=== PATIENT | female | born 1975 | race Caucasian/White ===

== ENCOUNTER 2017-07-18 17:28 | Inpatient (IN) ==
[2017-07-18] MEDS ORDERED: Levofloxacin 750 MG/150 ML 750 MG/150 ML BAG IVPB ONE (19:46)
[2017-07-18] MEDS ORDERED: 0.9 % Sodium Chloride 1,000 ML IVC ONE (19:52)
[2017-07-18] MEDS ORDERED: Ipratropium/Albuterol Neb 3 ML IH ONE (20:11)
[2017-07-18] MEDS ORDERED: methylPREDNISolone 125 MG/2 ML VIAL IVP ONE (20:11)
[2017-07-18 20:13] LABS: Basophils % 0.3 %; Eosinophils % 0.5 %; Hematocrit 37.8 % (35.3-44.9); Hemoglobin 11.9 g/dL (11.5-15.4); Immature Granulocytes % 0.3 % (0-4); Lymphocytes # 1.2 K/mcL (0.6-4.6); Lymphocytes % 15.8 %; Mean Corpuscular HGB Conc 31.5 g/dL (31.6-35.5); Mean Corpuscular Volume 92.2 fL (83.0-100.0); Mean Platelet Volume 12.2 fL (9.4-12.4); Monocytes # 0.5 K/mcL (0.0-1.3); Monocytes % 6.3 %; Neutrophils # 5.9 K/mcL (1.6-8.9); Platelet Count 155 K/mcL (140-400); Red Cell Distribution Width 14.5 % (11.5-14.5); Segmented Neutrophils % 76.8 %
[2017-07-18 20:17] LABS: Prothrombin Time 11.1 Seconds (9.4-12.1)
[2017-07-18 20:25] LABS: BUN/Creatinine Ratio 14 (6-26); Blood Urea Nitrogen 13 mg/dL (7-20); Calcium 8.1 mg/dL (8.6-10.8); Carbon Dioxide 25 mEq/L (19-29); Chloride 107 mEq/L (98-109); Glucose 80 mg/dL (70-99); Osmolality,Calculated 293 (280-300); Potassium 3.7 mEq/L (3.5-4.5); Sodium 142 mEq/L (136-145); eGFR For African Americans > 60 (> 60); eGFR For Non-African Americans > 60 (> 60)
[2017-07-18 20:26] LABS: Albumin 2.6 g/dL (3.5-5.0); Albumin/Globulin Ratio 0.7 (1.1-2.2); Bilirubin,Direct 0.3 mg/dL (0.0-0.5); Bilirubin,Indirect 0.5 mg/dL (0.0-1.2); Bilirubin,Total 0.8 mg/dL (0.2-1.2); Globulin 3.5 g/dL (2.4-3.5); Total Protein 6.1 g/dL (6.0-8.3)
[2017-07-18 20:33] LABS: Platelet Estimate Normal (Normal)
[2017-07-18] MEDS ORDERED: *HR* FentaNYL (PF) 100 MCG/2 ML VIAL IVP ONE (20:36)
[2017-07-18] MEDS ORDERED: *HR* FentaNYL (PF) 100 MCG/2 ML VIAL ONE (20:38)
[2017-07-18] MEDS ORDERED: Ondansetron 4 MG/2 ML VIAL IVP ONE (20:41)
--- NOTE | 2017-07-18 20:59 | Emergency Department Note ---
Disposition Clinical Impression: COPD exacerbation Pneumonia Qualifiers: Pneumonia type: due to unspecified organism Laterality: right Lung location: middle lobe of lung Qualified Code(s): J18.1 - Lobar pneumonia, unspecified organism Disposition: Admitted As Inpatient Condition: Good Referrals: Naresh Skinner MD [Primary Care Provider] - Forms: ED Satisfaction Letter Time of Disposition: 21:02 SOB HPI - General Chief Complaint: ED Shortness of Breath/Dyspnea Stated Complaint: PNEUMONIA Time Seen by Provider: 07/18/17 19:45 Source: patient Limitations: no limitations Nursing Notes Reviewed: Yes Vital Signs Reviewed: Yes - History of Present Illness 42 year old female wiht HX of lupus and fibromylagia states that she usually gets pnuemonia once a year. She states that she has COPD as well secondary to her lupus. PAtient states that for the past month she has had productive cough with fevers of tmax 102F at home in addition to chest pain and shortness of breath. she has seeked therapy from her PCP and tried to self treat at home with OTC mediations. She states that inthe past 24-48 hours she has developed vomitting when she coughs and feels increasingly more weak. She states that typically when this happens she gets admission for pneumonia. - Related Data Home Medications Medication Instructions Recorded Confirmed ALPRAZolam [Xanax 1 MG Tablet] 1 mg PO TID 07/10/16 09/25/16 Albuterol Sulfate [Proair Hfa] 2 puff IH Q4H PRN 07/10/16 09/25/16 Aspirin Enteric Coated [Aspirin EC] 81 mg PO DAILY 07/10/16 09/25/16 Budesonide/Formoterol 160/4.5 2 puff IH BIDR 07/10/16 09/25/16 [Symbicort 160/4.5] Carvedilol [Coreg] 25 mg PO BID 07/10/16 09/25/16 Fluticasone Propionate Nasal 50 mcg NS DAILY 07/10/16 09/25/16 [Flonase] Furosemide [Lasix] 40 mg PO BID 07/10/16 09/25/16 Montelukast [Singulair] 10 mg PO DAILY 07/10/16 09/25/16 Nitroglycerin [Nitrostat] 0.4 mg SL AD PRN 07/10/16 09/25/16 Omeprazole [PriLOSEC] 20 mg PO BIDAC 07/10/16 09/25/16 Oxycodone HCl/Acetaminophen 1 each PO TID 07/10/16 09/25/16 [Percocet 7.5-325 mg Tablet] Potassium Chloride [K-Tab ER] 20 meq PO DAILY 07/10/16 09/25/16 Ranitidine HCl [Zantac] 300 mg PO DAILY 07/10/16 09/25/16 Amlodipine Besylate 10 mg PO DAILY 09/19/16 09/25/16 Metoclopramide HCl 5 mg PO DAILY 09/19/16 09/25/16 Ondansetron [Zofran] 8 mg PO BID PRN 09/19/16 09/25/16 Previous Rx's Medication Instructions Recorded Levothyroxine [Synthroid] 112 mcg PO 0630 #10 tablet 07/13/16 Amoxicillin/Clavulanate [Augmentin] 875 mg PO BIDWM #20 tablet MDD 09/22/16 [id number], 09-22-16. GuaiFENesin ER [Mucinex] 600 mg PO BID PRN #20 tbbp.12hr 09/22/16 Oxygen 2 l IN CONT #1 each 09/22/16 hydroCHLOROthiazide 25 mg PO DAILY #30 tablet 09/27/16 [Hydrochlorothiazide] predniSONE [PredniSONE] 10 mg PO TAPER #30 tablet MDD 09/27/16 Started 09-22-16. Ondansetron [Zofran ODT] 8 mg SL Q4HR PRN #12 tab.rapdis 11/29/16 Ondansetron [Zofran ODT] 8 mg SL Q4HR PRN #6 tab.rapdis 04/10/17 Sulfamethoxazole/Trimeth DS 1 each PO DAILY #7 tablet 04/10/17 [Bactrim DS] Promethazine [Phenergan] 12.5 mg PO Q8HR PRN #10 tablet 05/16/17 Nitrofurantoin Monohyd/M-Cryst 100 mg PO BID 7 Days 05/27/17 [Macrobid 100 mg Capsule] Promethazine [Phenergan] 12.5 mg PO Q8HR #10 tablet 05/27/17 Allergies Allergy/AdvReac Type Severity Reaction Status Date / Time ketorolac [From Toradol] AdvReac Abdominal Verified 05/27/17 18:11 Pain NSAIDS (Non-Steroidal AdvReac Abdominal Verified 05/27/17 18:11 Anti-Inflamma Pain tramadol AdvReac Abdominal Verified 05/27/17 18:11 Pain pyridium AdvReac Abdominal Uncoded 04/10/17 17:12 Pain Constitutional: Reports: fever, chills, weakness. Denies: weight change Eyes: Denies: eye pain, eye discharge, vision change ENT ED: Denies: ear pain, throat pain, dental pain, hearing loss, epistaxis, congestion, dysphagia Cardiovascular: Reports: chest pain, palpitations, dyspnea on exertion. Denies : edema, syncope Respiratory: Reports: cough, dyspnea, wheezes. Denies: hemoptysis, stridor Gastrointestinal: Reports: nausea, vomiting. Denies: abdominal pain, diarrhea, constipation, hematemesis, melena, hematochezia Genitourinary: Denies: dysuria, frequency, hematuria, discharge Musculoskeletal: Denies: back pain, neck pain, arthralgia, myalgia Integumentary: Denies: rash, abrasion, lesions Neurological: Denies: headache, weakness, numbness, paresthesias, confusion, abnormal gait, vertigo Psychiatric: Denies: anxiety, depression, suicidal thoughts, homicidal thoughts , auditory hallucinations, visual hallucinations Endocrine: Denies: fatigue Hematological/Lymphatic: Denies: easy bleeding, easy bruising Allergic/Immunologic: Denies: facial swelling, urticaria Past Medical History - Past Medical History Medical history: Reports: asthma, COPD, DVT, fibromyalgia, GERD, GI bleed, hypertension, kidney stones, myocardial infarction, RA, thyroid disease, other Surgical history: Reports: cholecystectomy, hysterectomy Psychiatric history: Reports: anxiety 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 ACCOUNT INTERVIEWER history: Reports: no NEW ACCOUNT INTERVIEWER history - Social History Smoking Status: Never smoker Smokeless Tobacco Status: No Alcohol use: Reports: none Drug use: Reports: none Physical Exam - General Limitations: no limitations General appearance: alert - Head Head exam: atraumatic, normocephalic, normal inspection - Eye Eye exam: Present: normal appearance, PERRL, EOMI - Expanded Eye Exam Pupils: Left: reactive - ENT ENT exam: normal exam, normal oropharynx, mucous membranes moist - Expanded ENT Exam External ear exam: Present: normal external inspection Mouth exam: Present: normal external inspection Teeth exam: Present: normal inspection Throat exam: Present: normal inspection - Neck Neck exam: Present: normal inspection, full ROM, trachea midline - Chest Chest inspection: Present: normal inspection, symmetric chest wall rise - Respiratory Respiratory exam: Present: normal lung sounds bilaterally - Cardiovascular Cardiovascular exam: Present: regular rate, normal rhythm, normal heart sounds - Abdominal Exam Abdominal exam: Present: soft, Non-Tender. Absent: tenderness, distention, guarding, rebound, rigidity - Extremities Exam Extremities exam: Present: normal inspection, full ROM. Absent: tenderness, pedal edema - Expanded Upper Extremity Exam Shoulder exam: Present: normal inspection, full ROM Arm exam: Present: normal inspection, full ROM Elbow exam: Present: normal inspection, full ROM Forearm/Wrist exam: Present: normal inspection, full ROM Hand exam: Present: normal inspection, full ROM Vascular exam: Normal: capillary refill, radial pulse - Expanded Lower Extremity Exam Hip/Pelvis exam: Present: normal inspection, full ROM Upper leg exam: Present: normal inspection, full ROM Knee exam: Present: normal inspection, full ROM Lower leg exam: Present: normal inspection, full ROM Ankle exam: Present: normal inspection, full ROM Foot/toe exam: Present: normal inspection, full ROM Neurovascular/Tendon exam: Absent: motor deficit, sensory deficit, tendon deficit - Back Exam Back exam: Present: normal inspection, full ROM. Absent: tenderness - Neurological Exam Neurological exam: Present: alert, oriented X3 - Expanded Neurological Exam Patient oriented to: Present: person, place, time Coma Scale Eye Opening: Spontaneous Coma Scale Motor Response: Obeys Commands Coma Scale Verbal Response: Oriented Coma Scale Total: 15 - Psychiatric Psychiatric exam: Present: normal affect, normal mood - Skin Skin exam: Present: warm, dry, intact, normal color Course Course Narrative: we will do a focused sepsis workup. CXR shows pnuemonia, we will start levaquin for therapy. - Consultations Consultation #1: discussed case with Dr Madhu Hamilton and he accepts patient to his service. Reuben is agreeable to plan. Time: 21:02 Vital Signs Temperature 98.1 F 07/18/17 17:36 Pulse Rate 88 07/18/17 17:36 Respiratory Rate 18 07/18/17 17:36 Blood Pressure 138/93 07/18/17 17:36 O2 Sat by Pulse Oximetry 94 07/18/17 17:36 Temperature 98.1 F 07/18/17 17:36 Pulse Rate 89 07/18/17 20:33 Respiratory Rate 20 07/18/17 20:33 Blood Pressure 132/88 07/18/17 20:33 O2 Sat by Pulse Oximetry 98 07/18/17 20:33 Oxygen Delivery Oxygen Delivery Room Air Shortness of Breath/Dyspnea - Lab Data Result diagrams: 07/18/17 20:04 07/18/17 20:04 Lab Results 07/18/17 07/18/17 07/18/17 Range/Units 20:04 20:04 20:04 WBC 7.7 (4.3-11.1) K/mcL RBC 4.10 (3.82-4.97) M/mcL Hgb 11.9 (11.5-15.4) g/dL Hct 37.8 (35.3-44.9) % MCV 92.2 (83.0-100.0) fL MCH 29.0 (28.0-33.3) pg MCHC 31.5 L (31.6-35.5) g/dL RDW 14.5 (11.5-14.5) % Plt Count 155 (140-400) K/mcL MPV 12.2 (9.4-12.4) fL Immature Gran % 0.3 (0-4) % Seg Neutrophils % 76.8 % Lymphocytes % 15.8 % Monocytes % 6.3 % Eosinophils % 0.5 % Basophils % 0.3 % Neutrophils # 5.9 (1.6-8.9) K/mcL Lymphocytes # 1.2 (0.6-4.6) K/mcL Monocytes # 0.5 (0.0-1.3) K/mcL Eosinophils # 0.0 (0.0-0.6) K/mcL Basophils # 0.0 (0.0-0.2) K/mcL Platelet Estimate Normal (Normal) PT (9.4-12.1) Seconds INR APTT (26.0-36.0) Seconds Sodium 142 (136-145) mEq/L Potassium 3.7 (3.5-4.5) mEq/L Chloride 107 (98-109) mEq/L Carbon Dioxide 25 (19-29) mEq/L BUN 13 (7-20) mg/dL Creatinine 0.92 (0.57-1.11) mg/dL Est GFR ( Amer) > 60 (> 60) Est GFR (Non-Af Amer) > 60 (> 60) BUN/Creatinine Ratio 14 (6-26) Glucose 80 (70-99) mg/dL Calculated Osmolality 293 (280-300) Lactic Acid (0.5-2.2) mmol/L Calcium 8.1 L (8.6-10.8) mg/dL Total Bilirubin (0.2-1.2) mg/dL Direct Bilirubin (0.0-0.5) mg/dL Indirect Bilirubin (0.0-1.2) mg/dL AST (5-34) Units/L ALT (0-55) Units/L Alkaline Phosphatase (38-126) Units/L Troponin I (0-0.03) ng/mL B-Natriuretic Peptide 75 (0-100) pg/mL Serum Total Protein (6.0-8.3) g/dL Albumin (3.5-5.0) g/dL Globulin (2.4-3.5) g/dL Albumin/Globulin Ratio (1.1-2.2) Lipase (8-78) Units/L 07/18/17 07/18/17 07/18/17 Range/Units 20:04 20:04 20:04 WBC (4.3-11.1) K/mcL RBC (3.82-4.97) M/mcL Hgb (11.5-15.4) g/dL Hct (35.3-44.9) % MCV (83.0-100.0) fL MCH (28.0-33.3) pg MCHC (31.6-35.5) g/dL RDW (11.5-14.5) % Plt Count (140-400) K/mcL MPV (9.4-12.4) fL Immature Gran % (0-4) % Seg Neutrophils % % Lymphocytes % % Monocytes % % Eosinophils % % Basophils % % Neutrophils # (1.6-8.9) K/mcL Lymphocytes # (0.6-4.6) K/mcL Monocytes # (0.0-1.3) K/mcL Eosinophils # (0.0-0.6) K/mcL Basophils # (0.0-0.2) K/mcL Platelet Estimate (Normal) PT 11.1 (9.4-12.1) Seconds INR 1.0 APTT 44.0 H (26.0-36.0) Seconds Sodium (136-145) mEq/L Potassium (3.5-4.5) mEq/L Chloride (98-109) mEq/L Carbon Dioxide (19-29) mEq/L BUN (7-20) mg/dL Creatinine (0.57-1.11) mg/dL Est GFR ( Amer) (> 60) Est GFR (Non-Af Amer) (> 60) BUN/Creatinine Ratio (6-26) Glucose (70-99) mg/dL Calculated Osmolality (280-300) Lactic Acid 0.6 (0.5-2.2) mmol/L Calcium (8.6-10.8) mg/dL Total Bilirubin 0.8 (0.2-1.2) mg/dL Direct Bilirubin 0.3 (0.0-0.5) mg/dL Indirect Bilirubin 0.5 (0.0-1.2) mg/dL AST 17 (5-34) Units/L ALT 8 (0-55) Units/L Alkaline Phosphatase 64 (38-126) Units/L Troponin I (0-0.03) ng/mL B-Natriuretic Peptide (0-100) pg/mL Serum Total Protein 6.1 (6.0-8.3) g/dL Albumin 2.6 L (3.5-5.0) g/dL Globulin 3.5 (2.4-3.5) g/dL Albumin/Globulin Ratio 0.7 L (1.1-2.2) Lipase (8-78) Units/L 07/18/17 07/18/17 Range/Units 20:04 20:04 WBC (4.3-11.1) K/mcL RBC (3.82-4.97) M/mcL Hgb (11.5-15.4) g/dL Hct (35.3-44.9) % MCV (83.0-100.0) fL MCH (28.0-33.3) pg MCHC (31.6-35.5) g/dL RDW (11.5-14.5) % Plt Count (140-400) K/mcL MPV (9.4-12.4) fL Immature Gran % (0-4) % Seg Neutrophils % % Lymphocytes % % Monocytes % % Eosinophils % % Basophils % % Neutrophils # (1.6-8.9) K/mcL Lymphocytes # (0.6-4.6) K/mcL Monocytes # (0.0-1.3) K/mcL Eosinophils # (0.0-0.6) K/mcL Basophils # (0.0-0.2) K/mcL Platelet Estimate (Normal) PT (9.4-12.1) Seconds INR APTT (26.0-36.0) Seconds Sodium (136-145) mEq/L Potassium (3.5-4.5) mEq/L Chloride (98-109) mEq/L Carbon Dioxide (19-29) mEq/L BUN (7-20) mg/dL Creatinine (0.57-1.11) mg/dL Est GFR ( Amer) (> 60) Est GFR (Non-Af Amer) (> 60) BUN/Creatinine Ratio (6-26) Glucose (70-99) mg/dL Calculated Osmolality (280-300) Lactic Acid (0.5-2.2) mmol/L Calcium (8.6-10.8) mg/dL Total Bilirubin (0.2-1.2) mg/dL Direct Bilirubin (0.0-0.5) mg/dL Indirect Bilirubin (0.0-1.2) mg/dL AST (5-34) Units/L ALT (0-55) Units/L Alkaline Phosphatase (38-126) Units/L Troponin I 0.01 (0-0.03) ng/mL B-Natriuretic Peptide (0-100) pg/mL Serum Total Protein (6.0-8.3) g/dL Albumin (3.5-5.0) g/dL Globulin (2.4-3.5) g/dL Albumin/Globulin Ratio (1.1-2.2) Lipase 12 (8-78) Units/L
[2017-07-18] MEDS ORDERED: Ondansetron 4 MG/2 ML VIAL IVP PRN (23:08)
[2017-07-18] MEDS ORDERED: Acetaminophen 325 MG TABLET PO PRN (23:08)
[2017-07-18] MEDS ORDERED: Naloxone 0.4 MG/ML INJ IVP PRN (23:08)
[2017-07-18] MEDS ORDERED: Nitroglycerin 0.4 MG TAB.SUBL SL PRN (23:12)
[2017-07-18] MEDS ORDERED: NON-FORMULARY MEDICATION 1 EACH EACH (Oxygen [Oxygen] 2 L) NS SCH (23:15)
--- NOTE | 2017-07-18 23:16 | Internal Med History&Physical ---
Date of Encounter: 07/19/17 Time of Encounter: 23:00 Assessment and Plan (1) Pneumonia Current visit: Yes Status: Acute Right middle lobe pneumonia - present on admission Continue IV Levaquin, DuoNeb breathing treatment Cultures - pending Chest x-ray - hazy opacities in the right middle lobe and lingula Troponin - negative BN peptide - 75 Cardiac telemetry, continue to monitor closely, repeat labs in a.m. Qualifiers: Pneumonia type: due to unspecified organism Laterality: right Lung location: middle lobe of lung Qualified Code(s): J18.1 - Lobar pneumonia, unspecified organism (2) COPD (chronic obstructive pulmonary disease) Current visit: No Status: Acute Acute exacerbation of chronic COPD Continue IV antibiotics, DuoNeb breathing treatment, O2 via nasal cannula, IV soy Medrol Cultures - pending Cardiac telemetry, pulse ox, continue to monitor closely Qualifiers: COPD type: chronic bronchitis Chronic bronchitis type: simple Qualified Code(s): J41.0 - Simple chronic bronchitis (3) Lupus Current visit: No Status: Chronic Systemic lupus erythematosus with lupus nephritis - no flareup at this time Patient follows up with rheumatology and PCP She will need to establish care with nephrology Qualifiers: Systemic lupus erythematosus type: unspecified Systemic lupus erythematosus organ involvement: unspecified Qualified Code(s): M32.9 - Systemic lupus erythematosus, unspecified (4) DVT prophylaxis Current visit: Yes Status: Acute Continue heparin subcutaneous Internal Medicine - H&P: HPI Chief complaint: Shortness of breath Admitted From: Emergency Dept Plans for Post Hospital Care: Home History of present illness: Ms. Chowdary is a 42 year old female with past medical history of lupus, rheumatoid arthritis, fibromyalgia, lupus nephritis, COPD, DVT, history of GI bleed, thyroid disease and history of anxiety. Patient presents to ED with complaint of shortness of breath. Examined in the room. Patient is awake and alert. Not in any distress. Able to provide all history. No family members at bedside. Patient states she developed shortness of breath and mild chest pain about one month ago. Symptoms gradually worsened over the past week. Patient states today it was worse, and she has productive cough. She also complains of subjective fevers. Patient thinks she may have pneumonia. Initial workup in the ED reveals right middle lobe opacities, likely pneumonia. No other significant findings. Patient is being admitted for pneumonia and COPD. She will need IV antibiotics and breathing treatment. CODE STATUS full code. Past Med Surg Social Fam HX - Past Medical History Medical history: asthma, COPD, DVT, fibromyalgia, GERD, GI bleed, hypertension, kidney stones, myocardial infarction, RA, thyroid disease, other Psychiatric history: anxiety - Past Surgical History Surgical History: cholecystectomy, hysterectomy - Social History Smoking Status: Never smoker Smokeless Tobacco Status: No Alcohol use: none Drug use: none - Family History Mother Living Status: Hx Family Cardiac Disorders: Yes (mi) Father Living Status: Hx Family Cardiac Disorders: Yes Hx Family Endocrine Disorder: Yes Internal Medicine - H&P: Meds Albuterol Sulfate [Proair Hfa] 2 puff IH Q4H PRN 07/10/16 [History] Aspirin Enteric Coated [Aspirin EC] 81 mg PO DAILY 07/10/16 [History] Carvedilol [Coreg] 25 mg PO BID 07/10/16 [History] Fluticasone Propionate Nasal [Flonase] 50 mcg NS DAILY 07/10/16 [History] Furosemide [Lasix] 40 mg PO BID 07/10/16 [History] Montelukast [Singulair] 10 mg PO DAILY 07/10/16 [History] Nitroglycerin [Nitrostat] 0.4 mg SL Q5M PRN 07/10/16 [History] Omeprazole [PriLOSEC] 20 mg PO BIDAC 07/10/16 [History] Oxycodone HCl/Acetaminophen [Percocet 7.5-325 mg Tablet] 1 each PO TID PRN 07/10 [History] Potassium Chloride [K-Tab ER] 20 meq PO DAILY 07/10/16 [History] Ranitidine HCl [Zantac] 300 mg PO HS 07/10/16 [History] Levothyroxine [Synthroid] 112 mcg PO 0630 #10 tablet 07/13/16 [Rx] Amlodipine Besylate 10 mg PO DAILY 09/19/16 [History] Metoclopramide HCl 5 mg PO DAILY 09/19/16 [History] Ondansetron [Zofran] 8 mg PO BID PRN 09/19/16 [History] Alprazolam [Xanax] 2 mg PO BID 07/18/17 [History] Citalopram Hydrobromide [Celexa] 40 mg PO DAILY 07/18/17 [History] Cyanocobalamin (Vitamin B-12) [Vitamin B12] 2,000 mcg PO DAILY 07/18/17 [History ] Ipratropium/Albuterol Neb [Duoneb] 3 ml IH Q6H PRN 07/18/17 [History] Lisinopril/Hydrochlorothiazide [Zestoretic 20-25 mg Tablet] 1 each PO BID [History] Mometasone/Formoterol [Dulera 200 Mcg/5 Mcg Inhaler] 1 puff IH BID 07/18/17 [ History] Oxygen 2 l NS AD 07/18/17 [History] 3 Allergy/AdvReac Type Severity Reaction Status Date / Time ketorolac [From Toradol] AdvReac Abdominal Verified 05/27/17 18:11 Pain NSAIDS (Non-Steroidal AdvReac Abdominal Verified 05/27/17 18:11 Anti-Inflamma Pain tramadol AdvReac Abdominal Verified 05/27/17 18:11 Pain pyridium AdvReac Abdominal Uncoded 04/10/17 17:12 Pain All Systems PM: A 10-system review of systems was performed and is negative for pertinent findings except as documented above in the HPI. - Constitutional Constitutional: fatigue, fever(s), weakness - EENT Eyes: no blurry vision - Cardiovascular Cardiovascular ROS IM: chest pain, dyspnea, dyspnea on exertion, no diaphoresis , no edema, no lightheadedness, no orthopnea, no syncope - Respiratory Respiratory: cough, dyspnea, dyspnea on exertion, wheezing, chest congestion - Gastrointestinal Gastrointestinal: no abdominal pain, no belching, no diarrhea, no hematemesis, no hematochezia, no nausea, no vomiting - Genitourinary Genitourinary: no dysuria - Musculoskeletal Musculoskeletal ROS IM: no back pain - Neurological Neurological ROS: no abnormal gait, no confusion, no dizziness, no loss of vision, no numbness, no tingling - Constitutional Vitals: Temp Pulse Resp BP Pulse Ox 97.6 F 87 16 160/81 99 07/18/17 21:51 07/18/17 21:51 07/18/17 21:51 07/18/17 21:51 07/18/17 21:51 General appearance: Present: A&O X 3, pleasant, no acute distress, answers questions appropriately - Head Head exam: Present: atraumatic - Eye Eye exam: Present: EOMI - ENT ENT exam: Present: mucous membranes moist - Respiratory Respiratory exam: Present: rhonchi (I will bilateral), wheezes (Mild bilateral) . Absent: accessory muscle use, chest wall tenderness, rales, tachypnea - Cardiovascular Cardiovascular exam: Present: RRR, +S1, +S2 - GI/Abdominal GI/Abdominal exam: Present: soft. Absent: distended, firm, guarding, tenderness - Extremities Exam Extremities exam: Present: radial pulses palpable and symmetrical. Absent: calf tenderness, cyanotic, pedal edema - Neurological Exam Neurological exam: Present: alert, oriented X3, no focal deficits. Absent: facial droop, speech deficit Internal Med - H&P Results - Labs CBC & Chem 7: 07/18/17 20:04 07/18/17 20:04
[2017-07-18] MEDS: *HR* Heparin 5,000 UNIT/ML VIAL SQ SCH (23:26)
[2017-07-18] MEDS: *HR* Morphine 2 MG/ML SYRINGE IVP PRN (23:26)
[2017-07-18] MEDS: Furosemide 40 MG TABLET PO SCH (23:27)
[2017-07-18] MEDS: Ipratropium/Albuterol Neb 3 ML IH SCH (23:53)
[2017-07-19] MEDS: ALPRAZolam 1 MG TABLET PO PRN ×2 (00:23→11:23)
[2017-07-19] MEDS: methylPREDNISolone 125 MG/2 ML VIAL IVP SCH ×3 (00:23→20:53)
[2017-07-19] MEDS: *HR* Morphine 2 MG/ML SYRINGE IVP PRN ×5 (03:45→20:54)
[2017-07-19] MEDS ORDERED: Ipratropium/Albuterol Neb 3 ML IH SCH (04:00)
[2017-07-19 04:13] LABS: Hemoglobin 11.3 g/dL (11.5-15.4); Mean Corpuscular HGB Conc 32.3 g/dL (31.6-35.5); Mean Corpuscular Volume 92.8 fL (83.0-100.0); Platelet Count 130 K/mcL (140-400); Red Blood Count 3.77 M/mcL (3.82-4.97); Red Cell Distribution Width 14.4 % (11.5-14.5)
[2017-07-19 04:26] LABS: Bilirubin,Urine Negative (Negative); Blood,Urine Moderate (Negative); Clarity,Urine Clear (Clear); Color,Urine Yellow (Yellow); Glucose,Urine (UA) Normal (Normal); Ketones,Urine Negative (Negative); Leukocyte Esterase,Urine Negative (Negative); Nitrite,Urine Negative (Negative); PH,Urine 5.5 pH Units (5.0-8.0); Protein,Urine >=300 mg/dL (Neg-Trace); Specific Gravity,Urine 1.018 (1.010-1.025); Urobilinogen,Urine Normal (Normal)
[2017-07-19 04:27] LABS: Squamous Epithelial Cell,Urine Many per lpf (None-Few); WBC,Urine 15-30 per hpf (0-3)
[2017-07-19 04:31] LABS: BUN/Creatinine Ratio 17 (6-26); Blood Urea Nitrogen 14 mg/dL (7-20); Calcium 7.8 mg/dL (8.6-10.8); Carbon Dioxide 25 mEq/L (19-29); Chloride 110 mEq/L (98-109); Glucose 201 mg/dL (70-99); Magnesium 1.7 mg/dL (1.6-2.6); Osmolality,Calculated 302 (280-300); Potassium 3.8 mEq/L (3.5-4.5); Sodium 143 mEq/L (136-145); eGFR For African Americans > 60 (> 60); eGFR For Non-African Americans > 60 (> 60)
[2017-07-19 04:34] LABS: Hyaline Casts,Urine Many per lpf (None-Few)
[2017-07-19 04:39] LABS: Granular Casts,Urine Few per lpf (None Seen)
[2017-07-19 04:43] LABS: Bacteria,Urine Few per hpf (None-Few); Fatty Casts,Urine Few per lpf (None Seen)
[2017-07-19] MEDS ORDERED: *HR* Dextrose 50 % in Water (Syg) 50 ML SYRINGE IVP PRN (05:21)
[2017-07-19] MEDS ORDERED: Dextrose Gel 15 GM PO PRN ×2 (05:21)
[2017-07-19] MEDS ORDERED: D5% in Water 1,000 ML IVC PRN (05:21)
[2017-07-19 05:32] LABS: Large Platelets Present (Not Present); Lymphocytes # 0.4 K/mcL (0.6-4.6); Monocytes # 0.1 K/mcL (0.0-1.3); Neutrophils # 4.2 K/mcL (1.6-8.9); Platelet Estimate Normal (Normal)
[2017-07-19] MEDS: Famotidine 20 MG/2 ML VIAL IVP SCH ×2 (05:40→16:41)
[2017-07-19] MEDS: Ipratropium/Albuterol Neb 3 ML IH SCH ×6 (05:46→23:30)
[2017-07-19] MEDS: *HR* Heparin 5,000 UNIT/ML VIAL SQ SCH ×3 (07:58→23:59)
[2017-07-19] MEDS: Levofloxacin 750 MG/150 ML 750 MG/150 ML BAG IVPB SCH (07:58)
[2017-07-19] MEDS: Furosemide 40 MG TABLET PO SCH (08:00)
[2017-07-19] MEDS: Cyanocobalamin (B-12) 1,000 MCG TABLET PO SCH (08:01)
[2017-07-19] MEDS: Aspirin Enteric Coated 81 MG Tablet PO SCH (08:01)
[2017-07-19] MEDS: amLODIPine 5 MG TABLET PO SCH (08:01)
[2017-07-19] MEDS: Insulin LISPRO 300 UNITS/3 ML VIAL SQ SCH ×4 (08:20→21:30)
--- NOTE | 2017-07-19 10:53 | Internal Med Progress Note ---
Date of Encounter: 07/19/17 Time of Encounter: 10:51 - Assessment and plan (1) Acute exacerbation of chronic obstructive airways disease Current Visit: No Status: Acute Assessment and plan: Likely secondary to underlying PNA will continue systemic steroids, IV abx, bronchodilator support O2 supplementation monitor O2 sat, goal O2 sat: 89-92% Mucinex prn will closely monitor respiratory status (2) Pneumonia Current Visit: Yes Status: Acute Assessment and plan: will continue IV abx f/U blood cultures Qualifiers: Pneumonia type: due to unspecified organism Laterality: right Lung location: middle lobe of lung Qualified Code(s): J18.1 - Lobar pneumonia, unspecified organism (3) Abdominal pain Current Visit: Yes Status: Acute Assessment and plan: will obtain CT abd/pelvis supportive care Zofran prn n/v Qualifiers: Abdominal location: right lower quadrant Qualified Code(s): R10.31 - Right lower quadrant pain (4) Lupus Current Visit: No Status: Chronic Qualifiers: Systemic lupus erythematosus type: unspecified Systemic lupus erythematosus organ involvement: unspecified Qualified Code(s): M32.9 - Systemic lupus erythematosus, unspecified (5) Chronic pain Current Visit: No Status: Chronic Assessment and plan: continue home medications Qualifiers: Chronic pain type: chronic pain syndrome Qualified Code(s): G89.4 - Chronic pain syndrome (6) DVT prophylaxis Current Visit: Yes Status: Acute Assessment and plan: Heparin SQ - Subjective Interval history: Patient seen and examined at bedside. Resting in bed and currently saturating well on nasal cannula. Reports of feeling the same as yesterday. States she has worsening right lower quadrant abd pain. Complains of productive cough and nausea. - Constitutional Vitals: Temp Pulse Resp BP Pulse Ox 97.6 F 67 18 131/80 95 07/19/17 06:42 07/19/17 06:42 07/19/17 08:36 07/19/17 06:42 07/19/17 08:36 General appearance: Present: A&O X 3, pleasant, no acute distress, answers questions appropriately - Head Head exam: Present: atraumatic, normocephalic - Eye Eye exam: Present: conjuntiva pink, sclera anicteric - Respiratory Respiratory exam: Absent: respiratory distress, wheezes (decreased breath sounds ) - Cardiovascular Cardiovascular exam: Present: RRR, +S1, +S2. Absent: diastolic murmur, gallop, rubs, systolic murmur - GI/Abdominal GI/Abdominal exam: Present: normal bowel sounds, soft, tenderness (RLQ tenderness to palpation), no peritoneal signs. Absent: distended, rebound - Extremities Exam Extremities exam: Present: warm, radial pulses palpable and symmetrical. Absent : calf tenderness, cyanotic, pedal edema - Neurological Exam Neurological exam: Present: alert, oriented X3 - Psychiatric Psychiatric exam: Present: normal affect, normal mood Internal Medicine: Result - Labs CBC & Chem 7: 07/19/17 03:30 07/19/17 03:30 Labs: Short CBC 07/19/17 Range/Units 03:30 WBC 4.7 (4.3-11.1) K/mcL Hgb 11.3 L (11.5-15.4) g/dL Hct 35.0 L (35.3-44.9) % Plt Count 130 L (140-400) K/mcL Neutrophils # 4.2 (1.6-8.9) K/mcL BMP 07/19/17 03:30 Sodium 143 Potassium 3.8 Chloride 110 H Carbon Dioxide 25 BUN 14 Creatinine 0.82 Glucose 201 H Calcium 7.8 L Cardiac Enzymes 07/18/17 07/19/17 Range/Units 23:15 03:50 Troponin I 0.00 0.00 (0-0.03) ng/mL Urine 07/19/17 Range/Units 04:00 Urine Color Yellow (Yellow) Urine Clarity Clear (Clear) Urine pH 5.5 (5.0-8.0) pH Units Ur Specific [place] 1.018 (1.010-1.025) Urine Protein >=300 H (Neg-Trace) mg/dL Urine Glucose (UA) Normal (Normal) mg/dL - ABG Interpretation ABG results: PT/INR, D-dimer PT 11.1 Seconds (9.4-12.1) 07/18/17 20:04 Consult Discharge Plan - Plan Referrals: Naresh Skinner MD [Primary Care Provider] -
[2017-07-19] MEDS: *HR* OxyCODONE/APAP 7.5/325 TABLET PO PRN ×3 (11:23→23:59)
[2017-07-19] MEDS: Ondansetron 4 MG/2 ML VIAL IVP PRN ×2 (16:41→23:59)
[2017-07-19] MEDS ORDERED: Furosemide 40 MG TABLET PO SCH (17:00)
[2017-07-20] MEDS: *HR* Morphine 2 MG/ML SYRINGE IVP PRN ×4 (03:12→23:37)
[2017-07-20] MEDS: ALPRAZolam 1 MG TABLET PO PRN ×2 (03:12→21:28)
[2017-07-20] MEDS: Ipratropium/Albuterol Neb 3 ML IH SCH ×5 (03:55→20:17)
[2017-07-20 04:29] LABS: Basophils % 0.1 %; Hematocrit 34.4 % (35.3-44.9); Hemoglobin 10.9 g/dL (11.5-15.4); Immature Granulocytes % 0.5 % (0-4); Lymphocytes # 0.6 K/mcL (0.6-4.6); Lymphocytes % 7.3 %; Mean Corpuscular HGB Conc 31.7 g/dL (31.6-35.5); Mean Corpuscular Hemoglobin 29.9 pg (28.0-33.3); Mean Corpuscular Volume 94.2 fL (83.0-100.0); Mean Platelet Volume 12.2 fL (9.4-12.4); Monocytes # 0.3 K/mcL (0.0-1.3); Monocytes % 3.2 %; Platelet Count 172 K/mcL (140-400); Red Blood Count 3.65 M/mcL (3.82-4.97); Red Cell Distribution Width 14.3 % (11.5-14.5); Segmented Neutrophils % 88.9 %
[2017-07-20 04:31] LABS: Neutrophils # 7.4 K/mcL (1.6-8.9)
[2017-07-20 04:46] LABS: Calcium 8.4 mg/dL (8.6-10.8); Magnesium 1.7 mg/dL (1.6-2.6); Phosphorous 3.1 mg/dL (2.3-4.7); Potassium 4.7 mEq/L (3.5-4.5)
[2017-07-20] MEDS: Famotidine 20 MG/2 ML VIAL IVP SCH (06:08)
[2017-07-20] MEDS: *HR* OxyCODONE/APAP 7.5/325 TABLET PO PRN (06:14)
[2017-07-20] MEDS: methylPREDNISolone 125 MG/2 ML VIAL IVP SCH ×2 (08:11→21:28)
[2017-07-20] MEDS: *HR* Heparin 5,000 UNIT/ML VIAL SQ SCH ×3 (08:12→23:37)
[2017-07-20] MEDS: Insulin LISPRO 300 UNITS/3 ML VIAL SQ SCH ×4 (08:12→21:26)
[2017-07-20] MEDS: Aspirin Enteric Coated 81 MG Tablet PO SCH (08:13)
[2017-07-20] MEDS: Cyanocobalamin (B-12) 1,000 MCG TABLET PO SCH (08:13)
[2017-07-20] MEDS: amLODIPine 5 MG TABLET PO SCH (08:13)
[2017-07-20] MEDS: Levofloxacin 750 MG/150 ML 750 MG/150 ML BAG IVPB SCH (08:15)
--- NOTE | 2017-07-20 09:41 | Internal Med Progress Note ---
Date of Encounter: 07/20/17 Time of Encounter: 09:32 - Assessment and plan (1) Acute exacerbation of chronic obstructive airways disease Current Visit: No Status: Acute Assessment and plan: Likely secondary to underlying PNA will continue systemic steroids, IV abx, bronchodilator support O2 supplementation monitor O2 sat, goal O2 sat: 89-92% Guaifenesin prn cough will closely monitor respiratory status (2) Pneumonia Current Visit: Yes Status: Acute Assessment and plan: will continue IV abx f/U blood cultures Qualifiers: Pneumonia type: due to unspecified organism Laterality: right Lung location: middle lobe of lung Qualified Code(s): J18.1 - Lobar pneumonia, unspecified organism (3) Abdominal pain Current Visit: Yes Status: Resolved Assessment and plan: CT abd/pelvis noted resolution of abd pain at this time Qualifiers: Abdominal location: right lower quadrant Qualified Code(s): R10.31 - Right lower quadrant pain (4) Lupus Current Visit: No Status: Chronic Qualifiers: Systemic lupus erythematosus type: unspecified Systemic lupus erythematosus organ involvement: unspecified Qualified Code(s): M32.9 - Systemic lupus erythematosus, unspecified (5) Chronic pain Current Visit: No Status: Chronic Assessment and plan: continue home medications Qualifiers: Chronic pain type: chronic pain syndrome Qualified Code(s): G89.4 - Chronic pain syndrome (6) DVT prophylaxis Current Visit: Yes Status: Acute Assessment and plan: Heparin SQ (7) MARTI (acute kidney injury) Current Visit: Yes Status: Acute Assessment and plan: Will hold Lasix at this time avoid nephrotoxic agents closely monitor renal function (8) Proteinuria Current Visit: Yes Status: Acute Assessment and plan: Nephrology consultation requested Qualifiers: Proteinuria type: unspecified Qualified Code(s): R80.9 - Proteinuria, unspecified - Subjective Interval history: Patient seen and examined at bedside. Sitting in chair and reports of feeling better compared to the previous day. Reports of improvement in her cough from previous day. Noted to have proteinuria with mild MARTI. Pt states her PCP has told her that she needs to see a wave soldering machine operator but she has yet to see one. Patient does not know why she is on Lasix, no history of CHF. - Constitutional Vitals: Temp Pulse Resp BP Pulse Ox 97.5 F L 55 18 115/68 96 07/20/17 06:26 07/20/17 06:26 07/20/17 06:26 07/20/17 06:26 07/20/17 06:26 General appearance: Present: A&O X 3, pleasant, no acute distress, answers questions appropriately - Head Head exam: Present: atraumatic, normocephalic - Eye Eye exam: Present: conjuntiva pink, sclera anicteric - Respiratory Respiratory exam: Present: decreased breath sounds. Absent: respiratory distress, wheezes - Cardiovascular Cardiovascular exam: Present: bradycardia, +S1, +S2. Absent: diastolic murmur, gallop, rubs, systolic murmur - GI/Abdominal GI/Abdominal exam: Present: normal bowel sounds, soft, no peritoneal signs. Absent: distended, tenderness - Extremities Exam Extremities exam: Present: warm, radial pulses palpable and symmetrical. Absent : calf tenderness - Neurological Exam Neurological exam: Present: alert, oriented X3 - Psychiatric Psychiatric exam: Present: normal affect, normal mood Internal Medicine: Result - Labs CBC & Chem 7: 07/20/17 04:05 07/20/17 04:05 Labs: Short CBC 07/20/17 Range/Units 04:05 WBC 8.3 D (4.3-11.1) K/mcL Hgb 10.9 L (11.5-15.4) g/dL Hct 34.4 L (35.3-44.9) % Plt Count 172 (140-400) K/mcL Neutrophils # 7.4 (1.6-8.9) K/mcL BMP 07/20/17 04:05 Sodium 139 Potassium 4.7 H Chloride 106 Carbon Dioxide 26 BUN 33 H D Creatinine 1.32 H D Glucose 171 H Calcium 8.4 L Cardiac Enzymes 07/19/17 Range/Units 11:50 Troponin I 0.00 (0-0.03) ng/mL - ABG Interpretation ABG results: PT/INR, D-dimer PT 11.1 Seconds (9.4-12.1) 07/18/17 20:04 - Impressions Impressions Abdomen/Pelvis CT 07/19/17 10:35 IMPRESSION: 1. No acute abdominopelvic process demonstrated 2. New airspace disease in the right middle lobe has the appearance of pneumonia D/ / Mian Huff MD / Mian Huff MD Interpreting Provider: Mian Huff MD Consult Discharge Plan - Plan Referrals: Naresh Skinner MD [Primary Care Provider] -
[2017-07-20 10:08] LABS: Hemoglobin A1C 5.4 %
[2017-07-20 15:25] LABS: Protein/Creatinine Ratio,Urine 0.47 mg/mg (0-0.20)
--- NOTE | 2017-07-20 15:31 | Nephrology Consult Note ---
Date of Encounter: 07/20/17 Time of Encounter: 15:16 Assessment and Plan (1) MARTI (acute kidney injury) Current Visit: Yes Status: Acute The patient has acute kidney injury of unclear etiology. She denies nausea vomiting or diarrhea. With this recent rise in urinary protein excretion and ongoing hematuria along with her rash I am concerned about lupus involvement in the kidney. I will initiate fluid and order a workup to evaluate for a lupus flare. Since she reports that she has not been biopsied I will order a renal biopsy as well. With long-standing hematuria patient appears to have stage II chronic kidney disease. Her renal ultrasound from last year was unremarkable. I do not see a need to repeat one at this time. (2) COPD exacerbation Current Visit: Yes Status: Acute Management per primary team. Patient is on steroids. (3) Pneumonia Current Visit: Yes Status: Acute Patient is on Levaquin. Management per primary team. With the lack of a leukocytosis or fever we will need to consider the possibility of lupus involvement in the lung. Monitor for improvement. Qualifiers: Pneumonia type: due to unspecified organism Laterality: right Lung location: middle lobe of lung Qualified Code(s): J18.1 - Lobar pneumonia, unspecified organism (4) Proteinuria Current Visit: Yes Status: Acute Check a urinary protein to creatinine ratio. Patient would benefit from a renal biopsy. Qualifiers: Proteinuria type: unspecified Qualified Code(s): R80.9 - Proteinuria, unspecified (5) Abdominal pain Current Visit: Yes Status: Resolved Unclear etiology. CT of the abdomen without contrast was unremarkable. Qualifiers: Abdominal location: right lower quadrant Qualified Code(s): R10.31 - Right lower quadrant pain (6) Anxiety disorder Current Visit: No Status: Chronic Defer to primary team. Qualifiers: Anxiety disorder type: generalized anxiety disorder Qualified Code(s): F41.1 - Generalized anxiety disorder (7) SLE (systemic lupus erythematosus) Current Visit: No Status: Chronic This was diagnosed in 2004 per the patient. We will check to see if lupus is active. Qualifiers: Systemic lupus erythematosus type: unspecified Systemic lupus erythematosus organ involvement: unspecified Qualified Code(s): M32.9 - Systemic lupus erythematosus, unspecified (8) Hypertension Current Visit: No Status: Chronic This was diagnosed in 2004 per the patient. Continue home medication and titrate as needed. Qualifiers: Hypertension type: essential hypertension Qualified Code(s): I10 - Essential (primary) hypertension History of Present Illness - Reason for Consult Consult date: 07/20/17 Acute Kidney Injury - Chief Complaint MARTI - History of Present Illness is a 42 yo woman with a history of hypertension and lupus who presents for the evaluation of dyspnea. She reports that her primary care is provided by a physician at [facility] in [place]. The patient presents because she was short of breath upon admission she was diagnosed with pneumonia and admitted to the hospitalist services. She was found to have an elevated urinary protein excretion and a consult was placed for nephrology. The patient reports that she previously followed with a car scrubber at [place], but has not seen anyone in over 4 years and the car scrubber that she followed moved away. She reports a history of protein in her urine, but denies having a renal biopsy. She reports she has had blood in the urine for years and it is occasionally visible. She also reports having foamy urine for years. She denies NSAID use. She denies a family history of kidney disease. At the time of my evaluation she reports feeling slightly better, but does complain of fatigue and states her rash which is a sign of a lupus flare has returned. Past Med Surg Social Fam HX - Past Medical History Medical history: asthma, COPD, DVT, fibromyalgia, GERD, GI bleed, hypertension, kidney stones, myocardial infarction, RA, thyroid disease, other Psychiatric history: anxiety - Past Surgical History Surgical History: cholecystectomy, hysterectomy - Social History Smoking Status: Never smoker Smokeless Tobacco Status: No Alcohol use: none Drug use: none - Family History Mother Living Status: Hx Family Cardiac Disorders: Yes (mi) Father Living Status: Hx Family Cardiac Disorders: Yes Hx Family Endocrine Disorder: Yes Medications and Allergies Albuterol Sulfate [Proair Hfa] 2 puff IH Q4H PRN 07/10/16 [History] Aspirin Enteric Coated [Aspirin EC] 81 mg PO DAILY 07/10/16 [History] Carvedilol [Coreg] 25 mg PO BID 07/10/16 [History] Fluticasone Propionate Nasal [Flonase] 50 mcg NS DAILY 07/10/16 [History] Furosemide [Lasix] 40 mg PO BID 07/10/16 [History] Montelukast [Singulair] 10 mg PO DAILY 07/10/16 [History] Nitroglycerin [Nitrostat] 0.4 mg SL Q5M PRN 07/10/16 [History] Omeprazole [PriLOSEC] 20 mg PO BIDAC 07/10/16 [History] Oxycodone HCl/Acetaminophen [Percocet 7.5-325 mg Tablet] 1 each PO TID PRN 07/10 [History] Potassium Chloride [K-Tab ER] 20 meq PO DAILY 07/10/16 [History] Ranitidine HCl [Zantac] 300 mg PO HS 07/10/16 [History] Levothyroxine [Synthroid] 112 mcg PO 0630 #10 tablet 07/13/16 [Rx] Amlodipine Besylate 10 mg PO DAILY 09/19/16 [History] Metoclopramide HCl 5 mg PO DAILY 09/19/16 [History] Ondansetron [Zofran] 8 mg PO BID PRN 09/19/16 [History] Alprazolam [Xanax] 2 mg PO BID 07/18/17 [History] Citalopram Hydrobromide [Celexa] 40 mg PO DAILY 07/18/17 [History] Cyanocobalamin (Vitamin B-12) [Vitamin B12] 2,000 mcg PO DAILY 07/18/17 [History ] Ipratropium/Albuterol Neb [Duoneb] 3 ml IH Q6H PRN 07/18/17 [History] Lisinopril/Hydrochlorothiazide [Zestoretic 20-25 mg Tablet] 1 each PO BID [History] Mometasone/Formoterol [Dulera 200 Mcg/5 Mcg Inhaler] 1 puff IH BID 07/18/17 [ History] Oxygen 2 l NS AD 07/18/17 [History] 3 Allergy/AdvReac Type Severity Reaction Status Date / Time ketorolac [From Toradol] AdvReac Abdominal Verified 05/27/17 18:11 Pain NSAIDS (Non-Steroidal AdvReac Abdominal Verified 05/27/17 18:11 Anti-Inflamma Pain tramadol AdvReac Abdominal Verified 05/27/17 18:11 Pain pyridium AdvReac Abdominal Uncoded 04/10/17 17:12 Pain Review of Systems All Systems: reviewed and no additional remarkable complaints except as stated ( As documented in the history of present illness.) Exam - Vital Signs Vital signs: Initial Vital Signs Temp Pulse Resp BP Pulse Ox 98.1 F 88 18 138/93 94 07/18/17 17:36 07/18/17 17:36 07/18/17 17:36 07/18/17 17:36 07/18/17 17:36 Vital Signs - Last 8 Hours Temp Pulse Resp BP Pulse Ox 07/20/17 15:00 97.7 F 53 18 98/59 93 07/20/17 11:55 97.8 F 48 18 112/74 100 07/20/17 11:44 16 91 Intake and Output 07/19/17 07/20/17 07/20/17 23:59 07:59 15:59 Intake Total 480 / 480 480 / 480 120 / 120 Output Total 400 / 400 400 / 400 200 / 200 Balance 80 / 80 80 / 80 -80 / -80 Intake: Oral 480 / 480 480 / 480 120 / 120 Output: Urine 400 / 400 400 / 400 200 / 200 Other: Meal Lunch Percent of Meal Consumed 5% # Bowel Movements 0 Weight 69.9 kg Blood Glucose* 198 144 149 Patient Weight 07/20/17 23:59 Weight 69.9 kg - General Appearance General appearance: well-developed, well-nourished EENT: ATNC Neck: supple Respiratory: wheezing, course breath sounds, rhonchi Cardiology: no edema, regular rate, regular rhythm Gastrointestinal: no tenderness Integumentary: warm and dry Neurologic: alert and oriented x3 Musculoskeletal: no cyanosis Psychiatric: mood/affect appropriate Results - Lab Results 07/20/17 04:05 07/20/17 04:05 Most recent lab results Calcium 8.4 mg/dL (8.6-10.8) L 07/20/17 04:05 Phosphorus 3.1 mg/dL (2.3-4.7) 07/20/17 04:05 Magnesium 1.7 mg/dL (1.6-2.6) 07/20/17 04:05 Consult Discharge Plan - Plan Referrals: Naresh Skinner MD [Primary Care Provider] -
[2017-07-20] MEDS ORDERED: 0.9 % Sodium Chloride 1,000 ML IVC SCH (15:45)
[2017-07-20] MEDS: Ondansetron 4 MG/2 ML VIAL IVP PRN (17:03)
[2017-07-20 20:24] LABS: Bilirubin,Urine Negative (Negative); Blood,Urine Small (Negative); Clarity,Urine Cloudy (Clear); Color,Urine Yellow (Yellow); Glucose,Urine (UA) Normal (Normal); Ketones,Urine Negative (Negative); Leukocyte Esterase,Urine Moderate (Negative); Nitrite,Urine Negative (Negative); PH,Urine 5.5 pH Units (5.0-8.0); Protein,Urine 30 mg/dL (Neg-Trace); Specific Gravity,Urine 1.019 (1.010-1.025); Urobilinogen,Urine Normal (Normal)
[2017-07-20 20:26] LABS: Bacteria,Urine None Seen per hpf (None-Few); Hyaline Casts,Urine None Seen per lpf (None-Few); Squamous Epithelial Cell,Urine Many per lpf (None-Few); WBC,Urine 50-100 per hpf (0-3)
[2017-07-21] MEDS: Ipratropium/Albuterol Neb 3 ML IH SCH ×7 (00:22→23:51)
[2017-07-21] MEDS: *HR* OxyCODONE/APAP 7.5/325 TABLET PO PRN (04:31)
[2017-07-21 05:12] LABS: Basophils % 0.1 %; Hematocrit 33.4 % (35.3-44.9); Hemoglobin 10.2 g/dL (11.5-15.4); Immature Granulocytes % 1.6 % (0-4); Lymphocytes # 0.6 K/mcL (0.6-4.6); Mean Corpuscular HGB Conc 30.5 g/dL (31.6-35.5); Mean Corpuscular Hemoglobin 29.1 pg (28.0-33.3); Mean Corpuscular Volume 95.2 fL (83.0-100.0); Monocytes # 0.2 K/mcL (0.0-1.3); Monocytes % 2.4 %; Neutrophils # 6.5 K/mcL (1.6-8.9); Platelet Count 180 K/mcL (140-400); Red Blood Count 3.51 M/mcL (3.82-4.97); Red Cell Distribution Width 14.3 % (11.5-14.5); Segmented Neutrophils % 87.9 %
[2017-07-21] MEDS: Famotidine 20 MG/2 ML VIAL IVP SCH (05:26)
[2017-07-21] MEDS: ALPRAZolam 1 MG TABLET PO PRN (05:27)
[2017-07-21 05:29] LABS: Calcium 8.3 mg/dL (8.6-10.8); Magnesium 1.9 mg/dL (1.6-2.6); Phosphorous 3.3 mg/dL (2.3-4.7); Potassium 4.4 mEq/L (3.5-4.5)
[2017-07-21] MEDS: methylPREDNISolone 125 MG/2 ML VIAL IVP SCH ×2 (08:00→20:47)
[2017-07-21] MEDS: Cyanocobalamin (B-12) 1,000 MCG TABLET PO SCH (08:01)
[2017-07-21] MEDS: amLODIPine 5 MG TABLET PO SCH (08:03)
[2017-07-21] MEDS: Aspirin Enteric Coated 81 MG Tablet PO SCH (08:03)
[2017-07-21] MEDS: *HR* Heparin 5,000 UNIT/ML VIAL SQ SCH ×2 (08:03→17:09)
[2017-07-21] MEDS: Levofloxacin 750 MG/150 ML 750 MG/150 ML BAG IVPB SCH (08:04)
[2017-07-21] MEDS: Insulin LISPRO 300 UNITS/3 ML VIAL SQ SCH ×3 (08:05→17:09)
--- NOTE | 2017-07-21 10:26 | Internal Med Progress Note ---
Date of Encounter: 07/21/17 Time of Encounter: 10:24 - Assessment and plan (1) Acute exacerbation of chronic obstructive airways disease Current Visit: No Status: Acute Assessment and plan: Likely secondary to underlying PNA will continue systemic steroids, IV abx, bronchodilator support O2 supplementation monitor O2 sat, goal O2 sat: 89-92% Guaifenesin prn cough will closely monitor respiratory status (2) Pneumonia Current Visit: Yes Status: Acute Assessment and plan: will continue IV abx f/U blood cultures Qualifiers: Pneumonia type: due to unspecified organism Laterality: right Lung location: middle lobe of lung Qualified Code(s): J18.1 - Lobar pneumonia, unspecified organism (3) Abdominal pain Current Visit: Yes Status: Resolved Qualifiers: Abdominal location: right lower quadrant Qualified Code(s): R10.31 - Right lower quadrant pain (4) Lupus Current Visit: No Status: Chronic Qualifiers: Systemic lupus erythematosus type: unspecified Systemic lupus erythematosus organ involvement: unspecified Qualified Code(s): M32.9 - Systemic lupus erythematosus, unspecified (5) Chronic pain Current Visit: No Status: Chronic Assessment and plan: continue home medications d/c morphine Qualifiers: Chronic pain type: chronic pain syndrome Qualified Code(s): G89.4 - Chronic pain syndrome (6) DVT prophylaxis Current Visit: Yes Status: Acute Assessment and plan: Heparin SQ (7) MARTI (acute kidney injury) Current Visit: Yes Status: Acute Assessment and plan: Will hold Lasix and Lisinopril-HCTZ at this time avoid nephrotoxic agents closely monitor renal function Nephrology on board and consultation appreciated (8) Proteinuria Current Visit: Yes Status: Acute Assessment and plan: Nephrology consultation appreciated IR consulted for renal biopsy NPO after midnight for possible biopsy in am Qualifiers: Proteinuria type: unspecified Qualified Code(s): R80.9 - Proteinuria, unspecified - Subjective Interval history: Patient seen and examined at bedside. Pt resting in bed and as per nursing reports has been demonstrating drug seeking behavior. She was noted to be hypotensive and bradycardic throughout the night yet kept demanding morphine and got hostile towards the nursing staff when the morphine was not given her vitals. Extension narcotic overuse counseling is provided to the patient. She is willing to comply at this time. Reports of improvement in her respiratory status but noted to have b/l expiratory wheezing. - Constitutional Vitals: Temp Pulse Resp BP Pulse Ox 97.6 F 58 14 126/75 99 07/21/17 07:35 07/21/17 07:35 07/21/17 07:35 07/21/17 07:35 07/21/17 07:35 General appearance: Present: A&O X 3, pleasant, no acute distress, answers questions appropriately - Head Head exam: Present: atraumatic, normocephalic - Eye Eye exam: Present: conjuntiva pink, sclera anicteric - Respiratory Respiratory exam: Present: wheezes (b/l expiratory wheezing). Absent: respiratory distress - Cardiovascular Cardiovascular exam: Present: bradycardia, +S1, +S2. Absent: diastolic murmur, gallop, rubs, systolic murmur - GI/Abdominal GI/Abdominal exam: Present: normal bowel sounds, soft, no peritoneal signs. Absent: distended, tenderness - Extremities Exam Extremities exam: Present: warm, radial pulses palpable and symmetrical. Absent : calf tenderness - Neurological Exam Neurological exam: Present: alert, oriented X3 - Psychiatric Psychiatric exam: Present: normal affect, normal mood Internal Medicine: Result - Labs CBC & Chem 7: 07/21/17 04:25 07/21/17 04:25 Labs: Short CBC 07/21/17 Range/Units 04:25 WBC 7.4 (4.3-11.1) K/mcL Hgb 10.2 L (11.5-15.4) g/dL Hct 33.4 L (35.3-44.9) % Plt Count 180 (140-400) K/mcL Neutrophils # 6.5 (1.6-8.9) K/mcL BMP 07/21/17 04:25 Sodium 141 Potassium 4.4 Chloride 107 Carbon Dioxide 28 BUN 49 H D Creatinine 1.34 H Glucose 180 H Calcium 8.3 L Urine 07/20/17 Range/Units 20:13 Urine Color Yellow (Yellow) Urine Clarity Cloudy A (Clear) Urine pH 5.5 (5.0-8.0) pH Units Ur Specific [place] 1.019 (1.010-1.025) Urine Protein 30 H (Neg-Trace) mg/dL Urine Glucose (UA) Normal (Normal) mg/dL - ABG Interpretation ABG results: PT/INR, D-dimer PT 11.1 Seconds (9.4-12.1) 07/18/17 20:04 Consult Discharge Plan - Plan Referrals: Naresh Skinner MD [Primary Care Provider] -
[2017-07-21] MEDS: 0.9 % Sodium Chloride 1,000 ML IVC SCH ×2 (12:52→20:47)
[2017-07-22] MEDS: *HR* Heparin 5,000 UNIT/ML VIAL SQ SCH ×2 (02:40→08:42)
[2017-07-22] MEDS: Insulin LISPRO 300 UNITS/3 ML VIAL SQ SCH ×3 (02:44→12:31)
[2017-07-22] MEDS: Ipratropium/Albuterol Neb 3 ML IH SCH ×3 (04:34→11:42)
[2017-07-22 05:38] VITALS: BP 143/77
[2017-07-22] MEDS: Famotidine 20 MG/2 ML VIAL IVP SCH (06:30)
[2017-07-22 07:24] LABS: BUN/Creatinine Ratio 51 (6-26); Blood Urea Nitrogen 40 mg/dL (7-20); Calcium 8.2 mg/dL (8.6-10.8); Carbon Dioxide 27 mEq/L (19-29); Chloride 112 mEq/L (98-109); Glucose 167 mg/dL (70-99); Osmolality,Calculated 306 (280-300); Phosphorous 2.4 mg/dL (2.3-4.7); Potassium 4.3 mEq/L (3.5-4.5); Sodium 141 mEq/L (136-145); eGFR For African Americans > 60 (> 60); eGFR For Non-African Americans > 60 (> 60)
[2017-07-22] MEDS: amLODIPine 5 MG TABLET PO SCH (08:00)
[2017-07-22 08:06] LABS: Basophils % 0.5 %; Hematocrit 33.5 % (35.3-44.9); Hemoglobin 10.1 g/dL (11.5-15.4); Immature Granulocytes % 3.3 % (0-4); Lymphocytes # 0.6 K/mcL (0.6-4.6); Lymphocytes % 10.6 %; Mean Corpuscular HGB Conc 30.1 g/dL (31.6-35.5); Mean Corpuscular Hemoglobin 28.5 pg (28.0-33.3); Mean Corpuscular Volume 94.6 fL (83.0-100.0); Mean Platelet Volume 11.5 fL (9.4-12.4); Monocytes # 0.2 K/mcL (0.0-1.3); Monocytes % 3.8 %; Neutrophils # 4.7 K/mcL (1.6-8.9); Platelet Count 181 K/mcL (140-400); Red Blood Count 3.54 M/mcL (3.82-4.97); Red Cell Distribution Width 13.9 % (11.5-14.5); Segmented Neutrophils % 81.8 %
[2017-07-22] MEDS: methylPREDNISolone 125 MG/2 ML VIAL IVP SCH (08:42)
[2017-07-22] MEDS: Aspirin Enteric Coated 81 MG Tablet PO SCH (08:43)
[2017-07-22] MEDS: Cyanocobalamin (B-12) 1,000 MCG TABLET PO SCH (08:45)
[2017-07-22] MEDS ORDERED: levoFLOXacin 750 MG TABLET PO SCH (09:00)
[2017-07-22] MEDS: *HR* OxyCODONE/APAP 7.5/325 TABLET PO PRN ×2 (09:29→13:52)
[2017-07-22] MEDS: ALPRAZolam 1 MG TABLET PO PRN (09:29)
[2017-07-22] MEDS ORDERED: Ipratropium/Albuterol Neb 3 ML IH PRN (12:18)
--- NOTE | 2017-07-22 13:07 | Discharge Summary ---
Date of Encounter: 07/22/17 Time of Encounter: 13:04 - Discharge Diagnosis (1) Acute exacerbation of chronic obstructive airways disease Priority: Primary Status: Acute (2) Pneumonia Priority: Primary Status: Acute Qualifiers: Pneumonia type: due to unspecified organism Laterality: right Lung location: middle lobe of lung Qualified Code(s): J18.1 - Lobar pneumonia, unspecified organism (3) Abdominal pain Priority: Secondary Status: Resolved Qualifiers: Abdominal location: right lower quadrant Qualified Code(s): R10.31 - Right lower quadrant pain (4) Lupus Priority: Secondary Status: Chronic Qualifiers: Systemic lupus erythematosus type: unspecified Systemic lupus erythematosus organ involvement: unspecified Qualified Code(s): M32.9 - Systemic lupus erythematosus, unspecified (5) Chronic pain Priority: Secondary Status: Chronic Qualifiers: Chronic pain type: chronic pain syndrome Qualified Code(s): G89.4 - Chronic pain syndrome (6) DVT prophylaxis Priority: Secondary Status: Acute (7) MARTI (acute kidney injury) Priority: Secondary Status: Resolved (8) Proteinuria Priority: Secondary Status: Chronic Qualifiers: Proteinuria type: unspecified Qualified Code(s): R80.9 - Proteinuria, unspecified - Discharge Medications Prescriptions: RX: GuaiFENesin/Dextromethorphan [Robitussin/Dm] 10 ml PO Q6HR PRN #15 PRN Reason: Cough RX: Amoxicillin/Clavulanate [Augmentin] 875 mg PO BIDWM #4 tab RX: predniSONE [PredniSONE] 40 mg PO DAILY #5 tablet Home Medications: RX: Albuterol Sulfate [Proair Hfa] 2 puff IH Q4H PRN 07/10/16 [History] RX: Aspirin Enteric Coated [Aspirin EC] 81 mg PO DAILY 07/10/16 [History] RX: Carvedilol [Coreg] 25 mg PO BID 07/10/16 [History] RX: Fluticasone Propionate Nasal [Flonase] 50 mcg NS DAILY 07/10/16 [History] RX: Montelukast [Singulair] 10 mg PO DAILY 07/10/16 [History] RX: Nitroglycerin [Nitrostat] 0.4 mg SL Q5M PRN 07/10/16 [History] RX: Omeprazole [PriLOSEC] 20 mg PO BIDAC 07/10/16 [History] RX: Oxycodone HCl/Acetaminophen [Percocet 7.5-325 mg Tablet] 1 each PO TID PRN 07/10/16 [History] RX: Ranitidine HCl [Zantac] 300 mg PO HS 07/10/16 [History] RX: Levothyroxine [Synthroid] 112 mcg PO 0630 #10 tablet 07/13/16 [Rx] RX: Amlodipine Besylate 10 mg PO DAILY 09/19/16 [History] RX: Metoclopramide HCl 5 mg PO DAILY 09/19/16 [History] RX: Ondansetron [Zofran] 8 mg PO BID PRN 09/19/16 [History] RX: Alprazolam [Xanax] 2 mg PO BID 07/18/17 [History] RX: Citalopram Hydrobromide [Celexa] 40 mg PO DAILY 07/18/17 [History] RX: Cyanocobalamin (Vitamin B-12) [Vitamin B12] 2,000 mcg PO DAILY 07/18/17 [ History] RX: Ipratropium/Albuterol Neb [Duoneb] 3 ml IH Q6H PRN 07/18/17 [History] RX: Lisinopril/Hydrochlorothiazide [Zestoretic 20-25 mg Tablet] 1 each PO BID [History] RX: Mometasone/Formoterol [Dulera 200 Mcg/5 Mcg Inhaler] 1 puff IH BID 07/18/17 [History] RX: Oxygen 2 l NS AD 07/18/17 [History] RX: Amoxicillin/Clavulanate [Augmentin] 875 mg PO BIDWM #4 tab 07/22/17 [Rx] RX: GuaiFENesin/Dextromethorphan [Robitussin/Dm] 10 ml PO Q6HR PRN #15 [Rx] RX: predniSONE [PredniSONE] 40 mg PO DAILY #5 tablet 07/22/17 [Rx] Allergies/Adverse Reactions: 3 Allergy/AdvReac Type Severity Reaction Status Date / Time ketorolac [From Toradol] AdvReac Abdominal Verified 05/27/17 18:11 Pain NSAIDS (Non-Steroidal AdvReac Abdominal Verified 05/27/17 18:11 Anti-Inflamma Pain tramadol AdvReac Abdominal Verified 05/27/17 18:11 Pain pyridium AdvReac Abdominal Uncoded 04/10/17 17:12 Pain Date of admission: 07/18/17 23:08 Primary care physician: Naresh Skinner MD Consults: 07/20/17 09:39 Consult to Nephrology [CONS] Routine Consulting Provider: Kidney Mita/NORA/NESTOR/NIA Reason for Consult: proteinura Call Completed: Yes 07/20/17 15:41 Consult to Interventional Radiology [CONS] Routine Consulting Provider: Radiology Interventional Cols Reason for Consult: Patient needs a renal biopsy. [facility] Call Completed: No Discharging clinician: Shannan Brunson Anticipated date of discharge: 07/22/17 - Patient Status Disposition: Home, Self-Care Condition: Good Functional capacity at discharge: independent ambulation Overall status at discharge: patient is back to baseline - Ambulatory Orders Ambulatory Orders: Basic Metabolic Panel [CHEM] Time Frame: 3 Weeks, Facility: [facility], Location: Lab - Discharge Instructions Follow Up With: Naresh Skinner MD [Primary Care Provider] - Additional Instructions: Please follow up with your primary care physician within five days after your discharge from the hospital. Please follow up with molder punch within 3 weeks after your discharge from the hospital. Please obtain the prescribed lab work prior to your appointment with your molder punch. your home dose of lasix and potassium has been discontinued until your follow up with your molder punch. Please continue to take oral steroids and antibiotics as prescribed. Resume all your other home medications as prescribed by your primary care physician. - Diet and Activity Activity: increase activity as tolerated Diet: low salt diet Hospital course: Ms. Chowdary is a 42 year old female with PMH of lupus, RA, COPD on LTOT who was admitted for COPD exacerbation secondary to PNA. She was started on systemic steroids and iv abx. She responded appropriately to therapy. Her hospital course was complicated by MARTI with proteinuria for which nephrology was consulted. Her home dose of Lasix, Lisinopril/HCTZ was placed on hold and a renal biopsy was ordered. Her renal function returned to baseline and IR was unable to do renal biopsy because of patient's cough as she has to lay on her abd without coughing. Given normalization of her renal function, outpatient follow up with nephrology was recommended by nephro. Pt's respiratory status is back to baseline. She is hemodynamically stable and will be discharged to home with follow up with PCP and molder punch. Pt demonstrates understanding of her diagnosis and agrees with the discharge care and plan. - Time Spent with Patient Total time spent providing and/or coordinating discharge services: Greater than 30 minutes - Constitutional Vitals: Temp Pulse Resp BP Pulse Ox 98.1 F 62 14 143/77 91 07/22/17 05:36 07/22/17 05:36 07/22/17 05:36 07/22/17 05:36 07/22/17 05:36 General appearance: Present: A&O X 3, pleasant, no acute distress, answers questions appropriately - Head Head exam: Present: atraumatic, normocephalic - Eye Eye exam: Present: conjuntiva pink, sclera anicteric - Respiratory Respiratory exam: Present: CTAB. Absent: respiratory distress, wheezes - Cardiovascular Cardiovascular exam: Present: RRR, +S1, +S2. Absent: diastolic murmur, gallop, rubs, systolic murmur - GI/Abdominal GI/Abdominal exam: Present: normal bowel sounds, soft, no peritoneal signs. Absent: distended, tenderness - Extremities Exam Extremities exam: Present: warm, radial pulses palpable and symmetrical. Absent : calf tenderness - Neurological Exam Neurological exam: Present: alert, oriented X3 - Psychiatric Psychiatric exam: Present: normal affect, normal mood
--- NOTE | 2017-07-23 18:13 | Electrocardiograph Report ---
[address] [address] Test Date: 2017-07-21 Pat Name: Luba Chowdary Department: 115 Room: 3A14 Gender: F Support Engineer: VALERIE : 1975 Requested By: Shannan Brunson Order Number: [id number] Reading MD: Irina Doan Measurements Intervals [place] Rate: 56 P: 50 MS: 145 QRS: -6 QRSD: 86 T: 25 QT: 426 QTc: 417 Interpretive Statements SINUS BRADYCARDIA LOW QRS VOLTAGE IN PRECORDIAL LEADS Electronically Signed On 07-23-2017 18:12:30 EDT by Irina Doan
[2017-07-24 08:12] LABS: Complement Component 3 97 mg/dL (88-201); Complement Component 4 7 mg/dL (10-40)
[2017-07-24 08:17] LABS: Myeloperoxidase Ab 13 AU/mL (0-19); Serine Protease-3 Antibody 0 AU/mL (0-19)
[2017-07-24 15:12] LABS: ANA IgG by ELISA DETECTED (None Detected)
== END 2017-07-22 14:15 | disposition home or self-care (01) | DRG 140 ==
LOC: EMEROO 17:28 → 3ANU 17:28
PROVIDERS: ADMIT Family Medicine; ATTEND Internal Medicine

== ENCOUNTER 2017-07-30 00:41 | Inpatient (IN) ==
[2017-07-30] MEDS ORDERED: Ipratropium/Albuterol Neb 3 ML IH ONE (02:18)
[2017-07-30] MEDS ORDERED: methylPREDNISolone 125 MG/2 ML VIAL IVP ONE (02:18)
[2017-07-30] MEDS ORDERED: Ondansetron 4 MG/2 ML VIAL IVP ONE ×2 (03:16→04:25)
--- NOTE | 2017-07-30 03:16 | Emergency Department Note ---
Disposition Clinical Impression: Healthcare-associated pneumonia Sepsis Qualifiers: Sepsis type: sepsis due to unspecified organism Qualified Code(s): A41.9 - Sepsis, unspecified organism Disposition: Admitted As Inpatient Condition: Fair Referrals: Naresh Skinner MD [Primary Care Provider] - Forms: ED Satisfaction Letter SOB HPI - General Chief Complaint: ED Shortness of Breath/Dyspnea Stated Complaint: copd,headache,vomiting,facial swelling,sob Time Seen by Provider: 07/30/17 01:01 Source: patient Mode of arrival: private vehicle Limitations: no limitations Nursing Notes Reviewed: Yes Vital Signs Reviewed: Yes - History of Present Illness 42-year-old female history of lupus, COPD, CAD with stent who presents to the ER due to shortness of breath. Patient was found to be hypoxic at 85% on room air here. She reports she wears 3 L continuous at home. Patient states that she was recently admitted and treated for pneumonia for 4 days. States she went home on Levaquin. Reports that she continue to have shortness of breath. She saw her primary care provider told her if she had better come to the ER. He reports that she feels generally unwell with headaches shortness of breath cough nausea and vomiting. Denies a prior history of smoking. She has had blood clots in the past however she is not on anticoagulation. She states that if she has to be admitted she was to be sent to [facility] with a figure out what is wrong with her. No other complaints. Pt Subjective Complaint: shortness of breath, cough Onset (ago): day(s) Context: recent illness Severity: moderate Consistency/Duration: constant Improves with: nothing Worsens with: nothing Known history of: COPD Associated symptoms: Reports: cough, wheezing, sputum production, nausea/ vomiting. Denies: chest pain, fever Treatment prior to arrival: oxygen Cough present: Yes Cough Description: Involuntary Cough Frequency: Intermittent Sputum production: No Sputum Amount: None - Related Data Home oxygen amount: 3 liters Home Medications Medication Instructions Recorded Confirmed Albuterol Sulfate [Proair Hfa] 2 puff IH Q4H PRN 07/10/16 07/18/17 Aspirin Enteric Coated [Aspirin EC] 81 mg PO DAILY 07/10/16 07/18/17 Carvedilol [Coreg] 25 mg PO BID 07/10/16 07/18/17 Fluticasone Propionate Nasal 50 mcg NS DAILY 07/10/16 07/18/17 [Flonase] Montelukast [Singulair] 10 mg PO DAILY 07/10/16 07/18/17 Nitroglycerin [Nitrostat] 0.4 mg SL Q5M PRN 07/10/16 07/18/17 Omeprazole [PriLOSEC] 20 mg PO BIDAC 07/10/16 07/18/17 Oxycodone HCl/Acetaminophen 1 each PO TID PRN 07/10/16 07/18/17 [Percocet 7.5-325 mg Tablet] Ranitidine HCl [Zantac] 300 mg PO HS 07/10/16 07/18/17 Amlodipine Besylate 10 mg PO DAILY 09/19/16 07/18/17 Metoclopramide HCl 5 mg PO DAILY 09/19/16 07/18/17 Ondansetron [Zofran] 8 mg PO BID PRN 09/19/16 07/18/17 Alprazolam [Xanax] 2 mg PO BID 07/18/17 07/18/17 Citalopram Hydrobromide [Celexa] 40 mg PO DAILY 07/18/17 07/18/17 Cyanocobalamin (Vitamin B-12) 2,000 mcg PO DAILY 07/18/17 07/18/17 [Vitamin B12] Ipratropium/Albuterol Neb [Duoneb] 3 ml IH Q6H PRN 07/18/17 07/18/17 Lisinopril/Hydrochlorothiazide 1 each PO BID 07/18/17 07/18/17 [Zestoretic 20-25 mg Tablet] Mometasone/Formoterol [Dulera 200 1 puff IH BID 07/18/17 07/18/17 Mcg/5 Mcg Inhaler] Oxygen 2 l NS AD 07/18/17 07/18/17 Previous Rx's Medication Instructions Recorded Levothyroxine [Synthroid] 112 mcg PO 0630 #10 tablet 07/13/16 Amoxicillin/Clavulanate [Augmentin] 875 mg PO BIDWM #4 tab 07/22/17 GuaiFENesin/Dextromethorphan 10 ml PO Q6HR PRN #15 07/22/17 [Robitussin/Dm] predniSONE [PredniSONE] 40 mg PO DAILY #5 tablet 07/22/17 Nitrofurantoin (BID) [Macrobid] 100 mg PO BID #10 capsule 07/27/17 Promethazine [Phenergan] 25 mg PO Q8HR PRN #15 tablet 07/27/17 Allergies Allergy/AdvReac Type Severity Reaction Status Date / Time ketorolac [From Toradol] AdvReac Abdominal Verified 07/30/17 00:44 Pain NSAIDS (Non-Steroidal AdvReac Abdominal Verified 07/30/17 00:44 Anti-Inflamma Pain tramadol AdvReac Abdominal Verified 07/30/17 00:44 Pain pyridium AdvReac Abdominal Uncoded 07/30/17 00:44 Pain All systems ED: reviewed and negative except as stated. Constitutional: Denies: fever Cardiovascular: Reports: chest pain Respiratory: Reports: cough, dyspnea, wheezes, sputum production Gastrointestinal: Reports: nausea, vomiting. Denies: abdominal pain Past Medical History - Past Medical History Attestation: Yes The following information was validated with the patient. Source: patient Medical history: Reports: asthma, COPD, DVT, fibromyalgia, GERD, GI bleed, hypertension, kidney stones, myocardial infarction, RA, thyroid disease, other Surgical history: Reports: cholecystectomy, hysterectomy Psychiatric history: Reports: anxiety [employer] history: Reports: no [employer] history - Social History Smoking Status: Never smoker Smokeless Tobacco Status: No Alcohol use: Reports: none Drug use: Reports: none Physical Exam - General Limitations: no limitations General appearance: alert, in no apparent distress - Head Head exam: atraumatic, normocephalic, normal inspection - Eye Eye exam: Present: normal appearance, EOMI - ENT ENT exam: normal exam - Neck Neck exam: Present: normal inspection, full ROM - Chest Chest inspection: Present: normal inspection, symmetric chest wall rise - Respiratory Respiratory exam: Present: wheezes (Bilateral mild end expiratory wheezing.), prolonged expiratory phase. Absent: respiratory distress, stridor - Cardiovascular Cardiovascular exam: Present: normal rhythm, tachycardia, normal heart sounds - Abdominal Exam Abdominal exam: Present: soft, Non-Tender. Absent: tenderness - Extremities Exam Extremities exam: Present: normal inspection, full ROM - Expanded Upper Extremity Exam Shoulder exam: Present: normal inspection, full ROM Arm exam: Present: normal inspection, full ROM Elbow exam: Present: normal inspection, full ROM Forearm/Wrist exam: Present: normal inspection, full ROM Hand exam: Present: normal inspection, full ROM Vascular exam: Normal: radial pulse - Expanded Lower Extremity Exam Hip/Pelvis exam: Present: normal inspection, full ROM Upper leg exam: Present: normal inspection, full ROM Knee exam: Present: normal inspection, full ROM Lower leg exam: Present: normal inspection, full ROM Ankle exam: Present: normal inspection, full ROM Foot/toe exam: Present: normal inspection, full ROM Neurovascular/Tendon exam: Absent: motor deficit, sensory deficit - Neurological Exam Neurological exam: Present: alert, other (GCS 15. Nonfocal neurologic exam. Moves all extremities equally.) - Psychiatric Psychiatric exam: Present: normal affect, normal mood - Skin Skin exam: Present: warm, dry, intact, normal color Course Course Narrative: Patient seen and examined. She has numerous complaints here. We will obtain an EKG, chest x-ray as well as labs including troponin. Patient requests admission to [facility] if she has to be admitted. She is currently satting well on 3- 4 L nasal cannula which is her baseline. - Reevaluation(s) Reevaluation #1: Discussed results of imaging and labs the patient. I again offered to have her admitted here. She reports that she did go to [facility] because no one was or what was going on here. Reevaluation #2: I reported that I spoke to the transfer center and at [facility] currently does not have any beds and they would either wait and assign her a bed once they had one or she could be transported to their ER. She elects to stay here for now. Reevaluation #3: I discussed with the patient about possibly requiring pain for transfer to [facility]. She is agreeable with staying here. We pursued a CTA of her chest which shows multifocal ground glass opacities. Pneumonitis versus atypical pneumonia. She was recently admitted for placement for healthcare associated pneumonia antibiotics. Vital Signs Temperature 99.4 F 07/30/17 00:44 Pulse Rate 111 07/30/17 00:44 Respiratory Rate 18 07/30/17 00:44 Blood Pressure 145/83 07/30/17 00:44 O2 Sat by Pulse Oximetry 85 07/30/17 00:44 Temperature 99.4 F 07/30/17 00:44 Pulse Rate 90 07/30/17 04:38 Respiratory Rate 16 07/30/17 04:38 Blood Pressure 122/71 07/30/17 04:38 O2 Sat by Pulse Oximetry 92 07/30/17 04:38 Oxygen Delivery Oxygen Delivery Nasal Cannula Shortness of Breath/Dyspnea - [facility] Narrative Medical decision making narrative: 42-year-old female presents to the ER due to shortness of breath, cough or sputum production, headache, nausea and vomiting. She reports recent admission for shortness of breath and treated for pneumonia. Reports continued symptoms. She is afebrile here. She was originally 85% on room air. She is currently satting well on her usual O2 requirement. Her EKG. Procedure CT of the chest per history of present. No PE however she has normal white count is slightly elevated at over 13. Lactate is normal. Patient receiving vancomycin, Zosyn and Levaquin for healthcare associated pneumonia. Admitted to the hospitalist service. - Lab Data Lab results reviewed: Yes I reviewed the patient's lab results. Result diagrams: 07/30/17 03:20 07/30/17 03:20 Lab Results 07/30/17 07/30/17 07/30/17 Range/Units 03:20 03:20 03:20 WBC 13.8 H (4.3-11.1) K/mcL RBC 2.91 L (3.82-4.97) M/mcL Hgb 8.6 L (11.5-15.4) g/dL Hct 27.3 L (35.3-44.9) % MCV 93.8 (83.0-100.0) fL MCH 29.6 (28.0-33.3) pg MCHC 31.5 L (31.6-35.5) g/dL RDW 14.8 H (11.5-14.5) % Plt Count 152 (140-400) K/mcL MPV 10.6 (9.4-12.4) fL Immature Gran % 0.7 (0-4) % Seg Neutrophils % 78.7 % Lymphocytes % 11.2 % Monocytes % 8.3 % Eosinophils % 1.0 % Basophils % 0.1 % Neutrophils # 10.9 H (1.6-8.9) K/mcL Lymphocytes # 1.5 (0.6-4.6) K/mcL Monocytes # 1.1 (0.0-1.3) K/mcL Eosinophils # 0.1 (0.0-0.6) K/mcL Basophils # 0.0 (0.0-0.2) K/mcL Sodium 141 (136-145) mEq/L Potassium 4.0 (3.5-4.5) mEq/L Chloride 104 (98-109) mEq/L Carbon Dioxide 32 H (19-29) mEq/L BUN 13 (7-20) mg/dL Creatinine 0.62 (0.57-1.11) mg/dL Est GFR ( Amer) > 60 (> 60) Est GFR (Non-Af Amer) > 60 (> 60) BUN/Creatinine Ratio 21 (6-26) Glucose 89 (70-99) mg/dL Calculated Osmolality 292 (280-300) Lactic Acid 0.5 (0.5-2.2) mmol/L Calcium 7.8 L (8.6-10.8) mg/dL Troponin I (0-0.03) ng/mL B-Natriuretic Peptide (0-100) pg/mL 07/30/17 07/30/17 Range/Units 03:20 03:20 WBC (4.3-11.1) K/mcL RBC (3.82-4.97) M/mcL Hgb (11.5-15.4) g/dL Hct (35.3-44.9) % MCV (83.0-100.0) fL MCH (28.0-33.3) pg MCHC (31.6-35.5) g/dL RDW (11.5-14.5) % Plt Count (140-400) K/mcL MPV (9.4-12.4) fL Immature Gran % (0-4) % Seg Neutrophils % % Lymphocytes % % Monocytes % % Eosinophils % % Basophils % % Neutrophils # (1.6-8.9) K/mcL Lymphocytes # (0.6-4.6) K/mcL Monocytes # (0.0-1.3) K/mcL Eosinophils # (0.0-0.6) K/mcL Basophils # (0.0-0.2) K/mcL Sodium (136-145) mEq/L Potassium (3.5-4.5) mEq/L Chloride (98-109) mEq/L Carbon Dioxide (19-29) mEq/L BUN (7-20) mg/dL Creatinine (0.57-1.11) mg/dL Est GFR ( Amer) (> 60) Est GFR (Non-Af Amer) (> 60) BUN/Creatinine Ratio (6-26) Glucose (70-99) mg/dL Calculated Osmolality (280-300) Lactic Acid (0.5-2.2) mmol/L Calcium (8.6-10.8) mg/dL Troponin I 0.02 (0-0.03) ng/mL B-Natriuretic Peptide 156 H (0-100) pg/mL - Radiology Data Radiology results reviewed: Yes I reviewed the patient's radiology results. Chest X-Ray 07/30/17 02:18 IMPRESSION: Findings suggestive of cardiomegaly and borderline pulmonary interstitial edema. Blunting of the costophrenic angles suggest trace bilateral pleural effusion. D/ / Marcello Joshua MD / Marcello Joshua MD Interpreting Provider: Marcello Joshua MD - EKG Data EKG attestation: Yes I reviewed and interpreted this EKG. EKG results narrative: EKG demonstrates sinus tachycardia with rate of 101. Left axis deviation. Normal intervals. Poor R-wave progression. No gross ST elevations or depressions. No acute ischemic findings. No significant changes from previous EKG dated 07/27/17. S.Cira. - S.Ave.AKayleen Situation: Demographics, MOA Background: Presenting Complaint, Relevant PMH, Meds, & Allergies Assessment: Vital Signs, Course and respsone to treatment, Exam Concerns, Patient/Family Expectation, Pertinant Lab Results, Outstanding Labs Recommendation: Barrier(s) to disposition, Recommendation based on pending studies, treatments, or consults S.B.AMadhuRMadhu Report Given to: Admitter Mateusz Repor Time: 06:10
[2017-07-30 03:29] LABS: Basophils % 0.1 %; Eosinophils # 0.1 K/mcL (0.0-0.6); Hematocrit 27.3 % (35.3-44.9); Hemoglobin 8.6 g/dL (11.5-15.4); Immature Granulocytes % 0.7 % (0-4); Lymphocytes # 1.5 K/mcL (0.6-4.6); Lymphocytes % 11.2 %; Mean Corpuscular HGB Conc 31.5 g/dL (31.6-35.5); Mean Corpuscular Hemoglobin 29.6 pg (28.0-33.3); Mean Corpuscular Volume 93.8 fL (83.0-100.0); Mean Platelet Volume 10.6 fL (9.4-12.4); Monocytes # 1.1 K/mcL (0.0-1.3); Monocytes % 8.3 %; Neutrophils # 10.9 K/mcL (1.6-8.9); Platelet Count 152 K/mcL (140-400); Red Blood Count 2.91 M/mcL (3.82-4.97); Red Cell Distribution Width 14.8 % (11.5-14.5); Segmented Neutrophils % 78.7 %
[2017-07-30] MEDS ORDERED: *HR* Morphine 2 MG/ML SYRINGE IVP ONE ×2 (03:45→04:25)
[2017-07-30 03:46] LABS: BUN/Creatinine Ratio 21 (6-26); Blood Urea Nitrogen 13 mg/dL (7-20); Calcium 7.8 mg/dL (8.6-10.8); Carbon Dioxide 32 mEq/L (19-29); Chloride 104 mEq/L (98-109); Glucose 89 mg/dL (70-99); Osmolality,Calculated 292 (280-300); Sodium 141 mEq/L (136-145); eGFR For African Americans > 60 (> 60); eGFR For Non-African Americans > 60 (> 60)
[2017-07-30] MEDS ORDERED: Piperacillin/Tazobactam 3.375 GM in D5% in Water (Mini-Bag+) 100 ML IVPB ONE (05:41)
[2017-07-30] MEDS ORDERED: Vancomycin 1,000 MG in D5% in Water 250 ML IVPB ONE (05:41)
[2017-07-30] MEDS ORDERED: Levofloxacin 750 MG/150 ML 750 MG/150 ML BAG IVPB ONE (05:41)
[2017-07-30] MEDS ORDERED: *HR* Promethazine 25 MG/ML VIAL IVP ONE ×2 (06:26→13:45)
[2017-07-30] MEDS ORDERED: Naloxone 0.4 MG/ML INJ IVP PRN (07:36)
[2017-07-30] MEDS ORDERED: Acetaminophen 325 MG TABLET PO PRN (07:36)
[2017-07-30] MEDS ORDERED: Nitroglycerin 0.4 MG TAB.SUBL SL PRN (07:38)
[2017-07-30] MEDS ORDERED: NON-FORMULARY MEDICATION 1 EACH EACH (Oxygen [Oxygen] 2 L) NS SCH (07:45)
[2017-07-30] MEDS ORDERED: Ondansetron 4 MG/2 ML VIAL ONE (08:18)
[2017-07-30] MEDS ORDERED: *HR* Morphine 2 MG/ML SYRINGE ONE (08:18)
[2017-07-30] MEDS: *HR* Morphine 2 MG/ML SYRINGE IVP PRN ×2 (08:22→13:32)
[2017-07-30] MEDS: Ondansetron 4 MG/2 ML VIAL IVP PRN ×2 (08:22→20:45)
[2017-07-30] MEDS: Ipratropium/Albuterol Neb 3 ML IH SCH ×4 (09:12→20:08)
[2017-07-30 09:58] LABS: Chol/HDL Ratio 3.8 (0-4.9); Magnesium 1.7 mg/dL (1.6-2.6)
[2017-07-30] MEDS: 0.9 % Sodium Chloride 1,000 ML IVC SCH (10:00)
[2017-07-30] MEDS: Cyanocobalamin (B-12) 1,000 MCG TABLET PO SCH (10:31)
[2017-07-30] MEDS: Budesonide/Formoterol 160/4.5 MDI IH SCH ×2 (10:32→20:08)
[2017-07-30] MEDS: Aspirin Enteric Coated 81 MG Tablet PO SCH (10:32)
--- NOTE | 2017-07-30 10:51 | Internal Med History&Physical ---
Date of Encounter: 07/30/17 Time of Encounter: 10:40 Assessment and Plan (1) Acute respiratory failure with hypoxia Current visit: No Status: Acute Acute on chronic hypoxic respiratory failure - secondary to acute COPD exacerbation and healthcare associated pneumonia Continue DuoNeb breathing treatment, Symbicort, empiric IV antibiotics BNP - 156 CTA chest - negative for PE, multifocal patchy groundglass opacification seen throughout most of the right lung field, likely pneumonia Troponin - 0.01 Lactic acid - 0.5 Chest x-ray - cardiomegaly, mild edema, trace bilateral pleural effusion Cultures - pending Cardiac telemetry, pulse ox, repeat labs in a.m., monitor closely (2) Healthcare-associated pneumonia Current visit: Yes Status: Acute Healthcare associated pneumonia, present on admission Continue empiric IV Zosyn, IV vancomycin, IV Levaquin Cultures - pending (3) COPD (chronic obstructive pulmonary disease) Current visit: No Status: Acute Acute exacerbation of COPD Continue DuoNeb breathing treatment, Symbicort Qualifiers: COPD type: chronic bronchitis Chronic bronchitis type: simple Qualified Code(s): J41.0 - Simple chronic bronchitis (4) Anxiety disorder Current visit: No Status: Chronic Generalized anxiety disorder, continue Xanax Qualifiers: Anxiety disorder type: generalized anxiety disorder Qualified Code(s): F41.1 - Generalized anxiety disorder (5) Hypertension Current visit: No Status: Chronic Essential hypertension, controlled, monitor Continue lisinopril/HCTZ and Coreg Qualifiers: Hypertension type: essential hypertension Qualified Code(s): I10 - Essential (primary) hypertension (6) Hypothyroidism Current visit: No Status: Chronic Continue levothyroxin Qualifiers: Hypothyroidism type: unspecified Qualified Code(s): E03.9 - Hypothyroidism , unspecified (7) SLE (systemic lupus erythematosus) Current visit: No Status: Chronic Systemic lupus erythematosus with lupus nephritis - out of this time Will need follow-up with rheumatology and nephrology Continue prednisone Qualifiers: Systemic lupus erythematosus type: unspecified Systemic lupus erythematosus organ involvement: unspecified Qualified Code(s): M32.9 - Systemic lupus erythematosus, unspecified (8) DVT prophylaxis Current visit: Yes Status: Acute Continue heparin subcutaneous Internal Medicine - H&P: HPI Chief complaint: Shortness of breath Admitted From: Emergency Dept Plans for Post Hospital Care: Home History of present illness: Ms. 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 Patient presents to the ED with complaints of shortness of breath. Examined in the ED. Patient is awake and alert. Not in any distress. Able to provide all history. is at bedside. Patient states she developed shortness of breath about one month ago. Symptoms have gradually worsened over the past one week to 10 days. Patient states today it was worse last night and she decided to come to the ER. Aggravated with exertion. No alleviating factors. Patient uses 3 L oxygen at home. She states she used her breathing treatment at home, but it did not help with the shortness of breath. Patient also complains of productive cough with dark brown sputum and subjective fevers. She states she has had a few episodes of vomiting and diarrhea as well. Complains of fatigue. Patient wants to know if her appendix is inflamed. No other acute complaints. No other associated symptoms. Initial workup in the ED reveals multifocal patchy groundglass opacities throughout the right lung field, likely pneumonia. Patient also has slightly elevated white count. No other significant findings. Patient is being admitted for pneumonia and COPD. IV antibiotics and breathing treatment will be continued. CODE STATUS full code. Past Med Surg Social Fam HX - Past Medical History Medical history: asthma, COPD, DVT, fibromyalgia, GERD, GI bleed, hypertension, kidney stones, myocardial infarction, RA, thyroid disease, other Psychiatric history: anxiety - Past Surgical History Surgical History: cholecystectomy, hysterectomy - Social History Smoking Status: Never smoker Smokeless Tobacco Status: No Alcohol use: none Drug use: none - Family History Mother Living Status: Hx Family Cardiac Disorders: Yes (mi) Father Living Status: Hx Family Cardiac Disorders: Yes Hx Family Endocrine Disorder: Yes Internal Medicine - H&P: Meds Albuterol Sulfate [Proair Hfa] 2 puff IH Q4H PRN 07/10/16 [History] Aspirin Enteric Coated [Aspirin EC] 81 mg PO DAILY 07/10/16 [History] Carvedilol [Coreg] 25 mg PO BID 07/10/16 [History] Fluticasone Propionate Nasal [Flonase] 50 mcg NS DAILY 07/10/16 [History] Nitroglycerin [Nitrostat] 0.4 mg SL Q5M PRN 07/10/16 [History] Omeprazole [PriLOSEC] 20 mg PO BIDAC 07/10/16 [History] Ranitidine HCl [Zantac] 300 mg PO HS 07/10/16 [History] Levothyroxine [Synthroid] 112 mcg PO 0630 #10 tablet 07/13/16 [Rx] Amlodipine Besylate 10 mg PO DAILY 09/19/16 [History] Citalopram Hydrobromide [Celexa] 40 mg PO DAILY 07/18/17 [History] Cyanocobalamin (Vitamin B-12) [Vitamin B12] 2,000 mcg PO DAILY 07/18/17 [History ] Ipratropium/Albuterol Neb [Duoneb] 3 ml IH Q6H PRN 07/18/17 [History] Lisinopril/Hydrochlorothiazide [Zestoretic 20-25 mg Tablet] 1 each PO BID [History] Mometasone/Formoterol [Dulera 200 Mcg/5 Mcg Inhaler] 1 puff IH BID 07/18/17 [ History] Oxygen 2 l NS AD 07/18/17 [History] Promethazine [Phenergan] 25 mg PO Q8HR PRN #15 tablet 07/27/17 [Rx] ALPRAZolam [Xanax 1 MG Tablet] 1 mg PO BID 07/30/17 [History] Furosemide [Lasix] 80 mg PO DAILY 07/30/17 [History] Oxycodone HCl 10 mg PO Q4H PRN 07/30/17 [History] 3 Allergy/AdvReac Type Severity Reaction Status Date / Time ketorolac [From Toradol] AdvReac Abdominal Verified 07/30/17 00:44 Pain NSAIDS (Non-Steroidal AdvReac Abdominal Verified 07/30/17 00:44 Anti-Inflamma Pain tramadol AdvReac Abdominal Verified 07/30/17 00:44 Pain pyridium AdvReac Abdominal Uncoded 07/30/17 00:44 Pain All Systems PM: A 10-system review of systems was performed and is negative for pertinent findings except as documented above in the HPI. - Constitutional Constitutional: fatigue, fever(s), weakness - EENT Eyes: no blurry vision - Cardiovascular Cardiovascular ROS IM: dyspnea, dyspnea on exertion, no chest pain, no claudication, no edema, no lightheadedness, no orthopnea, no palpitations, no syncope - Respiratory Respiratory: cough, dyspnea, dyspnea on exertion, wheezing, chest congestion, excessive phlegm production, no hemoptysis - Gastrointestinal Gastrointestinal: diarrhea, nausea, vomiting, no abdominal pain, no bloating, no cramping, no hematemesis, no hematochezia - Genitourinary Genitourinary: no dysuria - Musculoskeletal Musculoskeletal ROS IM: no back pain - Neurological Neurological ROS: no abnormal gait, no confusion, no convulsions, no dizziness, no focal weakness, no memory loss, no numbness, no tingling - Constitutional Vitals: Temp Pulse Resp BP Pulse Ox 98.3 F 77 16 124/66 94 07/30/17 08:56 07/30/17 08:56 07/30/17 08:56 07/30/17 08:56 07/30/17 09:50 General appearance: Present: cooperative, mild distress, A&O X 3, pleasant, answers questions appropriately - Head Head exam: Present: atraumatic - Eye Eye exam: Present: EOMI - ENT ENT exam: Present: mucous membranes moist - Respiratory Respiratory exam: Present: decreased breath sounds (Slightly decreased in both bases), wheezes (Mild bilateral). Absent: accessory muscle use, chest wall tenderness, rales, rhonchi, tachypnea - Cardiovascular Cardiovascular exam: Present: RRR, +S1, +S2 - GI/Abdominal GI/Abdominal exam: Present: soft. Absent: distended, firm, guarding, tenderness - Extremities Exam Extremities exam: Present: radial pulses palpable and symmetrical. Absent: calf tenderness, cyanotic, pedal edema - Neurological Exam Neurological exam: Present: alert, oriented X3, no focal deficits. Absent: facial droop, speech deficit Internal Med - H&P Results - Labs CBC & Chem 7: 07/30/17 03:20 07/30/17 03:20 Labs: Cardiac Enzymes 07/30/17 Range/Units 09:10 Troponin I 0.01 (0-0.03) ng/mL
[2017-07-30] MEDS ORDERED: Furosemide 40 MG TABLET PO SCH (11:00)
[2017-07-30] MEDS: Furosemide 40 MG TABLET PO SCH (11:40)
[2017-07-30 11:59] LABS: Bilirubin,Urine Negative (Negative); Blood,Urine Moderate (Negative); Clarity,Urine Clear (Clear); Color,Urine Yellow (Yellow); Glucose,Urine (UA) 100 mg/dL (Normal); Ketones,Urine Negative (Negative); Leukocyte Esterase,Urine Negative (Negative); Nitrite,Urine Negative (Negative); Protein,Urine >=300 mg/dL (Neg-Trace); Specific Gravity,Urine > 1.030 (1.010-1.025); Urobilinogen,Urine Normal (Normal)
[2017-07-30 12:03] LABS: Bacteria,Urine None Seen per hpf (None-Few); Hyaline Casts,Urine None Seen per lpf (None-Few); RBC,Urine 15-30 per hpf (0-3); Squamous Epithelial Cell,Urine Moderate per lpf (None-Few); WBC,Urine 30-50 per hpf (0-3)
[2017-07-30] MEDS: Piperacillin/Tazobactam 3.375 GM in D5% in Water (Mini-Bag+) 100 ML IVPB SCH (15:25)
[2017-07-30] MEDS: Famotidine 20 MG/2 ML VIAL IVP SCH (17:16)
[2017-07-30] MEDS: *HR* Heparin 5,000 UNIT/ML VIAL SQ SCH (17:16)
--- NOTE | 2017-07-30 19:27 | Electrocardiograph Report ---
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
[2017-07-30] MEDS: Vancomycin 1,000 MG in D5% in Water 250 ML IVPB SCH (20:37)
[2017-07-31] MEDS: Ipratropium/Albuterol Neb 3 ML IH SCH ×6 (00:26→19:57)
[2017-07-31] MEDS: Piperacillin/Tazobactam 3.375 GM in D5% in Water (Mini-Bag+) 100 ML IVPB SCH ×2 (00:28→13:33)
[2017-07-31] MEDS: 0.9 % Sodium Chloride 1,000 ML IVC SCH ×2 (00:29→17:00)
[2017-07-31 03:54] LABS: Hematocrit 25.8 % (35.3-44.9); Immature Granulocytes % 0.9 % (0-4); Lymphocytes # 0.5 K/mcL (0.6-4.6); Lymphocytes % 4.4 %; Mean Corpuscular Hemoglobin 29.9 pg (28.0-33.3); Mean Corpuscular Volume 96.3 fL (83.0-100.0); Mean Platelet Volume 11.2 fL (9.4-12.4); Monocytes # 0.6 K/mcL (0.0-1.3); Monocytes % 4.9 %; Neutrophils # 10.1 K/mcL (1.6-8.9); Platelet Count 157 K/mcL (140-400); Red Blood Count 2.68 M/mcL (3.82-4.97); Red Cell Distribution Width 14.8 % (11.5-14.5); Segmented Neutrophils % 89.8 %
[2017-07-31 04:02] LABS: Prothrombin Time 10.7 Seconds (9.4-12.1)
[2017-07-31 04:04] LABS: BUN/Creatinine Ratio 25 (6-26); Calcium 8.1 mg/dL (8.6-10.8); Carbon Dioxide 31 mEq/L (19-29); Chloride 104 mEq/L (98-109); Glucose 169 mg/dL (70-99); Osmolality,Calculated 302 (280-300); Potassium 4.6 mEq/L (3.5-4.5); Sodium 142 mEq/L (136-145); eGFR For African Americans > 60 (> 60); eGFR For Non-African Americans 59 (> 60)
[2017-07-31 04:05] LABS: Blood Urea Nitrogen 25 mg/dL (7-20)
[2017-07-31] MEDS: ALPRAZolam 1 MG TABLET PO SCH ×3 (04:47→22:48)
[2017-07-31] MEDS: Famotidine 20 MG/2 ML VIAL IVP SCH ×2 (07:01→17:01)
[2017-07-31] MEDS: *HR* Heparin 5,000 UNIT/ML VIAL SQ SCH ×2 (07:01→17:01)
[2017-07-31] MEDS: Levofloxacin 750 MG/150 ML 750 MG/150 ML BAG IVPB SCH (07:02)
[2017-07-31] MEDS: Budesonide/Formoterol 160/4.5 MDI IH SCH ×2 (07:53→19:57)
[2017-07-31] MEDS: Furosemide 40 MG TABLET PO SCH (08:37)
[2017-07-31] MEDS: Aspirin Enteric Coated 81 MG Tablet PO SCH (08:38)
[2017-07-31] MEDS: Cyanocobalamin (B-12) 1,000 MCG TABLET PO SCH (08:38)
[2017-07-31] MEDS: amLODIPine 5 MG TABLET PO SCH (08:38)
[2017-07-31] MEDS: *HR* Morphine 2 MG/ML SYRINGE IVP PRN ×3 (08:39→18:55)
[2017-07-31] MEDS: Vancomycin 1,000 MG in D5% in Water 250 ML IVPB SCH ×2 (08:47→22:37)
--- NOTE | 2017-07-31 10:32 | Internal Med Progress Note ---
<Raj Martinez - Last Filed: 07/31/17 10:57> Date of Encounter: 07/31/17 Time of Encounter: 10:30 - Assessment and plan (1) Acute respiratory failure with hypoxia Current Visit: No Status: Acute Assessment and plan: chest CTA negative for PE. significant for multi focal patchy ground glass opacification sseen throughout most of the right lung field, subtle areas of ground glass attenuation seen in left upper lobe, small bilateral pleural effusions. Etiology likely secondary to pneumonia. of note, patient was recently in hospital and discharged on 07/22/17. was treated for COPD exacerbation secondary to pneumonia, was treated with antibiotics and sent home on augmentin and prednisone. patient currently requiring 5L on oxymask. patient does have history of COPD and wears 3L oxygen at home. Plan: wean off oxygen as tolerated. blood cultures pending. continue vanc, zosyn, levaquin and de escalated based on blood cultures. sputum culture pending. prednisone daily symbicort scheduled [facility] (2) COPD exacerbation Current Visit: No Status: Acute Assessment and plan: likely secondary to pneumonia. plan as above. (3) Healthcare-associated pneumonia Current Visit: Yes Status: Acute Assessment and plan: plan as above. (4) Anxiety disorder Current Visit: No Status: Chronic Assessment and plan: patient does have history of anxiety. continue home medication xanax. Qualifiers: Anxiety disorder type: generalized anxiety disorder Qualified Code(s): F41.1 - Generalized anxiety disorder (5) Hypertension Current Visit: No Status: Chronic Assessment and plan: continue home blood pressure medications. Qualifiers: Hypertension type: essential hypertension Qualified Code(s): I10 - Essential (primary) hypertension (6) Hypothyroidism Current Visit: No Status: Chronic Assessment and plan: continue home levothyroxine. Qualifiers: Hypothyroidism type: unspecified Qualified Code(s): E03.9 - Hypothyroidism , unspecified (7) Lupus nephritis Current Visit: No Status: Chronic Assessment and plan: history of lupus nephritis. During last hospitalization, patient had significant proteinuria with MARTI. Nephrology was consulted at that time and was scheduled to get a renal biopsy by IR. However, this could not be done because patient had significant cough and was unable to lay on her abdomen without coughing. plan was to follow up outpatient with nephrology. Patient is requesting to have her biospy done while she is inpatient. we will wait for her respiratory status to improve before considering this. (8) SLE (systemic lupus erythematosus) Current Visit: No Status: Chronic Assessment and plan: SLE with lupus nephritis. Patient sees Dr. Carr for nephrology and states she has been referred to a new piece presser at [facility] will consider nephrology consult later if warranted. Plan: continue to monitor kidney function closely. Qualifiers: Systemic lupus erythematosus type: unspecified Systemic lupus erythematosus organ involvement: unspecified Qualified Code(s): M32.9 - Systemic lupus erythematosus, unspecified (9) DVT prophylaxis Current Visit: Yes Status: Acute Assessment and plan: heparin SQ - Subjective Interval history: 42F evaluated at bedside. patient admits to nausea without vomiting. she denies diarrhea, fever, chills. she does admit to shortness of breath. patient was upset about an episode last night that happened with her nurse, and stated he was accused of taking more pain medication than she is prescribed to take. patient is also concerned about her various medical problems as well. - Constitutional Vitals: Temp Pulse Resp BP Pulse Ox 97.8 F 58 12 128/80 92 07/31/17 06:45 07/31/17 06:45 07/31/17 07:54 07/31/17 06:45 07/31/17 07:54 General appearance: Present: cooperative, A&O X 3, pleasant, no acute distress, answers questions appropriately - Head Head exam: Present: atraumatic, normocephalic - Neck Neck exam general surgery: Present: supple, trachea midline - Respiratory Respiratory exam: Present: rales, rhonchi - Cardiovascular Cardiovascular exam: Present: RRR, +S1, +S2 - GI/Abdominal GI/Abdominal exam: Present: normal bowel sounds, soft. Absent: distended, tenderness - Extremities Exam Extremities exam: Absent: cyanotic, pedal edema - Neurological Exam Neurological exam: Present: alert, oriented X3, no focal deficits - Psychiatric Psychiatric exam: Present: anxious - Skin Skin exam: Present: intact Internal Medicine: Result - Labs CBC & Chem 7: 07/31/17 03:35 07/31/17 03:35 Labs: Short CBC 07/31/17 Range/Units 03:35 WBC 11.3 H (4.3-11.1) K/mcL Hgb 8.0 L (11.5-15.4) g/dL Hct 25.8 L (35.3-44.9) % Plt Count 157 (140-400) K/mcL Neutrophils # 10.1 H (1.6-8.9) K/mcL BMP 07/31/17 03:35 Sodium 142 Potassium 4.6 H Chloride 104 Carbon Dioxide 31 H BUN 25 H D Creatinine 1.02 D Glucose 169 H Calcium 8.1 L Cardiac Enzymes 07/30/17 07/31/17 Range/Units 21:00 03:35 Troponin I 0.00 0.01 (0-0.03) ng/mL Urine 07/30/17 Range/Units 11:30 Urine Color Yellow (Yellow) Urine Clarity Clear (Clear) Urine pH 6.0 (5.0-8.0) pH Units Ur Specific [place] > 1.030 H (1.010-1.025) Urine Protein >=300 H (Neg-Trace) mg/dL Urine Glucose (UA) 100 H (Normal) mg/dL - ABG Interpretation ABG results: PT/INR, D-dimer PT 10.7 Seconds (9.4-12.1) 07/31/17 03:35 Consult Discharge Plan - Plan Referrals: Naresh Skinner MD [Primary Care Provider] - <Gaston Chacon - Last Filed: 07/31/17 17:57> Date of Encounter: 07/31/17 - Constitutional Vitals: Temp Pulse Resp BP Pulse Ox 98.4 F 57 16 141/75 95 07/31/17 16:38 07/31/17 16:38 07/31/17 16:38 07/31/17 16:38 07/31/17 16:38 Internal Medicine: Result - Labs CBC & Chem 7: 07/31/17 03:35 07/31/17 03:35 Labs: Short CBC 07/31/17 Range/Units 03:35 WBC 11.3 H (4.3-11.1) K/mcL Hgb 8.0 L (11.5-15.4) g/dL Hct 25.8 L (35.3-44.9) % Plt Count 157 (140-400) K/mcL Neutrophils # 10.1 H (1.6-8.9) K/mcL BMP 07/31/17 03:35 Sodium 142 Potassium 4.6 H Chloride 104 Carbon Dioxide 31 H BUN 25 H D Creatinine 1.02 D Glucose 169 H Calcium 8.1 L Cardiac Enzymes 07/30/17 07/31/17 Range/Units 21:00 03:35 Troponin I 0.00 0.01 (0-0.03) ng/mL - ABG Interpretation ABG results: PT/INR, D-dimer PT 10.7 Seconds (9.4-12.1) 07/31/17 03:35 - Attending Attestation I examined this patient and my medical decision-making was reviewed with the Resident Physician, Dr. Martinez. I agree with the documented findings, disposition and treatment plan as described except to the extent set forth below. I have independently obtained history and examined the patient and my findings are summarized below: She is in no acute distress. Heart exam reveals regular S1-S2, no murmurs. Lungs exam reveals bilateral fine rhonchi. Assessment and plan: She is hypoxic, had been admitted with a working diagnosis of healthcare associated pneumonia. We will treat her with broad-spectrum IV antibiotics. I will obtain echocardiogram to rule out CHF as a potential player.
[2017-07-31] MEDS: predniSONE 20 MG TABLET PO SCH (13:32)
[2017-07-31] MEDS: *HR* OxyCODONE Immed Rel 5 MG TABLET PO PRN (17:01)
--- NOTE | 2017-07-31 19:05 | Electrocardiograph Report ---
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
[2017-07-31] MEDS ORDERED: Piperacillin/Tazobactam 3.375 GM in D5% in Water (Mini-Bag+) 100 ML IVPB SCH (21:00)
[2017-08-01] MEDS: Ipratropium/Albuterol Neb 3 ML IH SCH ×7 (00:11→22:16)
[2017-08-01] MEDS: *HR* Morphine 2 MG/ML SYRINGE IVP PRN (03:36)
[2017-08-01 04:03] LABS: Basophils % 0.1 %; Hematocrit 26.2 % (35.3-44.9); Hemoglobin 8.1 g/dL (11.5-15.4); Immature Granulocytes % 0.9 % (0-4); Lymphocytes # 0.5 K/mcL (0.6-4.6); Lymphocytes % 3.1 %; Mean Corpuscular HGB Conc 30.9 g/dL (31.6-35.5); Mean Corpuscular Hemoglobin 29.8 pg (28.0-33.3); Mean Corpuscular Volume 96.3 fL (83.0-100.0); Mean Platelet Volume 11.3 fL (9.4-12.4); Monocytes # 0.4 K/mcL (0.0-1.3); Monocytes % 2.7 %; Neutrophils # 13.9 K/mcL (1.6-8.9); Platelet Count 201 K/mcL (140-400); Red Blood Count 2.72 M/mcL (3.82-4.97); Red Cell Distribution Width 14.7 % (11.5-14.5); Segmented Neutrophils % 93.2 %
[2017-08-01 04:11] LABS: BUN/Creatinine Ratio 30 (6-26); Blood Urea Nitrogen 33 mg/dL (7-20); Calcium 8.4 mg/dL (8.6-10.8); Carbon Dioxide 34 mEq/L (19-29); Chloride 102 mEq/L (98-109); Glucose 149 mg/dL (70-99); Osmolality,Calculated 302 (280-300); Potassium 4.6 mEq/L (3.5-4.5); Sodium 141 mEq/L (136-145); eGFR For African Americans > 60 (> 60); eGFR For Non-African Americans 55 (> 60)
[2017-08-01] MEDS: Levofloxacin 750 MG/150 ML 750 MG/150 ML BAG IVPB SCH (06:26)
[2017-08-01] MEDS: *HR* Heparin 5,000 UNIT/ML VIAL SQ SCH ×2 (06:27→17:29)
[2017-08-01] MEDS: *HR* OxyCODONE Immed Rel 5 MG TABLET PO PRN ×5 (06:45→21:25)
[2017-08-01] MEDS: Ondansetron 4 MG/2 ML VIAL IVP PRN ×2 (06:45→17:29)
[2017-08-01] MEDS: Famotidine 20 MG/2 ML VIAL IVP SCH ×2 (06:46→17:29)
[2017-08-01] MEDS: Budesonide/Formoterol 160/4.5 MDI IH SCH ×2 (07:38→20:06)
--- NOTE | 2017-08-01 09:11 | Internal Med Progress Note ---
<Mari Caballero - Last Filed: 08/01/17 10:45> Date of Encounter: 08/01/17 Time of Encounter: 09:10 - Assessment and plan (1) Acute respiratory failure with hypoxia Current Visit: No Status: Acute Assessment and plan: Etiology likely secondary to pneumonia -patient currently requiring 3L on oxygen mask. She took the mask off while talking to me and started to de-sat from high 90s to low 80s. She was told to put mask back on and O2 went back to 96%. chest CTA negative for PE. significant for multi focal patchy ground glass opacification sseen throughout most of the right lung field, subtle areas of ground glass attenuation seen in left upper lobe, small bilateral pleural effusions. of note, patient was recently in hospital and discharged on 07/22/17. was treated for COPD exacerbation secondary to pneumonia, was treated with antibiotics and sent home on augmentin and prednisone. patient does have history of COPD and wears 3L oxygen at home. -Echocardiogram shows LVEF 65% , normal diastolic function. Mild-moderate pulmonary hypertension, RVSP=47mmHg -Most likely the pulmonary hypertension is due to SLE Plan: wean off oxygen as tolerated: decreased 6L to now 3L O2 blood cultures pending: prelim no growth continue vanc, zosyn, levaquin and de escalated based on blood cultures. sputum culture pending prednisone daily symbicort [facility] (2) COPD exacerbation Current Visit: No Status: Acute Assessment and plan: likely secondary to pneumonia -plan as above (3) Healthcare-associated pneumonia Current Visit: Yes Status: Acute Assessment and plan: plan as above (4) Anxiety disorder Current Visit: No Status: Chronic Assessment and plan: patient does have history of anxiety, stable continue home medication xanax Qualifiers: Anxiety disorder type: generalized anxiety disorder Qualified Code(s): F41.1 - Generalized anxiety disorder (5) Hypertension Current Visit: No Status: Chronic Assessment and plan: within normal limits continue home blood pressure medications Qualifiers: Hypertension type: essential hypertension Qualified Code(s): I10 - Essential (primary) hypertension (6) Hypothyroidism Current Visit: No Status: Chronic Assessment and plan: history of hypothyroidism continue home levothyroxine Qualifiers: Hypothyroidism type: unspecified Qualified Code(s): E03.9 - Hypothyroidism , unspecified (7) Lupus nephritis Current Visit: No Status: Chronic Assessment and plan: history of lupus nephritis -Patient reported that she has a [employer] in [place] that manages her SLE. -patient currently has proteinuria without MARTI During last hospitalization, patient had significant proteinuria with MARTI. Nephrology was consulted at that time and was scheduled to get a renal biopsy by IR. However, this could not be done because patient had significant cough and was unable to lay on her abdomen without coughing. plan was to follow up outpatient with nephrology. Patient is requesting to have her biospy done while she is inpatient. we will wait for her respiratory status to improve before considering this. (8) SLE (systemic lupus erythematosus) Current Visit: No Status: Chronic Assessment and plan: History of SLE with lupus nephritis. Patient sees Dr. Carr for nephrology and states she has been referred to a new director mobile at [facility] will consider nephrology consult later if warranted. Plan: continue to monitor kidney function closely Qualifiers: Systemic lupus erythematosus type: unspecified Systemic lupus erythematosus organ involvement: unspecified Qualified Code(s): M32.9 - Systemic lupus erythematosus, unspecified (9) DVT prophylaxis Current Visit: Yes Status: Acute Assessment and plan: heparin SQ - Subjective Interval history: Patient is seen beside the bed talking with her and boyfriend. She said that she feels her breathing has been improving as compared to admission and doesn't feel that she needs her supplemental oxygen. She stated that she just returned from getting her echocardiogram done and she is concerned about the results of it. She took her oxygen mask off while I was talking with her and then started to de -sat from high 90s to 80% oxygen, and then I told her to put her oxygen mask back on and her saturation back up to the high 90s. - Constitutional Vitals: Temp Pulse Resp BP Pulse Ox 97.6 F 57 15 126/66 98 08/01/17 04:00 08/01/17 04:00 08/01/17 04:00 08/01/17 04:00 08/01/17 04:00 General appearance: Present: cooperative, A&O X 3, pleasant, no acute distress, answers questions appropriately Exam: Gen.: Vitals noted. No acute distress. AAOx3 HEENT: oropharynx clear, Normocephalic, atraumatic Neck: Supple. No adenopathy. Cardiac: RRR, no murmur, +S1/S2 Pulmonary: + rales B/L in base of lungs, + rhonci and upper lungs bilaterally , equal chest expansion Abdomen: soft, nontender to deep auscultation with my stethoscope but tenderness to my hands, Bowel sounds noted, no guardingout. MSK: no joint swelling noted Extremities: minimal BLE edema, nontender calf, no cyanosis or clubbing Neuro: A&Ox3, moves all extremities Psych: Appropriate mood and behavior Internal Medicine: Result - Labs CBC & Chem 7: 08/01/17 03:30 08/01/17 03:30 Labs: Short CBC 08/01/17 Range/Units 03:30 WBC 14.9 H (4.3-11.1) K/mcL Hgb 8.1 L (11.5-15.4) g/dL Hct 26.2 L (35.3-44.9) % Plt Count 201 (140-400) K/mcL Neutrophils # 13.9 H (1.6-8.9) K/mcL BMP 08/01/17 03:30 Sodium 141 Potassium 4.6 H Chloride 102 Carbon Dioxide 34 H BUN 33 H Creatinine 1.09 Glucose 149 H Calcium 8.4 L - ABG Interpretation ABG results: PT/INR, D-dimer PT 10.7 Seconds (9.4-12.1) 07/31/17 03:35 - Impressions Impressions Echocardiogram 08/01/17 16:38 Impressions: Normal LV systolic function, LVEF 65%. Normal left ventricular diastolic function. Normal right ventricular size and function. Mild aortic regurgitation. Mild tricuspid regurgitation. Mild-moderate pulmonary hypertension. Estimated RVSP = 47 mmHg. No evidence of intracardiac shunting with agitated saline contrast. Left Ventricular Wall Motion: Rest Echo Findings All wall segments showed normal motion. Findings: Study Quality * Technically adequate exam. ECG Findings * Sinus bradycardia. Left Ventricle * Normal LV systolic function, LVEF 65%. * Normal LV chamber size and wall thickness. * Normal left ventricular diastolic function. Right Ventricle * Normal right ventricular size and function. Left Atrium * Normal left atrial size. Right Atrium * Normal right atrial size. Interatrial Septum * No evidence of intracardiac shunting with agitated saline contrast. Aorta * Normally sized aortic root. Pericardium * There is no pericardial effusion present. IVC * The IVC is mildly dilated. Aortic Valve * Aortic valve not well visualized. Appears trileaflet with mild sclerosis. * No aortic stenosis. * Mild aortic regurgitation. Mitral Valve * Mildly thickened mitral valve leaflets. * No mitral stenosis. * Trace mitral regurgitation. Tricuspid Valve * Normal tricuspid valve structure. * No tricuspid stenosis. * Mild tricuspid regurgitation. * Mild-moderate pulmonary hypertension. Estimated RVSP = 47 mmHg. Pulmonic Valve * Pulmonic valve not well visualized. * No pulmonic stenosis. * Trace pulmonic regurgitation. Consult Discharge Plan - Plan Referrals: Naresh Skinner MD [Primary Care Provider] - 08/05/17 3:30 pm <Gaston Chacon - Last Filed: 08/01/17 14:48> Date of Encounter: 08/01/17 - Constitutional Vitals: Temp Pulse Resp BP Pulse Ox 97.7 F 60 15 148/72 96 08/01/17 11:37 08/01/17 11:37 08/01/17 11:37 08/01/17 11:37 08/01/17 11:37 Internal Medicine: Result - Labs CBC & Chem 7: 08/01/17 03:30 08/01/17 03:30 Labs: Short CBC 08/01/17 Range/Units 03:30 WBC 14.9 H (4.3-11.1) K/mcL Hgb 8.1 L (11.5-15.4) g/dL Hct 26.2 L (35.3-44.9) % Plt Count 201 (140-400) K/mcL Neutrophils # 13.9 H (1.6-8.9) K/mcL BMP 08/01/17 03:30 Sodium 141 Potassium 4.6 H Chloride 102 Carbon Dioxide 34 H BUN 33 H Creatinine 1.09 Glucose 149 H Calcium 8.4 L - ABG Interpretation ABG results: PT/INR, D-dimer PT 10.7 Seconds (9.4-12.1) 07/31/17 03:35 - Impressions Impressions Echocardiogram 08/01/17 16:38 Impressions: Normal LV systolic function, LVEF 65%. Normal left ventricular diastolic function. Normal right ventricular size and function. Mild aortic regurgitation. Mild tricuspid regurgitation. Mild-moderate pulmonary hypertension. Estimated RVSP = 47 mmHg. No evidence of intracardiac shunting with agitated saline contrast. Left Ventricular Wall Motion: Rest Echo Findings All wall segments showed normal motion. Findings: Study Quality * Technically adequate exam. ECG Findings * Sinus bradycardia. Left Ventricle * Normal LV systolic function, LVEF 65%. * Normal LV chamber size and wall thickness. * Normal left ventricular diastolic function. Right Ventricle * Normal right ventricular size and function. Left Atrium * Normal left atrial size. Right Atrium * Normal right atrial size. Interatrial Septum * No evidence of intracardiac shunting with agitated saline contrast. Aorta * Normally sized aortic root. Pericardium * There is no pericardial effusion present. IVC * The IVC is mildly dilated. Aortic Valve * Aortic valve not well visualized. Appears trileaflet with mild sclerosis. * No aortic stenosis. * Mild aortic regurgitation. Mitral Valve * Mildly thickened mitral valve leaflets. * No mitral stenosis. * Trace mitral regurgitation. Tricuspid Valve * Normal tricuspid valve structure. * No tricuspid stenosis. * Mild tricuspid regurgitation. * Mild-moderate pulmonary hypertension. Estimated RVSP = 47 mmHg. Pulmonic Valve * Pulmonic valve not well visualized. * No pulmonic stenosis. * Trace pulmonic regurgitation. - Attending Attestation I examined this patient and my medical decision-making was reviewed with the Resident Physician, Dr. Caballero. I agree with the documented findings, disposition and treatment plan as described except to the extent set forth below. I have independently obtained history and examined the patient and my findings are summarized below: On exam she is in no acute distress. Heart is regular. Lung auscultation reveals bilateral rhonchi. Extremity exam shows 1+ lower extremity pitting edema. Plan: Continue with broad-spectrum IV antibiotic. Oxygen supplementation. New Problem for today is pulmonary hypertension of unclear etiology. We will consult pulmonology to help evaluate this patient for hypoxemia, bilateral infiltrates and pulmonary hypertension. We will also consult cardiology due to possible need for right heart catheterization as part of her workup.
[2017-08-01] MEDS: predniSONE 20 MG TABLET PO SCH (09:13)
[2017-08-01] MEDS: ALPRAZolam 1 MG TABLET PO SCH ×2 (09:13→21:26)
[2017-08-01] MEDS: amLODIPine 5 MG TABLET PO SCH (09:14)
[2017-08-01] MEDS: Cyanocobalamin (B-12) 1,000 MCG TABLET PO SCH (09:14)
[2017-08-01] MEDS: Aspirin Enteric Coated 81 MG Tablet PO SCH (09:15)
[2017-08-01] MEDS: Piperacillin/Tazobactam 3.375 GM in D5% in Water (Mini-Bag+) 100 ML IVPB SCH ×3 (09:16→23:43)
[2017-08-01] MEDS: Vancomycin 1,000 MG in D5% in Water 250 ML IVPB SCH (09:20)
[2017-08-01] MEDS ORDERED: Dextrose Gel 15 GM PO PRN ×2 (11:19)
[2017-08-01] MEDS ORDERED: D5% in Water 1,000 ML IVC PRN (11:19)
[2017-08-01] MEDS ORDERED: *HR* Dextrose 50 % in Water (Syg) 50 ML SYRINGE IVP PRN (11:19)
[2017-08-01] MEDS: Insulin LISPRO 300 UNITS/3 ML VIAL SQ SCH ×3 (12:15→21:31)
[2017-08-01] MEDS: 0.9 % Sodium Chloride 1,000 ML IVC SCH ×2 (12:37→12:45)
[2017-08-01 14:54] LABS: Alanine Aminotransferase 10 Units/L (0-55); Albumin 2.3 g/dL (3.5-5.0); Albumin/Globulin Ratio 0.8 (1.1-2.2); Alkaline Phosphatase 41 Units/L (38-126); Aspartate Amino Transferase 10 Units/L (5-34); Bilirubin,Direct 0.3 mg/dL (0.0-0.5); Bilirubin,Indirect 0.6 mg/dL (0.0-1.2); Bilirubin,Total 0.9 mg/dL (0.2-1.2); Globulin 2.9 g/dL (2.4-3.5); Total Protein 5.2 g/dL (6.0-8.3)
--- NOTE | 2017-08-01 16:26 | Pulmonology Consult Note ---
Date of Encounter: 08/01/17 Time of Encounter: 03:30 Assessment and Plan (1) Pulmonary hypertension Current Visit: Yes Status: Acute Looking down the ECHOS for past 2 years there was no pulmonary HTN . Now she has moderate pulmonary HTN most likey due to chronic Lung disease Asthma and COPD Vs Interstitial lung disease secondary to Lupus will get some transbronchial biopsy . Will get outpatient PFT'S . (2) Acute respiratory failure with hypoxia Current Visit: Yes Status: Acute Patient has long history of asthma seen in pulmonary clinic she also has emphysematous changes in the CT no PFT'S file she was told she has COPD to continue the current regimen of bronchodilators . Patient with long standing Lupus with connective tissues disease with recurrent pneumonias . 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 Interstitial Lung disease can happen secondary to Lupus .Patient is agreeing for Bronchoscopy. (3) Pneumonia Current Visit: Yes Status: Acute Patient has asymmetric distribution of ground glass opacities can happen with bacterial both atypical and typical organisms as she is on and off prednisone therapy she is at risk for viral and fungal pneumonia Vs Inflammatory pneumonitis although CT picture is not a classical finding for any Interstitial pneumonias in the background of Lupus it is reasonable to rule out. Qualifiers: Pneumonia type: due to unspecified organism Laterality: right Qualified Code(s): J18.9 - Pneumonia, unspecified organism (4) Asthma Current Visit: No Status: Chronic Asthma with probable COPD component continue steroids and current regimen of bronchodilators. Will check alpha 1 antitrypsin deficiency . Qualifiers: Qualified Code(s): J45.30 - Mild persistent asthma, uncomplicated History of Present Illness Consult date: 08/01/17 Requesting physician: Gaston Chacon Reason for consult: pulmonary hypertension Chief complaint: Progressive Shortness of Breadth History of present illness: 42 year old female with past medical history significant for Chronic Asthma / COPD in a non -smoker not tested alpha1 antitrypsin deficiency ,also has patient has long standing chronic lupus diagnosed in 2004 takes alternate month prednisone , patient is not followed by [facility] in a given year she gets recurrent pneumonia almost 6 times a year , the last episode she said was going past month with worsening shortness of breadth , cough with sputum production which is was yellowish brown in color , denies any fever or chills , but she is worsening shortness of breadth . Patient was admitted for atypical pneumonia. Patient was started on broad spectrum antibiotics , patient had ECHO showed Moderate Pulmonary HTN , Pulmonary was consulted for evaluation of pulmonary hypertension. Patient denies any joint symptoms , no active lesions , she says her exercise tolerance is worsening . Past Med Surg Social Fam HX - Past Medical History Medical history: asthma, COPD, DVT, fibromyalgia, GERD, GI bleed, hypertension, kidney stones, myocardial infarction, RA, thyroid disease, other Psychiatric history: anxiety - Past Surgical History Surgical History: cholecystectomy, hysterectomy - Social History Smoking Status: Never smoker Smokeless Tobacco Status: No Alcohol use: none Drug use: none - Family History Mother Living Status: Hx Family Cardiac Disorders: Yes (mi) Father Living Status: Hx Family Cardiac Disorders: Yes Hx Family Endocrine Disorder: Yes Medications and Allergies Albuterol Sulfate [Proair Hfa] 2 puff IH Q4H PRN 07/10/16 [History] Aspirin Enteric Coated [Aspirin EC] 81 mg PO DAILY 07/10/16 [History] Carvedilol [Coreg] 25 mg PO BID 07/10/16 [History] Fluticasone Propionate Nasal [Flonase] 50 mcg NS DAILY 07/10/16 [History] Nitroglycerin [Nitrostat] 0.4 mg SL Q5M PRN 07/10/16 [History] Omeprazole [PriLOSEC] 20 mg PO BIDAC 07/10/16 [History] Ranitidine HCl [Zantac] 300 mg PO HS 07/10/16 [History] Levothyroxine [Synthroid] 112 mcg PO 0630 #10 tablet 07/13/16 [Rx] Amlodipine Besylate 10 mg PO DAILY 09/19/16 [History] Citalopram Hydrobromide [Celexa] 40 mg PO DAILY 07/18/17 [History] Cyanocobalamin (Vitamin B-12) [Vitamin B12] 2,000 mcg PO DAILY 07/18/17 [History ] Ipratropium/Albuterol Neb [Duoneb] 3 ml IH Q6H PRN 07/18/17 [History] Lisinopril/Hydrochlorothiazide [Zestoretic 20-25 mg Tablet] 1 each PO BID [History] Mometasone/Formoterol [Dulera 200 Mcg/5 Mcg Inhaler] 1 puff IH BID 07/18/17 [ History] Oxygen 2 l NS AD 07/18/17 [History] Promethazine [Phenergan] 25 mg PO Q8HR PRN #15 tablet 07/27/17 [Rx] ALPRAZolam [Xanax 1 MG Tablet] 1 mg PO BID 07/30/17 [History] Furosemide [Lasix] 80 mg PO DAILY 07/30/17 [History] Oxycodone HCl 10 mg PO Q4H PRN 07/30/17 [History] 3 Allergy/AdvReac Type Severity Reaction Status Date / Time ketorolac [From Toradol] AdvReac Abdominal Verified 07/30/17 00:44 Pain NSAIDS (Non-Steroidal AdvReac Abdominal Verified 07/30/17 00:44 Anti-Inflamma Pain tramadol AdvReac Abdominal Verified 07/30/17 00:44 Pain pyridium AdvReac Abdominal Uncoded 07/30/17 00:44 Pain All Systems: A 10-system review of systems was performed and is negative for pertinent findings except as documented above in the HPI. Physical Examination Vital Signs: Vital Signs, Last 4 Hours Temp Pulse Resp BP Pulse Ox 08/01/17 16:03 98.1 F 61 16 124/72 91 08/01/17 15:13 16 93 Auscultation: bilateral: wheezes Results - Laboratory Findings CBC and BMP: 08/01/17 03:30 08/01/17 03:30 PT/INR, D-dimer PT 10.7 Seconds (9.4-12.1) 07/31/17 03:35 Abnormal lab findings: Abnormal lab results WBC 14.9 K/mcL (4.3-11.1) H 08/01/17 03:30 RBC 2.72 M/mcL (3.82-4.97) L 08/01/17 03:30 Hgb 8.1 g/dL (11.5-15.4) L 08/01/17 03:30 Hct 26.2 % (35.3-44.9) L 08/01/17 03:30 MCHC 30.9 g/dL (31.6-35.5) L 08/01/17 03:30 RDW 14.7 % (11.5-14.5) H 08/01/17 03:30 Neutrophils # 13.9 K/mcL (1.6-8.9) H 08/01/17 03:30 Lymphocytes # 0.5 K/mcL (0.6-4.6) L 08/01/17 03:30 Potassium 4.6 mEq/L (3.5-4.5) H 08/01/17 03:30 Carbon Dioxide 34 mEq/L (19-29) H 08/01/17 03:30 BUN 33 mg/dL (7-20) H 08/01/17 03:30 Est GFR (Non-Af Amer) 55 (> 60) L 08/01/17 03:30 BUN/Creatinine Ratio 30 (6-26) H 08/01/17 03:30 Glucose 149 mg/dL (70-99) H 08/01/17 03:30 POC Glucose 201 (58-89) H 07/31/17 20:24 Calculated Osmolality 302 (280-300) H 08/01/17 03:30 Calcium 8.4 mg/dL (8.6-10.8) L 08/01/17 03:30 B-Natriuretic Peptide 156 pg/mL (0-100) H 07/30/17 03:20 Serum Total Protein 5.2 g/dL (6.0-8.3) L 08/01/17 03:30 Albumin 2.3 g/dL (3.5-5.0) L 08/01/17 03:30 Albumin/Globulin Ratio 0.8 (1.1-2.2) L 08/01/17 03:30 LDL Cholesterol, Calc 107 mg/dL (0-99) H 07/30/17 09:10 Ur Specific [place] > 1.030 (1.010-1.025) H 07/30/17 11:30 Urine Protein >=300 mg/dL (Neg-Trace) H 07/30/17 11:30 Urine Glucose (UA) 100 mg/dL (Normal) H 07/30/17 11:30 Urine Blood Moderate (Negative) H 07/30/17 11:30 Urine Microscopic RBC 15-30 per hpf (0-3) H 07/30/17 11:30 Urine Microscopic WBC 30-50 per hpf (0-3) H 07/30/17 11:30 Ur Squamous Epith Cells Moderate per lpf (None-Few) H 07/30/17 11:30 - Clinical Findings Intake & Output: Intake & Output 08/01/17 08/01/17 08/01/17 07:59 15:59 23:59 Intake Total 1190 / 1190 1190 / 1190 Output Total 600 / 600 600 / 600 Balance 590 / 590 1190 / 1190 -600 / -600 Weight 79.4 kg Consult Discharge Plan - Plan Referrals: Naresh Skinner MD [Primary Care Provider] - 08/05/17 3:30 pm
[2017-08-01 19:08] LABS: ABG Base Excess 8.9 mEq/L (-2.0 to 3.0); ABG HCO3 36 mEq/L (21-27); ABG Oxygen Saturation 88 % (95-98); ABG PCO2 65 mmHg (35-45); ABG PH 7.35 pH Units (7.32-7.45); ABG PO2 58 mmHg (85-104); ABG TCO2 38 mEq/L (20-26); Blood Gas Modality NC
[2017-08-01] MEDS: Vancomycin 750 MG in D5% in Water 250 ML IVPB SCH (21:26)
[2017-08-01] MEDS ORDERED: *HR* Morphine 2 MG/ML SYRINGE IVP ONE (22:58)
[2017-08-02] MEDS: Ipratropium/Albuterol Neb 3 ML IH SCH ×6 (03:36→23:14)
[2017-08-02] MEDS: *HR* OxyCODONE Immed Rel 5 MG TABLET PO PRN ×4 (04:19→21:07)
[2017-08-02] MEDS: 0.9 % Sodium Chloride 1,000 ML IVC SCH ×2 (04:20→21:50)
[2017-08-02] MEDS: Levofloxacin 750 MG/150 ML 750 MG/150 ML BAG IVPB SCH (05:59)
[2017-08-02] MEDS: *HR* Heparin 5,000 UNIT/ML VIAL SQ SCH ×2 (05:59→17:02)
[2017-08-02] MEDS: Famotidine 20 MG/2 ML VIAL IVP SCH ×2 (06:00→17:02)
[2017-08-02 06:45] LABS: BUN/Creatinine Ratio 38 (6-26); Blood Urea Nitrogen 35 mg/dL (7-20); Calcium 8.2 mg/dL (8.6-10.8); Carbon Dioxide 33 mEq/L (19-29); Chloride 102 mEq/L (98-109); Glucose 118 mg/dL (70-99); Osmolality,Calculated 299 (280-300); Potassium 4.2 mEq/L (3.5-4.5); Sodium 140 mEq/L (136-145); eGFR For African Americans > 60 (> 60); eGFR For Non-African Americans > 60 (> 60)
[2017-08-02 07:09] LABS: Basophils % 0.1 %; Hematocrit 24.8 % (35.3-44.9); Hemoglobin 7.7 g/dL (11.5-15.4); Immature Granulocytes % 1.4 % (0-4); Lymphocytes # 0.6 K/mcL (0.6-4.6); Lymphocytes % 4.8 %; Mean Corpuscular Hemoglobin 30.1 pg (28.0-33.3); Mean Corpuscular Volume 96.9 fL (83.0-100.0); Mean Platelet Volume 11.1 fL (9.4-12.4); Monocytes # 0.9 K/mcL (0.0-1.3); Monocytes % 6.7 %; Platelet Count 212 K/mcL (140-400); Red Blood Count 2.56 M/mcL (3.82-4.97); Red Cell Distribution Width 14.8 % (11.5-14.5)
[2017-08-02] MEDS: Budesonide/Formoterol 160/4.5 MDI IH SCH ×2 (07:48→20:00)
[2017-08-02] MEDS: Aspirin Enteric Coated 81 MG Tablet PO SCH (08:25)
[2017-08-02] MEDS: ALPRAZolam 1 MG TABLET PO SCH ×2 (08:25→21:07)
[2017-08-02] MEDS: Cyanocobalamin (B-12) 1,000 MCG TABLET PO SCH (08:25)
[2017-08-02] MEDS: amLODIPine 5 MG TABLET PO SCH (08:25)
[2017-08-02] MEDS: predniSONE 20 MG TABLET PO SCH (08:27)
[2017-08-02] MEDS: Insulin LISPRO 300 UNITS/3 ML VIAL SQ SCH ×4 (08:29→21:06)
[2017-08-02] MEDS ORDERED: Vancomycin 750 MG VIAL IVPB ONE (08:29)
[2017-08-02] MEDS: Vancomycin 750 MG in D5% in Water 250 ML IVPB SCH (08:29)
[2017-08-02] MEDS: Piperacillin/Tazobactam 3.375 GM in D5% in Water (Mini-Bag+) 100 ML IVPB SCH ×2 (08:33→16:53)
[2017-08-02] MEDS ORDERED: hydrOXYzine pamoate 25 MG CAPSULE PO ONE (08:38)
[2017-08-02] MEDS: Insulin DETEMIR 100 UNIT/ML X5UNITS SQ SCH (08:41)
--- NOTE | 2017-08-02 08:58 | Internal Med Progress Note ---
<Mari Caballero - Last Filed: 08/02/17 15:21> Date of Encounter: 08/02/17 Time of Encounter: 08:30 - Assessment and plan (1) Acute respiratory failure with hypoxia Current Visit: No Status: Acute Assessment and plan: Etiology likely secondary to pneumonia -patient currently requiring 3L on oxygen mask. -Patient believes that her breathing is improving. She denies fever, chills, chest pain, shortness of breath. -Echocardiogram shows LVEF 65% , normal diastolic function. Mild-moderate pulmonary hypertension, RVSP=47mmHg -Most likely Class III Pulmonary Hypertension secondary to Chronic Lung disease chest CTA negative for PE. significant for multi focal patchy ground glass opacification sseen throughout most of the right lung field, subtle areas of ground glass attenuation seen in left upper lobe, small bilateral pleural effusions. of note, patient was recently in hospital and discharged on 07/22/17. was treated for COPD exacerbation secondary to pneumonia, was treated with antibiotics and sent home on augmentin and prednisone. patient does have history of COPD and wears 3L oxygen at home. Plan: -patient undergoing bronchoscopy today -pulmonology consulted for pulmonary hypertension etiology -cardiology consulted for pulmonary hypertension etiology -pulmonology recommends outpatient PFT testing along with workup for interstitial lung disease -D/C Coreg and amlodipine -start diltiazem wean off oxygen as tolerated: currently on 3L O2 blood cultures pending: prelim no growth continue vanc, zosyn, levaquin and de escalated based on blood cultures. sputum culture pending alpha-1 antitrypsin deficiency testing per pulmonology order prednisone daily symbicort scheduled DuoNebs (2) COPD exacerbation Current Visit: No Status: Acute Assessment and plan: likely secondary to pneumonia -plan as above (3) Healthcare-associated pneumonia Current Visit: Yes Status: Acute Assessment and plan: plan as above (4) Anxiety disorder Current Visit: No Status: Chronic Assessment and plan: patient does have history of anxiety, stable continue home medication xanax Patient requested something to help her sleep due to not sleeping well the night -she was given hydroxyzine Qualifiers: Anxiety disorder type: generalized anxiety disorder Qualified Code(s): F41.1 - Generalized anxiety disorder (5) Hypertension Current Visit: No Status: Chronic Assessment and plan: within normal limits continue home blood pressure medications -cardiology recommends holding Coreg Qualifiers: Hypertension type: essential hypertension Qualified Code(s): I10 - Essential (primary) hypertension (6) Hypothyroidism Current Visit: No Status: Chronic Assessment and plan: history of hypothyroidism continue home levothyroxine Qualifiers: Hypothyroidism type: unspecified Qualified Code(s): E03.9 - Hypothyroidism , unspecified (7) Lupus nephritis Current Visit: No Status: Chronic Assessment and plan: history of lupus nephritis -Patient reported that 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 -patient currently has proteinuria without MARTI -continue to monitor renal function During last hospitalization, patient had significant proteinuria with MARTI. Nephrology was consulted at that time and was scheduled to get a renal biopsy by IR. However, this could not be done because patient had significant cough and was unable to lay on her abdomen without coughing. plan was to follow up outpatient with nephrology. Patient is requesting to have her biospy done while she is inpatient. we will wait for her respiratory status to improve before considering this. (8) SLE (systemic lupus erythematosus) Current Visit: No Status: Chronic Assessment and plan: History of SLE with lupus nephritis. Patient sees Dr. Carr for nephrology and states she has been referred to a new casting and locker room servicer at [facility] will consider nephrology consult later if warranted. Plan: continue to monitor kidney function closely Qualifiers: Systemic lupus erythematosus type: unspecified Systemic lupus erythematosus organ involvement: unspecified Qualified Code(s): M32.9 - Systemic lupus erythematosus, unspecified (9) DVT prophylaxis Current Visit: Yes Status: Acute Assessment and plan: heparin SQ - Subjective Interval history: Patient is seen beside the bed talking with her boyfriend. She said that she feels her breathing has been improving as compared to admission but continues to use the oxygen at night as she does at home and intermittently during the day. She was instructed to keep the O2 on for the majority of the day. She stated that she was not able to get a good night of rest last night and requests something to help her sleep prior to her bronchoscopy today at 1pm. She is also complaining on persistent periumbilical pain with a sharp waxing and waning characteristic. Patient denied N/V, diarrhea, constipation, change in urinary frequency, and dysuria. Patient states that she is fatigued, anxious, and ready to go home and is considering "signing herself out". - Constitutional Vitals: Temp Pulse Resp BP Pulse Ox 97.5 F L 55 18 143/84 96 08/02/17 07:34 08/02/17 07:34 08/02/17 07:51 08/02/17 07:34 08/02/17 07:51 General appearance: Present: cooperative, A&O X 3, pleasant, no acute distress, answers questions appropriately - Respiratory Respiratory exam: Present: decreased breath sounds, rales - Expanded Respiratory Exam Location: decreased breath sounds: Left, Right, rales: Left, Right, Lower - Cardiovascular Cardiovascular exam: Present: RRR, +S1, +S2. Absent: clicks - GI/Abdominal GI/Abdominal exam: Present: normal bowel sounds, soft, tenderness. Absent: distended, firm, guarding - Extremities Exam Extremities exam: Present: normal inspection. Absent: calf tenderness, joint swelling, tenderness - Skin Skin exam: Present: dry, intact Internal Medicine: Result - Labs CBC & Chem 7: 08/02/17 06:14 08/02/17 06:14 Labs: Short CBC 08/02/17 Range/Units 06:14 WBC 12.6 H (4.3-11.1) K/mcL Hgb 7.7 L (11.5-15.4) g/dL Hct 24.8 L (35.3-44.9) % Plt Count 212 (140-400) K/mcL Neutrophils # 11.0 H (1.6-8.9) K/mcL BMP 08/01/17 08/02/17 03:30 06:14 Sodium 141 140 Potassium 4.6 H 4.2 Chloride 102 102 Carbon Dioxide 34 H 33 H BUN 33 H 35 H Creatinine 1.09 0.93 Glucose 149 H 118 H Calcium 8.4 L 8.2 L Liver Function 08/01/17 Range/Units 03:30 Total Bilirubin 0.9 (0.2-1.2) mg/dL Direct Bilirubin 0.3 (0.0-0.5) mg/dL AST 10 (5-34) Units/L ALT 10 (0-55) Units/L Alkaline Phosphatase 41 (38-126) Units/L Albumin 2.3 L (3.5-5.0) g/dL - ABG Interpretation ABG results: ABG ABG pH 7.35 pH Units (7.32-7.45) 08/01/17 18:53 ABG pCO2 65 mmHg (35-45) H 08/01/17 18:53 ABG pO2 58 mmHg (85-104) L 08/01/17 18:53 ABG O2 Saturation 88 % (95-98) L 08/01/17 18:53 PT/INR, D-dimer PT 10.7 Seconds (9.4-12.1) 07/31/17 03:35 - Impressions Impressions Echocardiogram 08/01/17 16:38 Impressions: Normal LV systolic function, LVEF 65%. Normal left ventricular diastolic function. Normal right ventricular size and function. Mild aortic regurgitation. Mild tricuspid regurgitation. Mild-moderate pulmonary hypertension. Estimated RVSP = 47 mmHg. No evidence of intracardiac shunting with agitated saline contrast. Left Ventricular Wall Motion: Rest Echo Findings All wall segments showed normal motion. Findings: Study Quality * Technically adequate exam. ECG Findings * Sinus bradycardia. Left Ventricle * Normal LV systolic function, LVEF 65%. * Normal LV chamber size and wall thickness. * Normal left ventricular diastolic function. Right Ventricle * Normal right ventricular size and function. Left Atrium * Normal left atrial size. Right Atrium * Normal right atrial size. Interatrial Septum * No evidence of intracardiac shunting with agitated saline contrast. Aorta * Normally sized aortic root. Pericardium * There is no pericardial effusion present. IVC * The IVC is mildly dilated. Aortic Valve * Aortic valve not well visualized. Appears trileaflet with mild sclerosis. * No aortic stenosis. * Mild aortic regurgitation. Mitral Valve * Mildly thickened mitral valve leaflets. * No mitral stenosis. * Trace mitral regurgitation. Tricuspid Valve * Normal tricuspid valve structure. * No tricuspid stenosis. * Mild tricuspid regurgitation. * Mild-moderate pulmonary hypertension. Estimated RVSP = 47 mmHg. Pulmonic Valve * Pulmonic valve not well visualized. * No pulmonic stenosis. * Trace pulmonic regurgitation. Consult Discharge Plan - Plan Referrals: Naresh Skinner MD [Primary Care Provider] - 08/05/17 3:30 pm <Arthur Kuo H - Last Filed: 08/02/17 17:08> Date of Encounter: 08/02/17 - Constitutional Vitals: Temp Pulse Resp BP Pulse Ox 97.8 F 54 18 126/79 97 08/02/17 16:20 08/02/17 16:20 08/02/17 16:20 08/02/17 16:20 08/02/17 16:20 Internal Medicine: Result - Labs CBC & Chem 7: 08/02/17 06:14 08/02/17 06:14 Labs: Short CBC 08/02/17 Range/Units 06:14 WBC 12.6 H (4.3-11.1) K/mcL Hgb 7.7 L (11.5-15.4) g/dL Hct 24.8 L (35.3-44.9) % Plt Count 212 (140-400) K/mcL Neutrophils # 11.0 H (1.6-8.9) K/mcL BMP 08/02/17 06:14 Sodium 140 Potassium 4.2 Chloride 102 Carbon Dioxide 33 H BUN 35 H Creatinine 0.93 Glucose 118 H Calcium 8.2 L - ABG Interpretation ABG results: ABG ABG pH 7.35 pH Units (7.32-7.45) 08/01/17 18:53 ABG pCO2 65 mmHg (35-45) H 08/01/17 18:53 ABG pO2 58 mmHg (85-104) L 08/01/17 18:53 ABG O2 Saturation 88 % (95-98) L 08/01/17 18:53 PT/INR, D-dimer PT 10.7 Seconds (9.4-12.1) 07/31/17 03:35 - Impressions Impressions Chest X-Ray 08/02/17 14:20 IMPRESSION: 1. Stable pulmonary vascular congestion. 2. No pneumothorax. D/ / 08/02/2017 15:13:[address] MD / [facility] Interpreting Provider: Giovanny Lane MD - Attending Attestation Acute on chronic hypoxic respiratory failure secondary to acute COPD exacerbation from healthcare associated pneumonia present upon admission Continue vancomycin, Levaquin, Zosyn day 4 Await final report of bronchoscopy, pulmonary recommendations appreciated Awaiting cultures I examined this patient and my medical decision-making was reviewed with the Resident Physician. I agree with the documented findings, disposition and treatment plan as described except to the extent set forth below.
--- NOTE | 2017-08-02 09:18 | Anesthesia Evaluation PreOp ---
Date of Encounter: 08/02/17 Time of Encounter: 13:28 - Past History Planned Operation: bronch with bx Cardiac History: HTN Pulmonary History: COPD (never smoked), Other (admitted with acute resp failure and pneumonia hx PE) VICE PRESIDENT OF PROCUREMENT History: Denies Any Significant HX Other Medical History: Renal (SLE nephritis), Thyroid (hypo), Other (SLE, RA, Anxiety) Anesthesia History: No Prior Anesthetic Complications, Past Anesthesia (JAYCEE, margarette) : No Alcohol Use: none Drug use: none Medications and Allergies Albuterol Sulfate [Proair Hfa] 2 puff IH Q4H PRN 07/10/16 [History] Aspirin Enteric Coated [Aspirin EC] 81 mg PO DAILY 07/10/16 [History] Carvedilol [Coreg] 25 mg PO BID 07/10/16 [History] Fluticasone Propionate Nasal [Flonase] 50 mcg NS DAILY 07/10/16 [History] Nitroglycerin [Nitrostat] 0.4 mg SL Q5M PRN 07/10/16 [History] Omeprazole [PriLOSEC] 20 mg PO BIDAC 07/10/16 [History] Ranitidine HCl [Zantac] 300 mg PO HS 07/10/16 [History] Levothyroxine [Synthroid] 112 mcg PO 0630 #10 tablet 07/13/16 [Rx] Amlodipine Besylate 10 mg PO DAILY 09/19/16 [History] Citalopram Hydrobromide [Celexa] 40 mg PO DAILY 07/18/17 [History] Cyanocobalamin (Vitamin B-12) [Vitamin B12] 2,000 mcg PO DAILY 07/18/17 [History ] Ipratropium/Albuterol Neb [Duoneb] 3 ml IH Q6H PRN 07/18/17 [History] Lisinopril/Hydrochlorothiazide [Zestoretic 20-25 mg Tablet] 1 each PO BID [History] Mometasone/Formoterol [Dulera 200 Mcg/5 Mcg Inhaler] 1 puff IH BID 07/18/17 [ History] Oxygen 2 l NS AD 07/18/17 [History] Promethazine [Phenergan] 25 mg PO Q8HR PRN #15 tablet 07/27/17 [Rx] ALPRAZolam [Xanax 1 MG Tablet] 1 mg PO BID 07/30/17 [History] Furosemide [Lasix] 80 mg PO DAILY 07/30/17 [History] Oxycodone HCl 10 mg PO Q4H PRN 07/30/17 [History] 3 Allergy/AdvReac Type Severity Reaction Status Date / Time ketorolac [From Toradol] AdvReac Abdominal Verified 07/30/17 00:44 Pain NSAIDS (Non-Steroidal AdvReac Abdominal Verified 07/30/17 00:44 Anti-Inflamma Pain tramadol AdvReac Abdominal Verified 07/30/17 00:44 Pain pyridium AdvReac Abdominal Uncoded 07/30/17 00:44 Pain - Meds/Allergy Pre-op Review Medications Reviewed: Yes Allergies Reviewed: Yes Beta Blockers on Current Med List: Yes If Beta Blockers taken, Date/Time (Last Dose taken): today 824 Anesthesia Results - Labs 08/02/17 06:14 08/02/17 06:14 - Imaging EKG: report reviewed (SINUS BRADYCARDIA) Additional studies: echo: Impressions: Normal LV systolic function, LVEF 65%. Normal left ventricular diastolic function. Normal right ventricular size and function. Mild aortic regurgitation. Mild tricuspid regurgitation. Mild-moderate pulmonary hypertension. Estimated RVSP = 47 mmHg. No evidence of intracardiac shunting with agitated saline contrast. Anesthesia Exam Selected Entries 08/02/17 07:34 08/02/17 07:51 Temperature 97.5 F L Pulse Rate 55 Respiratory Rate 16 Blood Pressure 143/84 O2 Sat by Pulse Oximetry 95 Oxygen Flow Rate (LPM) 4 Oxygen Delivery Method Oxymask Weight: 81kg - HEENT Pupil (Motor): EOMI Mallampati: II Teeth: Edentulous Oral Opening: Greater than 3 - VICE PRESIDENT OF PROCUREMENT LOC: Oriented VICE PRESIDENT OF PROCUREMENT Motor: Normal RUE, Normal LUE, Normal RLE, Normal LLE, Normal Face VICE PRESIDENT OF PROCUREMENT Sensory: Normal: RUE, LUE, RLE, LLE, Face - Cardiac Rhythm: Regular Murmur: None - Pulmonary Breath Sounds: bilateral Clear Respiratory Effort: Symmetrical Anesthesia Assess/Plan ASA Score: 3 Modified [place] Scale for Level of Consciousness: Cooperative, oriented, and tranquil Anesthetic Plan: General Monitoring Plan: Standard Monitors Recovery Plan: PACU (Patient expresses desire for GA instead of MAC. Agrees to proceed)
--- NOTE | 2017-08-02 11:04 | Pulmonology Progress Note ---
Date of Encounter: 08/02/17 Time of Encounter: 07:00 Assessment and Plan (1) Pulmonary hypertension Current Visit: Yes Status: Acute Patient Pulmonary Hypertension probably due to Class III Pulmonary Hypertension secondary to Chronic Lung disease will need to work up for treatable Interstitial lung disease like inflammtory pneumonias like FISHER DIP NET/NSIP .Bronchsocopy at 12: 30. (2) Acute respiratory failure with hypoxia Current Visit: Yes Status: Acute Patient has Acute hypoxic respiratory failure looking at the blood gas it looks like she has Acute on Chronic hypercapnic respiratory failure probably due to COPD/Asthma Vs ILD . (3) Pneumonia Current Visit: Yes Status: Acute Patient most likely infectious pneumonia agree with current regimen of antibiotics because of on and off Chronic Prednisone therapy need to rule out Atypical pneumonia, viral pneumonia , fungal pneumonia. Qualifiers: Pneumonia type: due to unspecified organism Laterality: right Lung location: unspecified part of lung Qualified Code(s): J18.9 - Pneumonia, unspecified organism (4) Asthma Current Visit: No Status: Chronic Looks like there should be component of COPD airtrapping seen in CT scan can due to emphysematous changes since she is a non smoker will check alpha 1 anti- trypsin or she has inhalation substance abuse Qualifiers: Qualified Code(s): J45.30 - Mild persistent asthma, uncomplicated Subjective Principal diagnosis: Acute hypoxic respiratory failure Interval history: Patient is saying she is still having some shortness of breadth cough and sputum production , she is complaining of her chronic back pain she is on chronic pain medications . Plan for Bronchoscopy today Objective PUL Vital signs: Last Vital Signs Temp 97.5 F L 08/02/17 07:34 Pulse 55 08/02/17 07:34 Resp 18 08/02/17 07:51 BP 143/84 08/02/17 07:34 Pulse Ox 96 08/02/17 08:35 General appearance: no acute distress Effort: normal Auscultation: bilateral: wheezes (mild scattered wheezes) Cardiovascular: regular rate and rhythm Gastrointestinal: normoactive bowel sounds Results - Laboratory Findings CBC and BMP: 08/02/17 06:14 08/02/17 06:14 ABG ABG pH 7.35 pH Units (7.32-7.45) 08/01/17 18:53 ABG pCO2 65 mmHg (35-45) H 08/01/17 18:53 ABG pO2 58 mmHg (85-104) L 08/01/17 18:53 ABG O2 Saturation 88 % (95-98) L 08/01/17 18:53 PT/INR, D-dimer PT 10.7 Seconds (9.4-12.1) 07/31/17 03:35 Abnormal lab findings: Abnormal lab results WBC 12.6 K/mcL (4.3-11.1) H 08/02/17 06:14 RBC 2.56 M/mcL (3.82-4.97) L 08/02/17 06:14 Hgb 7.7 g/dL (11.5-15.4) L 08/02/17 06:14 Hct 24.8 % (35.3-44.9) L 08/02/17 06:14 MCHC 31.0 g/dL (31.6-35.5) L 08/02/17 06:14 RDW 14.8 % (11.5-14.5) H 08/02/17 06:14 Neutrophils # 11.0 K/mcL (1.6-8.9) H 08/02/17 06:14 ABG pCO2 65 mmHg (35-45) H 08/01/17 18:53 ABG pO2 58 mmHg (85-104) L 08/01/17 18:53 ABG HCO3 36 mEq/L (21-27) H 08/01/17 18:53 ABG Total CO2 38 mEq/L (20-26) H 08/01/17 18:53 ABG O2 Saturation 88 % (95-98) L 08/01/17 18:53 ABG Base Excess 8.9 mEq/L (-2.0 to 3.0) H 08/01/17 18:53 Carbon Dioxide 33 mEq/L (19-29) H 08/02/17 06:14 BUN 35 mg/dL (7-20) H 08/02/17 06:14 BUN/Creatinine Ratio 38 (6-26) H 08/02/17 06:14 Glucose 118 mg/dL (70-99) H 08/02/17 06:14 POC Glucose 235 (58-89) H 08/01/17 19:06 Calcium 8.2 mg/dL (8.6-10.8) L 08/02/17 06:14 B-Natriuretic Peptide 156 pg/mL (0-100) H 07/30/17 03:20 Serum Total Protein 5.2 g/dL (6.0-8.3) L 08/01/17 03:30 Albumin 2.3 g/dL (3.5-5.0) L 08/01/17 03:30 Albumin/Globulin Ratio 0.8 (1.1-2.2) L 08/01/17 03:30 LDL Cholesterol, Calc 107 mg/dL (0-99) H 07/30/17 09:10 Ur Specific [place] > 1.030 (1.010-1.025) H 07/30/17 11:30 Urine Protein >=300 mg/dL (Neg-Trace) H 07/30/17 11:30 Urine Glucose (UA) 100 mg/dL (Normal) H 07/30/17 11:30 Urine Blood Moderate (Negative) H 07/30/17 11:30 Urine Microscopic RBC 15-30 per hpf (0-3) H 07/30/17 11:30 Urine Microscopic WBC 30-50 per hpf (0-3) H 07/30/17 11:30 Ur Squamous Epith Cells Moderate per lpf (None-Few) H 07/30/17 11:30 - Clinical Findings Intake & Output: Intake & Output 08/01/17 08/02/17 08/02/17 23:59 07:59 15:59 Intake Total 468 / 468 1100 / 1100 250 / 250 Output Total 600 / 600 400 / 400 Balance -132 / -132 700 / 700 250 / 250 Weight 81.4 kg Consult Discharge Plan - Plan Referrals: Naresh Skinner MD [Primary Care Provider] - 08/05/17 3:30 pm
[2017-08-02] MEDS ORDERED: Lidocaine Viscous Oral Soln 15 ML SOLUTION ONE (12:53)
[2017-08-02] MEDS ORDERED: Ondansetron 4 MG/2 ML VIAL ONE ×2 (12:54)
[2017-08-02] MEDS ORDERED: Lidocaine -MPF 2% 2 ML VIAL ONE ×2 (12:54)
[2017-08-02] MEDS ORDERED: Dexamethasone 4 MG/ML VIAL ONE ×2 (12:54)
[2017-08-02] MEDS ORDERED: Propofol 500 MG/50 ML INFUS..BTL ONE (12:54)
[2017-08-02] MEDS ORDERED: *HR* Propofol 200 MG/20 ML VIAL IVP ONE (12:55)
[2017-08-02] MEDS ORDERED: *HR* Succinylcholine 200 MG/10 ML VIAL IVP ONE (12:56)
[2017-08-02] MEDS ORDERED: *HR* Phenylephrine 10 MG/ML VIAL ONE (12:56)
--- NOTE | 2017-08-02 13:52 | Cardiology Consult Note ---
<Ridge Scruggs - Last Filed: 08/02/17 15:30> Date of Encounter: 08/02/17 Time of Encounter: 13:50 Assessment and Plan (1) Pulmonary hypertension Current Visit: Yes Status: Acute Patient has evidence of pulmonary HTN on Echocardiogram on 08/01/17. Echo showed Normal LV systolic function, LVEF 65%., Normal left ventricular diastolic function, Normal right ventricular size and function, Mild aortic regurgitation , Mild tricuspid regurgitation, Mild-moderate pulmonary hypertension, Estimated RVSP = 47 mmHg, No evidence of intracardiac shunting with agitated saline contrast. This is likely secondary to the patient having a history of COPD and SLE. Recommend discontinuing the patients Coreg and amlodipine at this time. We will start on diltiazem 60mg q8h. Patient is going for a bronchoscopy today for further evaluation. (2) Chest pain Current Visit: No Status: Acute Patient states that she has had intermitent chest pain for years. Last stress test was negative for ischemia or infarct. Recent echo showed Normal LV systolic function, LVEF 65%., Normal left ventricular diastolic function, Normal right ventricular size and function, Mild aortic regurgitation, Mild tricuspid regurgitation, Mild-moderate pulmonary hypertension, Estimated RVSP = 47 mmHg, No evidence of intracardiac shunting with agitated saline contrast. Troponin were negative x 3. Most recent EKG showed sinus bradycardia. Qualifiers: Chest pain type: unspecified Qualified Code(s): R07.9 - Chest pain, unspecified (3) Acute respiratory failure with hypoxia Current Visit: Yes Status: Acute This is likely secondary to the patients COPD. Last ABG had a pH of 7.35, pCO2 65 pO2 58, HCO3 36, total CO2 38, O2 Sat 88 with a base excess of 8.9. Likely hypercapnic secondary to her COPD. Pulmonology has been consulted and is following the patient. (4) Healthcare-associated pneumonia Current Visit: Yes Status: Acute Patient has pneumonia and failed out patient therapies and is currently being treated with Vancomycin, zosyn, levofloxacin and prednisone. This is being managed by the hospitalist. Pulmonology has been consulted and is following the patient. (5) COPD (chronic obstructive pulmonary disease) Current Visit: No Status: Acute Patient has a known history of COPD. Patient requires the use of oxygen at home. Likely contributory to the patients pulmonary HTN. Pulmonolgy has been consulted and is currently following this patient. Qualifiers: COPD type: chronic bronchitis Chronic bronchitis type: simple Qualified Code(s): J41.0 - Simple chronic bronchitis (6) SLE (systemic lupus erythematosus) Current Visit: No Status: Chronic Known history of SLE. Likely contributory to the patients pulmonary hypertension. Currently being managed by the hospitalist. Qualifiers: Systemic lupus erythematosus type: unspecified Systemic lupus erythematosus organ involvement: unspecified Qualified Code(s): M32.9 - Systemic lupus erythematosus, unspecified (7) Hypertension Current Visit: No Status: Chronic Patient has a history of hypertension. She is currently taking amlodipine, coreg , lisinopril/hctz. Discontinue the coreg at this time due to possible bronchospasm with B-Sabrina. We will also stop the amlodipine and start diltiazem 60mg q8h. Qualifiers: Hypertension type: essential hypertension Qualified Code(s): I10 - Essential (primary) hypertension (8) Hypothyroidism Current Visit: No Status: Chronic Patient has a history of hypothyroidism. She is currently taking levothyroxine. Currently being managed by the hospitalist. Qualifiers: Hypothyroidism type: unspecified Qualified Code(s): E03.9 - Hypothyroidism , unspecified (9) DVT prophylaxis Current Visit: Yes Status: Acute Patient is getting heparin SQ for DVT prophylaxis. This is currently being managed by the hospitalist. Discussion w patient/family: The assessment and plan as outlined above was discussed with the patient and/or family members who expressed understanding and agreement. All questions were answered. Thank you for involving us in the care of your patient. Please call with any questions. History of Present Illness Consult date: 08/01/17 Requesting physician: Mari Caballero Consult reason: Pulmonary HTN Chief complaint: Shortness of Breath History of present illness: Ms. Chowdary is a 42 year old female that presented to the hospital for pneumonia that has been ongoing for about the last month and a half. She states that she has had a cough that is non productive. Patient states that she has been getting chest pain for years. She states that she gets chest pain that is substernal and that it radiates to her back, left shoulder, neck and arm. She states that when the chest pain come on she rates it as an 8/10. These episodes usually last for approximately 3-4 minutes and is relieved with aspirin. Patient states that she was given a prescription for nitroglycerin but does not take it when she gets episodes of chest pain. She states that she developed this pain last night that felt like it usually does but she was much more short of breath. She was then given morphine which seemed to reduce the pain. Patient states that she had a catheterization in 2013 and states that she did not have to have any stents placed. She also states that she had a heart attack in 2014 but did not have to have a catheterization or stent placed at that time. Patient denies having and chest pain or palpiations at this time. Patient is currently wearing oxygen and states when she wears the oxygen she is not short of breath. Patient states that she wear 2.5-3L of oxygen at home at night and intermittently throughout the day. Past Med Surg Social Fam HX - Past Medical History Medical history: asthma, COPD, DVT, fibromyalgia, GERD, GI bleed, hypertension, kidney stones, myocardial infarction, RA, thyroid disease, other Psychiatric history: anxiety - Past Surgical History Surgical History: cholecystectomy, hysterectomy - Social History Smoking Status: Never smoker Smokeless Tobacco Status: No Alcohol use: none Drug use: none - Family History Mother Living Status: Hx Family Cardiac Disorders: Yes (mi) Father Living Status: Hx Family Cardiac Disorders: Yes Hx Family Endocrine Disorder: Yes Medications and Allergies Albuterol Sulfate [Proair Hfa] 2 puff IH Q4H PRN 07/10/16 [History] Aspirin Enteric Coated [Aspirin EC] 81 mg PO DAILY 07/10/16 [History] Carvedilol [Coreg] 25 mg PO BID 07/10/16 [History] Fluticasone Propionate Nasal [Flonase] 50 mcg NS DAILY 07/10/16 [History] Nitroglycerin [Nitrostat] 0.4 mg SL Q5M PRN 07/10/16 [History] Omeprazole [PriLOSEC] 20 mg PO BIDAC 07/10/16 [History] Ranitidine HCl [Zantac] 300 mg PO HS 07/10/16 [History] Levothyroxine [Synthroid] 112 mcg PO 0630 #10 tablet 07/13/16 [Rx] Amlodipine Besylate 10 mg PO DAILY 09/19/16 [History] Citalopram Hydrobromide [Celexa] 40 mg PO DAILY 07/18/17 [History] Cyanocobalamin (Vitamin B-12) [Vitamin B12] 2,000 mcg PO DAILY 07/18/17 [History ] Ipratropium/Albuterol Neb [Duoneb] 3 ml IH Q6H PRN 07/18/17 [History] Lisinopril/Hydrochlorothiazide [Zestoretic 20-25 mg Tablet] 1 each PO BID [History] Mometasone/Formoterol [Dulera 200 Mcg/5 Mcg Inhaler] 1 puff IH BID 07/18/17 [ History] Oxygen 2 l NS AD 07/18/17 [History] Promethazine [Phenergan] 25 mg PO Q8HR PRN #15 tablet 07/27/17 [Rx] ALPRAZolam [Xanax 1 MG Tablet] 1 mg PO BID 07/30/17 [History] Furosemide [Lasix] 80 mg PO DAILY 07/30/17 [History] Oxycodone HCl 10 mg PO Q4H PRN 07/30/17 [History] 3 Allergy/AdvReac Type Severity Reaction Status Date / Time ketorolac [From Toradol] AdvReac Abdominal Verified 07/30/17 00:44 Pain NSAIDS (Non-Steroidal AdvReac Abdominal Verified 07/30/17 00:44 Anti-Inflamma Pain tramadol AdvReac Abdominal Verified 07/30/17 00:44 Pain pyridium AdvReac Abdominal Uncoded 07/30/17 00:44 Pain All Systems Review: A 10-system review of systems was performed and is negative for pertinent findings except as documented above in the HPI. - Cardiovascular Cardiovascular: chest pain at rest, dyspnea at rest, radiating jaw, neck or arm pain, no palpitations - Respiratory Respiratory: cough, dyspnea - Gastrointestinal Gastrointestinal: abdominal pain, no hematochezia, no melena - Genitourinary Genitourinary: hematuria Physical Examination Vital Signs, Last 4 Hours Temp Pulse Resp BP Pulse Ox 08/02/17 13:45 97.8 F 60 16 141/90 95 08/02/17 11:33 97.8 F 54 16 145/111 97 08/02/17 11:21 18 94 General: Conversant, No Apparent Distress HEENT: Atraumatic, Normocephaly Neck: No JVD, Normal carotid pulses Cardiac: Reg Rate and Rhythm, Normal S1 and S2, No Murmur Lungs: Other (Rales Bilaterally) Neuro: Alert and responsive, No focal deficits noted Abdomen: Soft, Other (Diffuse abdominal tenderness) Skin: No rashes noted on visualized skin Extremities: No Clubbing, No Cyanosis, No Edema, Normal Pulses Results 08/02/17 06:14 08/02/17 06:14 Lab Results 08/01/17 08/02/17 08/02/17 03:30 06:14 06:14 WBC 12.6 H Hgb 7.7 L Hct 24.8 L Plt Count 212 Sodium 141 140 Potassium 4.6 H 4.2 Chloride 102 102 Carbon Dioxide 34 H 33 H BUN 33 H 35 H Creatinine 1.09 0.93 Glucose 149 H 118 H Calcium 8.4 L 8.2 L Total Bilirubin 0.9 AST 10 ALT 10 Alkaline Phosphatase 41 - Imaging and Cardiology Chest Xray: report reviewed Stress Test: report reviewed Echo: report reviewed - EKG Interpretation EKG results cardiology: personally reviewed, other (Most recent showed sinus bradycardia.) Consult Discharge Plan - Plan Referrals: Naresh Skinner MD [Primary Care Provider] - 08/05/17 3:30 pm <Juarez Brown - Last Filed: 08/03/17 13:39> Date of Encounter: 08/03/17 Time of Encounter: 19:00 Assessment and Plan Discussion w patient/family: The assessment and plan as outlined above was discussed with the patient and/or family members who expressed understanding and agreement. All questions were answered. Thank you for involving us in the care of your patient. Please call with any questions. History of Present Illness History of present illness: Ms. Chowdary is a 42 year old female All Systems Review: A 10-system review of systems was performed and is negative for pertinent findings except as documented above in the HPI. Physical Examination Vital Signs, Last 4 Hours Temp Pulse Resp BP Pulse Ox 08/03/17 11:22 98.0 F 62 12 116/72 99 Results 08/03/17 05:25 08/03/17 05:25 Lab Results 08/03/17 08/03/17 05:25 05:25 WBC 9.2 Hgb 7.7 L Hct 25.1 L Plt Count 229 Sodium 140 Potassium 4.2 Chloride 103 Carbon Dioxide 32 H BUN 38 H Creatinine 1.09 Glucose 185 H Calcium 8.1 L - Attending Attestation PT seen and examined, chart reviewed independently, essentially agree with documented findings, my evaluation as follows: IMP/Plan. 1. Chest pain: Atypical, has ruled out for acute myocardial necrosis by EKG and enzematic criteria, no ischemia on perfusion imaging 07/20, EF 70%, very unlikely has acute coronary syndrome, conitnue medical management. 2. Pulmonary hypertension: mild, est RVSP 47 mm hg 07/21, normal 2013, mildly elevated 2011 @ 35 - 40 mm Hg., multifactorial, unlikely cardiac etiology, small possible benefit to trial off beta blockade, amlodipine, on diltiazem for bp and heart rate control, worth a trial while under direct observation, continue to monitor. Not clearly using O2 24/7 which may also have small possible benefit. Would follow clinically, no need to repeat echo to evaluate pulmonary pressure. 3. Bradycardia, Mild, monitor off beta blockade. 4. Hospital acquired pnuemonia, appreciate pulmonary and primary team recs. 5. COPD, severe O2 dependent, appreciate pulmonary recs.
[2017-08-02] MEDS ORDERED: Ringers Solution, Lactated 1,000 ML IVC SCH (14:00)
[2017-08-02] MEDS ORDERED: *HR* EPINEPHrine 1 MG/10 ML SYRINGE INTRATRACH PRN (14:25)
--- NOTE | 2017-08-02 15:25 | Anesthesia Evaluation Post Op ---
Date of Encounter: 08/02/17 Time of Encounter: 15:24 - Vital Signs Vital Signs: Vital Signs/O2 Sat/Glucose, Most Recent Temp Pulse Resp BP Pulse Ox 98.0 F 54 14 119/70 93 08/02/17 15:14 08/02/17 15:14 08/02/17 15:14 08/02/17 15:14 08/02/17 15:14 Blood Glucose* 128 - Lungs Lungs: Clear Ascult./Percussion - Airway Airway: Non-obstructed - Cardiovascular Regular Rate - Mental Status Mental Status: Alert & Oriented, Answers Appropriately - Pain Pain Scale: 3 (generalized abdominal) Pain Scale used: Numeric (1 - 10) - Nausea Vomiting Nausea Vomiting: Not Present - Hydration Hydration: NPO - Discharge PostOp Status: Transfer Patient to floor
[2017-08-02] MEDS ORDERED: *HR* Morphine 2 MG/ML SYRINGE IVP PRN (16:20)
[2017-08-02] MEDS ORDERED: *HR* Morphine 2 MG/ML SYRINGE IVP ONE (17:43)
[2017-08-02] MEDS: dilTIAZem HCl 60 MG TABLET PO SCH (17:51)
[2017-08-02] MEDS ORDERED: Vancomycin 750 MG in D5% in Water 250 ML IVPB SCH (22:00)
[2017-08-03] MEDS: dilTIAZem HCl 60 MG TABLET PO SCH ×2 (01:46→09:23)
[2017-08-03] MEDS: Piperacillin/Tazobactam 3.375 GM in D5% in Water (Mini-Bag+) 100 ML IVPB SCH ×3 (01:51→17:04)
[2017-08-03] MEDS: Ipratropium/Albuterol Neb 3 ML IH SCH ×6 (04:30→23:36)
[2017-08-03] MEDS: *HR* OxyCODONE Immed Rel 5 MG TABLET PO PRN ×2 (04:39→19:59)
[2017-08-03] MEDS: Ondansetron 4 MG/2 ML VIAL IVP PRN (04:40)
[2017-08-03 05:40] LABS: Hematocrit 25.1 % (35.3-44.9); Hemoglobin 7.7 g/dL (11.5-15.4); Immature Granulocytes % 1.7 % (0-4); Lymphocytes # 0.3 K/mcL (0.6-4.6); Lymphocytes % 3.2 %; Mean Corpuscular HGB Conc 30.7 g/dL (31.6-35.5); Mean Corpuscular Hemoglobin 29.6 pg (28.0-33.3); Mean Corpuscular Volume 96.5 fL (83.0-100.0); Mean Platelet Volume 10.4 fL (9.4-12.4); Monocytes # 0.4 K/mcL (0.0-1.3); Monocytes % 4.4 %; Neutrophils # 8.4 K/mcL (1.6-8.9); Platelet Count 229 K/mcL (140-400); Red Cell Distribution Width 15.1 % (11.5-14.5); Segmented Neutrophils % 90.7 %
[2017-08-03] MEDS: Levofloxacin 750 MG/150 ML 750 MG/150 ML BAG IVPB SCH (05:46)
[2017-08-03 05:52] LABS: BUN/Creatinine Ratio 35 (6-26); Blood Urea Nitrogen 38 mg/dL (7-20); Calcium 8.1 mg/dL (8.6-10.8); Carbon Dioxide 32 mEq/L (19-29); Chloride 103 mEq/L (98-109); Glucose 185 mg/dL (70-99); Osmolality,Calculated 304 (280-300); Potassium 4.2 mEq/L (3.5-4.5); Sodium 140 mEq/L (136-145); eGFR For African Americans > 60 (> 60); eGFR For Non-African Americans 55 (> 60)
[2017-08-03] MEDS: Famotidine 20 MG/2 ML VIAL IVP SCH ×2 (05:53→17:04)
[2017-08-03] MEDS: *HR* Heparin 5,000 UNIT/ML VIAL SQ SCH ×2 (05:53→19:59)
[2017-08-03] MEDS: Budesonide/Formoterol 160/4.5 MDI IH SCH ×2 (07:54→19:53)
[2017-08-03] MEDS: predniSONE 20 MG TABLET PO SCH (08:22)
[2017-08-03] MEDS: Aspirin Enteric Coated 81 MG Tablet PO SCH (08:22)
[2017-08-03] MEDS: ALPRAZolam 1 MG TABLET PO SCH ×2 (08:22→22:06)
[2017-08-03] MEDS: Cyanocobalamin (B-12) 1,000 MCG TABLET PO SCH (08:22)
[2017-08-03] MEDS: Insulin DETEMIR 100 UNIT/ML X5UNITS SQ SCH (08:23)
[2017-08-03] MEDS: Insulin LISPRO 300 UNITS/3 ML VIAL SQ SCH ×4 (08:25→22:06)
[2017-08-03] MEDS ORDERED: Aminoglycoside Consult 1 EACH MC ONE (08:32)
--- NOTE | 2017-08-03 08:50 | Pulmonology Progress Note ---
Date of Encounter: 08/03/17 Time of Encounter: 08:30 Assessment and Plan (1) Pulmonary hypertension Current Visit: Yes Status: Acute Patient Pulmonary Hypertension probably due to Class III Pulmonary Hypertension secondary to Chronic Lung disease will need to work up for treatable Interstitial lung disease like inflammtory pneumonias like TUBER HELPER/NSIP .Did bronchoscopy Transbronchial biopsy was done will follow up with pathology results will see her in clinic 6-8 weeks. (2) Acute respiratory failure with hypoxia Current Visit: Yes Status: Acute Patient has Acute hypoxic respiratory failure looking at the blood gas it looks like she has Acute on Chronic hypercapnic respiratory failure probably due to COPD/Asthma Vs ILD . (3) Pneumonia Current Visit: Yes Status: Acute Patient most likely infectious pneumonia agree with current regimen of antibiotics because of on and off Chronic Prednisone therapy need to rule out Atypical pneumonia, viral pneumonia , fungal pneumonia. Reviewed the preliminary cultures of BAL no significant organisms so far . Qualifiers: Qualified Code(s): J18.9 - Pneumonia, unspecified organism (4) Asthma Current Visit: No Status: Chronic Looks like there should be component of COPD airtrapping seen in CT scan can due to emphysematous changes since she is a non smoker will check alpha 1 anti- trypsin or she has inhalation substance abuse . Will continue the current regimen of bronchodilators . Assess her exercise oxygen requirements. Qualifiers: Qualified Code(s): J45.30 - Mild persistent asthma, uncomplicated Subjective Principal diagnosis: Acute hypoxic respiratory failure Interval history: Patient is saying she is still having some shortness of breadth cough and sputum production , she is complaining of her chronic back pain she is on chronic pain medications . Plan for Bronchoscopy today Objective PUL Vital signs: Last Vital Signs Temp 98.1 F 08/03/17 06:49 Pulse 82 08/03/17 06:49 Resp 16 08/03/17 07:54 BP 112/64 08/03/17 06:49 Pulse Ox 96 08/03/17 08:39 Results - Laboratory Findings CBC and BMP: 08/03/17 05:25 08/03/17 05:25 ABG ABG pH 7.35 pH Units (7.32-7.45) 08/01/17 18:53 ABG pCO2 65 mmHg (35-45) H 08/01/17 18:53 ABG pO2 58 mmHg (85-104) L 08/01/17 18:53 ABG O2 Saturation 88 % (95-98) L 08/01/17 18:53 PT/INR, D-dimer PT 10.7 Seconds (9.4-12.1) 07/31/17 03:35 Abnormal lab findings: Abnormal lab results RBC 2.60 M/mcL (3.82-4.97) L 08/03/17 05:25 Hgb 7.7 g/dL (11.5-15.4) L 08/03/17 05:25 Hct 25.1 % (35.3-44.9) L 08/03/17 05:25 MCHC 30.7 g/dL (31.6-35.5) L 08/03/17 05:25 RDW 15.1 % (11.5-14.5) H 08/03/17 05:25 Lymphocytes # 0.3 K/mcL (0.6-4.6) L 08/03/17 05:25 ABG pCO2 65 mmHg (35-45) H 08/01/17 18:53 ABG pO2 58 mmHg (85-104) L 08/01/17 18:53 ABG HCO3 36 mEq/L (21-27) H 08/01/17 18:53 ABG Total CO2 38 mEq/L (20-26) H 08/01/17 18:53 ABG O2 Saturation 88 % (95-98) L 08/01/17 18:53 ABG Base Excess 8.9 mEq/L (-2.0 to 3.0) H 08/01/17 18:53 Carbon Dioxide 32 mEq/L (19-29) H 08/03/17 05:25 BUN 38 mg/dL (7-20) H 08/03/17 05:25 Est GFR (Non-Af Amer) 55 (> 60) L 08/03/17 05:25 BUN/Creatinine Ratio 35 (6-26) H 08/03/17 05:25 Glucose 185 mg/dL (70-99) H 08/03/17 05:25 POC Glucose 265 (58-89) H 08/02/17 20:13 Calculated Osmolality 304 (280-300) H 08/03/17 05:25 Calcium 8.1 mg/dL (8.6-10.8) L 08/03/17 05:25 B-Natriuretic Peptide 156 pg/mL (0-100) H 07/30/17 03:20 Serum Total Protein 5.2 g/dL (6.0-8.3) L 08/01/17 03:30 Albumin 2.3 g/dL (3.5-5.0) L 08/01/17 03:30 Albumin/Globulin Ratio 0.8 (1.1-2.2) L 08/01/17 03:30 LDL Cholesterol, Calc 107 mg/dL (0-99) H 07/30/17 09:10 Ur Specific [place] > 1.030 (1.010-1.025) H 07/30/17 11:30 Urine Protein >=300 mg/dL (Neg-Trace) H 07/30/17 11:30 Urine Glucose (UA) 100 mg/dL (Normal) H 07/30/17 11:30 Urine Blood Moderate (Negative) H 07/30/17 11:30 Urine Microscopic RBC 15-30 per hpf (0-3) H 07/30/17 11:30 Urine Microscopic WBC 30-50 per hpf (0-3) H 07/30/17 11:30 Ur Squamous Epith Cells Moderate per lpf (None-Few) H 07/30/17 11:30 Vancomycin Trough 23.9 mcg/mL (10-20) H* 08/03/17 05:25 - Microbiology Findings Microbiology Findings: Microbiology, Last 48 Hours 08/02/17 15:35 Gram Stain - Final Right Upper Lobe Lung 08/02/17 15:35 Gram Stain - Final Right Middle Lobe Lung - Clinical Findings Intake & Output: Intake & Output 08/02/17 08/03/17 08/03/17 23:59 07:59 15:59 Intake Total 1340 / 1340 Output Total 700 / 700 Balance 1340 / 1340 -700 / -700 - VTE Documentation of Mechanical Device: Intermittent pneumatic compression device Consult Discharge Plan - Plan Referrals: Naresh Skinner MD [Primary Care Provider] - 08/05/17 3:30 pm
[2017-08-03 09:27] LABS: Appearance of Body Fluid Cloudy (Clear); Appearance of Body Fluid Hazy (Clear); Volume of Body Fluid 10 mL; Volume of Body Fluid 20 mL
--- NOTE | 2017-08-03 11:04 | Internal Med Progress Note ---
<Raj Martinez - Last Filed: 08/03/17 11:57> Date of Encounter: 08/03/17 Time of Encounter: 11:02 - Assessment and plan (1) Acute respiratory failure with hypoxia Current Visit: No Status: Acute Assessment and plan: Etiology likely secondary to pneumonia -Patient believes that her breathing is improving. She denies fever, chills, chest pain, shortness of breath. -Echocardiogram shows LVEF 65% , normal diastolic function. Mild-moderate pulmonary hypertension, RVSP=47mmHg -Most likely Class III Pulmonary Hypertension secondary to Chronic Lung disease chest CTA negative for PE. significant for multi focal patchy ground glass opacification sseen throughout most of the right lung field, subtle areas of ground glass attenuation seen in left upper lobe, small bilateral pleural effusions. of note, patient was recently in hospital and discharged on 07/22/17. was treated for COPD exacerbation secondary to pneumonia, was treated with antibiotics and sent home on augmentin and prednisone. patient does have history of COPD and wears 3L oxygen at home. had bronch 08/02/17. Plan: pulmonology recommends outpatient PFT testing along with workup for interstitial lung disease bronch 08/02, cultures pending. blood cultures pending: prelim no growth continue vanc, zosyn, levaquin (day 5) and de escalated based on blood cultures. sputum culture pending alpha-1 antitrypsin deficiency testing per pulmonology order prednisone daily symbicort scheduled DuoNebs Per Pulmonology team, have stopped cardizem and switched back to home dose Coreg 25 BID. If issues, please discuss with pulmonology. (2) COPD exacerbation Current Visit: No Status: Acute Assessment and plan: likely secondary to pneumonia -plan as above (3) Healthcare-associated pneumonia Current Visit: Yes Status: Acute Assessment and plan: plan as above (4) Anxiety disorder Current Visit: No Status: Chronic Assessment and plan: patient does have history of anxiety, stable continue home medication xanax Patient requested something to help her sleep due to not sleeping well the night -she was given hydroxyzine Qualifiers: Anxiety disorder type: generalized anxiety disorder Qualified Code(s): F41.1 - Generalized anxiety disorder (5) Hypertension Current Visit: No Status: Chronic Assessment and plan: within normal limits continue home blood pressure medications Qualifiers: Hypertension type: essential hypertension Qualified Code(s): I10 - Essential (primary) hypertension (6) Hypothyroidism Current Visit: No Status: Chronic Assessment and plan: history of hypothyroidism continue home levothyroxine Qualifiers: Hypothyroidism type: unspecified Qualified Code(s): E03.9 - Hypothyroidism , unspecified (7) Lupus nephritis Current Visit: No Status: Chronic Assessment and plan: history of lupus nephritis -Patient reported that 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 -patient currently has proteinuria without MARTI -continue to monitor renal function During last hospitalization, patient had significant proteinuria with MARTI. Nephrology was consulted at that time and was scheduled to get a renal biopsy by IR. However, this could not be done because patient had significant cough and was unable to lay on her abdomen without coughing. plan was to follow up outpatient with nephrology. Patient is requesting to have her biospy done while she is inpatient. we will wait for her respiratory status to improve before considering this. (8) SLE (systemic lupus erythematosus) Current Visit: No Status: Chronic Assessment and plan: History of SLE with lupus nephritis. Patient sees Dr. Carr for nephrology and states she has been referred to a new director orange at [facility] will consider nephrology consult later if warranted. Plan: continue to monitor kidney function closely Qualifiers: Systemic lupus erythematosus type: unspecified Systemic lupus erythematosus organ involvement: unspecified Qualified Code(s): M32.9 - Systemic lupus erythematosus, unspecified (9) DVT prophylaxis Current Visit: Yes Status: Acute Assessment and plan: heparin SQ - Subjective Interval history: 42F evaluated at bedside. patient admits to nausea without vomiting. she denies diarrhea, fever, chills. she does admit to shortness of breath. she denies any further episodes today. - Constitutional Vitals: Temp Pulse Resp BP Pulse Ox 98.1 F 82 16 112/64 96 08/03/17 06:49 08/03/17 06:49 08/03/17 07:54 08/03/17 06:49 08/03/17 08:39 General appearance: Present: cooperative, A&O X 3, pleasant, no acute distress, answers questions appropriately - Head Head exam: Present: atraumatic, normocephalic - Neck Neck exam general surgery: Present: supple, trachea midline - Respiratory Respiratory exam: Present: decreased breath sounds, rales, rhonchi - Cardiovascular Cardiovascular exam: Present: RRR, +S1, +S2 - GI/Abdominal GI/Abdominal exam: Present: normal bowel sounds, soft. Absent: distended, tenderness - Extremities Exam Extremities exam: Absent: cyanotic, pedal edema - Neurological Exam Neurological exam: Present: alert, oriented X3, no focal deficits - Psychiatric Psychiatric exam: Present: normal affect, normal mood - Skin Skin exam: Present: intact Internal Medicine: Result - Labs CBC & Chem 7: 08/03/17 05:25 08/03/17 05:25 Labs: Short CBC 08/03/17 Range/Units 05:25 WBC 9.2 (4.3-11.1) K/mcL Hgb 7.7 L (11.5-15.4) g/dL Hct 25.1 L (35.3-44.9) % Plt Count 229 (140-400) K/mcL Neutrophils # 8.4 (1.6-8.9) K/mcL BMP 08/03/17 05:25 Sodium 140 Potassium 4.2 Chloride 103 Carbon Dioxide 32 H BUN 38 H Creatinine 1.09 Glucose 185 H Calcium 8.1 L - ABG Interpretation ABG results: ABG ABG pH 7.35 pH Units (7.32-7.45) 08/01/17 18:53 ABG pCO2 65 mmHg (35-45) H 08/01/17 18:53 ABG pO2 58 mmHg (85-104) L 08/01/17 18:53 ABG O2 Saturation 88 % (95-98) L 08/01/17 18:53 PT/INR, D-dimer PT 10.7 Seconds (9.4-12.1) 07/31/17 03:35 - Impressions Impressions Chest X-Ray 08/02/17 14:20 IMPRESSION: 1. Stable pulmonary vascular congestion. 2. No pneumothorax. D/ / 08/02/2017 15:13:[address] MD / formerly [facility] Interpreting Provider: Giovanny Lane MD - VTE Documentation of Mechanical Device: Intermittent pneumatic compression device Consult Discharge Plan - Plan Referrals: Naresh Skinner MD [Primary Care Provider] - 08/05/17 3:30 pm <Arthur Kuo H - Last Filed: 08/03/17 12:10> Date of Encounter: 08/03/17 - Constitutional Vitals: Temp Pulse Resp BP Pulse Ox 98.0 F 62 12 116/72 99 08/03/17 11:22 08/03/17 11:22 08/03/17 11:22 08/03/17 11:22 08/03/17 11:22 Internal Medicine: Result - Labs CBC & Chem 7: 08/03/17 05:25 08/03/17 05:25 Labs: Short CBC 08/03/17 Range/Units 05:25 WBC 9.2 (4.3-11.1) K/mcL Hgb 7.7 L (11.5-15.4) g/dL Hct 25.1 L (35.3-44.9) % Plt Count 229 (140-400) K/mcL Neutrophils # 8.4 (1.6-8.9) K/mcL BMP 08/03/17 05:25 Sodium 140 Potassium 4.2 Chloride 103 Carbon Dioxide 32 H BUN 38 H Creatinine 1.09 Glucose 185 H Calcium 8.1 L - ABG Interpretation ABG results: ABG ABG pH 7.35 pH Units (7.32-7.45) 08/01/17 18:53 ABG pCO2 65 mmHg (35-45) H 08/01/17 18:53 ABG pO2 58 mmHg (85-104) L 08/01/17 18:53 ABG O2 Saturation 88 % (95-98) L 08/01/17 18:53 PT/INR, D-dimer PT 10.7 Seconds (9.4-12.1) 07/31/17 03:35 - Impressions Impressions Chest X-Ray 08/02/17 14:20 IMPRESSION: 1. Stable pulmonary vascular congestion. 2. No pneumothorax. D/ / 08/02/2017 15:13:[address] MD / [email or web address] Interpreting Provider: Giovanny Lane MD - Attending Attestation Acute on chronic hypoxic respiratory failure secondary to Pulmonary HTN class III/chronic lung disease with acute COPD exacerbation from healthcare associated pneumonia present upon admission Continue vancomycin, Levaquin, Zosyn day 5 Await final report of cultures from bronchoscopy, pulmonary recommendations appreciated resume coreg and discontinue diltiazem per Pulmonary I examined this patient and my medical decision-making was reviewed with the Resident Physician. I agree with the documented findings, disposition and treatment plan as described except to the extent set forth below.
[2017-08-03] MEDS ORDERED: Vancomycin 750 MG in D5% in Water 250 ML IVPB SCH ×2 (11:30→23:00)
[2017-08-03] MEDS: *HR* Morphine 2 MG/ML SYRINGE IVP PRN ×3 (11:34→21:54)
[2017-08-03] MEDS: 0.9 % Sodium Chloride 1,000 ML IVC SCH (14:14)
[2017-08-04] MEDS: Ondansetron 4 MG/2 ML VIAL IVP PRN (00:01)
[2017-08-04] MEDS: Piperacillin/Tazobactam 3.375 GM in D5% in Water (Mini-Bag+) 100 ML IVPB SCH ×3 (00:01→17:55)
[2017-08-04] MEDS: 0.9 % Sodium Chloride 1,000 ML IVC SCH ×2 (04:04→08:16)
[2017-08-04] MEDS: Ipratropium/Albuterol Neb 3 ML IH SCH ×5 (04:16→20:43)
[2017-08-04 04:33] LABS: Basophils % 0.1 %; Hemoglobin 7.4 g/dL (11.5-15.4); Immature Granulocytes % 1.7 % (0-4); Lymphocytes # 0.5 K/mcL (0.6-4.6); Lymphocytes % 4.7 %; Mean Corpuscular HGB Conc 30.8 g/dL (31.6-35.5); Mean Corpuscular Hemoglobin 29.6 pg (28.0-33.3); Mean Platelet Volume 10.5 fL (9.4-12.4); Monocytes % 9.3 %; Platelet Count 224 K/mcL (140-400); Red Cell Distribution Width 15.1 % (11.5-14.5); Segmented Neutrophils % 84.2 %
[2017-08-04 04:44] LABS: BUN/Creatinine Ratio 36 (6-26); Blood Urea Nitrogen 36 mg/dL (7-20); Carbon Dioxide 36 mEq/L (19-29); Chloride 104 mEq/L (98-109); Glucose 124 mg/dL (70-99); Osmolality,Calculated 302 (280-300); Potassium 4.2 mEq/L (3.5-4.5); Sodium 141 mEq/L (136-145); eGFR For African Americans > 60 (> 60); eGFR For Non-African Americans > 60 (> 60)
[2017-08-04] MEDS: Famotidine 20 MG/2 ML VIAL IVP SCH ×2 (05:49→19:20)
[2017-08-04] MEDS: *HR* Heparin 5,000 UNIT/ML VIAL SQ SCH (05:49)
[2017-08-04] MEDS: Levofloxacin 750 MG/150 ML 750 MG/150 ML BAG IVPB SCH (05:49)
[2017-08-04] MEDS: *HR* Morphine 2 MG/ML SYRINGE IVP PRN ×4 (05:58→22:24)
[2017-08-04] MEDS: Insulin LISPRO 300 UNITS/3 ML VIAL SQ SCH ×4 (08:16→20:32)
[2017-08-04] MEDS: ALPRAZolam 1 MG TABLET PO SCH ×2 (09:04→20:09)
[2017-08-04] MEDS: Cyanocobalamin (B-12) 1,000 MCG TABLET PO SCH (09:04)
[2017-08-04] MEDS: *HR* OxyCODONE Immed Rel 5 MG TABLET PO PRN ×2 (09:05→20:14)
[2017-08-04] MEDS: predniSONE 20 MG TABLET PO SCH (09:06)
[2017-08-04] MEDS: Aspirin Enteric Coated 81 MG Tablet PO SCH (09:06)
[2017-08-04] MEDS: Insulin DETEMIR 100 UNIT/ML X5UNITS SQ SCH (09:07)
[2017-08-04] MEDS: Budesonide/Formoterol 160/4.5 MDI IH SCH ×2 (11:10→20:44)
--- NOTE | 2017-08-04 11:39 | Internal Med Progress Note ---
<Raj Martinez - Last Filed: 08/04/17 11:37> Date of Encounter: 08/04/17 Time of Encounter: 11:37 - Assessment and plan (1) Acute respiratory failure with hypoxia Current Visit: No Status: Acute Assessment and plan: Etiology likely secondary to pneumonia -Patient believes that her breathing is improving. She denies fever, chills, chest pain, shortness of breath. -Echocardiogram shows LVEF 65% , normal diastolic function. Mild-moderate pulmonary hypertension, RVSP=47mmHg -Most likely Class III Pulmonary Hypertension secondary to Chronic Lung disease chest CTA negative for PE. significant for multi focal patchy ground glass opacification seen throughout most of the right lung field, subtle areas of ground glass attenuation seen in left upper lobe, small bilateral pleural effusions. of note, patient was recently in hospital and discharged on 07/22/17. was treated for COPD exacerbation secondary to pneumonia, was treated with antibiotics and sent home on augmentin and prednisone. patient does have history of COPD and wears 3L oxygen at home. had bronch 08/02/17: negative for acid fast bacilli, no growth to date. Plan: pulmonology recommends outpatient PFT testing along with workup for interstitial lung disease- outpt f/u with pulm in 6-8 weeks. blood cultures pending: prelim no growth continue vanc, zosyn, levaquin (day 6) and de escalated based on blood cultures. sputum culture pending alpha-1 antitrypsin deficiency testing per pulmonology order prednisone daily symbicort scheduled DuoNebs Per Pulmonology team, have stopped cardizem and switched back to home dose Coreg 25 BID. If issues, please discuss with pulmonology. (2) COPD exacerbation Current Visit: No Status: Acute Assessment and plan: likely secondary to pneumonia -plan as above (3) Healthcare-associated pneumonia Current Visit: Yes Status: Acute Assessment and plan: plan as above (4) Anxiety disorder Current Visit: No Status: Chronic Assessment and plan: patient does have history of anxiety, stable continue home medication xanax Patient requested something to help her sleep due to not sleeping well the night -she was given hydroxyzine Qualifiers: Anxiety disorder type: generalized anxiety disorder Qualified Code(s): F41.1 - Generalized anxiety disorder (5) Hypertension Current Visit: No Status: Chronic Assessment and plan: within normal limits continue home blood pressure medications Qualifiers: Hypertension type: essential hypertension Qualified Code(s): I10 - Essential (primary) hypertension (6) Hypothyroidism Current Visit: No Status: Chronic Assessment and plan: history of hypothyroidism continue home levothyroxine Qualifiers: Hypothyroidism type: unspecified Qualified Code(s): E03.9 - Hypothyroidism , unspecified (7) Lupus nephritis Current Visit: No Status: Chronic Assessment and plan: history of lupus nephritis -Patient reported that 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 -patient currently has proteinuria without MARTI -continue to monitor renal function During last hospitalization, patient had significant proteinuria with MARTI. Nephrology was consulted at that time and was scheduled to get a renal biopsy by IR. However, this could not be done because patient had significant cough and was unable to lay on her abdomen without coughing. plan was to follow up outpatient with nephrology. Patient is requesting to have her biospy done while she is inpatient. we will wait for her respiratory status to improve before considering this. (8) SLE (systemic lupus erythematosus) Current Visit: No Status: Chronic Assessment and plan: History of SLE with lupus nephritis. Patient sees Dr. Carr for nephrology and states she has been referred to a new leather parts matcher at [facility] will consider nephrology consult later if warranted. Plan: continue to monitor kidney function closely Qualifiers: Systemic lupus erythematosus type: unspecified Systemic lupus erythematosus organ involvement: unspecified Qualified Code(s): M32.9 - Systemic lupus erythematosus, unspecified (9) DVT prophylaxis Current Visit: Yes Status: Acute Assessment and plan: epcd - Subjective Interval history: 42F evaluated at bedside. patient admits to nausea without vomiting. she denies diarrhea, fever, chills. she does admit to shortness of breath. she denies any further episodes today. - Constitutional Vitals: Temp Pulse Resp BP Pulse Ox 97.8 F 63 12 134/76 94 08/04/17 10:00 08/04/17 10:00 08/04/17 10:00 08/04/17 10:00 08/04/17 10:00 General appearance: Present: cooperative, A&O X 3, pleasant, no acute distress, answers questions appropriately Exam: appears lethargic. - Head Head exam: Present: atraumatic, normocephalic - Neck Neck exam general surgery: Present: supple, trachea midline - Respiratory Additional comments: decreased breath sounds, significant rales and rhonchi throughout. - Cardiovascular Cardiovascular exam: Present: RRR, +S1, +S2 - GI/Abdominal GI/Abdominal exam: Present: normal bowel sounds, soft. Absent: distended, tenderness - Extremities Exam Extremities exam: Absent: cyanotic, pedal edema - Neurological Exam Neurological exam: Present: alert, oriented X3, no focal deficits - Psychiatric Psychiatric exam: Present: normal affect, normal mood - Skin Skin exam: Present: intact Internal Medicine: Result - Labs CBC & Chem 7: 08/04/17 04:00 08/04/17 04:00 Labs: Short CBC 08/04/17 Range/Units 04:00 WBC 10.7 (4.3-11.1) K/mcL Hgb 7.4 L (11.5-15.4) g/dL Hct 24.0 L (35.3-44.9) % Plt Count 224 (140-400) K/mcL Neutrophils # 9.0 H (1.6-8.9) K/mcL BMP 08/04/17 04:00 Sodium 141 Potassium 4.2 Chloride 104 Carbon Dioxide 36 H BUN 36 H Creatinine 1.00 Glucose 124 H Calcium 8.0 L - ABG Interpretation ABG results: ABG ABG pH 7.35 pH Units (7.32-7.45) 08/01/17 18:53 ABG pCO2 65 mmHg (35-45) H 08/01/17 18:53 ABG pO2 58 mmHg (85-104) L 08/01/17 18:53 ABG O2 Saturation 88 % (95-98) L 08/01/17 18:53 PT/INR, D-dimer PT 10.7 Seconds (9.4-12.1) 07/31/17 03:35 - VTE Documentation of Mechanical Device: Intermittent pneumatic compression device Consult Discharge Plan - Plan Referrals: Naersh Skinner MD [Primary Care Provider] - 08/05/17 3:30 pm <Arthur Kuo H - Last Filed: 08/04/17 12:20> Date of Encounter: 08/04/17 - Constitutional Vitals: Temp Pulse Resp BP Pulse Ox 97.8 F 63 12 134/76 94 08/04/17 10:00 08/04/17 10:00 08/04/17 10:00 08/04/17 10:00 08/04/17 10:00 Internal Medicine: Result - Labs CBC & Chem 7: 08/04/17 04:00 08/04/17 04:00 Labs: Short CBC 08/04/17 Range/Units 04:00 WBC 10.7 (4.3-11.1) K/mcL Hgb 7.4 L (11.5-15.4) g/dL Hct 24.0 L (35.3-44.9) % Plt Count 224 (140-400) K/mcL Neutrophils # 9.0 H (1.6-8.9) K/mcL BMP 08/04/17 04:00 Sodium 141 Potassium 4.2 Chloride 104 Carbon Dioxide 36 H BUN 36 H Creatinine 1.00 Glucose 124 H Calcium 8.0 L - ABG Interpretation ABG results: ABG ABG pH 7.35 pH Units (7.32-7.45) 08/01/17 18:53 ABG pCO2 65 mmHg (35-45) H 08/01/17 18:53 ABG pO2 58 mmHg (85-104) L 08/01/17 18:53 ABG O2 Saturation 88 % (95-98) L 08/01/17 18:53 PT/INR, D-dimer PT 10.7 Seconds (9.4-12.1) 07/31/17 03:35 - Attending Attestation Acute on chronic anemia, unclear etiology, consider anemia of chronic disease versus possible GI losses Transfuse 1 unit of blood due to symptomatic anemia Nothing by mouth after midnight and GI consult for possible endoscopy Hold aspirin Monitor CBC Protonix IV We will have to be discharged on Augmentin for a total of 2 weeks and at least a 20 day prednisone taper when more stable. I examined this patient and my medical decision-making was reviewed with the Resident Physician. I agree with the documented findings, disposition and treatment plan as described except to the extent set forth below.
--- NOTE | 2017-08-04 11:52 | Pulmonology Progress Note ---
Date of Encounter: 08/04/17 Time of Encounter: 09:00 Assessment and Plan (1) Pulmonary hypertension Current Visit: Yes Status: Acute Patient Pulmonary Hypertension probably due to Class III Pulmonary Hypertension secondary to Chronic Lung disease will need to work up for treatable Interstitial lung disease like inflammtory pneumonias like CAREER ORIENTATION TEACHER/NSIP .Did bronchoscopy Transbronchial biopsy was done will follow up with pathology results will see her in clinic 6-8 weeks. (2) Acute respiratory failure with hypoxia Current Visit: Yes Status: Acute Patient has Acute hypoxic respiratory failure looking at the blood gas it looks like she has Acute on Chronic hypercapnic respiratory failure probably due to COPD/Asthma Vs ILD . Will assess as an outpatient whether she will benefit from BIPAP therapy after this acute illness settles down. (3) Pneumonia Current Visit: Yes Status: Acute Patient most likely infectious pneumonia agree with current regimen of antibiotics because of on and off Chronic Prednisone therapy need to rule out Atypical pneumonia, viral pneumonia , fungal pneumonia. Reviewed the preliminary cultures of BAL no significant organisms so far the sarah in BAL wont treat it,the only time we treat in the setting of disseminated candidiasis as blood cultures are negative as no resistant organisms growing will send her home on 14 days of augmentin with probiotics Qualifiers: Qualified Code(s): J18.9 - Pneumonia, unspecified organism (4) Asthma Current Visit: No Status: Chronic Looks like there should be component of COPD airtrapping seen in CT scan can due to emphysematous changes since she is a non smoker will check alpha 1 anti- trypsin or she has inhalation substance abuse . Will continue the current regimen of bronchodilators . Assess her exercise oxygen requirements. Will follow up in 6-8 weeks Qualifiers: Qualified Code(s): J45.30 - Mild persistent asthma, uncomplicated Subjective Principal diagnosis: Acute hypoxic respiratory failure Interval history: Patient is says she is feeling lot better with less shortness of breadth and sputum production she is back to her baseline she wants to go home. Objective PUL Vital signs: Last Vital Signs Temp 97.8 F 08/04/17 10:00 Pulse 63 08/04/17 10:00 Resp 12 08/04/17 10:00 BP 134/76 08/04/17 10:00 Pulse Ox 94 08/04/17 10:00 General appearance: no acute distress Auscultation: bilateral: clear (except for diminished bilateral air entry) Results - Laboratory Findings CBC and BMP: 08/04/17 04:00 08/04/17 04:00 ABG ABG pH 7.35 pH Units (7.32-7.45) 08/01/17 18:53 ABG pCO2 65 mmHg (35-45) H 08/01/17 18:53 ABG pO2 58 mmHg (85-104) L 08/01/17 18:53 ABG O2 Saturation 88 % (95-98) L 08/01/17 18:53 PT/INR, D-dimer PT 10.7 Seconds (9.4-12.1) 07/31/17 03:35 Abnormal lab findings: Abnormal lab results RBC 2.50 M/mcL (3.82-4.97) L 08/04/17 04:00 Hgb 7.4 g/dL (11.5-15.4) L 08/04/17 04:00 Hct 24.0 % (35.3-44.9) L 08/04/17 04:00 MCHC 30.8 g/dL (31.6-35.5) L 08/04/17 04:00 RDW 15.1 % (11.5-14.5) H 08/04/17 04:00 Neutrophils # 9.0 K/mcL (1.6-8.9) H 08/04/17 04:00 Lymphocytes # 0.5 K/mcL (0.6-4.6) L 08/04/17 04:00 ABG pCO2 65 mmHg (35-45) H 08/01/17 18:53 ABG pO2 58 mmHg (85-104) L 08/01/17 18:53 ABG HCO3 36 mEq/L (21-27) H 08/01/17 18:53 ABG Total CO2 38 mEq/L (20-26) H 08/01/17 18:53 ABG O2 Saturation 88 % (95-98) L 08/01/17 18:53 ABG Base Excess 8.9 mEq/L (-2.0 to 3.0) H 08/01/17 18:53 Carbon Dioxide 36 mEq/L (19-29) H 08/04/17 04:00 BUN 36 mg/dL (7-20) H 08/04/17 04:00 BUN/Creatinine Ratio 36 (6-26) H 08/04/17 04:00 Glucose 124 mg/dL (70-99) H 08/04/17 04:00 POC Glucose 105 (58-89) H 08/04/17 10:54 Calculated Osmolality 302 (280-300) H 08/04/17 04:00 Calcium 8.0 mg/dL (8.6-10.8) L 08/04/17 04:00 B-Natriuretic Peptide 156 pg/mL (0-100) H 07/30/17 03:20 Serum Total Protein 5.2 g/dL (6.0-8.3) L 08/01/17 03:30 Albumin 2.3 g/dL (3.5-5.0) L 08/01/17 03:30 Albumin/Globulin Ratio 0.8 (1.1-2.2) L 08/01/17 03:30 LDL Cholesterol, Calc 107 mg/dL (0-99) H 07/30/17 09:10 Ur Specific [place] > 1.030 (1.010-1.025) H 07/30/17 11:30 Urine Protein >=300 mg/dL (Neg-Trace) H 07/30/17 11:30 Urine Glucose (UA) 100 mg/dL (Normal) H 07/30/17 11:30 Urine Blood Moderate (Negative) H 07/30/17 11:30 Urine Microscopic RBC 15-30 per hpf (0-3) H 07/30/17 11:30 Urine Microscopic WBC 30-50 per hpf (0-3) H 07/30/17 11:30 Ur Squamous Epith Cells Moderate per lpf (None-Few) H 07/30/17 11:30 Fluid Appearance Hazy (Clear) A 08/02/17 Unknown - Microbiology Findings Microbiology Findings: Microbiology, Last 48 Hours 08/02/17 15:35 Acid Fast Stain - Final Right Upper Lobe Lung 08/02/17 15:35 Acid Fast Stain - Final Right Middle Lobe Lung 08/02/17 15:35 Gram Stain - Final Right Middle Lobe Lung Respiratory Culture - Preliminary No growth. 08/02/17 15:35 Gram Stain - Final Right Upper Lobe Lung Respiratory Culture - Preliminary Yeast Species - Clinical Findings Intake & Output: Intake & Output 08/03/17 08/04/17 08/04/17 23:59 07:59 15:59 Intake Total 220 / 220 1100 / 1100 120 / 120 Output Total 800 / 800 Balance -580 / -580 1100 / 1100 120 / 120 Weight 82.2 kg - VTE Documentation of Mechanical Device: Intermittent pneumatic compression device Consult Discharge Plan - Plan Referrals: Naresh Skinner MD [Primary Care Provider] - 08/05/17 3:30 pm
[2017-08-04] MEDS ORDERED: 0.9 % Sodium Chloride 500 ML ONE (14:07)
--- NOTE | 2017-08-04 15:09 | Cardiology Progress Note ---
Date of Encounter: 08/04/17 Time of Encounter: 14:30 Assessment and Plan (1) Pulmonary hypertension Current Visit: Yes Status: Acute Per cardiology: -Patient has evidence of pulmonary HTN on Echocardiogram on 08/01/17. - Echo showed Normal LV systolic function, LVEF 65%., Normal left ventricular diastolic function, Normal right ventricular size and function, Mild aortic regurgitation, Mild tricuspid regurgitation, Mild-moderate pulmonary hypertension, Estimated RVSP = 47 mmHg, No evidence of intracardiac shunting with agitated saline contrast. -This is likely secondary to the patient having a history of COPD and SLE. -Cardiology previously stopped beta garima and amlodipine, however was restarted per pulmonary recommendations. -Reports shortness of breath is improved today. -Cardiology will sign off and will follow in outpatient setting. Follow up set. Discussion w patient/family: The assessment and plan as outlined above was discussed with the patient and/or family members who expressed understanding and agreement. All questions were answered. Thank you for involving us in the care of your patient. Please call with any questions. Discussed and reviewed with . Subjective Principal diagnosis: Acute hypoxic respiratory failure Interval history: Patient reports shortness of breath has improved today. Patient complains of fatigue today. Objective Vital Signs, Last 4 Hours Temp Pulse Resp BP Pulse Ox 08/04/17 14:48 98.4 F 59 16 135/86 95 General: Conversant, No Apparent Distress HEENT: Atraumatic, Normocephaly, Mucus Membranes Moist Neck: No JVD, Normal carotid pulses Cardiac: Reg Rate and Rhythm, Normal S1 and S2, No Murmur Lungs: Normal Breath Sounds, No Wheeze, Rales, Rhonchi Neuro: Alert and responsive, No focal deficits noted Abdomen: Soft, Non-Tender Skin: No rashes noted on visualized skin Musculoskeletal: No Chest Wall Tenderness Extremities: No Clubbing, No Cyanosis, No Edema, Normal Pulses Results 08/04/17 04:00 08/04/17 04:00 Lab Results Active Medications Acetaminophen (Tylenol) 650 mg PO Q6HR PRN PRN Reason: Mild Pain (1-3) Stop: 01/29/18 07:37 Albuterol/Ipratropium (Duoneb) 3 ml IH [id number] LETI Stop: 01/29/18 08:01 Last Admin: 08/04/17 11:10 Dose: Not Given Alprazolam (Xanax) 1 mg PO BID LETI PRN Reason: Protocol Stop: 01/29/18 21:01 Last Admin: 08/04/17 09:04 Dose: 1 mg Aspirin (Aspirin Ec) 81 mg PO DAILY [facility] Stop: 01/29/18 09:01 Last Admin: 08/04/17 09:06 Dose: 81 mg Budesonide/Formoterol Fumarate (Symbicort) 2 puff IH BIDRESP [facility] Stop: 01/29/18 10:01 Last Admin: 08/04/17 11:10 Dose: Not Given Carvedilol (Coreg) 25 mg PO BIDWM LETI PRN Reason: Protocol Stop: 02/02/18 17:01 Last Admin: 08/04/17 09:05 Dose: 25 mg Citalopram Hydrobromide (Celexa) 40 mg PO DAILY [facility] Stop: 01/29/18 09:01 Last Admin: 08/04/17 09:04 Dose: 40 mg Cyanocobalamin (Vitamin B12) 2,000 mcg PO DAILY [facility] Stop: 01/29/18 09:01 Last Admin: 08/04/17 09:04 Dose: 2,000 mcg Dextrose/Water (Dextrose 50% (Syg)) 25 ml IVP AD PRN PRN Reason: Hypoglycemia Stop: 01/31/18 11:20 Epinephrine HCl (Epinephrine) 0.1 mg INTRATRACH Q1MIN PRN PRN Reason: Bleeding Stop: 02/01/18 14:26 Last Admin: 08/02/17 14:27 Dose: 0.1 mg Famotidine (Pepcid) 20 mg IVP Q12HR [facility] Stop: 01/29/18 18:01 Last Admin: 08/04/17 05:49 Dose: 20 mg Glucagon (Glucagen) 1 mg IM ONCE PRN PRN Reason: Hypoglycemia Stop: 01/31/18 11:20 Glucose (Gluctose) 15 gm PO ONCE PRN PRN Reason: Hypoglycemia Stop: 01/31/18 11:20 Glucose (Gluctose) 30 gm PO ONCE PRN PRN Reason: Hypoglycemia Stop: 01/31/18 11:20 Guaifenesin (Robitussin/Dm) 5 ml PO Q6HR PRN PRN Reason: Cough Stop: 02/01/18 20:33 Last Admin: 08/02/17 21:08 Dose: 5 ml Lisinopril/HCTZ (Prinzide 10-12.5) 2 each PO BID [facility] Stop: 01/29/18 09:01 Last Admin: 08/04/17 09:04 Dose: 2 each Sodium Chloride (0.9 % Sodium Chloride) 1,000 mls @ 80 mls/hr IVC .[id number] [facility] Stop: 01/29/18 07:46 Last Admin: 08/04/17 08:16 Dose: Not Given Piperacillin Sod/Tazobactam (Sod 3.375 gm/ Dextrose) 100 mls @ 25 mls/hr IVPB Q8H [facility] Stop: 01/31/18 08:01 Last Admin: 08/04/17 09:07 Dose: 25 mls/hr Dextrose (Dextrose 5%) 1,000 mls @ 100 mls/hr IVC .Q10H PRN PRN Reason: HYPOGLYCEMIA Stop: 01/31/18 11:20 Insulin Detemir (Levemir) 6 unit SQ QAM [facility] Stop: 02/01/18 09:01 Last Admin: 08/04/17 09:07 Dose: 6 unit Insulin Human Lispro (Humalog) 0 units SQ HS [facility] PRN Reason: Protocol Stop: 01/31/18 21:01 Last Admin: 08/03/17 22:06 Dose: Not Given Insulin Human Lispro (Humalog) 0 units SQ TIDAC [facility] PRN Reason: Protocol Stop: 01/31/18 11:31 Last Admin: 08/04/17 14:50 Dose: Not Given Levothyroxine Sodium (Synthroid) 112 mcg PO 0630 [facility] Stop: 01/30/18 06:31 Last Admin: 08/04/17 05:49 Dose: 112 mcg Metoclopramide HCl (Reglan) 5 mg PO DAILY [facility] Stop: 01/29/18 09:01 Last Admin: 08/04/17 09:06 Dose: 5 mg Montelukast Sodium (Singulair) 10 mg PO DAILY [facility] Stop: 01/29/18 09:01 Last Admin: 08/04/17 09:06 Dose: 10 mg Morphine Sulfate (Morphine Sulfate) 2 mg IVP Q3H PRN PRN Reason: Severe Pain Stop: 02/01/18 16:21 Last Admin: 08/04/17 14:51 Dose: 2 mg Naloxone HCl (Narcan) 0.4 mg IVP Q2MIN PRN PRN Reason: Opioid Reversal Stop: 01/29/18 07:37 Nitroglycerin (Nitroglycerin) 0.4 mg SL Q5M PRN PRN Reason: Chest Pain Stop: 01/29/18 07:39 Omeprazole (Prilosec) 20 mg PO BIDAC LETI PRN Reason: Protocol Stop: 01/29/18 16:31 Last Admin: 08/04/17 09:05 Dose: 20 mg Ondansetron HCl (Zofran) 4 mg IVP Q8HR PRN PRN Reason: Nausea And Vomiting Stop: 01/29/18 07:37 Last Admin: 08/04/17 00:01 Dose: 4 mg Oxycodone HCl (Roxicodone) 10 mg PO Q4H PRN PRN Reason: MODERATE PAIN Last Admin: 08/04/17 09:05 Dose: 10 mg Pantoprazole Sodium (Protonix) 40 mg IVP Q12HR LETI Stop: 02/03/18 11:11 Prednisone (Prednisone) 40 mg PO DAILY [facility] Stop: 01/30/18 09:01 Last Admin: 08/04/17 09:06 Dose: 40 mg Laboratory Tests 08/04/17 04:00 Hgb 7.4 L - Imaging and Cardiology Chest Xray: report reviewed Echo: report reviewed - EKG Interpretation EKG results cardiology: other (Telemetry reviewed with average HR 60, sinus rhythm. PVCs and PACs noted.) - VTE Documentation of Mechanical Device: Intermittent pneumatic compression device Consult Discharge Plan - Plan Referrals: Naresh Skinner MD [Primary Care Provider] - 08/05/17 3:30 pm
[2017-08-04 15:30] LABS: Total Volume 24 Hour,Urine 1.61 Liters (0.60-1.60)
[2017-08-04 17:01] LABS: Creatinine 24 Hour,Urine 0.64 g/day (0.71-1.65); Protein/Creatinine Ratio,Urine 1.3 mg/mg (0-0.20)
[2017-08-04] MEDS: Pantoprazole 40 MG VIAL IVP SCH ×2 (17:48→17:54)
[2017-08-04 19:04] LABS: Basophils % 0.1 %; Hematocrit 28.4 % (35.3-44.9); Hemoglobin 8.7 g/dL (11.5-15.4); Immature Granulocytes % 2.2 % (0-4); Immature Platelets 3.4 % (1.1-6.1); Lymphocytes # 0.3 K/mcL (0.6-4.6); Lymphocytes % 2.5 %; Mean Corpuscular HGB Conc 30.6 g/dL (31.6-35.5); Mean Corpuscular Hemoglobin 28.9 pg (28.0-33.3); Mean Corpuscular Volume 94.4 fL (83.0-100.0); Mean Platelet Volume 10.1 fL (9.4-12.4); Monocytes # 0.2 K/mcL (0.0-1.3); Monocytes % 1.7 %; Neutrophils # 11.8 K/mcL (1.6-8.9); Platelet Count 234 K/mcL (140-400); Red Blood Count 3.01 M/mcL (3.82-4.97); Red Cell Distribution Width 16.8 % (11.5-14.5); Segmented Neutrophils % 93.5 %
[2017-08-05] MEDS: Piperacillin/Tazobactam 3.375 GM in D5% in Water (Mini-Bag+) 100 ML IVPB SCH ×3 (00:16→17:37)
[2017-08-05] MEDS: Ipratropium/Albuterol Neb 3 ML IH SCH ×5 (00:37→16:29)
[2017-08-05] MEDS: *HR* Morphine 2 MG/ML SYRINGE IVP PRN ×2 (04:08→12:08)
[2017-08-05 04:13] LABS: Basophils % 0.1 %; Eosinophils % 0.1 %; Hematocrit 26.5 % (35.3-44.9); Hemoglobin 8.3 g/dL (11.5-15.4); Immature Granulocytes % 1.9 % (0-4); Immature Platelets 3.4 % (1.1-6.1); Lymphocytes # 0.6 K/mcL (0.6-4.6); Lymphocytes % 5.8 %; Mean Corpuscular HGB Conc 31.3 g/dL (31.6-35.5); Mean Corpuscular Hemoglobin 29.3 pg (28.0-33.3); Mean Corpuscular Volume 93.6 fL (83.0-100.0); Monocytes # 0.8 K/mcL (0.0-1.3); Monocytes % 8.1 %; Neutrophils # 8.6 K/mcL (1.6-8.9); Platelet Count 211 K/mcL (140-400); Red Blood Count 2.83 M/mcL (3.82-4.97); Red Cell Distribution Width 16.8 % (11.5-14.5)
[2017-08-05 04:26] LABS: % Iron Saturation 26 % (15-50); BUN/Creatinine Ratio 39 (6-26); Blood Urea Nitrogen 38 mg/dL (7-20); Calcium 8.2 mg/dL (8.6-10.8); Carbon Dioxide 34 mEq/L (19-29); Chloride 104 mEq/L (98-109); Glucose 122 mg/dL (70-99); Iron 72 mcg/dL (50-170); Osmolality,Calculated 304 (280-300); Potassium 4.2 mEq/L (3.5-4.5); Sodium 142 mEq/L (136-145); Transferrin 197 mg/dL (180-382); eGFR For African Americans > 60 (> 60); eGFR For Non-African Americans > 60 (> 60)
[2017-08-05 04:47] LABS: Ferritin 87 ng/ml (5-204)
[2017-08-05 05:03] LABS: Folate 3.4 ng/mL (7.0-31.4)
[2017-08-05] MEDS: Famotidine 20 MG/2 ML VIAL IVP SCH (05:23)
[2017-08-05] MEDS: Pantoprazole 40 MG VIAL IVP SCH (06:22)
[2017-08-05] MEDS: *HR* OxyCODONE Immed Rel 5 MG TABLET PO PRN ×2 (06:22→16:47)
[2017-08-05] MEDS: Budesonide/Formoterol 160/4.5 MDI IH SCH (08:04)
[2017-08-05] MEDS: Insulin DETEMIR 100 UNIT/ML X5UNITS SQ SCH (08:42)
[2017-08-05] MEDS: Insulin LISPRO 300 UNITS/3 ML VIAL SQ SCH ×3 (08:42→17:37)
[2017-08-05] MEDS: predniSONE 20 MG TABLET PO SCH (08:52)
[2017-08-05] MEDS: Cyanocobalamin (B-12) 1,000 MCG TABLET PO SCH (08:53)
[2017-08-05] MEDS: ALPRAZolam 1 MG TABLET PO SCH (08:53)
--- NOTE | 2017-08-05 10:16 | Anesthesia Evaluation PreOp ---
Date of Encounter: 08/05/17 Time of Encounter: 10:14 - Past History Planned Operation: EGD Cardiac History: Denies any Significant Hx ( asthma, COPD, DVT, fibromyalgia, GERD, GI bleed, hypertension, kidney stones, myocardial infarction, RA, thyroid disease, other Psychiatric history: anxiety - Past Surgical History Surgical History: cholecystectomy, hysterectomy), RI, HTN, Other (Hx DVT) Pulmonary History: Asthma, COPD (never smoked, on 2.5-3L O2 at home), Other ( Admitted with acute resp. failure, pneumonia) BAKER History: Other (Anxiety) Other Medical History: Renal (SLE nepritis), Thyroid (Hypothyroid), Other (SLE, RA) Anesthesia History: No Prior Anesthetic Complications, Past Anesthesia (JAYCEE, GB , Bronchoscopy) : No Test: Negative ([facility]) Alcohol Use: none Drug use: none Medications and Allergies Albuterol Sulfate [Proair Hfa] 2 puff IH Q4H PRN 07/10/16 [History] Aspirin Enteric Coated [Aspirin EC] 81 mg PO DAILY 07/10/16 [History] Carvedilol [Coreg] 25 mg PO BID 07/10/16 [History] Fluticasone Propionate Nasal [Flonase] 50 mcg NS DAILY 07/10/16 [History] Nitroglycerin [Nitrostat] 0.4 mg SL Q5M PRN 07/10/16 [History] Omeprazole [PriLOSEC] 20 mg PO BIDAC 07/10/16 [History] Ranitidine HCl [Zantac] 300 mg PO HS 07/10/16 [History] Levothyroxine [Synthroid] 112 mcg PO 0630 #10 tablet 07/13/16 [Rx] Amlodipine Besylate 10 mg PO DAILY 09/19/16 [History] Citalopram Hydrobromide [Celexa] 40 mg PO DAILY 07/18/17 [History] Cyanocobalamin (Vitamin B-12) [Vitamin B12] 2,000 mcg PO DAILY 07/18/17 [History ] Ipratropium/Albuterol Neb [Duoneb] 3 ml IH Q6H PRN 07/18/17 [History] Lisinopril/Hydrochlorothiazide [Zestoretic 20-25 mg Tablet] 1 each PO BID [History] Mometasone/Formoterol [Dulera 200 Mcg/5 Mcg Inhaler] 1 puff IH BID 07/18/17 [ History] Oxygen 2 l NS AD 07/18/17 [History] Promethazine [Phenergan] 25 mg PO Q8HR PRN #15 tablet 07/27/17 [Rx] ALPRAZolam [Xanax 1 MG Tablet] 1 mg PO BID 07/30/17 [History] Furosemide [Lasix] 80 mg PO DAILY 07/30/17 [History] Oxycodone HCl 10 mg PO Q4H PRN 07/30/17 [History] 3 Allergy/AdvReac Type Severity Reaction Status Date / Time ketorolac [From Toradol] AdvReac Abdominal Verified 07/30/17 00:44 Pain NSAIDS (Non-Steroidal AdvReac Abdominal Verified 07/30/17 00:44 Anti-Inflamma Pain tramadol AdvReac Abdominal Verified 07/30/17 00:44 Pain pyridium AdvReac Abdominal Uncoded 07/30/17 00:44 Pain - Meds/Allergy Pre-op Review Medications Reviewed: Yes Allergies Reviewed: Yes Beta Blockers on Current Med List: Yes If Beta Blockers taken, Date/Time (Last Dose taken): 08:53 Anesthesia Results - Labs 08/05/17 03:48 08/05/17 03:48 Echo with Saline Contrast Name: Luba Chowdary Date of Study: 08/01/2017 EV/EV echocardiogram Impressions: Normal LV systolic function, LVEF 65%. Normal left ventricular diastolic function. Normal right ventricular size and function. Mild aortic regurgitation. Mild tricuspid regurgitation. Mild-moderate pulmonary hypertension. Estimated RVSP = 47 mmHg. No evidence of intracardiac shunting with agitated saline contrast. - Imaging EKG: image reviewed (SB) Anesthesia Exam O2 Sat Weight 83 kg O2 Sat by Pulse Oximetry 98 O2 Sat by Pulse Oximetry 98 O2 Sat by Pulse Oximetry 92 O2 Sat by Pulse Oximetry 98 O2 Sat by Pulse Oximetry 94 O2 Sat by Pulse Oximetry 98 O2 Sat by Pulse Oximetry 34 O2 Sat by Pulse Oximetry 95 O2 Sat by Pulse Oximetry 95 Vital Signs Temp Pulse Resp BP Pulse Ox 99.4 F 111 18 145/83 85 07/30/17 00:44 07/30/17 00:44 07/30/17 00:44 07/30/17 00:44 07/30/17 00:44 Vital Signs/O2 Sat, Most Current Temp Pulse Resp BP Pulse Ox 98.4 F 56 16 128/76 98 08/05/17 07:52 08/05/17 07:52 08/05/17 08:04 08/05/17 07:52 08/05/17 09:08 Height: 5'5'' Weight: 182# NPO (# of Hours): > 8 hrs Pain Scale: 0 Pain Scale Used: Numeric (1 - 10) - HEENT Pupil (Motor): Pupils equal, EOMI Mallampati: II Teeth: Edentulous Oral Opening: Greater than 3 - BAKER LOC: Oriented BAKER Motor: Normal RUE, Normal LUE, Normal RLE, Normal LLE, Normal Face BAKER Sensory: Normal: RUE, LUE, RLE, LLE, Face - Cardiac Rhythm: Regular Murmur: None JVD: No Carotid Bruit: No - Pulmonary Breath Sounds: bilateral Clear Respiratory Effort: Symmetrical Anesthesia Assess/Plan ASA Score: 3 Modified Artemio Scale for Level of Consciousness: Cooperative, oriented, and tranquil Anesthetic Plan: MAC Autologous Blood: Yes Monitoring Plan: Standard Monitors Recovery Plan: Other
--- NOTE | 2017-08-05 10:40 | Gastroenterology Consult Note ---
<Bessie Bal - Last Filed: 08/05/17 10:27> Date of Encounter: 08/05/17 Time of Encounter: 10:27 - Assessment and plan (1) Anemia Current Visit: Yes Status: Acute Assessment and plan: Patient with acute decrease in hemoglobin, was previously 10.0 on 07/27, decreased to 8.6 on 07/30. Lowest was 7.4 requiring 1 unit PRBC with appropriate response and rise in hemoglobin to 8.7 Patient does have risk factor of chronic steroid use also has lupus neprhitis. She more recently has risk factor of use of zosyn Does have prior history of gastric ulcer in 2007 which was bleeding. Is chronically on prilosec and ranitidine. Will plan for EGD today. Qualifiers: Anemia type: unspecified type Qualified Code(s): D64.9 - Anemia, unspecified - Time Spent With Patient Total time spent is greater than 50% in coordination of care (as documented) at patient's floor/unit and/or counseling patient: GI History of Present Illness - Data of Consult Patient: new to practice Requesting Physician: Arthur Kuo - Consult Narrative Reason for consult: anemia History of present illness: Ms. Chowdary is a 42 year old female with past medical history of systemic lupus with lupus nephritis on chronic steroid (prednisone) therapy, hypothyroidism and COPD who we have been asked to see in consult for anemia. Patient is a poor historian and is able to give limited information regarding past treatments. Patient hemoglobin is 8.7 after receiving one unit of packed RBCs. Records indicate a hb of 10.0 on 07/27 and 8.0 on 07/30. Upon questioning, patient complains of right lower quadrant pain, pain starts at umbilicus and goes toward the right lower side. She states she has previous history of right upper quadrant pain but was told her gallbladder was normal, and subsequently had it removed with resolution of right upper quadrant pain. Because of the difficulty regarding previous diagnosis of her gallbladder, she is now concerned her right lower quadrant pain is her appendix. She reports previous history of heartburn and was started on prilosec and zantac with resolution of symptoms. She complains of daily nausea and was started on zofran with resolution until most recent admission to the hospital. She has had nausea and vomiting but denies hematemesis. Vomiting has currently resolved since admission, she does report coughing up blood since bronchoscopy. Reports regular stools varying in color from dark to brown to green but denies any gross melena or hematochezia. She states she has noticed no gross bleeding per rectum that she recalls but mentioned a few drops of blood in the toilet after some bowel movements. She stated she has never had hemorrhoids. Does report previous history of gastric ulcer with bleed in 2007, had hematemesis at that time. Other than the steroid use, she was previously on methotrexate but was stopped at some point due to becoming "severely ill". Patient could not specify further than that. Past Med Surg Social Fam HX - Past Medical History Medical history: asthma, COPD, DVT, fibromyalgia, GERD, GI bleed, hypertension, kidney stones, myocardial infarction, RA, thyroid disease, other Psychiatric history: anxiety - Past Surgical History Surgical History: cholecystectomy, hysterectomy - Social History Smoking Status: Never smoker Smokeless Tobacco Status: No Alcohol use: none Drug use: none - Family History Mother Living Status: Hx Family Cardiac Disorders: Yes (mi) Father Living Status: Hx Family Cardiac Disorders: Yes Hx Family Endocrine Disorder: Yes - Gastrointestinal Gastrointestinal: Present: abdominal pain (right lower quadrant ), nausea. Absent: change in bowel habits, coffee ground emesis, heartburn, hematemesis, hematochezia, melena, vomiting - Constitutional Constitutional: no fever(s) - EENT Ears: Absent: ear discharge, ear pain - Cardiovascular Cardiovascular ROS: Absent: chest pain - Respiratory Respiratory IM: Present: cough - Genitourinary Genitourinary: Absent: Urinary frequency - Neurological ROS Neurological GI: Absent: tremor(s) - Hematologic/Lymphatic Hematologic/Lymphatic pediatric: Absent: easy bleeding - Integumentary Integumentary GI: Absent: rash - Constitutional Vitals: Temp Pulse Resp BP Pulse Ox 98.4 F 56 16 128/76 98 08/05/17 07:52 08/05/17 07:52 08/05/17 08:04 08/05/17 07:52 08/05/17 09:08 General appearance: Present: cooperative, A&O X 3, no acute distress, answers questions appropriately - Head Head exam: Present: atraumatic - Eye Eye exam: Present: normal appearance, sclera anicteric - ENT ENT exam: Present: mucous membranes moist - Neck Neck exam general surgery: Present: supple - Respiratory Respiratory exam: Present: CTAB. Absent: rhonchi, stridor, wheezes - Cardiovascular Cardiovascular exam: Present: RRR, +S1, +S2 - GI/Abdominal GI/Abdominal exam: Present: soft, tenderness (tender to palpation in epigastric area, minimally tender in right lower quadrant ). Absent: distended, guarding, mass, rebound Additional comments: well healed laproscopic scars in place from previous gallbladder surgery - Expanded GI/Abdominal Exam GI/Abdominal exam expanded: Absent: ascites, Rovsing's sign, tenderness at McBurney's Point - Extremities Exam Extremities exam: Present: normal capillary refill, warm - Skin Skin exam: Present: warm Results - Labs CBC & Chem 7: 08/05/17 03:48 08/05/17 03:48 Labs: Last Result Calcium 8.2 mg/dL (8.6-10.8) L 08/05/17 03:48 Iron 72 mcg/dL (50-170) 08/05/17 03:48 % Saturation 26 % (15-50) 08/05/17 03:48 Transferrin 197 mg/dL (180-382) 08/05/17 03:48 Ferritin 87 ng/ml (5-204) 08/05/17 03:48 Troponin I 0.01 ng/mL (0-0.03) 07/31/17 03:35 Triglycerides 70 mg/dL (< 150) 07/30/17 09:10 Vitamin B12 1676 pg/mL (213-816) H 08/05/17 03:48 Folate 3.4 ng/mL (7.0-31.4) L 08/05/17 03:48 Entire Visit Hgb 8.3 g/dL (11.5-15.4) L 08/05/17 03:48 Hct 26.5 % (35.3-44.9) L 08/05/17 03:48 PT 10.7 Seconds (9.4-12.1) 07/31/17 03:35 Ferritin 87 ng/ml (5-204) 08/05/17 03:48 Total Bilirubin 0.9 mg/dL (0.2-1.2) 08/01/17 03:30 AST 10 Units/L (5-34) 08/01/17 03:30 ALT 10 Units/L (0-55) 08/01/17 03:30 Pzzzi-9-Uwwipataure 197 mg/dL (90-200) 08/01/17 03:00 Folate 3.4 ng/mL (7.0-31.4) L 08/05/17 03:48 - ABG ABG results: ABG ABG pH 7.35 pH Units (7.32-7.45) 08/01/17 18:53 ABG pCO2 65 mmHg (35-45) H 08/01/17 18:53 ABG pO2 58 mmHg (85-104) L 08/01/17 18:53 ABG O2 Saturation 88 % (95-98) L 08/01/17 18:53 PT/INR, D-dimer PT 10.7 Seconds (9.4-12.1) 07/31/17 03:35 Consult Discharge Plan - Plan Instructions: Chest Pain (DC), Acute Respiratory Distress Syndrome (DC), Sepsis (DC), Anemia (GEN), Pneumonia (DC) Additional Instructions: Take the following as prescribed: -Diflucan -omeprazole -Augmentin -prednisone Follow-up with cardiology outpatient follow-up with pulmonology outpatient follow-up with primary care physician outpatient return to hospital if you should worsen such chest pain, shortness of breath, fever, chills Referrals: Naresh Skinner MD [Primary Care Provider] - 08/05/17 3:30 pm Prescriptions: Amoxicillin/Clavulanate [Augmentin] 875 mg PO BIDWM 14 Days #28 tablet Chloraseptic [place] [Chloraseptic] 1 spray MM QID PRN #1 spray PRN Reason: Sore Throat Fluconazole [Diflucan] 100 mg PO DAILY 7 Days #7 tablet Insulin DETEMIR [Levemir] 10 unit SQ HS #15 mls Lancets/Blood Glucose Strips [Fora [id number] Strp-Lnct] 1 each MC BID # 120 combo..pkg Nebulizer/Compressor [Easy Air Compressor Nebulizer] 1 each MC PRN PRN #1 each PRN Reason: Shortness Of Breath Omeprazole [PriLOSEC] 40 mg PO BID 30 Days #60 cap predniSONE [PredniSONE] See Taper PO TAPER #50 tablet <Wilbert Altamirano - Last Filed: 08/05/17 17:43> Date of Encounter: 08/05/17 Time of Encounter: 13:30 - Time Spent With Patient Total time spent is greater than 50% in coordination of care (as documented) at patient's floor/unit and/or counseling patient: GI History of Present Illness - Data of Consult Requesting Physician: Arthur Kuo - Consult Narrative History of present illness: Ms. Chowdary is a 42 year old female - Constitutional Vitals: Temp Pulse Resp BP Pulse Ox 98.9 F 62 17 122/76 97 08/05/17 15:42 08/05/17 15:42 08/05/17 15:42 08/05/17 15:42 08/05/17 15:42 Results - Labs CBC & Chem 7: 08/05/17 03:48 08/05/17 03:48 Labs: Last Result Calcium 8.2 mg/dL (8.6-10.8) L 08/05/17 03:48 Iron 72 mcg/dL (50-170) 08/05/17 03:48 % Saturation 26 % (15-50) 08/05/17 03:48 Transferrin 197 mg/dL (180-382) 08/05/17 03:48 Ferritin 87 ng/ml (5-204) 08/05/17 03:48 Troponin I 0.01 ng/mL (0-0.03) 07/31/17 03:35 Triglycerides 70 mg/dL (< 150) 07/30/17 09:10 Vitamin B12 1676 pg/mL (213-816) H 08/05/17 03:48 Folate 3.4 ng/mL (7.0-31.4) L 08/05/17 03:48 Entire Visit Hgb 8.3 g/dL (11.5-15.4) L 08/05/17 03:48 Hct 26.5 % (35.3-44.9) L 08/05/17 03:48 PT 10.7 Seconds (9.4-12.1) 07/31/17 03:35 Ferritin 87 ng/ml (5-204) 08/05/17 03:48 Total Bilirubin 0.9 mg/dL (0.2-1.2) 08/01/17 03:30 AST 10 Units/L (5-34) 08/01/17 03:30 ALT 10 Units/L (0-55) 08/01/17 03:30 Uuaup-6-Mkwzugbmuox 197 mg/dL (90-200) 08/01/17 03:00 Folate 3.4 ng/mL (7.0-31.4) L 08/05/17 03:48 - ABG ABG results: ABG ABG pH 7.35 pH Units (7.32-7.45) 08/01/17 18:53 ABG pCO2 65 mmHg (35-45) H 08/01/17 18:53 ABG pO2 58 mmHg (85-104) L 08/01/17 18:53 ABG O2 Saturation 88 % (95-98) L 08/01/17 18:53 PT/INR, D-dimer PT 10.7 Seconds (9.4-12.1) 07/31/17 03:35 - Attending Attestation I examined this patient and my medical decision-making was reviewed with the Resident Physician. I agree with the documented findings, disposition and treatment plan as described except to the extent set forth below.
--- NOTE | 2017-08-05 11:12 | Internal Med Progress Note ---
<Mari Caballero - Last Filed: 08/05/17 13:02> Date of Encounter: 08/05/17 Time of Encounter: 10:30 - Assessment and plan (1) Acute respiratory failure with hypoxia Current Visit: No Status: Acute Assessment and plan: Etiology likely secondary to pneumonia -Patient reports that her breathing is baseline. She denies fever, chills, chest pain, shortness of breath. -Echocardiogram shows LVEF 65% , normal diastolic function. Mild-moderate pulmonary hypertension, RVSP=47mmHg -Most likely Class III Pulmonary Hypertension secondary to Chronic Lung disease chest CTA negative for PE. significant for multi focal patchy ground glass opacification seen throughout most of the right lung field, subtle areas of ground glass attenuation seen in left upper lobe, small bilateral pleural effusions. of note, patient was recently in hospital and discharged on 07/22/17. was treated for COPD exacerbation secondary to pneumonia, was treated with antibiotics and sent home on augmentin and prednisone. patient does have history of COPD and wears 3L oxygen at home. had bronch 08/02/17: negative for acid fast bacilli, no growth to date. blood cultures final: no growth Plan: pulmonology recommends outpatient PFT testing along with workup for interstitial lung disease- outpt f/u with pulm in 6-8 weeks. continue levaquin (day 7) stop vanc, zosyn alpha-1 antitrypsin deficiency testing per pulmonology order prednisone daily (will discharge on the long taper) symbicort scheduled DuoNebs Per Pulmonology team, have stopped cardizem and switched back to home dose Coreg 25 BID. If issues, please discuss with pulmonology. (2) Anemia Current Visit: Yes Status: Acute Assessment and plan: Possible G.I. bleed. History of chronic steroid therapy due to lupus nephritis Hemoglobin now 8.3. Patient reported some dizziness and few dark spots of dark stools. Patient denies hematuria, hematachezia, hematemesis. Patient had an acute decreased hemoglobin from 8.6 on admission to 7.4 requiring one unit of PRBC Patient has a history of gastric ulcer and 2008 which was bleeding -GI consulted and will perform EGD today -patients chronically on Prilosec and ranitidine Qualifiers: Anemia type: unspecified type Qualified Code(s): D64.9 - Anemia, unspecified (3) COPD exacerbation Current Visit: No Status: Acute Assessment and plan: likely secondary to pneumonia -plan as above (4) Healthcare-associated pneumonia Current Visit: Yes Status: Acute Assessment and plan: plan as above (5) Anxiety disorder Current Visit: No Status: Chronic Assessment and plan: patient does have history of anxiety, stable continue home medication xanax Qualifiers: Anxiety disorder type: generalized anxiety disorder Qualified Code(s): F41.1 - Generalized anxiety disorder (6) Hypertension Current Visit: No Status: Chronic Assessment and plan: within normal limits continue home blood pressure medications - Will follow-up with cardiology outpatient, appointment is already scheduled Qualifiers: Hypertension type: essential hypertension Qualified Code(s): I10 - Essential (primary) hypertension (7) Hypothyroidism Current Visit: No Status: Chronic Assessment and plan: history of hypothyroidism continue home levothyroxine Qualifiers: Hypothyroidism type: unspecified Qualified Code(s): E03.9 - Hypothyroidism , unspecified (8) Lupus nephritis Current Visit: No Status: Chronic Assessment and plan: history of lupus nephritis -Patient reported that she has a Neurosurgeon in [place] that manages her SLE. -patient currently has proteinuria without MARTI -continue to monitor renal function During last hospitalization, patient had significant proteinuria with MARTI. Nephrology was consulted at that time and was scheduled to get a renal biopsy by IR. However, this could not be done because patient had significant cough and was unable to lay on her abdomen without coughing. plan was to follow up outpatient with nephrology. Patient is requesting to have her biospy done while she is inpatient. we will wait for her respiratory status to improve before considering this. (9) SLE (systemic lupus erythematosus) Current Visit: No Status: Chronic Assessment and plan: History of SLE with lupus nephritis. Patient sees Dr. Carr for nephrology and states she has been referred to a new city councilman at [facility] will consider nephrology consult later if warranted. Plan: continue to monitor kidney function closely Qualifiers: Systemic lupus erythematosus type: unspecified Systemic lupus erythematosus organ involvement: unspecified Qualified Code(s): M32.9 - Systemic lupus erythematosus, unspecified (10) DVT prophylaxis Current Visit: Yes Status: Acute Assessment and plan: epcd - Subjective Interval history: Patient is seen laying in bed talking with boyfriend on the phone. She said that she feels her breathing has been improved respect baseline. She is also complaining of mild abdominal pain. Patient denied N/V, diarrhea, constipation, change in urinary frequency, and dysuria. Patient states that she is ready to be discharged/ - Constitutional Vitals: Temp Pulse Resp BP Pulse Ox 98.4 F 56 16 128/76 98 08/05/17 07:52 08/05/17 07:52 08/05/17 11:00 08/05/17 07:52 08/05/17 11:00 General appearance: Present: cooperative, A&O X 3, pleasant, no acute distress, answers questions appropriately Exam: Gen.: Vitals noted. No acute distress. AAOx3 HEENT: oropharynx clear, Normocephalic, atraumatic Cardiac: RRR, no murmur, +S1/S2 Pulmonary: CTA bilaterally, no wheezes, rales or rhonchi, equal chest expansion Abdomen: soft, diffuse minimal tender to palpation with hands but no tenderness to deep pressure auscultation, Bowel sounds noted, no guarding, nondistended MSK: ROM intact, no joint swelling noted Extremities: no BLE edema, nontender calf, no cyanosis or clubbing Neuro: A&Ox3, moves all extremities Psych: Appropriate mood and behavior Internal Medicine: Result - Labs CBC & Chem 7: 08/05/17 03:48 08/05/17 03:48 Labs: Short CBC 08/04/17 08/05/17 Range/Units 19:00 03:48 WBC 12.7 H 10.2 (4.3-11.1) K/mcL Hgb 8.7 L 8.3 L (11.5-15.4) g/dL Hct 28.4 L 26.5 L (35.3-44.9) % Plt Count 234 211 (140-400) K/mcL Neutrophils # 11.8 H 8.6 (1.6-8.9) K/mcL BMP 08/05/17 03:48 Sodium 142 Potassium 4.2 Chloride 104 Carbon Dioxide 34 H BUN 38 H Creatinine 0.97 Glucose 122 H Calcium 8.2 L - ABG Interpretation ABG results: ABG ABG pH 7.35 pH Units (7.32-7.45) 08/01/17 18:53 ABG pCO2 65 mmHg (35-45) H 08/01/17 18:53 ABG pO2 58 mmHg (85-104) L 08/01/17 18:53 ABG O2 Saturation 88 % (95-98) L 08/01/17 18:53 PT/INR, D-dimer PT 10.7 Seconds (9.4-12.1) 07/31/17 03:35 - VTE Documentation of Mechanical Device: Intermittent pneumatic compression device Consult Discharge Plan - Plan Referrals: Naresh Skinner MD [Primary Care Provider] - 08/05/17 3:30 pm <Arthur Kuo H - Last Filed: 08/05/17 13:44> Date of Encounter: 08/05/17 - Constitutional Vitals: Temp Pulse Resp BP Pulse Ox 98 F 55 16 139/86 98 08/05/17 11:51 08/05/17 11:51 08/05/17 11:51 08/05/17 11:51 08/05/17 11:51 Internal Medicine: Result - Labs CBC & Chem 7: 08/05/17 03:48 08/05/17 03:48 Labs: Short CBC 08/04/17 08/05/17 Range/Units 19:00 03:48 WBC 12.7 H 10.2 (4.3-11.1) K/mcL Hgb 8.7 L 8.3 L (11.5-15.4) g/dL Hct 28.4 L 26.5 L (35.3-44.9) % Plt Count 234 211 (140-400) K/mcL Neutrophils # 11.8 H 8.6 (1.6-8.9) K/mcL BMP 08/05/17 03:48 Sodium 142 Potassium 4.2 Chloride 104 Carbon Dioxide 34 H BUN 38 H Creatinine 0.97 Glucose 122 H Calcium 8.2 L - ABG Interpretation ABG results: ABG ABG pH 7.35 pH Units (7.32-7.45) 08/01/17 18:53 ABG pCO2 65 mmHg (35-45) H 08/01/17 18:53 ABG pO2 58 mmHg (85-104) L 08/01/17 18:53 ABG O2 Saturation 88 % (95-98) L 08/01/17 18:53 PT/INR, D-dimer PT 10.7 Seconds (9.4-12.1) 07/31/17 03:35 - Attending Attestation If no EGD is advices by GI, may discharge on Prednisone 40 mg daily for 5 days, then 30 mg daily for 5 days, 20 mg daily for 5 days, 10 mg daily for 5 days, pluse augmentin BID for 14 days per Pulm recommendations. I examined this patient and my medical decision-making was reviewed with the Resident Physician. I agree with the documented findings, disposition and treatment plan as described except to the extent set forth below.
[2017-08-05 14:17] LABS: HSV Source BAL
[2017-08-05] MEDS ORDERED: Fluconazole 200 MG/100 ML 200 MG/100 ML BAG IVPB ONE (15:45)
--- NOTE | 2017-08-05 15:46 | Discharge Summary ---
<Mari Caballero - Last Filed: 08/05/17 16:37> Date of Encounter: 08/05/17 Time of Encounter: 15:44 - Discharge Diagnosis (1) Acute respiratory failure with hypoxia Priority: Primary Status: Acute (2) Anemia Priority: Secondary Status: Acute Qualifiers: Anemia type: unspecified type Qualified Code(s): D64.9 - Anemia, unspecified (3) COPD exacerbation Priority: Secondary Status: Acute (4) Healthcare-associated pneumonia Priority: Secondary Status: Acute (5) Anxiety disorder Priority: Secondary Status: Chronic Qualifiers: Anxiety disorder type: generalized anxiety disorder Qualified Code(s): F41.1 - Generalized anxiety disorder (6) Hypertension Priority: Secondary Status: Chronic Qualifiers: Hypertension type: essential hypertension Qualified Code(s): I10 - Essential (primary) hypertension (7) Hypothyroidism Priority: Secondary Status: Chronic Qualifiers: Hypothyroidism type: unspecified Qualified Code(s): E03.9 - Hypothyroidism , unspecified (8) Lupus nephritis Priority: Secondary Status: Chronic (9) SLE (systemic lupus erythematosus) Priority: Secondary Status: Chronic Qualifiers: Systemic lupus erythematosus type: unspecified Systemic lupus erythematosus organ involvement: unspecified Qualified Code(s): M32.9 - Systemic lupus erythematosus, unspecified (10) DVT prophylaxis Priority: Secondary Status: Acute - Discharge Medications Prescriptions: Amoxicillin/Clavulanate [Augmentin] 875 mg PO BIDWM 14 Days #28 tablet Chloraseptic [place] [Chloraseptic] 1 spray MM QID PRN #1 spray PRN Reason: Sore Throat Fluconazole [Diflucan] 100 mg PO DAILY 7 Days #7 tablet Insulin DETEMIR [Levemir] 10 unit SQ HS #15 mls Lancets/Blood Glucose Strips [Fora [id number] Strp-Lnct] 1 each MC BID # 120 combo..pkg Nebulizer/Compressor [Easy Air Compressor Nebulizer] 1 each MC PRN PRN #1 each PRN Reason: Shortness Of Breath Omeprazole [PriLOSEC] 40 mg PO BID 30 Days #60 cap predniSONE [PredniSONE] See Taper PO TAPER #50 tablet Home Medications: Albuterol Sulfate [Proair Hfa] 2 puff IH Q4H PRN 07/10/16 [History] Aspirin Enteric Coated [Aspirin EC] 81 mg PO DAILY 07/10/16 [History] Carvedilol [Coreg] 25 mg PO BID 07/10/16 [History] Fluticasone Propionate Nasal [Flonase] 50 mcg NS DAILY 07/10/16 [History] Nitroglycerin [Nitrostat] 0.4 mg SL Q5M PRN 07/10/16 [History] Levothyroxine [Synthroid] 112 mcg PO 0630 #10 tablet 07/13/16 [Rx] Amlodipine Besylate 10 mg PO DAILY 09/19/16 [History] Citalopram Hydrobromide [Celexa] 40 mg PO DAILY 07/18/17 [History] Cyanocobalamin (Vitamin B-12) [Vitamin B12] 2,000 mcg PO DAILY 07/18/17 [History ] Ipratropium/Albuterol Neb [Duoneb] 3 ml IH Q6H PRN 07/18/17 [History] Lisinopril/Hydrochlorothiazide [Zestoretic 20-25 mg Tablet] 1 each PO BID [History] Mometasone/Formoterol [Dulera 200 Mcg/5 Mcg Inhaler] 1 puff IH BID 07/18/17 [ History] Oxygen 2 l NS AD 07/18/17 [History] Promethazine [Phenergan] 25 mg PO Q8HR PRN #15 tablet 07/27/17 [Rx] ALPRAZolam [Xanax 1 MG Tablet] 1 mg PO BID 07/30/17 [History] Furosemide [Lasix] 80 mg PO DAILY 07/30/17 [History] Oxycodone HCl 10 mg PO Q4H PRN 07/30/17 [History] Amoxicillin/Clavulanate [Augmentin] 875 mg PO BIDWM 14 Days #28 tablet 08/05/17 [Rx] Chloraseptic [place] [Chloraseptic] 1 spray MM QID PRN #1 spray 08/05/17 [Rx] Fluconazole [Diflucan] 100 mg PO DAILY 7 Days #7 tablet 08/05/17 [Rx] Insulin DETEMIR [Levemir] 10 unit SQ HS #15 mls 08/05/17 [Rx] Lancets/Blood Glucose Strips [Fora [id number] Strp-Lnct] 1 each MC BID # 120 combo..pkg 08/05/17 [Rx] Nebulizer/Compressor [Easy Air Compressor Nebulizer] 1 each MC PRN PRN #1 each 08/05/17 [Rx] Omeprazole [PriLOSEC] 40 mg PO BID 30 Days #60 cap 08/05/17 [Rx] predniSONE [PredniSONE] See Taper PO TAPER #50 tablet 08/05/17 [Rx] Allergies/Adverse Reactions: 3 Allergy/AdvReac Type Severity Reaction Status Date / Time ketorolac [From Toradol] AdvReac Abdominal Verified 07/30/17 00:44 Pain NSAIDS (Non-Steroidal AdvReac Abdominal Verified 07/30/17 00:44 Anti-Inflamma Pain tramadol AdvReac Abdominal Verified 07/30/17 00:44 Pain pyridium AdvReac Abdominal Uncoded 07/30/17 00:44 Pain Date of admission: 07/30/17 07:36 Primary care physician: Naresh Skinner MD Consults: 07/30/17 10:23 Consult to Nutrition [CONS] Routine Comment: Consulting Provider: NUTRITION Reason for Dietary Consult: MST Score 07/31/17 11:25 Consult to Application Integrator [CONS] Routine Reason for SW Consult: Patient requesting mental health resources. 08/01/17 15:00 Consult to Cardiology [CONS] Routine Comment: Consulting Provider: Cardiology [place] Reason for Consult: mild- moderate pulmonary hypertension Call Completed: Yes Consult to Pulmonology [CONS] Routine Consulting Provider: [facility]m [facility] [place] Reason for Consult: mild- moderate pulmonary hypertension Call Completed: Yes 08/04/17 11:11 Consult to Gastroenterology [CONS] Routine Consulting Provider: Gastroenterology [place] Reason for Consult: symptomatic anemia with significant drop in Hg Call Completed: No Discharging clinician: Arthur Kuo - Patient Status Disposition: Home, Self-Care Condition: Good Functional capacity at discharge: independent ambulation Overall status at discharge: patient is back to baseline - Ambulatory Orders Ambulatory Orders: CT chest wo con [CT] Time Frame: 8 Weeks, Facility: [facility], Location: Radiologist - Discharge Instructions Instructions: Chest Pain (DC), Acute Respiratory Distress Syndrome (DC), Sepsis (DC), Anemia (GEN), Pneumonia (DC) Follow Up With: Naresh Skinner MD [Primary Care Provider] - 08/05/17 3:30 pm Additional Instructions: Take the following as prescribed: -Diflucan -omeprazole -Augmentin -prednisone Follow-up with cardiology outpatient follow-up with pulmonology outpatient follow-up with primary care physician outpatient return to hospital if you should worsen such chest pain, shortness of breath, fever, chills - Diet and Activity Activity: resume usual activities as tolerated, wear oxygen at night Diet: advance to your usual diet Hospital course: Ms. 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 Patient presents to the ED with complaints of shortness of breath. Patient states she developed shortness of breath about one month ago. Symptoms have gradually worsened over the past one week to 10 days. Patient states today it was worse last night and she decided to come to the ER. Aggravated with exertion. No alleviating factors. Patient uses 3 L oxygen at home. She states she used her breathing treatment at home, but it did not help with the shortness of breath. Patient also complains of productive cough with dark brown sputum and subjective fevers. She states she has had a few episodes of vomiting and diarrhea as well. Complains of fatigue. Patient wants to know if her appendix is inflamed. No other acute complaints. No other associated symptoms. Initial workup in the ED reveals chest x-ray multifocal patchy groundglass opacities throughout the right lung field, likely pneumonia. Patient has slightly elevated white blood cell count Patient is being admitted for pneumonia and COPD. Upon admission chest CTA negative for PE. significant for multi focal patchy ground glass opacification sseen throughout most of the right lung field, subtle areas of ground glass attenuation seen in left upper lobe, small bilateral pleural effusions. Patient was started on vanc, zosyn, levaquin, prednisone, do a prn. Blood cultures were ordered, sputum cultures. Echocardiogram shows LVEF 65% , normal diastolic function. Mild-moderate pulmonary hypertension, RVSP=47mmHg. pulmonology and cardiology were consulted on pulmonary hypertension. Cardiology believe that this was due to COPD. Pulmonology believe that this was due to COPD versus interstitial lung disease so patient was taken for bronchoscopy. For one antitrypsin deficiency was ordered. Vancomycin and Zosyn were discontinued due to blood cultures showing no no growth. Acid fast no growth, Gram stain Patricia which pulmonology says is contamination. The patient was found to have a decreased hemoglobin and was transfused one unit of blood. Matias was consulted and took the patient for an EGD. Results showing gastritis, non-bleeding gastric ulcer with no stigmata bleeding. Mildly severe candidiasis esophagitis. Cells for cytology obtained. General question remain the patient's breathing continue to improve situation no longer needed oxygen. The patients are requesting to go home and stated that her breathing was back to baseline and that she felt she could return home safely. The patient is to follow up with cardiology outpatient. The patient is to follow up with pulmonology outpatient for PFT in working for interstitial lung disease. G.I. recommended that patients be started on oral Diflucan and omeprazole. The patient will be put on a prednisone taper, Augmentin. Prescriptions were given for certain refills the patient requested. The patient stated a clear understanding of the treatment plan and all questions were answered. The patient's daughter was alongside her and questions she had were answered. The patient was informed to return to the hospital if she should develop fever, chills, shortness of breath, chest pain, weakness, fainting, melena. - Time Spent with Patient Total time spent providing and/or coordinating discharge services: - Constitutional Vitals: Temp Pulse Resp BP Pulse Ox 98 F 55 16 139/86 98 08/05/17 11:51 08/05/17 11:51 08/05/17 11:51 08/05/17 11:51 08/05/17 11:51 General appearance: Present: cooperative, A&O X 3, pleasant, no acute distress, answers questions appropriately Exam: Gen.: Vitals noted. No acute distress. AAOx3 HEENT: oropharynx clear, Normocephalic, atraumatic Cardiac: RRR, no murmur, +S1/S2 Pulmonary: CTA bilaterally, no wheezes, rales or rhonchi, equal chest expansion Abdomen: soft, diffuse minimal tender to palpation with hands but no tenderness to deep pressure auscultation, Bowel sounds noted, no guarding, nondistended MSK: ROM intact, no joint swelling noted Extremities: no BLE edema, nontender calf, no cyanosis or clubbing Neuro: A&Ox3, moves all extremities Psych: Appropriate mood and behavior - VTE Documentation of Mechanical Device: Intermittent pneumatic compression device <Arthur Kuo Jessica - Last Filed: 08/06/17 16:19> Date of Encounter: 08/06/17 Date of admission: 07/30/17 07:36 Primary care physician: Naresh Skinner MD Consults: 07/30/17 10:23 Consult to Nutrition [CONS] Routine Comment: Consulting Provider: NUTRITION Reason for Dietary Consult: MST Score 07/31/17 11:25 Consult to Application Integrator [CONS] Routine Reason for SW Consult: Patient requesting mental health resources. 08/01/17 15:00 Consult to Cardiology [CONS] Routine Comment: Consulting Provider: Cardiology [place] Reason for Consult: mild- moderate pulmonary hypertension Call Completed: Yes Consult to Pulmonology [CONS] Routine Consulting Provider: Pulm [facility] [place] Reason for Consult: mild- moderate pulmonary hypertension Call Completed: Yes 08/04/17 11:11 Consult to Gastroenterology [CONS] Routine Consulting Provider: Gastroenterology [place] Reason for Consult: symptomatic anemia with significant drop in Hg Call Completed: No Hospital course: Ms. Chowdary is a 42 year old female - Time Spent with Patient Total time spent providing and/or coordinating discharge services: - Constitutional Vitals: Temp Pulse Resp BP Pulse Ox 98.9 F 62 17 122/76 97 08/05/17 15:42 08/05/17 15:42 08/05/17 15:42 08/05/17 15:42 08/05/17 15:42 - Attending Attestation Acute hypoxic respiratory failure possibly related to pulmonary hypertension class III Acute on chronic anemia possibly due to chronic disease I examined this patient and my medical decision-making was reviewed with the Resident Physician. I agree with the documented findings, disposition and treatment plan as described except to the extent set forth below.
[2017-08-05 16:41] VITALS: BP 122/76
--- NOTE | 2017-08-05 17:27 | Physician Discharge Referral ---
<Mari Caballero - Last Filed: 08/05/17 17:24> Home Health/Hosp Referral Info Transfer to: Home Health Provider in Charge Post Discharge: PCP - Diagnosis (1) Acute respiratory failure with hypoxia Priority: Primary Status: Acute (2) Anemia Priority: Secondary Status: Acute (3) COPD exacerbation Priority: Secondary Status: Acute (4) Healthcare-associated pneumonia Priority: Secondary Status: Acute (5) Anxiety disorder Priority: Secondary Status: Chronic (6) Hypertension Priority: Secondary Status: Chronic (7) Hypothyroidism Priority: Secondary Status: Chronic (8) Lupus nephritis Status: Chronic (9) SLE (systemic lupus erythematosus) Status: Chronic (10) DVT prophylaxis Status: Acute - Respiratory Orders Oxygen / L per min (3L) Smoking Cessation: Smoking cessation has been advised. For more information, call the [employer] Quit Line at 7-594-PYUI-NOW. - Diet/Nutrition Diet/Nutrition Orders: Regular - Activity Activity Orders: Ambulate - Services Needed Following services are medically necessary services: Home Health Aide - Transfer Medications Prescriptions: Amoxicillin/Clavulanate [Augmentin] 875 mg PO BIDWM 14 Days #28 tablet Chloraseptic [place] [Chloraseptic] 1 spray MM QID PRN #1 spray PRN Reason: Sore Throat Fluconazole [Diflucan] 100 mg PO DAILY 7 Days #7 tablet Insulin DETEMIR [Levemir] 10 unit SQ HS #15 mls Lancets/Blood Glucose Strips [Fora [id number] Strp-Lnct] 1 each MC BID # 120 combo..pkg Nebulizer/Compressor [Easy Air Compressor Nebulizer] 1 each MC PRN PRN #1 each PRN Reason: Shortness Of Breath Omeprazole [PriLOSEC] 40 mg PO BID 30 Days #60 cap predniSONE [PredniSONE] See Taper PO TAPER #50 tablet Home Medications: Albuterol Sulfate [Proair Hfa] 2 puff IH Q4H PRN 07/10/16 [History] Aspirin Enteric Coated [Aspirin EC] 81 mg PO DAILY 07/10/16 [History] Carvedilol [Coreg] 25 mg PO BID 07/10/16 [History] Fluticasone Propionate Nasal [Flonase] 50 mcg NS DAILY 07/10/16 [History] Nitroglycerin [Nitrostat] 0.4 mg SL Q5M PRN 07/10/16 [History] Levothyroxine [Synthroid] 112 mcg PO 0630 #10 tablet 07/13/16 [Rx] Amlodipine Besylate 10 mg PO DAILY 09/19/16 [History] Citalopram Hydrobromide [Celexa] 40 mg PO DAILY 07/18/17 [History] Cyanocobalamin (Vitamin B-12) [Vitamin B12] 2,000 mcg PO DAILY 07/18/17 [History ] Ipratropium/Albuterol Neb [Duoneb] 3 ml IH Q6H PRN 07/18/17 [History] Lisinopril/Hydrochlorothiazide [Zestoretic 20-25 mg Tablet] 1 each PO BID [History] Mometasone/Formoterol [Dulera 200 Mcg/5 Mcg Inhaler] 1 puff IH BID 07/18/17 [ History] Oxygen 2 l NS AD 07/18/17 [History] Promethazine [Phenergan] 25 mg PO Q8HR PRN #15 tablet 07/27/17 [Rx] ALPRAZolam [Xanax 1 MG Tablet] 1 mg PO BID 07/30/17 [History] Furosemide [Lasix] 80 mg PO DAILY 07/30/17 [History] Oxycodone HCl 10 mg PO Q4H PRN 07/30/17 [History] Amoxicillin/Clavulanate [Augmentin] 875 mg PO BIDWM 14 Days #28 tablet 08/05/17 [Rx] Chloraseptic [place] [Chloraseptic] 1 spray MM QID PRN #1 spray 08/05/17 [Rx] Fluconazole [Diflucan] 100 mg PO DAILY 7 Days #7 tablet 08/05/17 [Rx] Insulin DETEMIR [Levemir] 10 unit SQ HS #15 mls 08/05/17 [Rx] Lancets/Blood Glucose Strips [Fora [id number] Strp-Lnct] 1 each MC BID # 120 combo..pkg 08/05/17 [Rx] Nebulizer/Compressor [Easy Air Compressor Nebulizer] 1 each MC PRN PRN #1 each 08/05/17 [Rx] Omeprazole [PriLOSEC] 40 mg PO BID 30 Days #60 cap 08/05/17 [Rx] predniSONE [PredniSONE] See Taper PO TAPER #50 tablet 08/05/17 [Rx] Allergies/Adverse Reactions: 3 Allergy/AdvReac Type Severity Reaction Status Date / Time ketorolac [From Toradol] AdvReac Abdominal Verified 07/30/17 00:44 Pain NSAIDS (Non-Steroidal AdvReac Abdominal Verified 07/30/17 00:44 Anti-Inflamma Pain tramadol AdvReac Abdominal Verified 07/30/17 00:44 Pain pyridium AdvReac Abdominal Uncoded 07/30/17 00:44 Pain Certification: Further, I certify that my clinical findings support that this patient is homebound (i.e. absences from home require considerable and taxing effort and are for medical reasons or zoroastrianism services or infrequently or short duration when for other reasons) because: she has lupus and needs maintenance of her port. Homebound Reason: Leaving home requires considerable and taxing effort due to condition Attestation: My signature below is to certify that this patient is under my care and that I, or nurse practitioner, or a physician's registered nurse first assistant working with me, has a face-to -face encounter with this patient. Dr. Mari Caballero <Arthur Kuo - Last Filed: 08/06/17 16:19> - Respiratory Orders Smoking Cessation: Smoking cessation has been advised. For more information, call the [place] [employer] Quit Line at 1-955-CIYH-NOW. Certification: Further, I certify that my clinical findings support that this patient is homebound (i.e. absences from home require considerable and taxing effort and are for medical reasons or zoroastrianism services or infrequently or short duration when for other reasons) because: Attestation: My signature below is to certify that this patient is under my care and that I, or nurse practitioner, or a physician's registered nurse first assistant working with me, has a face-to -face encounter with this patient.
[2017-08-05] MEDS ORDERED: *HR* Propofol 200 MG/20 ML VIAL IVP ONE (18:34)
[2017-08-05] MEDS ORDERED: Lidocaine -MPF 2% 5 ML VIAL INFILT ONE (18:34)
[2017-08-05 22:25] LABS: HSV Source BAL
[2017-08-08 07:23] LABS: Pneumocystis PCR NOT DETECTED
[2017-08-09 11:15] LABS: Pneumocystis PCR INDETERMINATE
== END 2017-08-05 18:35 | disposition home or self-care (01) | DRG 140 ==
LOC: 2NENU 00:41 → EMEROO 00:41 → SUATTDRO 07:36 → 2NENU 08:49
PROVIDERS: ADMIT Internal Medicine; ATTEND Internal Medicine
PROC: ENDOEBX (2017-08-05 13:30)

== ENCOUNTER 2017-08-31 17:56 | Inpatient (IN) ==
--- NOTE | 2017-08-31 18:00 | Emergency Department Note ---
Disposition Clinical Impression: HCAP (healthcare-associated pneumonia), Anemia Disposition: Admitted As Inpatient Condition: Fair General Adult HPI - General Stated complaint: Spitting up blood, pain in back Time Seen by Provider: 08/31/17 17:58 - Related Data Home Medications Medication Instructions Recorded Confirmed Albuterol Sulfate [Proair Hfa] 2 puff IH BID PRN 07/10/16 08/31/17 Carvedilol [Coreg] 25 mg PO BID 07/10/16 08/31/17 Fluticasone Propionate Nasal 50 mcg NS DAILY 07/10/16 08/31/17 [Flonase] Nitroglycerin [Nitrostat] 0.4 mg SL Q5M PRN 07/10/16 08/31/17 Amlodipine Besylate 10 mg PO DAILY 09/19/16 08/31/17 Citalopram Hydrobromide [Celexa] 40 mg PO HS 07/18/17 08/31/17 Cyanocobalamin (Vitamin B-12) 2,000 mcg PO DAILY 07/18/17 08/31/17 [Vitamin B12] Ipratropium/Albuterol Neb [Duoneb] 3 ml IH Q6H PRN 07/18/17 08/31/17 Lisinopril/Hydrochlorothiazide 1 each PO BID 07/18/17 08/31/17 [Zestoretic 20-25 mg Tablet] Mometasone/Formoterol [Dulera 200 1 puff IH BID 07/18/17 08/31/17 Mcg/5 Mcg Inhaler] Oxygen 2 l NS AD 07/18/17 07/30/17 ALPRAZolam [Xanax 1 MG Tablet] 1 mg PO TID 07/30/17 08/31/17 Furosemide [Lasix] 40 mg PO BID 07/30/17 08/31/17 Oxycodone HCl 10 mg PO TID 07/30/17 08/31/17 Insulin DETEMIR [Levemir] unit SQ HS PRN 08/31/17 Nebulizer/Compressor [Easy Air 1 each MC Q6HR PRN 08/31/17 08/31/17 Compressor Nebulizer] predniSONE [PredniSONE] 60 mg PO DAILY 08/31/17 08/31/17 Previous Rx's Medication Instructions Recorded Levothyroxine [Synthroid] 112 mcg PO 0630 #10 tablet 07/13/16 Amoxicillin/Clavulanate [Augmentin] 875 mg PO BIDWM 14 Days #28 tablet 08/05/17 Lancets/Blood Glucose Strips [Fora 1 each MC BID #120 combo..pkg 08/05/17 [id number] Strp-Lnct] Omeprazole [PriLOSEC] 40 mg PO BID 30 Days #60 cap 08/05/17 Allergies Allergy/AdvReac Type Severity Reaction Status Date / Time ketorolac [From Toradol] AdvReac Abdominal Verified 07/30/17 00:44 Pain NSAIDS (Non-Steroidal AdvReac Abdominal Verified 07/30/17 00:44 Anti-Inflamma Pain tramadol AdvReac Abdominal Verified 07/30/17 00:44 Pain pyridium AdvReac Abdominal Uncoded 07/30/17 00:44 Pain Past Medical History - Past Medical History Medical history: Reports: asthma, COPD, DVT, fibromyalgia, GERD, GI bleed, hypertension, kidney stones, myocardial infarction, RA, thyroid disease, other Surgical history: Reports: cholecystectomy, hysterectomy Psychiatric history: Reports: anxiety 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 history - Social History Smoking Status: Never smoker Smokeless Tobacco Status: No Alcohol use: Reports: none Drug use: Reports: none Course Vital Signs Temperature 98.1 F 08/31/17 18:01 Pulse Rate 91 08/31/17 18:01 Respiratory Rate 18 08/31/17 18:01 Blood Pressure 157/91 08/31/17 18:01 O2 Sat by Pulse Oximetry 82 08/31/17 18:01 Temperature 98.9 F 08/31/17 20:47 Pulse Rate 85 08/31/17 20:47 Respiratory Rate 16 08/31/17 20:47 Blood Pressure 128/71 08/31/17 20:47 O2 Sat by Pulse Oximetry 94 08/31/17 20:47 Oxygen Delivery Oxygen Delivery Nasal Cannula Medical Decision Making - Lab Data Result diagrams: 08/31/17 18:27 08/31/17 18:27 Lab Results 08/31/17 08/31/17 08/31/17 Range/Units 18:27 18:27 18:27 WBC 5.3 D (4.3-11.1) K/mcL RBC 3.02 L (3.82-4.97) M/mcL Hgb 9.1 L (11.5-15.4) g/dL Hct 28.8 L (35.3-44.9) % MCV 95.4 (83.0-100.0) fL MCH 30.1 (28.0-33.3) pg MCHC 31.6 (31.6-35.5) g/dL RDW 15.0 H (11.5-14.5) % Plt Count 190 (140-400) K/mcL MPV 9.7 (9.4-12.4) fL Immature Gran % 1.7 (0-4) % Seg Neutrophils % 78.1 % Lymphocytes % 14.4 % Monocytes % 4.7 % Eosinophils % 0.9 % Basophils % 0.2 % Neutrophils # 4.1 (1.6-8.9) K/mcL Lymphocytes # 0.8 (0.6-4.6) K/mcL Monocytes # 0.3 (0.0-1.3) K/mcL Eosinophils # 0.1 (0.0-0.6) K/mcL Basophils # 0.0 (0.0-0.2) K/mcL Platelet Estimate Normal (Normal) Basophilic Stippling 1+ A (Not Present) Microcytosis Present A (Not Present) PT (9.4-12.1) Seconds INR APTT (26.0-36.0) Seconds Sodium 143 (136-145) mEq/L Potassium 3.7 (3.5-4.5) mEq/L Chloride 99 (98-109) mEq/L Carbon Dioxide 38 H (19-29) mEq/L BUN 13 (7-20) mg/dL Creatinine 0.72 (0.57-1.11) mg/dL Est GFR ( Amer) > 60 (> 60) Est GFR (Non-Af Amer) > 60 (> 60) BUN/Creatinine Ratio 18 (6-26) Glucose 89 (70-99) mg/dL Calculated Osmolality 296 (280-300) Lactic Acid 1.2 (0.5-2.2) mmol/L Calcium 8.8 (8.6-10.8) mg/dL Phosphorus 3.1 (2.3-4.7) mg/dL Magnesium 1.8 (1.6-2.6) mg/dL Total Bilirubin 1.6 H (0.2-1.2) mg/dL AST 16 (5-34) Units/L ALT 22 (0-55) Units/L Alkaline Phosphatase 65 (38-126) Units/L Troponin I (0-0.03) ng/mL Serum Total Protein 6.4 (6.0-8.3) g/dL Albumin 2.4 L (3.5-5.0) g/dL Globulin 4.0 H (2.4-3.5) g/dL Albumin/Globulin Ratio 0.6 L (1.1-2.2) 08/31/17 08/31/17 Range/Units 18:27 18:27 WBC (4.3-11.1) K/mcL RBC (3.82-4.97) M/mcL Hgb (11.5-15.4) g/dL Hct (35.3-44.9) % MCV (83.0-100.0) fL MCH (28.0-33.3) pg MCHC (31.6-35.5) g/dL RDW (11.5-14.5) % Plt Count (140-400) K/mcL MPV (9.4-12.4) fL Immature Gran % (0-4) % Seg Neutrophils % % Lymphocytes % % Monocytes % % Eosinophils % % Basophils % % Neutrophils # (1.6-8.9) K/mcL Lymphocytes # (0.6-4.6) K/mcL Monocytes # (0.0-1.3) K/mcL Eosinophils # (0.0-0.6) K/mcL Basophils # (0.0-0.2) K/mcL Platelet Estimate (Normal) Basophilic Stippling (Not Present) Microcytosis (Not Present) PT 10.9 (9.4-12.1) Seconds INR 1.0 APTT 29.6 (26.0-36.0) Seconds Sodium (136-145) mEq/L Potassium (3.5-4.5) mEq/L Chloride (98-109) mEq/L Carbon Dioxide (19-29) mEq/L BUN (7-20) mg/dL Creatinine (0.57-1.11) mg/dL Est GFR ( Amer) (> 60) Est GFR (Non-Af Amer) (> 60) BUN/Creatinine Ratio (6-26) Glucose (70-99) mg/dL Calculated Osmolality (280-300) Lactic Acid (0.5-2.2) mmol/L Calcium (8.6-10.8) mg/dL Phosphorus (2.3-4.7) mg/dL Magnesium (1.6-2.6) mg/dL Total Bilirubin (0.2-1.2) mg/dL AST (5-34) Units/L ALT (0-55) Units/L Alkaline Phosphatase (38-126) Units/L Troponin I 0.00 (0-0.03) ng/mL Serum Total Protein (6.0-8.3) g/dL Albumin (3.5-5.0) g/dL Globulin (2.4-3.5) g/dL Albumin/Globulin Ratio (1.1-2.2) Attestation Statement - Attestation Attestation: I examined this patient and my medical decision-making was reviewed with the Resident Physician. I agree with the documented findings, disposition and treatment plan as described except to the extent set forth below. [id number] time provided Patient arrives by EMS complaining of hemoptysis. She is being treated with amoxicillin for pneumonia. She has a history of lupus. States she was recently seen at 2 outside facilities for similar symptoms.
--- NOTE | 2017-08-31 18:05 | Emergency Department Note ---
Disposition Clinical Impression: HCAP (healthcare-associated pneumonia) Anemia Qualifiers: Anemia type: unspecified type Qualified Code(s): D64.9 - Anemia, unspecified Disposition: Admitted As Inpatient Condition: Fair Referrals: Naresh Skinner MD [Primary Care Provider] - Forms: ED Satisfaction Letter Time of Disposition: 19:29 General Adult HPI - General Chief complaint: ED Upper Respiratory Infection Stated complaint: Spitting up blood, pain in back Time Seen by Provider: 08/31/17 17:58 Source: patient, EMS Mode of arrival: EMS Limitations: no limitations Nursing Notes Reviewed: Yes Vital Signs Reviewed: Yes - History of Present Illness HPI Narrative: 42-year-old female presents to the ED for coughing up blood as well as vomiting blood and having an ongoing cough for 3 weeks. She is also complaining of back pain. Patient was recently admitted to [facility] for pneumonia. She has a history lupus. She was discharged home with pneumonia and to antibiotics including azithromycin and Flagyl. She has been taking these rarely. She was also given a one-month steroid prescription. She states she has had tactile fevers but has not checked it. She feels like the cough has gotten worse. She has noticed multiple times she is coughing up bright red blood. She also had one episode of emesis that had streaks of blood in it. She said she is feeling nauseous. She is having a generalized chest pain but is unchanged from the previous. She feels that her pneumonia has gone from her left side to her right side. She does have a port. She has very bad veins due to the lupus. Patient is also complaining of a back pain she says is mainly painful when she coughs. Patient states no constipation diarrhea. She states she is nauseous. Patient has no pain or tingling or weakness down the arms or legs. She has no changes in vision. She otherwise has no complaint. - Related Data Home Medications Medication Instructions Recorded Confirmed Albuterol Sulfate [Proair Hfa] 2 puff IH Q4H PRN 07/10/16 07/30/17 Aspirin Enteric Coated [Aspirin EC] 81 mg PO DAILY 07/10/16 07/30/17 Carvedilol [Coreg] 25 mg PO BID 07/10/16 07/30/17 Fluticasone Propionate Nasal 50 mcg NS DAILY 07/10/16 07/30/17 [Flonase] Nitroglycerin [Nitrostat] 0.4 mg SL Q5M PRN 07/10/16 07/30/17 Amlodipine Besylate 10 mg PO DAILY 09/19/16 07/30/17 Citalopram Hydrobromide [Celexa] 40 mg PO DAILY 07/18/17 07/30/17 Cyanocobalamin (Vitamin B-12) 2,000 mcg PO DAILY 07/18/17 07/30/17 [Vitamin B12] Ipratropium/Albuterol Neb [Duoneb] 3 ml IH Q6H PRN 07/18/17 07/30/17 Lisinopril/Hydrochlorothiazide 1 each PO BID 07/18/17 07/30/17 [Zestoretic 20-25 mg Tablet] Mometasone/Formoterol [Dulera 200 1 puff IH BID 07/18/17 07/30/17 Mcg/5 Mcg Inhaler] Oxygen 2 l NS AD 07/18/17 07/30/17 ALPRAZolam [Xanax 1 MG Tablet] 1 mg PO BID 07/30/17 07/30/17 Furosemide [Lasix] 80 mg PO DAILY 07/30/17 07/30/17 Oxycodone HCl 10 mg PO Q4H PRN 07/30/17 07/30/17 Previous Rx's Medication Instructions Recorded Levothyroxine [Synthroid] 112 mcg PO 0630 #10 tablet 07/13/16 Promethazine [Phenergan] 25 mg PO Q8HR PRN #15 tablet 07/27/17 Amoxicillin/Clavulanate [Augmentin] 875 mg PO BIDWM 14 Days #28 tablet 08/05/17 Chloraseptic [place] [Chloraseptic] 1 spray MM QID PRN #1 spray 08/05/17 Fluconazole [Diflucan] 100 mg PO DAILY 7 Days #7 tablet 08/05/17 Insulin DETEMIR [Levemir] 10 unit SQ HS #15 mls 08/05/17 Lancets/Blood Glucose Strips [Fora 1 each MC BID #120 combo..pkg 08/05/17 [id number] Strp-Lnct] Nebulizer/Compressor [Easy Air 1 each MC PRN PRN #1 each 08/05/17 Compressor Nebulizer] Omeprazole [PriLOSEC] 40 mg PO BID 30 Days #60 cap 08/05/17 predniSONE [PredniSONE] See Taper PO TAPER #50 tablet 08/05/17 Allergies Allergy/AdvReac Type Severity Reaction Status Date / Time ketorolac [From Toradol] AdvReac Abdominal Verified 07/30/17 00:44 Pain NSAIDS (Non-Steroidal AdvReac Abdominal Verified 07/30/17 00:44 Anti-Inflamma Pain tramadol AdvReac Abdominal Verified 07/30/17 00:44 Pain pyridium AdvReac Abdominal Uncoded 07/30/17 00:44 Pain Review of Systems: 10 point review of systems done and negative unless otherwise stated in the history of present illness All systems ED: reviewed and negative except as stated. Review of Systems: As Per HPI Constitutional: Reports: fever, chills. Denies: weakness Eyes: Denies: eye pain, eye discharge, vision change Cardiovascular: Reports: chest pain. Denies: palpitations, dyspnea on exertion Respiratory: Reports: cough, dyspnea, hemoptysis, sputum production. Denies: wheezes Gastrointestinal: Reports: vomiting, hematemesis. Denies: abdominal pain, nausea Genitourinary: Denies: urgency, dysuria, frequency Musculoskeletal: Reports: back pain. Denies: neck pain Neurological: Denies: headache, weakness, numbness Past Medical History - Past Medical History Attestation: Yes The following information was validated with the patient. Medical history: Reports: asthma, COPD, DVT, fibromyalgia, GERD, GI bleed, hypertension, kidney stones, myocardial infarction, RA, thyroid disease, other Surgical history: Reports: cholecystectomy, hysterectomy Psychiatric history: Reports: anxiety GARBAGE MAN history: Reports: no GARBAGE MAN history - Social History Smoking Status: Never smoker Smokeless Tobacco Status: No Alcohol use: Reports: none Drug use: Reports: none Physical Exam - General Limitations: no limitations General appearance: alert, in no apparent distress - Head Head exam: atraumatic, normocephalic, normal inspection - Eye Eye exam: Present: normal appearance, PERRL, EOMI - ENT ENT exam: normal exam, normal oropharynx, mucous membranes moist - Neck Neck exam: Present: normal inspection, full ROM, trachea midline - Chest Chest inspection: Present: normal inspection, symmetric chest wall rise - Respiratory Respiratory exam: Present: normal lung sounds bilaterally, accessory muscle use. Absent: respiratory distress - Expanded Respiratory Exam Location: rales: Left, Right, Lower, rhonchi: Left, Right, Lower - Cardiovascular Cardiovascular exam: Present: regular rate, normal rhythm, normal heart sounds - Abdominal Exam Abdominal exam: Present: soft, Non-Tender. Absent: tenderness, distention, guarding, rebound, rigidity - Extremities Exam Extremities exam: Present: normal inspection, full ROM. Absent: tenderness, pedal edema - Back Exam Back exam: Present: normal inspection, full ROM, CVA tenderness (R). Absent: tenderness, CVA tenderness (L) - Neurological Exam Neurological exam: Present: alert, oriented X3 - Skin Skin exam: Present: warm, dry, intact, normal color Course Course Narrative: 42-year-old female with history of lupus presents here with history of pneumonia seen at [facility] and on month-long antibiotics. She feels like the pneumonia has been from the left side to the right side. We will get a chest x-ray, CMP, CBC, lactate, blood cultures, EKG, troponin. Patient does have hypoxia and tachycardia so this could be pulmonary M was not due to her creatinine were unable to do a CT angiogram of her chest. We will treat her with Zofran and morphine for pain and nausea. Patient is most likely to be admitted either here or transferred. Patient okay with this plan. Vital Signs Temperature 98.1 F 08/31/17 18:01 Pulse Rate 91 08/31/17 18:01 Respiratory Rate 18 08/31/17 18:01 Blood Pressure 157/91 08/31/17 18:01 O2 Sat by Pulse Oximetry 82 08/31/17 18:01 Temperature 98.1 F 08/31/17 18:01 Pulse Rate 91 08/31/17 18:01 Respiratory Rate 18 08/31/17 18:01 Blood Pressure 157/91 08/31/17 18:01 O2 Sat by Pulse Oximetry 92 08/31/17 18:08 Oxygen Delivery Oxygen Delivery Room Air Medical Decision Making - MDM Narrative Medical decision making narrative: 42-year-old female presents the ED complaining of shortness of breath and coughing up a possibly bloods tinged sputum. She has recently been to a series and discharged with pneumonia. Pneumonia was on her left side before. She is on home antibiotics Flagyl and azithromycin. She is also on a 1 month course of steroids. Patient does have a history lupus. We did a normal sepsis workup including lactate and blood cultures. As well as normal labs. She denied any leukocytosis. She had no fever. She had a rate of 91 and has a known infection. We did chest x-ray that did show a right sided lower lobe pneumonia. She also has an anemia. Due to her recently in the hospital we treated her as hospital acquired pneumonia. We gave her Zosyn, vancomycin, Levaquin. Patient does have a port. Patient was given morphine and Zofran for pain and nausea. Patient was admitted to the hospitalist. She is in stable condition at this time. Chest X-Ray 08/31/17 18:00 IMPRESSION: Right pleural effusion and right mid and lower lung airspace disease, greater on the right, likely pneumonia. Asymmetric edema is considered less likely. D/ / Jessica English Cha, MD / Jessica English Cha, MD Interpreting Provider: Jessica English Cha, MD - Medical Records Medical records reviewed: Yes I reviewed the patient's medical records. - Lab Data Lab results reviewed: Yes I reviewed the patient's lab results. Result diagrams: 08/31/17 18:27 08/31/17 18:27 Lab Results 08/31/17 08/31/17 08/31/17 Range/Units 18:27 18:27 18:27 WBC 5.3 D (4.3-11.1) K/mcL RBC 3.02 L (3.82-4.97) M/mcL Hgb 9.1 L (11.5-15.4) g/dL Hct 28.8 L (35.3-44.9) % MCV 95.4 (83.0-100.0) fL MCH 30.1 (28.0-33.3) pg MCHC 31.6 (31.6-35.5) g/dL RDW 15.0 H (11.5-14.5) % Plt Count 190 (140-400) K/mcL MPV 9.7 (9.4-12.4) fL Immature Gran % 1.7 (0-4) % Seg Neutrophils % 78.1 % Lymphocytes % 14.4 % Monocytes % 4.7 % Eosinophils % 0.9 % Basophils % 0.2 % Neutrophils # 4.1 (1.6-8.9) K/mcL Lymphocytes # 0.8 (0.6-4.6) K/mcL Monocytes # 0.3 (0.0-1.3) K/mcL Eosinophils # 0.1 (0.0-0.6) K/mcL Basophils # 0.0 (0.0-0.2) K/mcL Platelet Estimate Normal (Normal) Basophilic Stippling 1+ A (Not Present) Microcytosis Present A (Not Present) PT (9.4-12.1) Seconds INR APTT (26.0-36.0) Seconds Sodium 143 (136-145) mEq/L Potassium 3.7 (3.5-4.5) mEq/L Chloride 99 (98-109) mEq/L Carbon Dioxide 38 H (19-29) mEq/L BUN 13 (7-20) mg/dL Creatinine 0.72 (0.57-1.11) mg/dL Est GFR ( Amer) > 60 (> 60) Est GFR (Non-Af Amer) > 60 (> 60) BUN/Creatinine Ratio 18 (6-26) Glucose 89 (70-99) mg/dL Calculated Osmolality 296 (280-300) Lactic Acid 1.2 (0.5-2.2) mmol/L Calcium 8.8 (8.6-10.8) mg/dL Phosphorus 3.1 (2.3-4.7) mg/dL Magnesium 1.8 (1.6-2.6) mg/dL Total Bilirubin 1.6 H (0.2-1.2) mg/dL AST 16 (5-34) Units/L ALT 22 (0-55) Units/L Alkaline Phosphatase 65 (38-126) Units/L Troponin I (0-0.03) ng/mL Serum Total Protein 6.4 (6.0-8.3) g/dL Albumin 2.4 L (3.5-5.0) g/dL Globulin 4.0 H (2.4-3.5) g/dL Albumin/Globulin Ratio 0.6 L (1.1-2.2) 08/31/17 08/31/17 Range/Units 18:27 18:27 WBC (4.3-11.1) K/mcL RBC (3.82-4.97) M/mcL Hgb (11.5-15.4) g/dL Hct (35.3-44.9) % MCV (83.0-100.0) fL MCH (28.0-33.3) pg MCHC (31.6-35.5) g/dL RDW (11.5-14.5) % Plt Count (140-400) K/mcL MPV (9.4-12.4) fL Immature Gran % (0-4) % Seg Neutrophils % % Lymphocytes % % Monocytes % % Eosinophils % % Basophils % % Neutrophils # (1.6-8.9) K/mcL Lymphocytes # (0.6-4.6) K/mcL Monocytes # (0.0-1.3) K/mcL Eosinophils # (0.0-0.6) K/mcL Basophils # (0.0-0.2) K/mcL Platelet Estimate (Normal) Basophilic Stippling (Not Present) Microcytosis (Not Present) PT 10.9 (9.4-12.1) Seconds INR 1.0 APTT 29.6 (26.0-36.0) Seconds Sodium (136-145) mEq/L Potassium (3.5-4.5) mEq/L Chloride (98-109) mEq/L Carbon Dioxide (19-29) mEq/L BUN (7-20) mg/dL Creatinine (0.57-1.11) mg/dL Est GFR ( Amer) (> 60) Est GFR (Non-Af Amer) (> 60) BUN/Creatinine Ratio (6-26) Glucose (70-99) mg/dL Calculated Osmolality (280-300) Lactic Acid (0.5-2.2) mmol/L Calcium (8.6-10.8) mg/dL Phosphorus (2.3-4.7) mg/dL Magnesium (1.6-2.6) mg/dL Total Bilirubin (0.2-1.2) mg/dL AST (5-34) Units/L ALT (0-55) Units/L Alkaline Phosphatase (38-126) Units/L Troponin I 0.00 (0-0.03) ng/mL Serum Total Protein (6.0-8.3) g/dL Albumin (3.5-5.0) g/dL Globulin (2.4-3.5) g/dL Albumin/Globulin Ratio (1.1-2.2) - Radiology Data Radiology results reviewed: Yes I reviewed the patient's radiology results. - EKG Data EKG #1 EKG attestation: Yes I reviewed and interpreted this EKG. EKG results narrative: EKG done at 1754 and reviewed by myself and the attending shows normal sinus rhythm at a rate of 97, HI interval 143, QRS 74, QTC 39 with a leftward axis. Shows no acute ST changes, no T wave changes. No signs of heart block. No signs of hypertrophy. No signs of WPW/syndrome. Compared with EKG done which also shows a normal sinus rhythm but was bradycardic. There is no acute changes when comparing these 2 EKGs. EKG shows normal: sinus rhythm, intervals, QRS complexes, ST-T waves Rate: normal Rhythm: NSR Hale/QRS: normal When compared to previous EKG there are: no significant changes Interpretation: no acute changes
[2017-08-31] MEDS ORDERED: Ondansetron 4 MG/2 ML VIAL IVP ONE (18:15)
[2017-08-31] MEDS ORDERED: *HR* Morphine 2 MG/ML SYRINGE IVP ONE (18:15)
[2017-08-31 18:39] LABS: Basophils % 0.2 %; Eosinophils # 0.1 K/mcL (0.0-0.6); Eosinophils % 0.9 %; Hematocrit 28.8 % (35.3-44.9); Hemoglobin 9.1 g/dL (11.5-15.4); Immature Granulocytes % 1.7 % (0-4); Lymphocytes # 0.8 K/mcL (0.6-4.6); Lymphocytes % 14.4 %; Mean Corpuscular HGB Conc 31.6 g/dL (31.6-35.5); Mean Corpuscular Hemoglobin 30.1 pg (28.0-33.3); Mean Corpuscular Volume 95.4 fL (83.0-100.0); Mean Platelet Volume 9.7 fL (9.4-12.4); Monocytes # 0.3 K/mcL (0.0-1.3); Monocytes % 4.7 %; Neutrophils # 4.1 K/mcL (1.6-8.9); Platelet Count 190 K/mcL (140-400); Red Blood Count 3.02 M/mcL (3.82-4.97); Segmented Neutrophils % 78.1 %
[2017-08-31 18:44] LABS: Prothrombin Time 10.9 Seconds (9.4-12.1)
[2017-08-31 18:47] LABS: Activated Partial Thrombo Time 29.6 Seconds (26.0-36.0)
[2017-08-31 18:54] LABS: Alanine Aminotransferase 22 Units/L (0-55); Albumin 2.4 g/dL (3.5-5.0); Albumin/Globulin Ratio 0.6 (1.1-2.2); Alkaline Phosphatase 65 Units/L (38-126); Aspartate Amino Transferase 16 Units/L (5-34); BUN/Creatinine Ratio 18 (6-26); Bilirubin,Total 1.6 mg/dL (0.2-1.2); Blood Urea Nitrogen 13 mg/dL (7-20); Calcium 8.8 mg/dL (8.6-10.8); Carbon Dioxide 38 mEq/L (19-29); Chloride 99 mEq/L (98-109); Glucose 89 mg/dL (70-99); Magnesium 1.8 mg/dL (1.6-2.6); Osmolality,Calculated 296 (280-300); Phosphorous 3.1 mg/dL (2.3-4.7); Potassium 3.7 mEq/L (3.5-4.5); Sodium 143 mEq/L (136-145); Total Protein 6.4 g/dL (6.0-8.3); eGFR For African Americans > 60 (> 60); eGFR For Non-African Americans > 60 (> 60)
[2017-08-31 18:57] LABS: Basophilic Stippling 1+ (Not Present); Microcytosis Present (Not Present); Platelet Estimate Normal (Normal)
[2017-08-31] MEDS ORDERED: Levofloxacin 750 MG/150 ML 750 MG/150 ML BAG IVPB ONE (19:01)
[2017-08-31] MEDS ORDERED: Piperacillin/Tazobactam 3.375 GM in D5% in Water (Mini-Bag+) 100 ML IVPB ONE (19:01)
[2017-08-31] MEDS ORDERED: Vancomycin 1,000 MG in D5% in Water 250 ML IVPB ONE (19:03)
[2017-08-31] MEDS ORDERED: Acetaminophen 325 MG TABLET PO PRN (20:40)
[2017-08-31] MEDS ORDERED: Ondansetron 4 MG/2 ML VIAL IVP PRN (20:40)
[2017-08-31] MEDS ORDERED: Naloxone 0.4 MG/ML INJ IVP PRN (20:40)
[2017-08-31] MEDS ORDERED: Dextrose Gel 15 GM PO PRN ×2 (20:43)
[2017-08-31] MEDS ORDERED: D5% in Water 1,000 ML IVC PRN (20:43)
[2017-08-31] MEDS ORDERED: *HR* Dextrose 50 % in Water (Syg) 50 ML SYRINGE IVP PRN (20:43)
[2017-08-31] MEDS ORDERED: Albuterol 2.5 MG/3 ML NEBULIZER IH PRN (20:43)
--- NOTE | 2017-08-31 21:17 | Internal Med History&Physical ---
Date of Encounter: 08/31/17 Time of Encounter: 21:15 Assessment and Plan (1) Healthcare-associated pneumonia Current visit: Yes Status: Acute Patient has had recent hospitalization for pneumonia and was treated as outpatient she continues to experience sputum production with a change from green to rest color. Chest x-ray does reveal persistent right lower lobe pneumonia. Blood cultures have been obtained we will obtain sputum culture. We will treat for healthcare associated pneumonia with Vanco and Zosyn We will continue with bronchodilators Continue with steroid taper Continue with oxygen titrated to maintain SPO2 greater than 92% We will consult pulmonology as needed (2) Hypothyroidism Current visit: No Status: Chronic 1 continue with Synthroid Qualifiers: Hypothyroidism type: unspecified Qualified Code(s): E03.9 - Hypothyroidism , unspecified (3) Lupus nephritis Current visit: No Status: Chronic Patient is treated as outpatient at [facility]-we will continue with outpatient treatment Monitor creatinine and avoid nephrotoxins (4) Hypertension Current visit: No Status: Chronic 1 blood pressure presently stable we will continue with her home medications Qualifiers: Hypertension type: essential hypertension Qualified Code(s): I10 - Essential (primary) hypertension (5) COPD (chronic obstructive pulmonary disease) Current visit: No Status: Acute Continue with oxygen and bronchodilators Steroid taper Qualifiers: COPD type: chronic bronchitis Chronic bronchitis type: simple Qualified Code(s): J41.0 - Simple chronic bronchitis (6) DVT prophylaxis Current visit: Yes Status: Acute Heparin subcutaneous Internal Medicine - H&P: HPI Chief complaint: cough, hemoptysis Admitted From: Emergency Dept Plans for Post Hospital Care: Home History of present illness: Ms. Chowdary is a 42 year old female past medical history of asthma COPD oxygen dependent fibromyalgia [place] 2008 rheumatoid arthritis thyroid disease GERD GI bleed stage IV lupus nephritis treatment at [facility]. According to the patient she was originally discharged from this facility on August 05 after being treated for pneumonia. After being discharged to continue to experience cough and was coughing up blood she presented to [facility] on 08/08 2017 and was transferred to [facility] where she states she was further treated for her pneumonia and was discharged home on Augmentin and Flagyl. She has been home for proximally one week and has been experiencing productive cough with green sputum. However for the past 2 days she has been coughing up less color sputum and experiencing right-sided rib pain. She has had episodes of emesis and nausea. She denies any fever chills she presented to the ER lab work noted cytosis she is afebrile lactate was 1.2 chest x-ray was obtained with right pleural effusion and right mid to lower lung airspace disease greater on the right likely pneumonia area patient did have a CT at [facility] on 08/09/2017 at that time mild to moderate bilateral pleural effusions with associated patchy bilateral lower lobe airspace consolidative and groundglass pasty suspicious for pneumonia. Blood cultures were obtained patient was initiated on vancomycin and Zosyn. She has been admitted for further workup and evaluation. Presently the patient does complain of right rib pain upon palpation he does not appear to be any respiratory distress has crackles in her right lung jon. She is hemodynamically stable this time. I did review this case with Dr. Stacy who agrees with plan Past Med Surg Social Fam HX - Past Medical History Medical history: asthma, COPD, DVT, fibromyalgia, GERD, GI bleed, hypertension, kidney stones, myocardial infarction, RA, thyroid disease, other Psychiatric history: anxiety - Past Surgical History Surgical History: cholecystectomy, hysterectomy - Social History Smoking Status: Never smoker Smokeless Tobacco Status: No Alcohol use: none Drug use: none - Family History Mother Living Status: Hx Family Cardiac Disorders: Yes (mi) Father Living Status: Hx Family Cardiac Disorders: Yes Hx Family Endocrine Disorder: Yes Internal Medicine - H&P: Meds Albuterol Sulfate [Proair Hfa] 2 puff IH Q4H PRN 07/10/16 [History] Aspirin Enteric Coated [Aspirin EC] 81 mg PO DAILY 07/10/16 [History] Carvedilol [Coreg] 25 mg PO BID 07/10/16 [History] Fluticasone Propionate Nasal [Flonase] 50 mcg NS DAILY 07/10/16 [History] Nitroglycerin [Nitrostat] 0.4 mg SL Q5M PRN 07/10/16 [History] Levothyroxine [Synthroid] 112 mcg PO 0630 #10 tablet 07/13/16 [Rx] Amlodipine Besylate 10 mg PO DAILY 09/19/16 [History] Citalopram Hydrobromide [Celexa] 40 mg PO DAILY 07/18/17 [History] Cyanocobalamin (Vitamin B-12) [Vitamin B12] 2,000 mcg PO DAILY 07/18/17 [History ] Ipratropium/Albuterol Neb [Duoneb] 3 ml IH Q6H PRN 07/18/17 [History] Lisinopril/Hydrochlorothiazide [Zestoretic 20-25 mg Tablet] 1 each PO BID [History] Mometasone/Formoterol [Dulera 200 Mcg/5 Mcg Inhaler] 1 puff IH BID 07/18/17 [ History] Oxygen 2 l NS AD 07/18/17 [History] Promethazine [Phenergan] 25 mg PO Q8HR PRN #15 tablet 07/27/17 [Rx] ALPRAZolam [Xanax 1 MG Tablet] 1 mg PO BID 07/30/17 [History] Furosemide [Lasix] 80 mg PO DAILY 07/30/17 [History] Oxycodone HCl 10 mg PO Q4H PRN 07/30/17 [History] Amoxicillin/Clavulanate [Augmentin] 875 mg PO BIDWM 14 Days #28 tablet 08/05/17 [Rx] Chloraseptic [place] [Chloraseptic] 1 spray MM QID PRN #1 spray 08/05/17 [Rx] Fluconazole [Diflucan] 100 mg PO DAILY 7 Days #7 tablet 08/05/17 [Rx] Insulin DETEMIR [Levemir] 10 unit SQ HS #15 mls 08/05/17 [Rx] Lancets/Blood Glucose Strips [Fora [id number] Strp-Lnct] 1 each BID # 120 combo..pkg 08/05/17 [Rx] Nebulizer/Compressor [Easy Air Compressor Nebulizer] 1 each PRN PRN #1 each 08/05/17 [Rx] Omeprazole [PriLOSEC] 40 mg PO BID 30 Days #60 cap 08/05/17 [Rx] predniSONE [PredniSONE] See Taper PO TAPER #50 tablet 08/05/17 [Rx] 3 Allergy/AdvReac Type Severity Reaction Status Date / Time ketorolac [From Toradol] AdvReac Abdominal Verified 07/30/17 00:44 Pain NSAIDS (Non-Steroidal AdvReac Abdominal Verified 07/30/17 00:44 Anti-Inflamma Pain tramadol AdvReac Abdominal Verified 07/30/17 00:44 Pain pyridium AdvReac Abdominal Uncoded 07/30/17 00:44 Pain All Systems PM: A 10-system review of systems was performed and is negative for pertinent findings except as documented above in the HPI. - Constitutional Constitutional: no chills, no fever(s), no night sweats - EENT Eyes: no change in vision, no discharge, no pain, no photophobia Nose, mouth and throat: no dysphagia, no nasal discharge, no neck pain, no sore throat - Cardiovascular Cardiovascular ROS IM: no chest pain, no diaphoresis, no dyspnea, no lightheadedness, no palpitations, no syncope - Respiratory Respiratory: cough, dyspnea, hemoptysis, change in phlegm color, pain with cough - Gastrointestinal Gastrointestinal: nausea, vomiting, no abdominal pain, no diarrhea, no hematemesis, no hematochezia, no melena - Genitourinary Genitourinary: no change in urinary stream, no dysuria, no flank pain, no hematuria - Musculoskeletal Musculoskeletal ROS IM: no numbness, no tingling - Integumentary Integumentary IM: no rash, no unusual bruising - Neurological Neurological ROS: no confusion, no convulsions, no focal weakness, no numbness, no tingling, no tremor(s) - Hematologic/Lymphatic Hematologic/Lymphatic: no easy bruising - Constitutional Vitals: Temp Pulse Resp BP Pulse Ox 98.9 F 85 16 128/71 94 08/31/17 20:47 08/31/17 20:47 08/31/17 20:47 08/31/17 20:47 08/31/17 20:47 General appearance: Present: A&O X 3 - Head Head exam: Present: atraumatic, normocephalic - Eye Eye exam: Present: PERRL, conjuntiva pink, sclera anicteric Pupils: Present: PERRL - Neck Neck exam general surgery: Present: supple, trachea midline. Absent: lymphadenopathy - Respiratory Respiratory exam: Present: rales. Absent: accessory muscle use, rhonchi, wheezes - Cardiovascular Cardiovascular exam: Present: RRR, +S1, +S2. Absent: diastolic murmur, gallop, rubs, systolic murmur - GI/Abdominal GI/Abdominal exam: Present: normal bowel sounds, soft, no peritoneal signs. Absent: distended, tenderness - Extremities Exam Extremities exam: Present: warm, radial pulses palpable and symmetrical. Absent : calf tenderness, cyanotic, pedal edema - Neurological Exam Neurological exam: Present: CN II-XII intact, oriented X3, no focal deficits. Absent: pronater drift, facial droop, speech deficit - Skin Skin exam: Present: dry, intact Internal Med - H&P Results - Labs CBC & Chem 7: 08/31/17 18:27 08/31/17 18:27 - Diagnostic Studies Other Images Additional comments: Chest X-Ray 08/31/17 18:00 IMPRESSION: Right pleural effusion and right mid and lower lung airspace disease, greater on the right, likely pneumonia. Asymmetric edema is considered less likely. D/ / Jessica English Cha, MD / Jessica English Cha, MD Interpreting Provider: Jessica English Cha, MD
[2017-08-31] MEDS: *HR* Morphine 2 MG/ML SYRINGE IVP PRN (21:52)
[2017-08-31] MEDS: Insulin LISPRO 300 UNITS/3 ML VIAL SQ SCH (22:21)
[2017-08-31] MEDS: Insulin DETEMIR 100 UNIT/ML X5UNITS SQ SCH (22:21)
--- NOTE | 2017-08-31 22:25 | Event Note ---
Date of Encounter: 08/31/17 Time of Encounter: 22:21 Patient seen and examined with nurse practitioner. Patient recently discharged from [facility] a week ago on Bactrim and Augmentin for one week which she has been compliant, in addition, she was started on prednisone 60 mg daily after renal biopsy showed stage 4 lupus nephritis. For the past couple days patient started noticing productive cough of dark sputum occasionally blood tinged, shortness of breath subjective fevers and chills. She mentioned that she had a bronchoscopy at [facility] for the hemoptysis, will try to get the results. No evidence of pulmonary embolism on CT scan done previously. We will start the patient on vancomycin, Zosyn, Levaquin. Will continue steroids intravenously. Full code
[2017-08-31] MEDS: Ipratropium/Albuterol Neb 3 ML IH SCH (23:00)
[2017-09-01] MEDS: MethylPREDNISolone 40 MG/ML VIAL IVP SCH ×4 (00:34→17:23)
[2017-09-01] MEDS: Vancomycin 1,250 MG in D5% in Water 250 ML IVPB SCH ×2 (01:26→13:42)
[2017-09-01] MEDS: *HR* Promethazine 25 MG/ML VIAL IVP PRN ×3 (02:00→15:56)
[2017-09-01] MEDS: *HR* Morphine 2 MG/ML SYRINGE IVP PRN ×5 (02:00→21:15)
[2017-09-01] MEDS: Ipratropium/Albuterol Neb 3 ML IH SCH ×6 (04:16→23:01)
[2017-09-01 05:07] LABS: Bilirubin,Urine Negative (Negative); Blood,Urine Moderate (Negative); Clarity,Urine Cloudy (Clear); Color,Urine Yellow (Yellow); Glucose,Urine (UA) Normal (Normal); Ketones,Urine Negative (Negative); PH,Urine 6.5 pH Units (5.0-8.0); Protein,Urine >=300 mg/dL (Neg-Trace); Specific Gravity,Urine 1.015 (1.010-1.025)
[2017-09-01 05:08] LABS: Leukocyte Esterase,Urine Trace (Negative); Nitrite,Urine Negative (Negative)
[2017-09-01 05:13] LABS: Bacteria,Urine Moderate per hpf (None-Few); Squamous Epithelial Cell,Urine Moderate per lpf (None-Few)
[2017-09-01] MEDS: Piperacillin/Tazobactam 3.375 GM in D5% in Water (Mini-Bag+) 100 ML IVPB SCH ×3 (05:35→21:07)
[2017-09-01] MEDS ORDERED: *HR* Enoxaparin 40 MG/0.4 ML SYRINGE SQ SCH (06:00)
[2017-09-01 06:37] LABS: Hematocrit 26.9 % (35.3-44.9); Hemoglobin 8.6 g/dL (11.5-15.4); Immature Granulocytes % 1.6 % (0-4); Lymphocytes # 0.1 K/mcL (0.6-4.6); Lymphocytes % 2.1 %; Mean Corpuscular Hemoglobin 30.1 pg (28.0-33.3); Mean Corpuscular Volume 94.1 fL (83.0-100.0); Monocytes # 0.1 K/mcL (0.0-1.3); Platelet Count 203 K/mcL (140-400); Red Blood Count 2.86 M/mcL (3.82-4.97); Red Cell Distribution Width 14.8 % (11.5-14.5); Segmented Neutrophils % 95.3 %
[2017-09-01 06:44] LABS: BUN/Creatinine Ratio 19 (6-26); Blood Urea Nitrogen 13 mg/dL (7-20); Calcium 8.5 mg/dL (8.6-10.8); Carbon Dioxide 35 mEq/L (19-29); Chloride 99 mEq/L (98-109); Glucose 163 mg/dL (70-99); Magnesium 1.7 mg/dL (1.6-2.6); Osmolality,Calculated 296 (280-300); Potassium 3.8 mEq/L (3.5-4.5); Sodium 141 mEq/L (136-145); eGFR For African Americans > 60 (> 60); eGFR For Non-African Americans > 60 (> 60)
[2017-09-01] MEDS: Insulin LISPRO 300 UNITS/3 ML VIAL SQ SCH ×4 (08:25→21:11)
[2017-09-01 08:59] LABS: Anisocytosis 1+ (Not Present); Platelet Estimate Normal (Normal)
[2017-09-01] MEDS ORDERED: Pantoprazole 40 MG VIAL IVP SCH (09:00)
[2017-09-01] MEDS: ALPRAZolam 1 MG TABLET PO PRN ×2 (09:33→21:10)
[2017-09-01 10:01] LABS: Acinetobacter baumannii by PCR Not Detected (Not Detect); Candida albicans by PCR Not Detected (Not Detect); Candida glabrata by PCR Not Detected (Not Detect); Candida krusei by PCR Not Detected (Not Detect); Candida parapsilosis by PCR Not Detected (Not Detect); Candida tropicalis by PCR Not Detected (Not Detect); Enterococcus by PCR Not Detected (Not Detect); Escherichia coli by PCR Not Detected (Not Detect); Klebsiella oxytoca by PCR Not Detected (Not Detect); Klebsiella pneumoniae by PCR Not Detected (Not Detect); Pseudomonas aeruginosa by PCR Not Detected (Not Detect); Serratia marcescens by PCR Not Detected (Not Detect); Staphylococcus aureus by PCR Not Detected (Not Detect); Streptococcus agalactiae(B)PCR Not Detected (Not Detect); Streptococcus by PCR Not Detected (Not Detect); Streptococcus pneumoniae PCR Not Detected (Not Detect); Streptococcus pyogenes (A) PCR Not Detected (Not Detect); mecA Methicillin-Resist Gene ***DETECTED*** (Not Detect)
--- NOTE | 2017-09-01 15:27 | Internal Med Progress Note ---
Date of Encounter: 09/01/17 Time of Encounter: 11:00 - Assessment and plan (1) Healthcare-associated pneumonia Current Visit: Yes Status: Acute Assessment and plan: -Patient with persistent cough -Chest x-ray showed Right pleural effusion and right mid and lower lung airspace disease, greater on the right, likely pneumonia. -We will continue coverage for hospital-acquired pneumonia -Pulmonology consulted and appreciate recommendations (2) Acute exacerbation of chronic obstructive airways disease Current Visit: No Status: Acute Assessment and plan: -Suspect secondary to the above. -Continue DuoNeb and IV Solu-Medrol. (3) SLE (systemic lupus erythematosus) Current Visit: No Status: Chronic Assessment and plan: -Concerns for renal and pulmonary involvement -Pulmonology consulted for evaluation and appreciate recommendations. 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 Absent: accessory muscle use, rales, rhonchi, wheezes - Cardiovascular Cardiovascular exam: Present: RRR, +S1, +S2. Absent: diastolic murmur, gallop, rubs, systolic murmur Internal Medicine: Result - Labs CBC & Chem 7: 09/01/17 06:25 09/01/17 06:25 Labs: Short CBC 09/01/17 Range/Units 06:25 WBC 6.3 (4.3-11.1) K/mcL Hgb 8.6 L (11.5-15.4) g/dL Hct 26.9 L (35.3-44.9) % Plt Count 203 (140-400) K/mcL Neutrophils # 6.0 (1.6-8.9) K/mcL BMP 09/01/17 06:25 Sodium 141 Potassium 3.8 Chloride 99 Carbon Dioxide 35 H BUN 13 Creatinine 0.70 Glucose 163 H Calcium 8.5 L Urine 09/01/17 Range/Units 04:51 Urine Color Yellow (Yellow) Urine Clarity Cloudy A (Clear) Urine pH 6.5 (5.0-8.0) pH Units Ur Specific [place] 1.015 (1.010-1.025) Urine Protein >=300 H (Neg-Trace) mg/dL Urine Glucose (UA) Normal (Normal) mg/dL - ABG Interpretation ABG results: PT/INR, D-dimer PT 10.9 Seconds (9.4-12.1) 08/31/17 18:27 Consult Discharge Plan - Plan Referrals: Naresh Skinner MD [Primary Care Provider] -
[2017-09-01] MEDS ORDERED: Vancomycin 1,000 MG in D5% in Water 250 ML IVPB SCH (21:00)
[2017-09-01] MEDS: Insulin DETEMIR 100 UNIT/ML X5UNITS SQ SCH (21:10)
[2017-09-02] MEDS: *HR* Promethazine 25 MG/ML VIAL IVP PRN ×4 (00:06→23:58)
[2017-09-02] MEDS: MethylPREDNISolone 40 MG/ML VIAL IVP SCH ×5 (00:07→23:58)
[2017-09-02] MEDS: Vancomycin 1,250 MG in D5% in Water 250 ML IVPB SCH ×2 (01:33→13:48)
[2017-09-02] MEDS: *HR* Morphine 2 MG/ML SYRINGE IVP PRN ×3 (01:34→10:56)
[2017-09-02] MEDS: Ipratropium/Albuterol Neb 3 ML IH SCH ×6 (05:07→23:37)
[2017-09-02] MEDS: Piperacillin/Tazobactam 3.375 GM in D5% in Water (Mini-Bag+) 100 ML IVPB SCH ×2 (05:34→17:20)
[2017-09-02] MEDS: Insulin LISPRO 300 UNITS/3 ML VIAL SQ SCH ×4 (09:50→21:32)
[2017-09-02] MEDS: ALPRAZolam 1 MG TABLET PO PRN ×2 (09:50→17:40)
[2017-09-02 13:19] LABS: Calcium 8.8 mg/dL (8.6-10.8)
[2017-09-02] MEDS ORDERED: *HR* OxyCODONE Immed Rel 5 MG TABLET PO PRN (13:28)
[2017-09-02 13:37] LABS: Vancomycin,Trough 46.9 mcg/mL (10-20)
[2017-09-02] MEDS ORDERED: Vancomycin 1 EACH in D5% in Water 250 ML IVPB PRN (14:54)
[2017-09-02] MEDS: *HR* OxyCODONE Immed Rel 5 MG TABLET PO PRN (15:48)
--- NOTE | 2017-09-02 17:06 | Electrocardiograph Report ---
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
--- NOTE | 2017-09-02 17:36 | Internal Med Progress Note ---
Date of Encounter: 09/02/17 Time of Encounter: 11:00 - Assessment and plan (1) Healthcare-associated pneumonia Current Visit: Yes Status: Acute Assessment and plan: -Patient with persistent cough -Chest x-ray showed Right pleural effusion and right mid and lower lung airspace disease, greater on the right, likely pneumonia. -We will continue coverage for hospital-acquired pneumonia -Pulmonology consulted and appreciate recommendations (2) Acute exacerbation of chronic obstructive airways disease Current Visit: No Status: Acute Assessment and plan: -Suspect secondary to the above. -Continue DuoNeb and IV Solu-Medrol. (3) SLE (systemic lupus erythematosus) Current Visit: No Status: Chronic Assessment and plan: -Concerns for renal and pulmonary involvement -Pulmonology consulted for evaluation and appreciate recommendations. Qualifiers: Systemic lupus erythematosus organ involvement: glomerular disease Qualified Code(s): M32.14 - Glomerular disease in systemic lupus erythematosus (4) Lupus nephritis Current Visit: No Status: Chronic Assessment and plan: -Renal function within normal limits; continue to monitor (5) DVT prophylaxis Current Visit: Yes Status: Acute Assessment and plan: -SCDs due to hemoptysis - Subjective Interval history: Patient reports a persistent cough - Constitutional Vitals: Temp Pulse Resp BP Pulse Ox 98.0 F 79 16 159/91 99 09/02/17 17:06 09/02/17 17:06 09/02/17 17:06 09/02/17 17:06 09/02/17 17:06 General appearance: Present: A&O X 3 - Respiratory Respiratory exam: Present: CTAB. Absent: accessory muscle use, rales, rhonchi, wheezes - Cardiovascular Cardiovascular exam: Present: RRR, +S1, +S2. Absent: diastolic murmur, gallop, rubs, systolic murmur Internal Medicine: Result - Labs CBC & Chem 7: 09/01/17 06:25 09/02/17 13:00 Labs: BMP 09/02/17 13:00 Sodium 141 Potassium 4.0 Chloride 101 Carbon Dioxide 31 H BUN 28 H D Creatinine 1.33 H D Glucose 270 H Calcium 8.8 - ABG Interpretation ABG results: PT/INR, D-dimer PT 10.9 Seconds (9.4-12.1) 08/31/17 18:27 - VTE Documentation of Mechanical Device: Intermittent pneumatic compression device Consult Discharge Plan - Plan Referrals: Naresh Skinner MD [Primary Care Provider] -
[2017-09-02] MEDS: Insulin DETEMIR 100 UNIT/ML X5UNITS SQ SCH (21:48)
[2017-09-03] MEDS: Piperacillin/Tazobactam 3.375 GM in D5% in Water (Mini-Bag+) 100 ML IVPB SCH ×3 (01:12→18:08)
[2017-09-03] MEDS: *HR* OxyCODONE Immed Rel 5 MG TABLET PO PRN ×3 (02:12→15:48)
[2017-09-03] MEDS: Ipratropium/Albuterol Neb 3 ML IH SCH ×5 (03:43→20:13)
--- NOTE | 2017-09-03 06:23 | Pulmonology Consult Note ---
Date of Encounter: 09/03/17 Time of Encounter: 06:30 Assessment and Plan (1) Chronic respiratory failure with hypoxia Current Visit: Yes Status: Acute Due to COPD and recurrent pneumonias to continue O2 supplementation , patient symptomatically lot better (2) COPD (chronic obstructive pulmonary disease) Current Visit: Yes Status: Chronic Patient has chronic mucopurulent bronchitis patient had 2 bronchoscopy in the matter of 2 months will continue the current regimen of bronchodilators and steroids as she is already on for her lupus nephritis , will touch base with nephrology if she is going to be on high dose steroids for half-way we should put her on PCP prophylaxis . Qualifiers: COPD type: chronic bronchitis Chronic bronchitis type: mucopurulent Qualified Code(s): J41.1 - Mucopurulent chronic bronchitis (3) Pneumonia Current Visit: Yes Status: Acute Doubt this presentation due to pneumonia to send sputum cultures . Will complete a course of Doxycycline 100 mg PO Q12 when she is discharged home . Possible lung biopsy was negative inflammtory pneumonias like NSIP because patient was on steroid therapy . Qualifiers: Laterality: unspecified laterality Lung location: unspecified part of lung Qualified Code(s): J18.9 - Pneumonia, unspecified organism (4) Bacteremia due to coagulase-negative Staphylococcus Current Visit: Yes Status: Acute Looks like contaminant will wait for blood cultures before we remove the port that is the only access she has . History of Present Illness Consult date: 09/03/17 Requesting physician: Ap Rosas Reason for consult: dyspnea, COPD, pneumonia Chief complaint: Not feeling well History of present illness: 42 year old female with past medical history significant for Long standing lupus , COPD denies any tobacco smoking , suspect recreational drug use in the past , patient was known to pulmonary service was seen by pulmonary since she was coming with symptoms of recurrent pneumonia with long standing lupus and on and off prednisone therapy it was essential rule out atypical pneumonia vs inflammatory pneumonia bronchoscopy was done last month with BAL didnt grow any significant organisms except for some sarah in sputum , Transbronchial biopsy showed lung parenchyma of chronic inflammation no evidence of any inflammatory interstitial pneumonia pattern. Patient was in [facility] last week had a bronchsocopy which didnt reveal any positive findings , had a renal biopsy at [facility] which showed stage IV lupus nephritis started on high dose prednisone ,came from [facility] patient didnt feel well had gastroenteritis symptoms was admitted to the hospital her cough and sputum production was the same some greyish yellow in color , patient was admitted back to [facility] . Past Med Surg Social Fam HX - Past Medical History Medical history: asthma, COPD, DVT, fibromyalgia, GERD, GI bleed, hypertension, kidney stones, myocardial infarction, RA, thyroid disease, other Psychiatric history: anxiety - Past Surgical History Surgical History: cholecystectomy, hysterectomy - Social History Smoking Status: Never smoker Smokeless Tobacco Status: No Alcohol use: none Drug use: none - Family History Mother Living Status: Hx Family Cardiac Disorders: Yes (mi, CHF) Father Living Status: Hx Family Cardiac Disorders: Yes Hx Family Endocrine Disorder: Yes Medications and Allergies Albuterol Sulfate [Proair Hfa] 2 puff IH BID PRN 07/10/16 [History] Carvedilol [Coreg] 25 mg PO BID 07/10/16 [History] Fluticasone Propionate Nasal [Flonase] 50 mcg NS DAILY 07/10/16 [History] Nitroglycerin [Nitrostat] 0.4 mg SL Q5M PRN 07/10/16 [History] Amlodipine Besylate 10 mg PO DAILY 09/19/16 [History] Citalopram Hydrobromide [Celexa] 40 mg PO HS 07/18/17 [History] Cyanocobalamin (Vitamin B-12) [Vitamin B12] 2,000 mcg PO DAILY 07/18/17 [History ] Ipratropium/Albuterol Neb [Duoneb] 3 ml IH Q6H PRN 07/18/17 [History] Mometasone/Formoterol [Dulera 200 Mcg/5 Mcg Inhaler] 1 puff IH BID 07/18/17 [ History] Oxygen 2 l NS AD 07/18/17 [History] ALPRAZolam [Xanax 1 MG Tablet] 1 mg PO TID 07/30/17 [History] Furosemide [Lasix] 40 mg PO BID 07/30/17 [History] Oxycodone HCl 10 mg PO TID 07/30/17 [History] Amoxicillin/Clavulanate [Augmentin] 875 mg PO BIDWM 14 Days #28 tablet 08/05/17 [Rx] Insulin DETEMIR [Levemir] 10 - 20 unit SQ HS PRN 08/31/17 [History] Levothyroxine [Synthroid] 112 mcg PO DAILY 09/01/17 [History] Lisinopril [Zestril] 5 mg PO DAILY 09/01/17 [History] Metoclopramide HCl 5 mg PO TID 09/01/17 [History] Mycophenolate Mofetil [Cellcept] 500 mg PO BID 09/01/17 [History] Omeprazole [PriLOSEC] 20 mg PO BID 09/01/17 [History] Ondansetron [Zofran] 8 mg PO BID PRN 09/01/17 [History] Potassium Chloride [K-Tab ER] 20 meq PO DAILY 09/01/17 [History] Ranitidine HCl [Zantac] 300 mg PO DAILY 09/01/17 [History] hydroCHLOROthiazide [Hydrochlorothiazide] 25 mg PO DAILY 09/01/17 [History] predniSONE [PredniSONE] 60 mg PO DAILY 09/01/17 [History] 3 Allergy/AdvReac Type Severity Reaction Status Date / Time ketorolac [From Toradol] AdvReac Abdominal Verified 07/30/17 00:44 Pain NSAIDS (Non-Steroidal AdvReac Abdominal Verified 07/30/17 00:44 Anti-Inflamma Pain tramadol AdvReac Abdominal Verified 07/30/17 00:44 Pain pyridium AdvReac Abdominal Uncoded 07/30/17 00:44 Pain All Systems: A 10-system review of systems was performed and is negative for pertinent findings except as documented above in the HPI. Physical Examination Vital Signs: Vital Signs, Last 4 Hours Temp Pulse Resp BP Pulse Ox 09/03/17 03:18 97.9 F 64 16 150/76 93 Auscultation: bilateral: wheezes (mild scattered wheezes) Results - Laboratory Findings CBC and BMP: 09/03/17 10:02 09/03/17 10:02 PT/INR, D-dimer PT 10.9 Seconds (9.4-12.1) 08/31/17 18:27 Abnormal lab findings: Abnormal lab results RBC 2.86 M/mcL (3.82-4.97) L 09/01/17 06:25 Hgb 8.6 g/dL (11.5-15.4) L 09/01/17 06:25 Hct 26.9 % (35.3-44.9) L 09/01/17 06:25 RDW 14.8 % (11.5-14.5) H 09/01/17 06:25 Lymphocytes # 0.1 K/mcL (0.6-4.6) L 09/01/17 06:25 Basophilic Stippling 1+ (Not Present) A 08/31/17 18:27 Anisocytosis 1+ (Not Present) A 09/01/17 06:25 Microcytosis Present (Not Present) A 08/31/17 18:27 Carbon Dioxide 31 mEq/L (19-29) H 09/02/17 13:00 BUN 28 mg/dL (7-20) H D 09/02/17 13:00 Creatinine 1.33 mg/dL (0.57-1.11) H D 09/02/17 13:00 Est GFR ( Amer) 53 (> 60) L 09/02/17 13:00 Est GFR (Non-Af Amer) 43 (> 60) L 09/02/17 13:00 Glucose 270 mg/dL (70-99) H 09/02/17 13:00 POC Glucose 155 (58-89) H 09/02/17 20:31 Calculated Osmolality 307 (280-300) H 09/02/17 13:00 Total Bilirubin 1.6 mg/dL (0.2-1.2) H 08/31/17 18:27 Albumin 2.4 g/dL (3.5-5.0) L 08/31/17 18:27 Globulin 4.0 g/dL (2.4-3.5) H 08/31/17 18:27 Albumin/Globulin Ratio 0.6 (1.1-2.2) L 08/31/17 18:27 Urine Clarity Cloudy (Clear) A 09/01/17 04:51 Urine Protein >=300 mg/dL (Neg-Trace) H 09/01/17 04:51 Urine Blood Moderate (Negative) H 09/01/17 04:51 Urine Urobilinogen 2.0 mg/dL (Normal) H 09/01/17 04:51 Ur Leukocyte Esterase Trace (Negative) H 09/01/17 04:51 Urine Microscopic RBC 5-15 per hpf (0-3) H 09/01/17 04:51 Urine Microscopic WBC 3-5 per hpf (0-3) H 09/01/17 04:51 Ur Squamous Epith Cells Moderate per lpf (None-Few) H 09/01/17 04:51 Urine Bacteria Moderate per hpf (None-Few) H 09/01/17 04:51 Ur Culture Indicated? YES (NO) A 09/01/17 04:51 Vancomycin Trough 46.9 mcg/mL (10-20) H* 09/02/17 13:00 Staphylococcus sp PCR DETECTED (Not Detect) A 08/31/17 18:44 mecA-Methicil Res Gene DETECTED (Not Detect) A 08/31/17 18:44 - Microbiology Findings Microbiology Findings: Microbiology, Last 48 Hours 09/02/17 00:05 Sputum Culture - Preliminary Sputum 09/01/17 04:51 Urine Culture - Final Urine,Clean Catch No growth. 09/01/17 04:51 Streptococcus pneumoniae Antigen (M - Final Urine,Clean Catch 09/01/17 04:51 Legionella Antigen - Final Urine,Clean Catch 09/02/17 00:15 Influenza Types A,B Antigen (IAN) - Final Nasopharyngeal - Clinical Findings Intake & Output: Intake & Output 09/02/17 09/02/17 09/03/17 15:59 23:59 07:59 Intake Total 470 / 470 820 / 820 580 / 580 Output Total 500 / 500 Balance 470 / 470 820 / 820 80 / 80 Weight 67.3 kg Consult Discharge Plan - Plan Referrals: Naresh Skinner MD [Primary Care Provider] - 09/13/17 3:30 pm (Please follow up as schedule...)
[2017-09-03] MEDS: MethylPREDNISolone 40 MG/ML VIAL IVP SCH ×2 (06:25→11:18)
[2017-09-03] MEDS ORDERED: Vancomycin 1 EACH in D5% in Water 250 ML IVPB SCH (09:00)
[2017-09-03] MEDS ORDERED: Aminoglycoside Consult 1 EACH MC ONE (09:23)
[2017-09-03] MEDS ORDERED: *HR* HYDROmorphone (PF) 1 MG/ML SYRINGE IVP PRN (09:44)
[2017-09-03] MEDS ORDERED: 0.9 % Sodium Chloride 1,000 ML IVC ONE (09:49)
[2017-09-03] MEDS ORDERED: *HR* OxyCODONE Immed Rel 5 MG TABLET PO PRN (09:53)
[2017-09-03] MEDS: Insulin LISPRO 300 UNITS/3 ML VIAL SQ SCH ×4 (10:00→21:40)
[2017-09-03 10:40] LABS: Eosinophils % 0.2 %; Hemoglobin 7.8 g/dL (11.5-15.4); Immature Granulocytes % 2.2 % (0-4); Lymphocytes # 0.5 K/mcL (0.6-4.6); Lymphocytes % 4.6 %; Mean Corpuscular HGB Conc 32.5 g/dL (31.6-35.5); Mean Corpuscular Hemoglobin 30.1 pg (28.0-33.3); Mean Corpuscular Volume 92.7 fL (83.0-100.0); Mean Platelet Volume 11.5 fL (9.4-12.4); Monocytes # 0.2 K/mcL (0.0-1.3); Monocytes % 1.6 %; Platelet Count 262 K/mcL (140-400); Red Blood Count 2.59 M/mcL (3.82-4.97); Segmented Neutrophils % 91.4 %
[2017-09-03 10:55] LABS: Calcium 8.8 mg/dL (8.6-10.8)
[2017-09-03] MEDS ORDERED: Sodium Chloride for inhalation 3 ML VIAL IH ONE (10:57)
[2017-09-03 10:58] LABS: Potassium 5.1 mEq/L (3.5-4.5)
--- NOTE | 2017-09-03 11:10 | Internal Med Progress Note ---
Date of Encounter: 09/03/17 Time of Encounter: 11:10 - Assessment and plan (1) MARTI (acute kidney injury) Current Visit: Yes Status: Acute Assessment and plan: Cr 1.3 Known lupue nephritis Chem was normal at presentation 1L bolus given Possibly secondary to vancomycin toxicity, vanco levels > 40 and 25 respectively Monitor closely Avoid nephrotoxins D/C vanco Renal eval (2) Bacteremia Current Visit: Yes Status: Acute Assessment and plan: Blood culture growing staph epidermidis with multiple resistance, possibly contaminant D/C vanco Blood culture has been repeated from patient;'s port and peripheral line Await repeat blood culture report, if positive, will d/c port and place PIVV Patient is not febrile, no leukocytosis, however, she is chronically on steroids for Lupus (3) Lupus Current Visit: Yes Status: Chronic Assessment and plan: Renal and Pulm involvement renal and pulm eval requested and appreciated Continue home meds Change solumedrol to prednisone Qualifiers: Systemic lupus erythematosus type: unspecified Systemic lupus erythematosus organ involvement: glomerular disease Qualified Code(s): M32.14 - Glomerular disease in systemic lupus erythematosus (4) Chronic pain Current Visit: Yes Status: Chronic Assessment and plan: OARSS reviewed, resume patient's home doses of Oxycontin, oxycodone prn Pain management eval Qualifiers: Chronic pain type: chronic pain syndrome Qualified Code(s): G89.4 - Chronic pain syndrome (5) COPD exacerbation Current Visit: Yes Status: Acute Assessment and plan: Pulm eval noted Continue duonebs, doxycycline for atypical coverage Continue prednsione Tobacco cessation (6) Anemia Current Visit: Yes Status: Chronic Assessment and plan: Chronic, stable Qualifiers: Anemia type: unspecified type Qualified Code(s): D64.9 - Anemia, unspecified (7) Pneumonia Current Visit: Yes Status: Acute Assessment and plan: Patient with persistent cough -Chest x-ray showed Right pleural effusion and right mid and lower lung airspace disease, greater on the right, likely pneumonia. Continue current antibiotic regimen Send sputum culture Qualifiers: Pneumonia type: due to unspecified organism Laterality: right Lung location: unspecified part of lung Qualified Code(s): J18.9 - Pneumonia, unspecified organism - Subjective Interval history: Seen and evaluated at bedside No new complains Requesting renal eval routinely Repeat blood culture is pending Renal function slowly improving - Constitutional Vitals: Temp Pulse Resp BP Pulse Ox 97.6 F 71 14 181/100 96 09/03/17 07:56 09/03/17 07:56 09/03/17 07:56 09/03/17 07:56 09/03/17 07:56 General appearance: Present: A&O X 3, pleasant, no acute distress - Head Head exam: Present: atraumatic, normocephalic - Eye Eye exam: Present: PERRL, conjuntiva pink, sclera anicteric Pupils: Present: PERRL - Neck Neck exam general surgery: Present: supple, trachea midline. Absent: lymphadenopathy - Respiratory Respiratory exam: Present: CTAB. Absent: accessory muscle use, rales, rhonchi, wheezes - Cardiovascular Cardiovascular exam: Present: RRR, +S1, +S2. Absent: diastolic murmur, gallop, rubs, systolic murmur - GI/Abdominal GI/Abdominal exam: Present: normal bowel sounds, soft, no peritoneal signs. Absent: distended, tenderness - Extremities Exam Extremities exam: Present: warm, radial pulses palpable and symmetrical. Absent : calf tenderness, cyanotic, pedal edema - Neurological Exam Neurological exam: Present: alert, CN II-XII intact, oriented X3, no focal deficits. Absent: pronater drift, facial droop, speech deficit - Skin Skin exam: Present: dry, intact Internal Medicine: Result - Labs CBC & Chem 7: 09/03/17 10:02 09/03/17 10:02 Labs: Short CBC 09/03/17 Range/Units 10:02 WBC 9.8 D (4.3-11.1) K/mcL Hgb 7.8 L (11.5-15.4) g/dL Hct 24.0 L (35.3-44.9) % Plt Count 262 (140-400) K/mcL Neutrophils # 9.0 H (1.6-8.9) K/mcL BMP 09/02/17 09/03/17 13:00 10:02 Sodium 141 142 Potassium 4.0 5.1 H D Chloride 101 105 Carbon Dioxide 31 H 29 BUN 28 H D 43 H D Creatinine 1.33 H D 1.30 H Glucose 270 H 221 H Calcium 8.8 8.8 - ABG Interpretation ABG results: PT/INR, D-dimer PT 10.9 Seconds (9.4-12.1) 08/31/17 18:27 - VTE Documentation of Mechanical Device: Intermittent pneumatic compression device Consult Discharge Plan - Plan Referrals: Naresh Skinner MD [Primary Care Provider] - 09/13/17 3:30 pm (Please follow up as schedule...)
--- NOTE | 2017-09-03 11:34 | Nephrology Consult Note ---
Date of Encounter: 09/03/17 Time of Encounter: 11:26 Assessment and Plan (1) MARTI (acute kidney injury) Current Visit: No Status: Resolved baseline Cr around .8, currently Cr is 1.3 possible etiologies include pre-renal from dehydration, as patient was net negative two days ago. ALso could be from advancement of her lupus nephritis. Also consider possible vanc toxicity as patient's vanc trough was high. Plan: continue to hold nephrotoxins: lasix, hydrochlorothiazide, lisinopril will continue to monitor kidney function. urine sodium and urine Cr pending, will calculate FeNa random vanc level pending for tomorrow. IVF at 75ml/hr for total of 1L check C3, C4 (2) Lupus nephritis Current Visit: No Status: Chronic urinalysis showd significant (>300) protein, moderate blood. patient states she had kidney biopsy at [facility] last week showing stage IV lupus nephritis. Plan: since patient had full work up including kidney biopsy and bronchoscopy at [facility] and may have possible lung involvement, we recommend transfer to [facility] at this time for better continuity of care. continue prednisone re started cellcept. ALEXANDRU, DS DNA, ESR, CRP pending. requested records from [facility] patient is asking for opinions regarding clinical trials at [facility]. she was told that we cannot comment on the clinical trials at this time, as we do not know anything about the trials. (3) SLE (systemic lupus erythematosus) Current Visit: No Status: Chronic follows with rheumatology at [facility] trying to establish here, as it is closer for patient. Qualifiers: Systemic lupus erythematosus type: unspecified Systemic lupus erythematosus organ involvement: unspecified Qualified Code(s): M32.9 - Systemic lupus erythematosus, unspecified (4) Anemia Current Visit: Yes Status: Acute Hg today 7.4 baseline around 11-12 noticed significant drop in Hg since admission reviewed iron panel from earlier in August: unremarkable. B12 from 08/05/17: 1676 folate from 08/05/17: 3.4 consider possible hemolytic anemia. Plan: stool guiac pending. started folate supplements LDH, haptoglobin, Bilirubin pending. Qualifiers: Anemia type: unspecified type Qualified Code(s): D64.9 - Anemia, unspecified (5) COPD exacerbation Current Visit: No Status: Acute per primary and pulm (6) Healthcare-associated pneumonia Current Visit: Yes Status: Acute per primary and pulm consider pulmonary involvement of lupus as well. History of Present Illness - Reason for Consult Consult date: 09/03/17 glomerulonephritis Requesting physician: Jaydon Turner - Chief Complaint glomerulonephritis - History of Present Illness 42F iwth PMHx of asthma, COPD (on home oxygen), fibromyalgia, DC, RA, hypothyroidism, GERD, hx of GI bleed, hx of lupus nephritis. she was last discharged from the hospital on 08/05/17 after being treated for pneumonia. at that time, pulm was consulted and patient had bronchoscopy done. GI was also consulted for suspected GI bleed, but EGD showed gastritis with non bleeding ulcer. After being discharged home, patient states that she continued to cough up blood. she presented [facility] 08[facility]08[facility]17 for hemoptysis, then was transferred to [facility] and then dishcarged home on Augmentin and FLagyl. she was home for about a week then began having a productive cough with green sputum. she is currently being treated for HCAP with vanc, zosyn, doxycycline. per patient, she had renal bioppsy done at [facility] last week that showed stage IV lupus nephritis and was started on prednisone 60mg daily and was told to be on this for three months. she was also started on cellcept. patient was also offered to be entered into a few clinical trials for her lupus nephritis that she declined. nephrology was consulted for management of lupus nephritis. patient denies nausea, vomiting, diarrhea. she admits to some chills, denies fevers. admits to shortness of breath. denies blood in her stool or dark tarry stools. she denies obvious blood in her urine but does admit to having dark urine. Past Med Surg Social Fam HX - Past Medical History Medical history: asthma, COPD, DVT, fibromyalgia, GERD, GI bleed, hypertension, kidney stones, myocardial infarction, RA, thyroid disease, other Psychiatric history: anxiety - Past Surgical History Surgical History: cholecystectomy, hysterectomy - Social History Smoking Status: Never smoker Smokeless Tobacco Status: No Alcohol use: none Drug use: none - Family History Mother Living Status: Hx Family Cardiac Disorders: Yes (mi, CHF) Father Living Status: Hx Family Cardiac Disorders: Yes Hx Family Endocrine Disorder: Yes Medications and Allergies Albuterol Sulfate [Proair Hfa] 2 puff IH BID PRN 07/10/16 [History] Carvedilol [Coreg] 25 mg PO BID 07/10/16 [History] Fluticasone Propionate Nasal [Flonase] 50 mcg NS DAILY 07/10/16 [History] Nitroglycerin [Nitrostat] 0.4 mg SL Q5M PRN 07/10/16 [History] Amlodipine Besylate 10 mg PO DAILY 09/19/16 [History] Citalopram Hydrobromide [Celexa] 40 mg PO HS 07/18/17 [History] Cyanocobalamin (Vitamin B-12) [Vitamin B12] 2,000 mcg PO DAILY 07/18/17 [History ] Ipratropium/Albuterol Neb [Duoneb] 3 ml IH Q6H PRN 07/18/17 [History] Mometasone/Formoterol [Dulera 200 Mcg/5 Mcg Inhaler] 1 puff IH BID 07/18/17 [ History] Oxygen 2 l NS AD 07/18/17 [History] ALPRAZolam [Xanax 1 MG Tablet] 1 mg PO TID 07/30/17 [History] Furosemide [Lasix] 40 mg PO BID 07/30/17 [History] Oxycodone HCl 10 mg PO TID 07/30/17 [History] Amoxicillin/Clavulanate [Augmentin] 875 mg PO BIDWM 14 Days #28 tablet 08/05/17 [Rx] Insulin DETEMIR [Levemir] 10 - 20 unit SQ HS PRN 08/31/17 [History] Levothyroxine [Synthroid] 112 mcg PO DAILY 09/01/17 [History] Lisinopril [Zestril] 5 mg PO DAILY 09/01/17 [History] Metoclopramide HCl 5 mg PO TID 09/01/17 [History] Mycophenolate Mofetil [Cellcept] 500 mg PO BID 09/01/17 [History] Omeprazole [PriLOSEC] 20 mg PO BID 09/01/17 [History] Ondansetron [Zofran] 8 mg PO BID PRN 09/01/17 [History] Potassium Chloride [K-Tab ER] 20 meq PO DAILY 09/01/17 [History] Ranitidine HCl [Zantac] 300 mg PO DAILY 09/01/17 [History] hydroCHLOROthiazide [Hydrochlorothiazide] 25 mg PO DAILY 09/01/17 [History] predniSONE [PredniSONE] 60 mg PO DAILY 09/01/17 [History] 3 Allergy/AdvReac Type Severity Reaction Status Date / Time ketorolac [From Toradol] AdvReac Abdominal Verified 07/30/17 00:44 Pain NSAIDS (Non-Steroidal AdvReac Abdominal Verified 07/30/17 00:44 Anti-Inflamma Pain tramadol AdvReac Abdominal Verified 07/30/17 00:44 Pain pyridium AdvReac Abdominal Uncoded 07/30/17 00:44 Pain Review of Systems All Systems: reviewed and no additional remarkable complaints except as stated Exam - Vital Signs Vital signs: Initial Vital Signs Temp Pulse Resp BP Pulse Ox 98.1 F 91 18 157/91 82 08/31/17 18:01 08/31/17 18:01 08/31/17 18:01 08/31/17 18:01 08/31/17 18:01 Vital Signs - Last 8 Hours Temp Pulse Resp BP Pulse Ox 09/03/17 07:56 97.6 F 71 14 181/100 96 Intake and Output 09/02/17 09/03/17 09/03/17 23:59 07:59 15:59 Intake Total 820 / 820 580 / 580 480 / 480 Output Total 500 / 500 Balance 820 / 820 80 / 80 480 / 480 Intake: IV Fluids 100 / 100 100 / 100 Zosyn 3.375 GM In Dextrose 5% ( 100 / 100 100 / 100 Minibag+) 100 ML 100 ML @ 25 mls/hr IVPB Q8H [facility] Rx#: [id number] Oral 720 / 720 480 / 480 480 / 480 Output: Urine 500 / 500 Other: Meal sandwich Breakfast Percent of Meal Consumed 100% 100% Stool Size Moderate Small Stool Consistency soft soft formed formed Stool Characteristics Normal for Patient Normal for Patient Stool Color Brown Brown # Voids 1 2 # Bowel Movements 1 Weight 67.3 kg Blood Glucose* 155 192 Patient Weight 09/03/17 23:59 Weight 67.3 kg - General Appearance General appearance: well-developed, well-nourished, appears started age, chronically ill Neck: no JVD Respiratory: course breath sounds, rhonchi Cardiology: no murmurs, no rub, no gallops, no edema, regular rate, regular rhythm, normal S1, normal S2 Gastrointestinal: normoactive bowel sounds, no tenderness, no guarding, no organomegaly, no masses Integumentary: no rash, warm and dry Neurologic: no focal deficit, alert and oriented x3 Musculoskeletal: no deformities, no erythema, no cyanosis, no clubbing Psychiatric: mood/affect appropriate Results - Lab Results 09/03/17 10:02 09/03/17 10:02 Most recent lab results Calcium 8.8 mg/dL (8.6-10.8) 09/03/17 10:02 Phosphorus 3.1 mg/dL (2.3-4.7) 08/31/17 18:27 Magnesium 1.7 mg/dL (1.6-2.6) 09/01/17 06:25 Consult Discharge Plan - Plan Referrals: Naresh Skinner MD [Primary Care Provider] - 09/13/17 3:30 pm (Please follow up as schedule...)
--- NOTE | 2017-09-03 11:39 | Event Note ---
Date of Encounter: 09/03/17 Time of Encounter: 11:38 Asked to see by mistake, after patient was seen by the resident she was clear that what she wished was some additional information on chronic pain management. She reiterated that she was a full code and wanted full aggressive treatment. Made her recommendations the hospitalist group. They will consider consult think pain management if the recommendations do not villegas out. Will not place a full note, and will not be following.
[2017-09-03] MEDS: Doxycycline 100 MG CAPSULE PO SCH ×2 (12:30→21:39)
[2017-09-03] MEDS: *HR* OxyCODONE ER (12 HR) 10 MG TABLET PO SCH ×2 (13:50→21:39)
[2017-09-03] MEDS ORDERED: 0.9 % Sodium Chloride 1,000 ML IVC SCH (15:00)
[2017-09-03] MEDS: ALPRAZolam 1 MG TABLET PO PRN ×2 (15:47→21:39)
[2017-09-03] MEDS: Folic Acid 1 MG TABLET PO SCH (15:48)
[2017-09-03] MEDS: predniSONE 20 MG TABLET PO SCH (18:08)
[2017-09-03] MEDS: Insulin DETEMIR 100 UNIT/ML X5UNITS SQ SCH (21:39)
[2017-09-03] MEDS: *HR* Promethazine 25 MG/ML VIAL IVP PRN (21:49)
[2017-09-04] MEDS: Ipratropium/Albuterol Neb 3 ML IH SCH ×7 (00:18→23:24)
[2017-09-04] MEDS: *HR* OxyCODONE Immed Rel 5 MG TABLET PO PRN ×3 (01:27→16:12)
[2017-09-04] MEDS: Piperacillin/Tazobactam 3.375 GM in D5% in Water (Mini-Bag+) 100 ML IVPB SCH ×3 (01:27→17:46)
[2017-09-04 04:43] LABS: Hematocrit 22.1 % (35.3-44.9); Mean Corpuscular HGB Conc 31.7 g/dL (31.6-35.5); Mean Corpuscular Volume 94.8 fL (83.0-100.0); Mean Platelet Volume 10.3 fL (9.4-12.4); Nucleated Red Blood Cells 0.2 /100 WBC (0); Platelet Count 266 K/mcL (140-400); Red Blood Count 2.33 M/mcL (3.82-4.97); Red Cell Distribution Width 15.2 % (11.5-14.5)
[2017-09-04 05:03] LABS: BUN/Creatinine Ratio 37 (6-26); Bilirubin,Direct 0.2 mg/dL (0.0-0.5); Bilirubin,Indirect 0.3 mg/dL (0.0-1.2); Bilirubin,Total 0.5 mg/dL (0.2-1.2); Blood Urea Nitrogen 42 mg/dL (7-20); Calcium 8.3 mg/dL (8.6-10.8); Carbon Dioxide 29 mEq/L (19-29); Chloride 107 mEq/L (98-109); Glucose 254 mg/dL (70-99); Osmolality,Calculated 319 (280-300); Sodium 145 mEq/L (136-145); eGFR For African Americans > 60 (> 60); eGFR For Non-African Americans 51 (> 60)
[2017-09-04 05:07] LABS: Potassium 3.6 mEq/L (3.5-4.5)
[2017-09-04] MEDS: *HR* Promethazine 25 MG/ML VIAL IVP PRN ×2 (05:29→20:18)
[2017-09-04] MEDS: ALPRAZolam 1 MG TABLET PO PRN ×3 (05:30→20:17)
[2017-09-04 05:38] LABS: Protein/Creatinine Ratio,Urine 2.56 mg/mg (0-0.20)
[2017-09-04 06:03] LABS: Lymphocytes # 0.4 K/mcL (0.6-4.6); Monocytes # 0.8 K/mcL (0.0-1.3); Neutrophils # 8.4 K/mcL (1.6-8.9); Platelet Estimate Normal (Normal)
[2017-09-04 06:04] LABS: Anisocytosis 1+ (Not Present)
[2017-09-04] MEDS: Doxycycline 100 MG CAPSULE PO SCH ×2 (07:48→20:17)
[2017-09-04] MEDS: Folic Acid 1 MG TABLET PO SCH (07:48)
[2017-09-04] MEDS: predniSONE 20 MG TABLET PO SCH (07:48)
[2017-09-04] MEDS: *HR* OxyCODONE ER (12 HR) 10 MG TABLET PO SCH ×2 (07:48→20:17)
[2017-09-04] MEDS: Insulin LISPRO 300 UNITS/3 ML VIAL SQ SCH ×4 (07:59→21:21)
--- NOTE | 2017-09-04 09:10 | Nephrology Progress Note ---
Date of Encounter: 09/04/17 Time of Encounter: 09:05 - Assessment and Plan (1) MARTI (acute kidney injury) Current Visit: No Status: Resolved baseline Cr around .8, currently Cr is 1.3 possible etiologies include pre-renal from dehydration, as patient was net negative two days ago. ALso could be from advancement of her lupus nephritis. Also FeNa: .3%: pre-renal etiology random vanc level: 13.8 Plan: continue to hold nephrotoxins: lasix, hydrochlorothiazide, lisinopril will continue to monitor kidney function. check C3, C4 this is likely more pre renal cause and not related to lupus nephritis. (2) Lupus nephritis Current Visit: No Status: Chronic urinalysis showd significant (>300) protein, moderate blood. patient states she had kidney biopsy at [facility] last week showing stage IV lupus nephritis-awaiting biopsy report from [facility] patient is asking for opinions regarding clinical trials at [facility]. she was told that we cannot comment on the clinical trials at this time, as we do not know anything about the trials. ESR: 80 CRP: 12 urine protein/cr: 2.56 Plan: since patient had full work up including kidney biopsy and bronchoscopy at [facility] and may have possible lung involvement, we recommend transfer to [facility] at this time for better continuity of care. continue prednisone re started cellcept. ALEXANDRU, DS DNA, ESR, CRP pending. requested records from [facility] (3) SLE (systemic lupus erythematosus) Current Visit: No Status: Chronic awaiting records from [facility] Qualifiers: Systemic lupus erythematosus type: unspecified Systemic lupus erythematosus organ involvement: unspecified Qualified Code(s): M32.9 - Systemic lupus erythematosus, unspecified (4) Anemia Current Visit: Yes Status: Chronic Hg today 7, downrending. baseline around 11-12 reviewed iron panel from earlier in August: unremarkable. B12 from 08/05/17: 1676 folate from 08/05/17: 3.4 LDH 254, fractionated Bili WNL Plan: stool guiac pending. started folate supplements haptoglobin pending. Qualifiers: Anemia type: unspecified type Qualified Code(s): D64.9 - Anemia, unspecified (5) COPD exacerbation Current Visit: Yes Status: Acute per primary and pulm (6) Healthcare-associated pneumonia Current Visit: Yes Status: Acute per primary and pulm consider pulmonary involvement of lupus as well. Subjective Principal diagnosis: MARTI, lupus nephritis Interval history: 42F evaluated at bedside. she denies nausea, vomiting, diarrhea, fever, chills, chest pain. she admits to shortness of breath. she admits to back pain and denies any new problems today. Objective - Vital Signs Vital signs: Vital Signs Temp Pulse Resp BP Pulse Ox 09/04/17 08:00 18 90 09/04/17 05:59 98.1 F 60 20 173/82 97 09/04/17 01:18 97.5 F L 60 18 164/79 94 09/04/17 00:20 16 97 09/03/17 21:14 97.7 F 61 18 173/92 96 09/03/17 20:15 16 98 09/03/17 17:21 97.8 F 66 20 183/97 95 09/03/17 11:57 97.5 F L 72 16 157/96 95 Intake and Output 09/03/17 09/04/17 09/04/17 23:59 07:59 15:59 Intake Total 100 / 100 240 / 240 Output Total 400 / 400 Balance 100 / 100 -160 / -160 Intake: IV Fluids 100 / 100 Zosyn 3.375 GM In Dextrose 5% ( 100 / 100 Minibag+) 100 ML 100 ML @ 25 mls/hr IVPB Q8H [facility] Rx#: [id number] Oral 240 / 240 Output: Urine 400 / 400 Other: Blood Glucose* 151 260 - General Appearance General appearance: Present: well-developed, well-nourished, appears started age Neck: Present: no JVD Respiratory: Present: rales, course breath sounds, rhonchi Cardiology: Present: no murmurs, no rub, no gallops, no edema, regular rate, regular rhythm, normal S1, normal S2 Additional Comments: has port on right side of chest. Gastrointestinal: Present: normoactive bowel sounds, no tenderness, no guarding , no organomegaly, no masses Integumentary: Present: no rash, warm and dry Neurologic: Present: no focal deficit, alert and oriented x3, strength 5/5 Musculoskeletal: Present: no deformities, no erythema, no cyanosis, no clubbing Psychiatric: Present: mood/affect appropriate - Lab 09/04/17 04:20 09/04/17 04:20 Most recent lab results Calcium 8.3 mg/dL (8.6-10.8) L 09/04/17 04:20 Phosphorus 3.1 mg/dL (2.3-4.7) 08/31/17 18:27 Magnesium 1.7 mg/dL (1.6-2.6) 09/01/17 06:25 Urine Creatinine 79 mg/dL 09/04/17 Unknown Urine Sodium 34.0 mEq/L 09/04/17 Unknown Urine Total Protein 202 mg/dL (1-14) H 09/04/17 Unknown - VTE Documentation of Mechanical Device: Intermittent pneumatic compression device Consult Discharge Plan - Plan Referrals: Naresh Skinner MD [Primary Care Provider] - 09/13/17 3:30 pm (Please follow up as schedule...)
[2017-09-04] MEDS ORDERED: GI Cocktail 40 ML EACH PO ONE (11:20)
[2017-09-04] MEDS ORDERED: 0.9 % Sodium Chloride 250 ML ONE (12:19)
--- NOTE | 2017-09-04 12:25 | Internal Med Progress Note ---
Date of Encounter: 09/04/17 Time of Encounter: 11:50 - Assessment and plan (1) MARTI (acute kidney injury) Current Visit: Yes Status: Acute Assessment and plan: Cr 1.1 (1.3) Known lupus nephritis Chem was normal at presentation Improved with bolus Possibly secondary to vancomycin toxicity, vanco levels > 40 and 25 respectively Monitor closely Avoid nephrotoxins Nephrology input appreciated (2) Bacteremia Current Visit: Yes Status: Acute Assessment and plan: Blood culture growing staph epidermidis with multiple resistance, possibly contaminant D/C vanco 09/03 Blood culture has been repeated from patient;'s port and peripheral line-no growth till datre Patient is not febrile, no leukocytosis, however, she is chronically on steroids for Lupus (3) Lupus Current Visit: Yes Status: Chronic Assessment and plan: Renal and Pulm involvement renal and pulm eval requested and appreciated Continue home meds Continue prednisone Qualifiers: Systemic lupus erythematosus type: unspecified Systemic lupus erythematosus organ involvement: glomerular disease Qualified Code(s): M32.14 - Glomerular disease in systemic lupus erythematosus (4) Chronic pain Current Visit: Yes Status: Chronic Assessment and plan: OARSS reviewed, resume patient's home doses of Oxycontin, oxycodone prn Pain management eval, called today 09/04 Qualifiers: Chronic pain type: chronic pain syndrome Qualified Code(s): G89.4 - Chronic pain syndrome (5) COPD exacerbation Current Visit: Yes Status: Acute Assessment and plan: Pulm eval noted Continue duonebs, doxycycline for atypical coverage Continue prednsione Tobacco cessation (6) Anemia Current Visit: Yes Status: Chronic Assessment and plan: HB drop to 7.0 this a.m Prior HB last admission between 8-9 Patient denies hematuria, bowel said to be brown Send FOBT Give 1 unit RBC She is hemodynamically stable Qualifiers: Anemia type: unspecified type Qualified Code(s): D64.9 - Anemia, unspecified (7) Pneumonia Current Visit: Yes Status: Acute Assessment and plan: Patient with persistent cough -Chest x-ray showed Right pleural effusion and right mid and lower lung airspace disease, greater on the right, likely pneumonia. Continue current antibiotic regimen Follow sputum culture Qualifiers: Pneumonia type: due to unspecified organism Laterality: right Lung location: unspecified part of lung Qualified Code(s): J18.9 - Pneumonia, unspecified organism (8) Hypothyroidism Current Visit: Yes Status: Chronic Assessment and plan: Continue home meds Qualifiers: Hypothyroidism type: unspecified Qualified Code(s): E03.9 - Hypothyroidism , unspecified (9) Hypertension Current Visit: Yes Status: Chronic Assessment and plan: Uncontrolled Continue coreg and Norvasc Add hydralazine po Qualifiers: Hypertension type: essential hypertension Qualified Code(s): I10 - Essential (primary) hypertension - Subjective Interval history: Seen and evaluated at bedside No new complains Denied hematuria, hemoptysis, states her last BM was yesterday morning and was brown in color She is asking to be discharged home to follow up with her industrial engineering technologist, rather than being transferred to [facility] She also is requesting pain management eval. - Constitutional Vitals: Temp Pulse Resp BP Pulse Ox 97.8 F 64 18 148/79 94 09/04/17 11:34 09/04/17 11:34 09/04/17 11:34 09/04/17 11:34 09/04/17 11:34 General appearance: Present: A&O X 3, pleasant, no acute distress - Head Head exam: Present: atraumatic, normocephalic - Eye Eye exam: Present: PERRL, conjuntiva pink, sclera anicteric Pupils: Present: PERRL - Neck Neck exam general surgery: Present: supple, trachea midline. Absent: lymphadenopathy - Respiratory Respiratory exam: Present: rales. Absent: rhonchi, stridor, wheezes, tachypnea - Cardiovascular Cardiovascular exam: Present: RRR, +S1, +S2. Absent: diastolic murmur, gallop, rubs, systolic murmur - GI/Abdominal GI/Abdominal exam: Present: normal bowel sounds, soft, no peritoneal signs. Absent: distended, tenderness - Extremities Exam Extremities exam: Present: warm, radial pulses palpable and symmetrical. Absent : calf tenderness, cyanotic, pedal edema - Neurological Exam Neurological exam: Present: alert, CN II-XII intact, oriented X3, no focal deficits. Absent: pronater drift, facial droop, speech deficit - Skin Skin exam: Present: dry, intact Internal Medicine: Result - Labs CBC & Chem 7: 09/04/17 04:20 09/04/17 04:20 Labs: Short CBC 09/04/17 Range/Units 04:20 WBC 9.5 (4.3-11.1) K/mcL Hgb 7.0 L (11.5-15.4) g/dL Hct 22.1 L (35.3-44.9) % Plt Count 266 (140-400) K/mcL Neutrophils # 8.4 (1.6-8.9) K/mcL BMP 09/04/17 04:20 Sodium 145 Potassium 3.6 D Chloride 107 Carbon Dioxide 29 BUN 42 H Creatinine 1.15 H Glucose 254 H Calcium 8.3 L Liver Function 09/04/17 Range/Units 04:20 Total Bilirubin 0.5 (0.2-1.2) mg/dL Direct Bilirubin 0.2 (0.0-0.5) mg/dL - ABG Interpretation ABG results: PT/INR, D-dimer PT 10.9 Seconds (9.4-12.1) 08/31/17 18:27 - VTE Documentation of Mechanical Device: Intermittent pneumatic compression device Consult Discharge Plan - Plan Referrals: Naresh Skinner MD [Primary Care Provider] - 09/13/17 3:30 pm (Please follow up as schedule...)
[2017-09-04] MEDS: amLODIPine 5 MG TABLET PO SCH (12:48)
--- NOTE | 2017-09-04 13:34 | Pulmonology Progress Note ---
Date of Encounter: 09/04/17 Time of Encounter: 13:00 Assessment and Plan (1) Chronic respiratory failure with hypoxia Current Visit: Yes Status: Acute Patient she is back to her baseline to ascertain exercise oxygen needs before sending her home. (2) COPD (chronic obstructive pulmonary disease) Current Visit: Yes Status: Chronic To send her home Albuterol,Spiriva she is on high dose prednisone for lupus, she has appointment with Pulmonology in October. Qualifiers: COPD type: chronic bronchitis Chronic bronchitis type: mucopurulent Qualified Code(s): J41.1 - Mucopurulent chronic bronchitis (3) Pneumonia Current Visit: Yes Status: Acute She is recovering from pneumonia which was started earlier from the admission to complete another 10 days of Doxycycline 100 mg BID . Since patient is on two immuno-suppressant agents patient will need PCP prophylaxis will start on Bactrim DS once daily if she does not tolerate this the alternate regimen will be Bactrim DS MWF. Qualifiers: Laterality: unspecified laterality Lung location: unspecified part of lung Qualified Code(s): J18.9 - Pneumonia, unspecified organism (4) Bacteremia due to coagulase-negative Staphylococcus Current Visit: Yes Status: Acute Looks like an contaminant. Subjective Principal diagnosis: MARTI, lupus nephritis Interval history: Patient is lying in bed tearful she wants to go home as she is doing lot better , patient says she has occasional cough with not much sputum production with no hemoptysis. Denies any chest pain . Patient says she is back to baseline. Objective PUL Vital signs: Last Vital Signs Temp 97.6 F 09/04/17 12:42 Pulse 91 09/04/17 12:42 Resp 18 09/04/17 12:42 BP 198/88 09/04/17 12:42 Pulse Ox 97 09/04/17 12:25 Auscultation: bilateral: wheezes (mild scattered wheezes ) Results - Laboratory Findings CBC and BMP: 09/04/17 04:20 09/04/17 04:20 PT/INR, D-dimer PT 10.9 Seconds (9.4-12.1) 08/31/17 18:27 Abnormal lab findings: Abnormal lab results RBC 2.33 M/mcL (3.82-4.97) L 09/04/17 04:20 Hgb 7.0 g/dL (11.5-15.4) L 09/04/17 04:20 Hct 22.1 % (35.3-44.9) L 09/04/17 04:20 RDW 15.2 % (11.5-14.5) H 09/04/17 04:20 Lymphocytes # 0.4 K/mcL (0.6-4.6) L 09/04/17 04:20 Nucleated RBCs/100 WBC 0.2 /100 WBC (0) H 09/04/17 04:20 Basophilic Stippling 1+ (Not Present) A 08/31/17 18:27 Anisocytosis 1+ (Not Present) A 09/04/17 04:20 Microcytosis Present (Not Present) A 08/31/17 18:27 ESR 80 mm/hr (0-15) H 09/04/17 04:20 BUN 42 mg/dL (7-20) H 09/04/17 04:20 Creatinine 1.15 mg/dL (0.57-1.11) H 09/04/17 04:20 Est GFR (Non-Af Amer) 51 (> 60) L 09/04/17 04:20 BUN/Creatinine Ratio 37 (6-26) H 09/04/17 04:20 Glucose 254 mg/dL (70-99) H 09/04/17 04:20 POC Glucose 281 (58-89) H 09/04/17 11:36 Calculated Osmolality 319 (280-300) H 09/04/17 04:20 Calcium 8.3 mg/dL (8.6-10.8) L 09/04/17 04:20 C-Reactive Protein 12 mg/L (Less than 5) H 09/04/17 04:20 Albumin 2.4 g/dL (3.5-5.0) L 08/31/17 18:27 Globulin 4.0 g/dL (2.4-3.5) H 08/31/17 18: Albumin/Globulin Ratio 0.6 (1.1-2.2) L 08/31/17 18:27 Urine Clarity Cloudy (Clear) A 09/01/17 04:51 Urine Protein >=300 mg/dL (Neg-Trace) H 09/01/17 04:51 Urine Blood Moderate (Negative) H 09/01/17 04:51 Urine Urobilinogen 2.0 mg/dL (Normal) H 09/01/17 04:51 Ur Leukocyte Esterase Trace (Negative) H 09/01/17 04:51 Urine Microscopic RBC 5-15 per hpf (0-3) H 09/01/17 04:51 Urine Microscopic WBC 3-5 per hpf (0-3) H 09/01/17 04:51 Ur Squamous Epith Cells Moderate per lpf (None-Few) H 09/01/17 04:51 Urine Bacteria Moderate per hpf (None-Few) H 09/01/17 04:51 Ur Culture Indicated? YES (NO) A 09/01/17 04:51 Protein/Creatinin Ratio 2.56 mg/mg (0-0.20) H 09/04/17 Unknown Urine Total Protein 202 mg/dL (1-14) H 09/04/17 Unknown Vancomycin Trough 46.9 mcg/mL (10-20) H* 09/02/17 13:00 Staphylococcus sp PCR DETECTED (Not Detect) A 08/31/17 18:44 mecA-Methicil Res Gene DETECTED (Not Detect) A 08/31/17 18:44 - Microbiology Findings Microbiology Findings: Microbiology, Last 48 Hours 09/02/17 11:24 Blood Culture - Preliminary Peripheral Venipuncture No growth. 09/02/17 11:49 Blood Culture - Preliminary Port System No growth. 09/02/17 00:05 Sputum Culture - Preliminary Sputum Yeast Species 09/01/17 04:51 Urine Culture - Final Urine,Clean Catch No growth. 09/01/17 04:51 Streptococcus pneumoniae Antigen (M - Final Urine,Clean Catch 09/01/17 04:51 Legionella Antigen - Final Urine,Clean Catch - Clinical Findings Intake & Output: Intake & Output 09/03/17 09/04/17 09/04/17 23:59 07:59 15:59 Intake Total 100 / 100 340 / 340 720 / 720 Output Total 400 / 400 Balance 100 / 100 -60 / -60 720 / 720 - VTE Documentation of Mechanical Device: Intermittent pneumatic compression device Consult Discharge Plan - Plan Referrals: Naresh Skinner MD [Primary Care Provider] - 09/13/17 3:30 pm (Please follow up as schedule...)
[2017-09-04] MEDS: hydrALAZINE 10 MG TABLET PO SCH ×2 (14:48→18:11)
[2017-09-04] MEDS: Insulin DETEMIR 100 UNIT/ML X5UNITS SQ SCH (21:21)
[2017-09-05] MEDS: Piperacillin/Tazobactam 3.375 GM in D5% in Water (Mini-Bag+) 100 ML IVPB SCH ×3 (00:28→08:35)
[2017-09-05] MEDS: *HR* OxyCODONE Immed Rel 5 MG TABLET PO PRN ×2 (00:28→15:16)
[2017-09-05] MEDS: hydrALAZINE 10 MG TABLET PO SCH ×4 (00:28→16:48)
[2017-09-05] MEDS: *HR* Promethazine 25 MG/ML VIAL IVP PRN ×3 (02:29→21:32)
[2017-09-05] MEDS: Ipratropium/Albuterol Neb 3 ML IH SCH ×6 (03:36→23:25)
[2017-09-05 04:57] LABS: Basophils % 0.3 %; Hematocrit 24.9 % (35.3-44.9); Hemoglobin 8.2 g/dL (11.5-15.4); Immature Granulocytes % 7.3 % (0-4); Lymphocytes # 1.3 K/mcL (0.6-4.6); Mean Corpuscular HGB Conc 32.9 g/dL (31.6-35.5); Mean Corpuscular Hemoglobin 30.3 pg (28.0-33.3); Mean Corpuscular Volume 91.9 fL (83.0-100.0); Mean Platelet Volume 10.2 fL (9.4-12.4); Monocytes # 0.8 K/mcL (0.0-1.3); Monocytes % 6.9 %; Platelet Count 277 K/mcL (140-400); Red Blood Count 2.71 M/mcL (3.82-4.97); Segmented Neutrophils % 74.5 %
[2017-09-05 05:11] LABS: BUN/Creatinine Ratio 42 (6-26); Blood Urea Nitrogen 44 mg/dL (7-20); Calcium 8.3 mg/dL (8.6-10.8); Carbon Dioxide 29 mEq/L (19-29); Chloride 106 mEq/L (98-109); Glucose 130 mg/dL (70-99); Osmolality,Calculated 309 (280-300); Potassium 3.7 mEq/L (3.5-4.5); Sodium 143 mEq/L (136-145); eGFR For African Americans > 60 (> 60); eGFR For Non-African Americans 56 (> 60)
[2017-09-05 05:19] LABS: Neutrophils # 8.6 K/mcL (1.6-8.9)
[2017-09-05 05:48] LABS: Platelet Estimate Normal (Normal)
[2017-09-05 05:49] LABS: Anisocytosis 1+ (Not Present); Microcytosis Present (Not Present)
[2017-09-05] MEDS: *HR* OxyCODONE ER (12 HR) 10 MG TABLET PO SCH ×2 (08:12→20:11)
[2017-09-05] MEDS: Doxycycline 100 MG CAPSULE PO SCH ×2 (08:12→20:11)
[2017-09-05] MEDS: amLODIPine 5 MG TABLET PO SCH (08:12)
[2017-09-05] MEDS: ALPRAZolam 1 MG TABLET PO PRN ×2 (08:12→16:53)
[2017-09-05] MEDS: Sulfamethoxazole/Trimeth DS 1 EACH TABLET PO SCH (08:12)
[2017-09-05] MEDS: Folic Acid 1 MG TABLET PO SCH (08:13)
[2017-09-05] MEDS: Insulin LISPRO 300 UNITS/3 ML VIAL SQ SCH ×4 (08:14→21:32)
[2017-09-05] MEDS: predniSONE 20 MG TABLET PO SCH (08:16)
[2017-09-05] MEDS: Tiotropium 18 MCG inhalation IH SCH ×2 (08:33→08:35)
--- NOTE | 2017-09-05 10:51 | Nephrology Progress Note ---
Date of Encounter: 09/05/17 Time of Encounter: 10:49 - Assessment and Plan (1) MARTI (acute kidney injury) Current Visit: No Status: Resolved baseline Cr around .8, currently Cr is 1.06 possible etiologies include pre-renal from dehydration, as patient was net negative two days ago. ALso could be from advancement of her lupus nephritis. Also FeNa: .3%: pre-renal etiology random vanc level: 13.8 Plan: continue to hold nephrotoxins: lasix, hydrochlorothiazide, lisinopril will continue to monitor kidney function. check C3, C4 this is likely more pre renal cause and not related to lupus nephritis. plan as below. will continue to follow. (2) Lupus nephritis Current Visit: No Status: Chronic urinalysis showd significant (>300) protein, moderate blood. patient states she had kidney biopsy at [facility] last week showing stage IV lupus nephritis-biopsy report form [facility] reviewed. ESR: 80 CRP: 12 urine protein/cr: 2.56: Plan: since patient had full work up including kidney biopsy and bronchoscopy at [facility] and may have possible lung involvement, we recommend transfer to [facility] at this time for better continuity of care. continue prednisone and cellcept. ALEXANDRU, DS DNA, pending. records from [facility] reviewed. she is in early stages of lupus nephritis. we recommend follow up at GN clinic at [facility]. may follow up outpatient with Dr. Carr for co-management. discussed with patient the option of clinical trials at [facility] and what that would entail. Cr function back to baseline. will continue to monitor. (3) SLE (systemic lupus erythematosus) Current Visit: No Status: Chronic seen by sheet metal lay out worker, graphic art technician, tin flopper at [facility]. [facility] records reviewed. Qualifiers: Systemic lupus erythematosus type: unspecified Systemic lupus erythematosus organ involvement: unspecified Qualified Code(s): M32.9 - Systemic lupus erythematosus, unspecified (4) Anemia Current Visit: Yes Status: Chronic Hg today 8.2, after 1 unit transfusion yesterday. baseline around 09-15 reviewed iron panel from earlier in August: unremarkable. B12 from 08/05/17: 1676 folate from 08/05/17: 3.4 LDH 254, fractionated Bili WNL stool guiac positive. Plan: NPO, GI consult pending. started folate supplements haptoglobin pending. Qualifiers: Anemia type: unspecified type Qualified Code(s): D64.9 - Anemia, unspecified (5) COPD exacerbation Current Visit: Yes Status: Acute per primary and pulm (6) Healthcare-associated pneumonia Current Visit: Yes Status: Acute per primary and pulm consider pulmonary involvement of lupus as well. Subjective Principal diagnosis: MARTI, lupus nephritis Interval history: 42F evaluated at bedside. she denies nausea, vomiting, diarrhea, fever, chills, chest pain. she admits to shortness of breath. she denies any new problems today. Objective - Vital Signs Vital signs: Vital Signs Temp Pulse Resp BP Pulse Ox 09/05/17 10:42 97.9 F 67 17 167/87 94 09/05/17 08:33 24 97 09/05/17 07:08 98.1 F 67 17 164/95 93 09/05/17 03:13 97.4 F L 63 16 163/83 96 09/05/17 00:02 97.6 F 70 17 136/83 98 09/04/17 23:24 17 89 09/04/17 20:00 97.9 F 72 13 161/80 94 09/04/17 16:02 98.4 F 67 13 165/89 98 09/04/17 15:54 22 84 09/04/17 14:13 98.0 F 55 14 188/91 09/04/17 12:42 97.6 F 91 18 198/88 09/04/17 12:25 98.5 F 91 16 119/78 97 09/04/17 11:34 97.8 F 64 18 148/79 94 09/04/17 11:14 18 85 Intake and Output 09/04/17 09/05/17 09/05/17 23:59 07:59 15:59 Intake Total 100 / 100 300 / 300 Output Total 400 / 400 0 / 0 0 / 0 Balance -300 / -300 0 / 0 300 / 300 Intake: IV Fluids 100 / 100 Zosyn 3.375 GM In Dextrose 5% ( 100 / 100 Minibag+) 100 ML 100 ML @ 25 mls/hr IVPB Q8H [facility] Rx#: [id number] Oral 300 / 300 Output: Urine 400 / 400 0 / 0 0 / 0 Other: Meal Breakfast Percent of Meal Consumed 100% Stool Size Moderate Moderate Stool Consistency soft soft formed formed Stool Color Brown # Voids 1 Weight 76.2 kg Blood Glucose* 277 359 Patient Weight 09/05/17 23:59 Weight 76.2 kg - General Appearance General appearance: Present: well-developed, well-nourished, appears started age Neck: Present: no JVD Respiratory: Present: rales, course breath sounds, rhonchi Cardiology: Present: no murmurs, no rub, no gallops, no edema, regular rate, regular rhythm, normal S1, normal S2 Gastrointestinal: Present: normoactive bowel sounds, no tenderness, no guarding , no organomegaly, no masses Integumentary: Present: no rash, warm and dry Neurologic: Present: no focal deficit Musculoskeletal: Present: no deformities, no erythema, no cyanosis, no clubbing Psychiatric: Present: depressed - Lab 09/05/17 04:37 09/05/17 04:37 Most recent lab results Calcium 8.3 mg/dL (8.6-10.8) L 09/05/17 04:37 Phosphorus 3.1 mg/dL (2.3-4.7) 08/31/17 18:27 Magnesium 1.7 mg/dL (1.6-2.6) 09/01/17 06:25 Urine Creatinine 79 mg/dL 09/04/17 Unknown Urine Sodium 34.0 mEq/L 09/04/17 Unknown Urine Total Protein 202 mg/dL (1-14) H 09/04/17 Unknown - VTE Documentation of Mechanical Device: Venous foot pump, device Consult Discharge Plan - Plan Referrals: Naresh Skinner MD [Primary Care Provider] - 09/13/17 3:30 pm (Please follow up as schedule...)
--- NOTE | 2017-09-05 10:58 | Internal Med Progress Note ---
Date of Encounter: 09/05/17 Time of Encounter: 10:15 - Assessment and plan (1) GI bleed Current Visit: Yes Status: Suspected Assessment and plan: Suspected Patient on high dose steroids and hx of gastric ulcer Increase omepraxole to 40mg BID GI consulted NPO for possible EGD Qualifiers: GI bleed type/associated pathology: unspecified gastrointestinal hemorrhage type Qualified Code(s): K92.2 - Gastrointestinal hemorrhage, unspecified (2) MARTI (acute kidney injury) Current Visit: Yes Status: Acute Assessment and plan: Cr 1.1 (1.3) Known lupus nephritis Chem was normal at presentation Improved with bolus Possibly secondary to vancomycin toxicity, vanco levels > 40 and 25 respectively Monitor closely Avoid nephrotoxins Nephrology input appreciated Patient will follow up with her own correctional program officer at [facility] upon discharge (3) Bacteremia Current Visit: Yes Status: Acute Assessment and plan: Blood culture growing staph epidermidis with multiple resistance, possibly contaminant D/C vanco 09/03 Blood culture has been repeated from patient;'s port and peripheral line-no growth till datre Patient is not febrile, no leukocytosis, however, she is chronically on steroids for Lupus (4) Lupus Current Visit: Yes Status: Chronic Assessment and plan: Renal and Pulm involvement renal and pulm eval requested and appreciated Continue home meds Continue prednisone Qualifiers: Systemic lupus erythematosus type: unspecified Systemic lupus erythematosus organ involvement: glomerular disease Qualified Code(s): M32.14 - Glomerular disease in systemic lupus erythematosus (5) Chronic pain Current Visit: Yes Status: Chronic Assessment and plan: OARSS reviewed, resume patient's home doses of Oxycontin, oxycodone prn Pain management eval, called today 09/04 Qualifiers: Chronic pain type: chronic pain syndrome Qualified Code(s): G89.4 - Chronic pain syndrome (6) COPD exacerbation Current Visit: Yes Status: Acute Assessment and plan: Pulm eval noted Continue duonebs, doxycycline for atypical coverage Continue prednsione Tobacco cessation (7) Anemia Current Visit: Yes Status: Chronic Assessment and plan: HB drop to 7.0 09/04, improved with one unit RBC Prior HB last admission between 8-9 Patient denies hematuria, bowel movement said to be brown FOBT positive Give 1 unit RBC 09/04 She is hemodynamically stable Qualifiers: Anemia type: unspecified type Qualified Code(s): D64.9 - Anemia, unspecified (8) Pneumonia Current Visit: Yes Status: Acute Assessment and plan: Patient with persistent cough Chest x-ray showed Right pleural effusion and right mid and lower lung airspace disease, greater on the right, likely pneumonia. Sputum culture with yeast D/C Zosyn, continue Doxy Qualifiers: Pneumonia type: due to unspecified organism Laterality: right Lung location: unspecified part of lung Qualified Code(s): J18.9 - Pneumonia, unspecified organism (9) Hypothyroidism Current Visit: Yes Status: Chronic Assessment and plan: Continue home meds Qualifiers: Hypothyroidism type: unspecified Qualified Code(s): E03.9 - Hypothyroidism , unspecified (10) Hypertension Current Visit: Yes Status: Chronic Assessment and plan: Controlled now, continue current regimen Qualifiers: Hypertension type: essential hypertension Qualified Code(s): I10 - Essential (primary) hypertension - Subjective Interval history: Seen and evaluated at bedside No new complains Hb is improved this morning Kidney function is back to baseline FOBT positive Of note, patient had EGD done 08/05 with evidence of gastritis and a non- bleeding ulcer She is hemodynamically stable GI consulted, plan for EGD a.m - Constitutional Vitals: Temp Pulse Resp BP Pulse Ox 97.9 F 67 17 167/87 94 09/05/17 10:42 09/05/17 10:42 09/05/17 10:42 09/05/17 10:42 09/05/17 10:42 General appearance: Present: A&O X 3, pleasant, no acute distress - Head Head exam: Present: atraumatic, normocephalic - Eye Eye exam: Present: PERRL, conjuntiva pink, sclera anicteric Pupils: Present: PERRL - Neck Neck exam general surgery: Present: supple, trachea midline. Absent: lymphadenopathy - Respiratory Respiratory exam: Present: rhonchi. Absent: accessory muscle use, wheezes, tachypnea - Cardiovascular Cardiovascular exam: Present: RRR, +S1, +S2. Absent: diastolic murmur, gallop, rubs, systolic murmur - GI/Abdominal GI/Abdominal exam: Present: normal bowel sounds, soft, no peritoneal signs. Absent: distended, tenderness - Extremities Exam Extremities exam: Present: warm, radial pulses palpable and symmetrical. Absent : calf tenderness, cyanotic, pedal edema - Neurological Exam Neurological exam: Present: alert, CN II-XII intact, oriented X3, no focal deficits. Absent: pronater drift, facial droop, speech deficit - Skin Skin exam: Present: dry, intact Internal Medicine: Result - Labs CBC & Chem 7: 09/05/17 04:37 09/05/17 04:37 Labs: Short CBC 09/05/17 Range/Units 04:37 WBC 11.6 H (4.3-11.1) K/mcL Hgb 8.2 L (11.5-15.4) g/dL Hct 24.9 L (35.3-44.9) % Plt Count 277 (140-400) K/mcL Neutrophils # 8.6 (1.6-8.9) K/mcL BMP 09/05/17 04:37 Sodium 143 Potassium 3.7 Chloride 106 Carbon Dioxide 29 BUN 44 H Creatinine 1.06 Glucose 130 H Calcium 8.3 L - ABG Interpretation ABG results: PT/INR, D-dimer PT 10.9 Seconds (9.4-12.1) 08/31/17 18:27 - VTE Documentation of Mechanical Device: Venous foot pump, device Consult Discharge Plan - Plan Referrals: Naresh Skinner MD [Primary Care Provider] - 09/13/17 3:30 pm (Please follow up as schedule...)
--- NOTE | 2017-09-05 12:01 | Gastroenterology Consult Note ---
Addendum entered and electronically signed by Sammy Tellez CNP 09/05/17 12 :15: Will also repeat EGD to evaluate ulcer noted on last EGD. Keep NPO at midnight. Original Note: <Sammy Tellez - Last Filed: 09/05/17 11:57> Date of Encounter: 09/05/17 Time of Encounter: 11:45 - Assessment and plan (1) Anemia Current Visit: Yes Status: Chronic Assessment and plan: Hgb dropped to 7 on 09/04. She received 1 unit PRBC and this AM Hgb 8.2. Continue to monitor CBC and transfuse PRBC as needed. Plan for colonoscopy tomorrow. Clear liquid diet today, no red or purple. NPO at midnight. If unable tolerate NuLytely please use MiraLAX prep. If not clear by 6 AM, give 2 tap water enemas. Qualifiers: Anemia type: unspecified type Qualified Code(s): D64.9 - Anemia, unspecified (2) GI bleed Current Visit: Yes Status: Suspected Assessment and plan: Fecal occult blood test positive yesterday. Qualifiers: GI bleed type/associated pathology: unspecified gastrointestinal hemorrhage type Qualified Code(s): K92.2 - Gastrointestinal hemorrhage, unspecified (3) Lupus nephritis Current Visit: No Status: Chronic (4) MARTI (acute kidney injury) Current Visit: Yes Status: Acute - Time Spent With Patient Total time spent is greater than 50% in coordination of care (as documented) at patient's floor/unit and/or counseling patient: GI History of Present Illness - Data of Consult Patient: known to practice within the last 3 years Consult date: 09/05/17 Requesting Physician: Jaydon Turner MD - Consult Narrative Reason for consult: GI Bleed History of present illness: Ms. Chowdary is a 42 year old female with PMHx of systemic lupus with lupus nephritis on chronic steroid (prednisone) therapy, hypothyroidism, COPD GI bleed , HTN, CO, DVT. The patient states she was originally discharged from this facility on August 05 after being treated for pneumonia. After being discharged to continue to experience cough and was coughing up blood she presented to [facility] on 08/08 2017 and was transferred to [facility] where she states she was further treated for her pneumonia and was discharged home on Augmentin and Flagyl. While at [facility] she had a bronchsocopy which didn't reveal any positive findings, a renal biopsy at [facility] which showed stage IV lupus nephritis started on high dose prednisone. We have been asked to see the patient due to her anemia. On admission Hgb 9.1 and it dropped to 7 on 09/04. Fecal occult blood test positive on 09/04. This AM Hgb 8.2 after 1 unit PRBC. During her recent admission here, an EGD was completed that showed gastritis, non-bleeding gastric ulcer, and mildly severe candidiasis esophagitits. She was treated with Diflucan. Procedures: EGD 08/05/2017 Dr. Altamirano: Gastritis, non-bleeding gastric ulcer, mildly severe candidiasis esophagitits Flexible sigmoidoscopy 01/23/2011 Dr. Mccormick: Normal Colonoscopy 11/25/2008 Dr. Montoya: Mild edema, intramucosal lymphoid follicle. NSAIDs: None Anticoagulation: None Past Med Surg Social Fam HX - Past Medical History Medical history: asthma, COPD, DVT, fibromyalgia, GERD, GI bleed, hypertension, kidney stones, myocardial infarction, RA, thyroid disease, other Psychiatric history: anxiety - Past Surgical History Surgical History: cholecystectomy, hysterectomy - Social History Smoking Status: Never smoker Smokeless Tobacco Status: No Alcohol use: none Drug use: none - Family History Mother Living Status: Hx Family Cardiac Disorders: Yes (mi, CHF) Father Living Status: Hx Family Cardiac Disorders: Yes Hx Family Endocrine Disorder: Yes - Gastrointestinal Gastrointestinal: Present: as per HPI - Constitutional Constitutional: as per HPI - EENT Eyes: as per HPI Ears: Present: as per HPI Nose, mouth and throat: Present: as per HPI - Cardiovascular Cardiovascular ROS: Present: as per HPI - Respiratory Respiratory IM: Present: as per HPI - Genitourinary Genitourinary: Absent: change in color, Urinary frequency - Neurological ROS Neurological GI: Present: as per HPI - Hematologic/Lymphatic Hematologic/Lymphatic pediatric: Present: as per HPI - Musculoskeletal Musculoskeletal ROS GI: Present: as per HPI - Integumentary Integumentary GI: Present: as per HPI - Psychiatric ROS Psychiatric GI: Present: as per HPI - Endocrine Endocrine IM: Present: as per HPI - Constitutional Vitals: Temp Pulse Resp BP Pulse Ox 97.9 F 67 17 167/87 94 09/05/17 10:42 09/05/17 10:42 09/05/17 10:42 09/05/17 10:42 09/05/17 10:42 General appearance: Present: cooperative, A&O X 3, no acute distress, answers questions appropriately - Head Head exam: Present: atraumatic, normocephalic - Eye Eye exam: Present: normal appearance, sclera anicteric - ENT ENT exam: Present: mucous membranes dry - Neck Neck exam general surgery: Present: normal inspection, trachea midline - Respiratory Respiratory exam: Present: CTAB. Absent: rales, rhonchi - Cardiovascular Cardiovascular exam: Present: RRR, +S1, +S2 - GI/Abdominal GI/Abdominal exam: Present: soft, no peritoneal signs. Absent: distended, firm , guarding, tenderness - Rectal Rectal exam: Present: deferred - Extremities Exam Extremities exam: Present: warm - Neurological Exam Neurological exam: Present: no focal deficits - Psychiatric Psychiatric exam: Present: normal affect, normal mood - Skin Skin exam: Present: dry, intact, normal color, warm Results - Labs CBC & Chem 7: 09/05/17 04:37 09/05/17 04:37 Labs: Last Result ESR 80 mm/hr (0-15) H 09/04/17 04:20 Calcium 8.3 mg/dL (8.6-10.8) L 09/05/17 04:37 Troponin I 0.00 ng/mL (0-0.03) 08/31/17 18:27 C-Reactive Protein 12 mg/L (Less than 5) H 09/04/17 04:20 Stool Occult Blood Positive (Negative) A 09/04/17 16:21 Entire Visit Hgb 8.2 g/dL (11.5-15.4) L 09/05/17 04:37 Hct 24.9 % (35.3-44.9) L 09/05/17 04:37 PT 10.9 Seconds (9.4-12.1) 08/31/17 18:27 Total Bilirubin 0.5 mg/dL (0.2-1.2) 09/04/17 04:20 AST 16 Units/L (5-34) 08/31/17 18:27 ALT 22 Units/L (0-55) 08/31/17 18:27 E. coli (PCR) Not Detected (Not Detect) 08/31/17 18:44 - ABG ABG results: PT/INR, D-dimer PT 10.9 Seconds (9.4-12.1) 08/31/17 18:27 Consult Discharge Plan - Plan Referrals: Naresh Skinner MD [Primary Care Provider] - 09/13/17 3:30 pm (Please follow up as schedule...) <AdarshWilbert - Last Filed: 09/05/17 14:42> Date of Encounter: 09/05/17 Time of Encounter: 14:00 - Time Spent With Patient Total time spent is greater than 50% in coordination of care (as documented) at patient's floor/unit and/or counseling patient: GI History of Present Illness - Data of Consult Requesting Physician: Jaydon Turner MD - Consult Narrative History of present illness: Ms. Chowdary is a 42 year old female - Constitutional Vitals: Temp Pulse Resp BP Pulse Ox 97.9 F 67 16 167/87 95 09/05/17 10:42 09/05/17 10:42 09/05/17 11:43 09/05/17 10:42 09/05/17 11:43 Results - Labs CBC & Chem 7: 09/05/17 04:37 09/05/17 04:37 Labs: Last Result ESR 80 mm/hr (0-15) H 09/04/17 04:20 Calcium 8.3 mg/dL (8.6-10.8) L 09/05/17 04:37 Troponin I 0.00 ng/mL (0-0.03) 08/31/17 18:27 C-Reactive Protein 12 mg/L (Less than 5) H 09/04/17 04:20 Stool Occult Blood Positive (Negative) A 09/04/17 16:21 Entire Visit Hgb 8.2 g/dL (11.5-15.4) L 09/05/17 04:37 Hct 24.9 % (35.3-44.9) L 09/05/17 04:37 PT 10.9 Seconds (9.4-12.1) 08/31/17 18:27 Total Bilirubin 0.5 mg/dL (0.2-1.2) 09/04/17 04:20 AST 16 Units/L (5-34) 08/31/17 18:27 ALT 22 Units/L (0-55) 08/31/17 18:27 E. coli (PCR) Not Detected (Not Detect) 08/31/17 18:44 - ABG ABG results: PT/INR, D-dimer PT 10.9 Seconds (9.4-12.1) 08/31/17 18:27 - Attending Attestation I examined this patient and my medical decision-making was reviewed with the Resident Physician. I agree with the documented findings, disposition and treatment plan as described except to the extent set forth below. Patient with an anemia and EGD recently showed a ulcer at the pyloric area. No colonoscopy in the last many years. Recommendation EGD to assess the underlying ulcer and also we will do a colonoscopy
[2017-09-05] MEDS ORDERED: SODIUM CHLORIDE/NAHCO3/KCL/PEG 4,000 ML SOLN.RECON PO ONE (17:00)
[2017-09-05] MEDS: Insulin DETEMIR 100 UNIT/ML X5UNITS SQ SCH (21:32)
[2017-09-06] MEDS: hydrALAZINE 10 MG TABLET PO SCH ×2 (01:16→06:05)
[2017-09-06] MEDS: *HR* OxyCODONE Immed Rel 5 MG TABLET PO PRN (01:16)
[2017-09-06] MEDS: Ipratropium/Albuterol Neb 3 ML IH SCH (04:08)
[2017-09-06] MEDS: *HR* Promethazine 25 MG/ML VIAL IVP PRN (04:30)
[2017-09-06 04:44] LABS: Hematocrit 25.4 % (35.3-44.9); Hemoglobin 8.4 g/dL (11.5-15.4); Mean Corpuscular HGB Conc 33.1 g/dL (31.6-35.5); Mean Corpuscular Hemoglobin 30.2 pg (28.0-33.3); Mean Corpuscular Volume 91.4 fL (83.0-100.0); Platelet Count 286 K/mcL (140-400); Red Blood Count 2.78 M/mcL (3.82-4.97)
[2017-09-06 04:56] LABS: BUN/Creatinine Ratio 55 (6-26); Blood Urea Nitrogen 41 mg/dL (7-20); Calcium 8.3 mg/dL (8.6-10.8); Carbon Dioxide 30 mEq/L (19-29); Chloride 107 mEq/L (98-109); Glucose 83 mg/dL (70-99); Osmolality,Calculated 305 (280-300); Potassium 3.9 mEq/L (3.5-4.5); Sodium 143 mEq/L (136-145); eGFR For African Americans > 60 (> 60); eGFR For Non-African Americans > 60 (> 60)
[2017-09-06 05:18] LABS: Lymphocytes # 1.7 K/mcL (0.6-4.6); Monocytes # 0.2 K/mcL (0.0-1.3)
[2017-09-06 05:19] LABS: Anisocytosis 1+ (Not Present); Microcytosis Present (Not Present); Platelet Estimate Normal (Normal)
[2017-09-06] MEDS: Tiotropium 18 MCG inhalation IH SCH (07:55)
--- NOTE | 2017-09-06 08:42 | Nephrology Progress Note ---
Date of Encounter: 09/06/17 Time of Encounter: 08:40 - Assessment and Plan (1) MARTI (acute kidney injury) Current Visit: No Status: Resolved patient is now back to baseline. possible etiologies include pre-renal from dehydration, or possible vanc toxicity FeNa: .3%: pre-renal etiology random vanc level: 13.8 Plan: will continue to monitor kidney function. check C3, C4 this is likely more pre renal cause and not related to lupus nephritis. plan as below. will continue to follow. (2) Lupus nephritis Current Visit: No Status: Chronic urinalysis showd significant (>300) protein, moderate blood. patient states she had kidney biopsy at [facility] last week showing stage IV lupus nephritis-biopsy report form [facility] reviewed. ESR: 80 CRP: 12 urine protein/cr: 2.56: Plan: since patient had full work up including kidney biopsy and bronchoscopy at [facility] and may have possible lung involvement, we recommend transfer to [facility] at this time for better continuity of care. continue prednisone and cellcept. ALEXANDRU, DS DNA, pending. records from [facility] reviewed. she is in early stages of lupus nephritis. we recommend follow up at [facility] clinic at [facility]. may follow up outpatient with Dr. Carr for co-management. discussed with patient the option of clinical trials at [facility] and what that would entail. (3) SLE (systemic lupus erythematosus) Current Visit: No Status: Chronic seen by housekeeping director, greenskeeper head, planer offbearer at [facility]. [facility] records reviewed. Qualifiers: Systemic lupus erythematosus type: unspecified Systemic lupus erythematosus organ involvement: unspecified Qualified Code(s): M32.9 - Systemic lupus erythematosus, unspecified (4) Anemia Current Visit: Yes Status: Chronic Hg today 8.4, patient required one unit transfusion baseline around 09-15 reviewed iron panel from earlier in August: unremarkable. B12 from 08/05/17: 1676 folate from 08/05/17: 3.4 LDH 254, fractionated Bili WNL stool guiac positive. Plan: NPO, GI consult pending. continue folate supplements haptoglobin pending. patient getting EGD/colonoscopy today. Qualifiers: Anemia type: unspecified type Qualified Code(s): D64.9 - Anemia, unspecified (5) COPD exacerbation Current Visit: Yes Status: Acute per primary and pulm (6) Healthcare-associated pneumonia Current Visit: Yes Status: Acute per primary and pulm consider pulmonary involvement of lupus as well. Subjective Principal diagnosis: MARTI, lupus nephritis Interval history: 42F evaluated at bedside. she denies nausea, vomiting, fever, chills, chest pain , shortness of breath. she is a little nervous for her endoscopy but denies any other new complaints today. Objective - Vital Signs Vital signs: Vital Signs Temp Pulse Resp BP Pulse Ox 09/06/17 07:55 62 14 144/77 95 09/06/17 05:07 98.2 F 62 14 144/77 95 09/06/17 04:08 15 97 09/06/17 00:25 97.8 F 65 16 169/91 95 09/05/17 23:25 16 96 09/05/17 21:21 97.9 F 66 16 153/93 97 09/05/17 15:50 98.1 F 65 17 157/79 100 09/05/17 15:47 24 89 09/05/17 11:43 16 95 09/05/17 10:42 97.9 F 67 17 167/87 94 Intake and Output 09/05/17 09/06/17 09/06/17 23:59 07:59 15:59 Intake Total 240 / 240 Balance 240 / 240 Intake: Oral 240 / 240 Other: Stool Size Moderate Moderate Stool Consistency soft soft formed formed # Voids 1 Weight 77.4 kg Blood Glucose* 128 Patient Weight 09/06/17 23:59 Weight 77.4 kg - General Appearance General appearance: Present: well-developed, well-nourished, appears started age Neck: Present: no JVD Respiratory: Present: no kyphosis Cardiology: Present: no murmurs, no rub, no gallops, no edema, regular rate, regular rhythm, normal S1, normal S2 Gastrointestinal: Present: hypoactive bowel sounds, no tenderness, no guarding, no organomegaly, no masses Integumentary: Present: no rash, warm and dry Neurologic: Present: no focal deficit, alert and oriented x3 Musculoskeletal: Present: no deformities, no erythema, no cyanosis Psychiatric: Present: mood/affect appropriate - Lab 09/06/17 04:10 09/06/17 04:10 Most recent lab results Calcium 8.3 mg/dL (8.6-10.8) L 09/06/17 04:10 Phosphorus 3.1 mg/dL (2.3-4.7) 08/31/17 18:27 Magnesium 1.7 mg/dL (1.6-2.6) 09/01/17 06:25 Urine Creatinine 79 mg/dL 09/04/17 Unknown Urine Sodium 34.0 mEq/L 09/04/17 Unknown Urine Total Protein 202 mg/dL (1-14) H 09/04/17 Unknown - VTE Documentation of Mechanical Device: Intermittent pneumatic compression device Consult Discharge Plan - Plan Referrals: Naresh Skinner MD [Primary Care Provider] - 09/13/17 3:30 pm (Please follow up as schedule...)
[2017-09-06] MEDS ORDERED: Tetracaine/Benzocaine/Butamben 200MG/SPRAY (100SPY/BOT) MM ONE (08:44)
[2017-09-06] MEDS ORDERED: Simethicone 40 MG/0.6 ML MLS IR ONE (08:44)
[2017-09-06] MEDS: *HR* OxyCODONE ER (12 HR) 10 MG TABLET PO SCH (09:28)
[2017-09-06] MEDS: Sulfamethoxazole/Trimeth DS 1 EACH TABLET PO SCH (09:28)
[2017-09-06] MEDS: amLODIPine 5 MG TABLET PO SCH (09:28)
[2017-09-06] MEDS: Doxycycline 100 MG CAPSULE PO SCH (09:28)
[2017-09-06] MEDS: Folic Acid 1 MG TABLET PO SCH (09:28)
[2017-09-06] MEDS: predniSONE 20 MG TABLET PO SCH (09:29)
[2017-09-06] MEDS: Insulin LISPRO 300 UNITS/3 ML VIAL SQ SCH (09:36)
[2017-09-06 10:22] VITALS: BP 161/91
[2017-09-06 10:24] LABS: Complement Component 3 123 mg/dL (88-201); Complement Component 4 18 mg/dL (10-40); Haptoglobin 288 mg/dL (30-200)
--- NOTE | 2017-09-06 10:31 | Physician Discharge Referral ---
Home Health/Hosp Referral Info Transfer to: Home Health Attending Provider: Jesús Turner Provider in Charge Post Discharge: PCP - Diagnosis (1) GI bleed Priority: Primary Status: Suspected (2) MARTI (acute kidney injury) Priority: Primary Status: Resolved (3) Bacteremia Priority: Primary Status: Ruled-out (4) Lupus Priority: Secondary Status: Chronic (5) Chronic pain Priority: Secondary Status: Chronic (6) COPD exacerbation Priority: Primary Status: Resolved (7) Anemia Priority: Secondary Status: Chronic (8) Pneumonia Priority: Primary Status: Acute (9) Hypothyroidism Priority: Secondary Status: Chronic (10) Hypertension Priority: Secondary Status: Chronic - Respiratory Orders Oxygen / L per min (2-3 L per minute continuous) Smoking Cessation: Smoking cessation has been advised. For more information, call the [facility] Quit Line at 5-076-FLOCNOW. - Services Needed Following services are medically necessary services: Nursing, Home Health Aide - Transfer Medications Prescriptions: Blood Pressure Test Kit [Blood Pressure Monitor] 1 each MC DAILY #1 kit Doxycycline 100 mg PO BID #10 capsule Folic Acid 5 mg PO DAILY #60 tablet Omeprazole [PriLOSEC] 40 mg PO BIDAC #60 capsule. OxyCODONE ER (12 HR) [OxyCONTIN] 10 mg PO BID #4 tab.er.12h OxyCODONE Immed Rel [Roxicodone 5 MG] 10 mg PO TID #9 tablet Sulfamethoxazole/Trimeth DS [Bactrim Ds] 1 each PO DAILY #30 tablet Home Medications: Albuterol Sulfate [Proair Hfa] 2 puff IH BID PRN 07/10/16 [History] Carvedilol [Coreg] 25 mg PO BID 07/10/16 [History] Fluticasone Propionate Nasal [Flonase] 50 mcg NS DAILY 07/10/16 [History] Nitroglycerin [Nitrostat] 0.4 mg SL Q5M PRN 07/10/16 [History] Amlodipine Besylate 10 mg PO DAILY 09/19/16 [History] Citalopram Hydrobromide [Celexa] 40 mg PO HS 07/18/17 [History] Cyanocobalamin (Vitamin B-12) [Vitamin B12] 2,000 mcg PO DAILY 07/18/17 [History ] Ipratropium/Albuterol Neb [Duoneb] 3 ml IH Q6H PRN 07/18/17 [History] Mometasone/Formoterol [Dulera 200 Mcg/5 Mcg Inhaler] 1 puff IH BID 07/18/17 [ History] Oxygen 2 l NS AD 07/18/17 [History] ALPRAZolam [Xanax 1 MG Tablet] 1 mg PO TID 07/30/17 [History] Furosemide [Lasix] 40 mg PO BID 07/30/17 [History] Insulin DETEMIR [Levemir] 10 - 20 unit SQ HS PRN 08/31/17 [History] Levothyroxine [Synthroid] 112 mcg PO DAILY 09/01/17 [History] Lisinopril [Zestril] 5 mg PO DAILY 09/01/17 [History] Metoclopramide HCl 5 mg PO TID 09/01/17 [History] Mycophenolate Mofetil [Cellcept] 500 mg PO BID 09/01/17 [History] Ondansetron [Zofran] 8 mg PO BID PRN 09/01/17 [History] Potassium Chloride [K-Tab ER] 20 meq PO DAILY 09/01/17 [History] hydroCHLOROthiazide [Hydrochlorothiazide] 25 mg PO DAILY 09/01/17 [History] predniSONE [PredniSONE] 60 mg PO DAILY 09/01/17 [History] Blood Pressure Test Kit [Blood Pressure Monitor] 1 each MC DAILY #1 kit [Rx] Doxycycline 100 mg PO BID #10 capsule 09/06/17 [Rx] Folic Acid 5 mg PO DAILY #60 tablet 09/06/17 [Rx] Omeprazole [PriLOSEC] 40 mg PO BIDAC #60 capsule. 09/06/17 [Rx] OxyCODONE ER (12 HR) [OxyCONTIN] 10 mg PO BID #4 tab.er.12h 09/06/17 [Rx] OxyCODONE Immed Rel [Roxicodone 5 MG] 10 mg PO TID #9 tablet 09/06/17 [Rx] Sulfamethoxazole/Trimeth DS [Bactrim Ds] 1 each PO DAILY #30 tablet 09/06/17 [Rx ] Tiotropium [Spiriva] 18 mcg IH DAILY@0700 inh 09/06/17 [Rx] Allergies/Adverse Reactions: 3 Allergy/AdvReac Type Severity Reaction Status Date / Time ketorolac [From Toradol] AdvReac Abdominal Verified 07/30/17 00:44 Pain NSAIDS (Non-Steroidal AdvReac Abdominal Verified 07/30/17 00:44 Anti-Inflamma Pain tramadol AdvReac Abdominal Verified 07/30/17 00:44 Pain pyridium AdvReac Abdominal Uncoded 07/30/17 00:44 Pain Certification: Further, I certify that my clinical findings support that this patient is homebound (i.e. absences from home require considerable and taxing effort and are for medical reasons or denominational services or infrequently or short duration when for other reasons) because: Homebound Reason: Severity of cardiac or pulmonary status limits activity tolerance Attestation: My signature below is to certify that this patient is under my care and that I, or nurse practitioner, or a physician's maintenance assistant working with me, has a face-to -face encounter with this patient.
--- NOTE | 2017-09-06 10:32 | Discharge Summary ---
Date of Encounter: 09/06/17 Time of Encounter: 10:31 - Discharge Diagnosis (1) GI bleed Priority: Secondary Status: Suspected Comments: Suspected Patient on high dose steroids and hx of gastric ulcer Increase omepraxole to 40mg BID GI was consulted and patient's EGD which showed gastritis and non-bleeding ulcer Colonoscopy was deferred to out-patient due to poor bowel prep, Discharged on Omeprazole 40bid, avoid NSAIDS Follow up with PCP and GI as outpatient Qualifiers: GI bleed type/associated pathology: unspecified gastrointestinal hemorrhage type Qualified Code(s): K92.2 - Gastrointestinal hemorrhage, unspecified (2) MARTI (acute kidney injury) Priority: Primary Status: Resolved Comments: Known lupus nephritis Chem was normal at presentation, slightly worsened but improved with IVF hydration Possibly secondary to vancomycin toxicity Resolved now, and Chem back at baseline, follow up with PCP as out-patient (3) Bacteremia Priority: Primary Status: Ruled-out Comments: Ruled out. Blood culture from August 31 growing staph epidermidis with multiple resistance , possibly contaminant Blood culture has been repeated September 02 from patient;'s port and peripheral line-no growth till date Patient is not febrile, no leukocytosis, however, she is chronically on steroids for Lupus (4) Lupus Priority: Secondary Status: Chronic Comments: Chronic and stable. Bactrim added for PCP prophylaxis Qualifiers: Systemic lupus erythematosus type: unspecified Systemic lupus erythematosus organ involvement: glomerular disease Qualified Code(s): M32.14 - Glomerular disease in systemic lupus erythematosus (5) Chronic pain Priority: Secondary Status: Chronic Comments: Patient was discharged on OxyContin and oxycodone. These medications did precipitate medication. She was given a few pills. She sees her primary care physician Pain Management was consulted during the admission stay, but they did not see the patient. Qualifiers: Chronic pain type: chronic pain syndrome Qualified Code(s): G89.4 - Chronic pain syndrome (6) COPD exacerbation Priority: Secondary Status: Resolved Comments: Soft. Continue duo nebs at home, continue home doses. Her, continue prednisone at regular dose, and discharged on doxycycline. (7) Anemia Priority: Secondary Status: Chronic Comments: Acute on chronic. HB drop to 7.0 09/04, improved with one unit RBC Prior HB last admission between 8-9 Patient denies hematuria, bowel movement said to be brown FOBT positive, EGD did not show any active bleed Give 1 unit RBC 09/04 She is hemodynamically stable Qualifiers: Anemia type: unspecified type Qualified Code(s): D64.9 - Anemia, unspecified (8) Pneumonia Priority: Primary Status: Acute Comments: Suspected. Chest x-ray showed Right pleural effusion and right mid and lower lung airspace disease, greater on the right, likely pneumonia. Sputum culture grew Patricia. Patient received vancomycin, Zosyn in-house. She was also started on doxycycline for atypical coverage. She is stable be discharged home on doxycycline orally. Qualifiers: Pneumonia type: due to unspecified organism Laterality: right Lung location: unspecified part of lung Qualified Code(s): J18.9 - Pneumonia, unspecified organism (9) Hypothyroidism Priority: Secondary Status: Chronic Comments: continue home meds Qualifiers: Hypothyroidism type: unspecified Qualified Code(s): E03.9 - Hypothyroidism , unspecified (10) Hypertension Priority: Secondary Status: Chronic Comments: Continue home medications. Diuretics were held initially, due to acute kidney injury. They have been resumed upon discharge. Qualifiers: Hypertension type: essential hypertension Qualified Code(s): I10 - Essential (primary) hypertension - Discharge Medications Prescriptions: Blood Pressure Test Kit [Blood Pressure Monitor] 1 each MC DAILY #1 kit Doxycycline 100 mg PO BID #10 capsule Folic Acid 5 mg PO DAILY #60 tablet Omeprazole [PriLOSEC] 40 mg PO BIDAC #60 capsule. OxyCODONE ER (12 HR) [OxyCONTIN] 10 mg PO BID #4 tab.er.12h OxyCODONE Immed Rel [Roxicodone 5 MG] 10 mg PO TID #9 tablet Sulfamethoxazole/Trimeth DS [Bactrim Ds] 1 each PO DAILY #30 tablet Home Medications: Albuterol Sulfate [Proair Hfa] 2 puff IH BID PRN 07/10/16 [History] Carvedilol [Coreg] 25 mg PO BID 07/10/16 [History] Fluticasone Propionate Nasal [Flonase] 50 mcg NS DAILY 07/10/16 [History] Nitroglycerin [Nitrostat] 0.4 mg SL Q5M PRN 07/10/16 [History] Amlodipine Besylate 10 mg PO DAILY 09/19/16 [History] Citalopram Hydrobromide [Celexa] 40 mg PO HS 07/18/17 [History] Cyanocobalamin (Vitamin B-12) [Vitamin B12] 2,000 mcg PO DAILY 07/18/17 [History ] Ipratropium/Albuterol Neb [Duoneb] 3 ml IH Q6H PRN 07/18/17 [History] Mometasone/Formoterol [Dulera 200 Mcg/5 Mcg Inhaler] 1 puff IH BID 07/18/17 [ History] Oxygen 2 l NS AD 07/18/17 [History] ALPRAZolam [Xanax 1 MG Tablet] 1 mg PO TID 07/30/17 [History] Furosemide [Lasix] 40 mg PO BID 07/30/17 [History] Insulin DETEMIR [Levemir] 10 - 20 unit SQ HS PRN 08/31/17 [History] Levothyroxine [Synthroid] 112 mcg PO DAILY 09/01/17 [History] Lisinopril [Zestril] 5 mg PO DAILY 09/01/17 [History] Metoclopramide HCl 5 mg PO TID 09/01/17 [History] Mycophenolate Mofetil [Cellcept] 500 mg PO BID 09/01/17 [History] Ondansetron [Zofran] 8 mg PO BID PRN 09/01/17 [History] Potassium Chloride [K-Tab ER] 20 meq PO DAILY 09/01/17 [History] hydroCHLOROthiazide [Hydrochlorothiazide] 25 mg PO DAILY 09/01/17 [History] predniSONE [PredniSONE] 60 mg PO DAILY 09/01/17 [History] Blood Pressure Test Kit [Blood Pressure Monitor] 1 each MC DAILY #1 kit [Rx] Doxycycline 100 mg PO BID #10 capsule 09/06/17 [Rx] Folic Acid 5 mg PO DAILY #60 tablet 09/06/17 [Rx] Omeprazole [PriLOSEC] 40 mg PO BIDAC #60 capsule. 09/06/17 [Rx] OxyCODONE ER (12 HR) [OxyCONTIN] 10 mg PO BID #4 tab.er.12h 09/06/17 [Rx] OxyCODONE Immed Rel [Roxicodone 5 MG] 10 mg PO TID #9 tablet 09/06/17 [Rx] Sulfamethoxazole/Trimeth DS [Bactrim Ds] 1 each PO DAILY #30 tablet 09/06/17 [Rx ] Tiotropium [Spiriva] 18 mcg IH DAILY@0700 inh 09/06/17 [Rx] Allergies/Adverse Reactions: 3 Allergy/AdvReac Type Severity Reaction Status Date / Time ketorolac [From Toradol] AdvReac Abdominal Verified 07/30/17 00:44 Pain NSAIDS (Non-Steroidal AdvReac Abdominal Verified 07/30/17 00:44 Anti-Inflamma Pain tramadol AdvReac Abdominal Verified 07/30/17 00:44 Pain pyridium AdvReac Abdominal Uncoded 07/30/17 00:44 Pain Date of admission: 08/31/17 20:40 Primary care physician: Naresh Skinner MD Consults: 09/01/17 01:14 Consult to Nutrition [CONS] Routine Comment: Consulting Provider: NUTRITION Reason for Dietary Consult: MST Score Consult to Pilot Safety Inspector [CONS] Routine Reason for SW Consult: has [facility] and O[facility] 09/01/17 15:44 Consult to Pulmonology [CONS] Routine Consulting Provider: [facility] [place] Reason for Consult: Right pleural effusion and right mid and lower lung airspace disease, greater on the right, likely pneumonia with history of SLE Call Completed: No 09/01/17 15:45 Consult to Interventional Radiology [CONS] Routine Consulting Provider: Radiology Interventional [facility] Reason for Consult: Removal of port due to bactermia Call Completed: No 09/02/17 08:01 Consult to Invasive Line Access Team [CONS] Routine Reason for Consult: Pt will have a port removed today due to being infected, pt has lupus and limited access Line Type: EPIV 09/03/17 11:35 Consult to Nephrology [CONS] Routine Consulting Provider: Kidney Mita/NORA/NESTOR/NIA Reason for Consult: Per request, history of Lupus nephritis Call Completed: Yes 09/05/17 10:58 Consult to Gastroenterology [CONS] Stat Consulting Provider: Gastroenterology Mita Reason for Consult: Suspect GI bleed Call Completed: Yes 09/06/17 07:54 Consult to Invasive Line Access Team [CONS] Routine Reason for Consult: Limited access Line Type: PICC Discharging clinician: Jaydon Turner Anticipated date of discharge: 09/06/17 - Patient Status Disposition: Home Health Service Condition: Fair Functional capacity at discharge: independent ambulation Overall status at discharge: patient is progressing back to baseline - Discharge Instructions Follow Up With: Naresh Skinner MD [Primary Care Provider] - 09/13/17 3:30 pm (Please follow up as schedule...) - Diet and Activity Activity: resume usual activities as tolerated, wear oxygen at all times Diet: diabetic diet, low fat, low cholesterol, low salt diet Interval History: See below. Hospital course: Ms. Chowdary is a 42 year old female with medical history of cirrhosis, complicated by lupus nephritis and possible pulmonary involvement. She also has hypothyroidism, diabetes mellitus, hypertension, and chronic pain syndrome. She presented with complaints of shortness of breath, an incidental finding of pneumonia and COPD exacerbation. Hospital course was complicated by acute on chronic anemia requiring 1 unit of blood transfusion. She also had Marti secondary to possible vancomycin toxicity. She is seen and evaluated at bedside this morning, status post EGD, she denies new complaints, she states that she feels the best regarding her health. However vital signs have been stable, hemoglobin and chemistry are stable and back to her baseline. Her physical exam is unremarkable except for bibasilar crackles. She is stable to be discharged home. She is encouraged to use incentive spirometry. Rest of details as in diagnosis section. Time spent discussing smoking cessation with patient: 3 to 10 minutes - Time Spent with Patient Total time spent providing and/or coordinating discharge services: Greater than 30 minutes - Constitutional Vitals: Temp Pulse Resp BP Pulse Ox 98.4 F 76 17 161/91 95 09/06/17 10:21 09/06/17 10:21 09/06/17 10:21 09/06/17 10:21 09/06/17 10:21 General appearance: Present: A&O X 3, pleasant, no acute distress - Head Head exam: Present: atraumatic, normocephalic - Eye Eye exam: Present: PERRL, conjuntiva pink, sclera anicteric Pupils: Present: PERRL - Neck Neck exam general surgery: Present: supple, trachea midline. Absent: lymphadenopathy - Respiratory Respiratory exam: Present: rhonchi. Absent: accessory muscle use, rales, wheezes - Cardiovascular Cardiovascular exam: Present: RRR, +S1, +S2. Absent: diastolic murmur, gallop, rubs, systolic murmur - GI/Abdominal GI/Abdominal exam: Present: normal bowel sounds, soft, no peritoneal signs. Absent: distended, tenderness - Extremities Exam Extremities exam: Present: warm, radial pulses palpable and symmetrical. Absent : calf tenderness, cyanotic, pedal edema - Neurological Exam Neurological exam: Present: alert, CN II-XII intact, oriented X3, no focal deficits. Absent: pronater drift, facial droop, speech deficit - Skin Skin exam: Present: dry, intact - VTE Documentation of Mechanical Device: Intermittent pneumatic compression device
[2017-09-06 10:33] LABS: ANA IgG by ELISA DETECTED (None Detected)
[2017-09-06] MEDS ORDERED: *HR* Propofol 500 MG/50 ML BOTTLE IVC ONE (11:29)
== END 2017-09-06 11:30 | disposition home health service (06) | DRG 139 ==
LOC: 2ANU 17:56 → EMEROO 17:56 → 2ANU 20:29 → SUATTDRO 20:40
PROVIDERS: ADMIT Nurse Practitioner Family; ATTEND Internal Medicine

== ENCOUNTER 2017-09-21 02:37 | Inpatient (IN) ==
[2017-09-21] MEDS ORDERED: Ipratropium/Albuterol Neb 3 ML IH ONE (02:41)
[2017-09-21] MEDS ORDERED: predniSONE 20 MG TABLET PO ONE (02:41)
--- NOTE | 2017-09-21 02:46 | Emergency Department Note ---
Disposition Clinical Impression: Respiratory distress Pneumonia Qualifiers: Pneumonia type: due to unspecified organism Laterality: right Lung location: lower lobe of lung Qualified Code(s): J18.1 - Lobar pneumonia, unspecified organism Disposition: Admitted As Inpatient Condition: Undetermined Referrals: Naresh Skinner MD [Primary Care Provider] - Forms: ED Satisfaction Letter Time of Disposition: 04:44 SOB HPI - General Chief Complaint: ED Shortness of Breath/Dyspnea Stated Complaint: ANURADHA Time Seen by Provider: 09/21/17 02:40 Source: patient, EMS Mode of arrival: EMS Limitations: no limitations Nursing Notes Reviewed: Yes Vital Signs Reviewed: Yes - History of Present Illness 42-year-old female with history of COPD associated with lupus arrives to [facility] emergency department complaining of sudden onset of difficulty breathing roughly 4 hours prior to arrival. Upon arrival from EMS the patient's O2 saturation was 75% on 4 L nasal cannula which she wears when necessary. The patient arrives to the emergency department in respiratory distress but improved and her O2 saturation and respirations after receiving 1 DuoNeb. The patient remains in respiratory distress and is using accessory muscles. The patient's O2 sat on 5 L nasal cannula is 98%. The patient is tachypneic with a respiratory rate of around 30. We will be placing her on BiPAP at this time. The patient denies any other complaints at this time other than feeling very weak and expressing a cough and chills over the course of the past 7 days. Pt Subjective Complaint: shortness of breath, cough Onset (ago): hour(s) (4) Context: recent illness Severity: moderate, severe Consistency/Duration: constant, gradually worsening Improves with: oxygen, bronchodilators Worsens with: exertion Known history of: COPD Associated symptoms: Reports: cough, wheezing, sputum production Treatment prior to arrival: oxygen, bronchodilator Cough present: Yes Cough Description: Involuntary, Productive Cough Frequency: Continuous Sputum production: Yes Sputum Amount: Small Sputum Color: White, Cream - Related Data Home oxygen amount: 4 liters (PRN) Home Medications Medication Instructions Recorded Confirmed Albuterol Sulfate [Proair Hfa] 2 puff IH BID PRN 07/10/16 09/01/17 Carvedilol [Coreg] 25 mg PO BID 07/10/16 09/01/17 Fluticasone Propionate Nasal 50 mcg NS DAILY 07/10/16 09/01/17 [Flonase] Nitroglycerin [Nitrostat] 0.4 mg SL Q5M PRN 07/10/16 09/01/17 Amlodipine Besylate 10 mg PO DAILY 09/19/16 09/01/17 Citalopram Hydrobromide [Celexa] 40 mg PO HS 07/18/17 09/01/17 Cyanocobalamin (Vitamin B-12) 2,000 mcg PO DAILY 07/18/17 09/01/17 [Vitamin B12] Ipratropium/Albuterol Neb [Duoneb] 3 ml IH Q6H PRN 07/18/17 09/01/17 Mometasone/Formoterol [Dulera 200 1 puff IH BID 07/18/17 09/01/17 Mcg/5 Mcg Inhaler] Oxygen 2 l NS AD 07/18/17 09/01/17 ALPRAZolam [Xanax 1 MG Tablet] 1 mg PO TID 07/30/17 09/01/17 Furosemide [Lasix] 40 mg PO BID 07/30/17 09/01/17 Insulin DETEMIR [Levemir] 10 - 20 unit SQ HS PRN 08/31/17 09/01/17 Levothyroxine [Synthroid] 112 mcg PO DAILY 09/01/17 09/01/17 Lisinopril [Zestril] 5 mg PO DAILY 09/01/17 09/01/17 Metoclopramide HCl 5 mg PO TID 09/01/17 09/01/17 Mycophenolate Mofetil [Cellcept] 500 mg PO BID 09/01/17 09/01/17 Ondansetron [Zofran] 8 mg PO BID PRN 09/01/17 09/01/17 Potassium Chloride [K-Tab ER] 20 meq PO DAILY 09/01/17 09/01/17 hydroCHLOROthiazide 25 mg PO DAILY 09/01/17 09/01/17 [Hydrochlorothiazide] predniSONE [PredniSONE] 60 mg PO DAILY 09/01/17 09/01/17 Previous Rx's Medication Instructions Recorded Blood Pressure Test Kit [Blood 1 each MC DAILY #1 kit 09/06/17 Pressure Monitor] Doxycycline 100 mg PO BID #10 capsule 09/06/17 Folic Acid 5 mg PO DAILY #60 tablet 09/06/17 Omeprazole [PriLOSEC] 40 mg PO BIDAC #60 capsule. 09/06/17 OxyCODONE ER (12 HR) [OxyCONTIN] 10 mg PO BID #4 tab.er.12h 09/06/17 OxyCODONE Immed Rel [Roxicodone 5 10 mg PO TID #9 tablet 09/06/17 MG] Sulfamethoxazole/Trimeth DS 1 each PO DAILY #30 tablet 09/06/17 [Bactrim Ds] Tiotropium [Spiriva] 18 mcg IH DAILY@0700 inh 09/06/17 Allergies Allergy/AdvReac Type Severity Reaction Status Date / Time ketorolac [From Toradol] AdvReac Abdominal Verified 09/21/17 02:38 Pain NSAIDS (Non-Steroidal AdvReac Abdominal Verified 09/21/17 02:38 Anti-Inflamma Pain tramadol AdvReac Abdominal Verified 09/21/17 02:38 Pain pyridium AdvReac Abdominal Uncoded 09/21/17 02:38 Pain All systems ED: reviewed and negative except as stated. Constitutional: Reports: chills. Denies: fever, weakness ENT ED: Denies: congestion Cardiovascular: Reports: dyspnea on exertion. Denies: chest pain, edema Respiratory: Reports: cough, dyspnea, wheezes. Denies: hemoptysis, stridor, sputum production Gastrointestinal: Denies: abdominal pain, nausea, vomiting Genitourinary: Denies: urgency, dysuria Musculoskeletal: Denies: back pain, neck pain Neurological: Denies: headache, weakness Past Medical History - Past Medical History Attestation: Yes The following information was validated with the patient. 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 OUT CLERK history - Social History Smoking Status: Never smoker Smokeless Tobacco Status: No Alcohol use: Reports: none Drug use: Reports: none Physical Exam - General Limitations: no limitations General appearance: alert, in distress (Respiratory) - Head Head exam: atraumatic, normocephalic, normal inspection - Eye Eye exam: Present: normal appearance, PERRL, EOMI - ENT ENT exam: normal exam, normal oropharynx, mucous membranes moist - Neck Neck exam: Present: normal inspection, full ROM, trachea midline - Chest Chest inspection: Present: normal inspection, symmetric chest wall rise - Respiratory Respiratory exam: Present: respiratory distress, wheezes, accessory muscle use - Cardiovascular Cardiovascular exam: Present: regular rate, normal rhythm, normal heart sounds - Abdominal Exam Abdominal exam: Present: soft, Non-Tender. Absent: tenderness, distention, guarding, rebound, rigidity - Extremities Exam Extremities exam: Present: normal inspection, full ROM. Absent: tenderness, pedal edema Course Vital Signs Temperature 97.9 F 09/21/17 02:38 Pulse Rate 81 09/21/17 02:38 Respiratory Rate 44 09/21/17 02:38 Blood Pressure 209/108 09/21/17 02:38 O2 Sat by Pulse Oximetry 100 09/21/17 02:38 Temperature 97.9 F 09/21/17 02:38 Pulse Rate 73 09/21/17 04:31 Respiratory Rate 21 09/21/17 04:31 Blood Pressure 166/90 09/21/17 04:31 O2 Sat by Pulse Oximetry 96 09/21/17 04:31 Oxygen Delivery Oxygen Delivery Bipap Shortness of Breath/Dyspnea - MDM Narrative Medical decision making narrative: Workup in the emergency department demonstrate a right pneumonia. She was started on vancomycin, Zosyn, Levaquin for a right-sided pneumonia. We will admit the patient to the hospitalist, accepted by Dr. Ryan. - Lab Data Lab results reviewed: Yes I reviewed the patient's lab results. Result diagrams: 09/21/17 02:56 09/21/17 02:56 Lab Results 09/21/17 09/21/17 09/21/17 Range/Units 02:56 02:56 02:56 WBC 11.4 H (4.3-11.1) K/mcL RBC 3.04 L (3.82-4.97) M/mcL Hgb 9.2 L (11.5-15.4) g/dL Hct 29.3 L (35.3-44.9) % MCV 96.4 (83.0-100.0) fL MCH 30.3 (28.0-33.3) pg MCHC 31.4 L (31.6-35.5) g/dL RDW 14.9 H (11.5-14.5) % Plt Count 220 (140-400) K/mcL MPV 10.2 (9.4-12.4) fL Immature Gran % 0.8 (0-4) % Seg Neutrophils % 86.6 % Lymphocytes % 7.7 % Monocytes % 4.4 % Eosinophils % 0.3 % Basophils % 0.2 % Neutrophils # 9.8 H (1.6-8.9) K/mcL Lymphocytes # 0.9 (0.6-4.6) K/mcL Monocytes # 0.5 (0.0-1.3) K/mcL Eosinophils # 0.0 (0.0-0.6) K/mcL Basophils # 0.0 (0.0-0.2) K/mcL Sodium 143 (136-145) mEq/L Potassium 3.0 L (3.5-4.5) mEq/L Chloride 98 (98-109) mEq/L Carbon Dioxide 38 H (19-29) mEq/L BUN 21 H (7-20) mg/dL Creatinine 0.78 (0.57-1.11) mg/dL Est GFR ( Amer) > 60 (> 60) Est GFR (Non-Af Amer) > 60 (> 60) BUN/Creatinine Ratio 27 H (6-26) Glucose 113 H (70-99) mg/dL Calculated Osmolality 300 (280-300) Calcium 9.3 (8.6-10.8) mg/dL Troponin I 0.00 (0-0.03) ng/mL - Radiology Data Radiology results reviewed: Yes I reviewed the patient's radiology results. Attestation Statement - Attestation Attestation: I examined this patient and my medical decision-making was reviewed with the Resident Physician. I agree with the documented findings, disposition and treatment plan as described except to the extent set forth below. Patient eating difficulty breathing. Shortness of breath. Denies cough. Denies fever. Patient has lupus. On examination she is dyspneic. Tachypneic. Diminished breath sounds on the right. Plan. Patient was placed on BiPAP and is doing much better. Saturations now in the 90s. Large infiltrate and effusion on the right on her chest x-ray. Starting antibiotics and will admit to medicine. 40 minutes of critical care exclusive of separately billable procedures.
[2017-09-21 03:04] LABS: Basophils % 0.2 %; Eosinophils % 0.3 %; Hematocrit 29.3 % (35.3-44.9); Hemoglobin 9.2 g/dL (11.5-15.4); Immature Granulocytes % 0.8 % (0-4); Lymphocytes # 0.9 K/mcL (0.6-4.6); Lymphocytes % 7.7 %; Mean Corpuscular HGB Conc 31.4 g/dL (31.6-35.5); Mean Corpuscular Hemoglobin 30.3 pg (28.0-33.3); Mean Corpuscular Volume 96.4 fL (83.0-100.0); Mean Platelet Volume 10.2 fL (9.4-12.4); Monocytes # 0.5 K/mcL (0.0-1.3); Monocytes % 4.4 %; Neutrophils # 9.8 K/mcL (1.6-8.9); Platelet Count 220 K/mcL (140-400); Red Blood Count 3.04 M/mcL (3.82-4.97); Red Cell Distribution Width 14.9 % (11.5-14.5); Segmented Neutrophils % 86.6 %
[2017-09-21 03:20] LABS: BUN/Creatinine Ratio 27 (6-26); Blood Urea Nitrogen 21 mg/dL (7-20); Calcium 9.3 mg/dL (8.6-10.8); Carbon Dioxide 38 mEq/L (19-29); Chloride 98 mEq/L (98-109); Glucose 113 mg/dL (70-99); Osmolality,Calculated 300 (280-300); Sodium 143 mEq/L (136-145); eGFR For African Americans > 60 (> 60); eGFR For Non-African Americans > 60 (> 60)
[2017-09-21] MEDS ORDERED: Vancomycin 1,000 MG in D5% in Water 250 ML IVPB ONE (04:23)
[2017-09-21] MEDS ORDERED: Levofloxacin 500 MG/100 ML 500 MG/100 ML BAG IVPB ONE (04:23)
[2017-09-21] MEDS ORDERED: Piperacillin/Tazobactam 3.375 GM in D5% in Water 50 ML IVPB ONE (04:23)
[2017-09-21] MEDS ORDERED: Ondansetron 4 MG/2 ML VIAL IVP ONE (04:34)
[2017-09-21] MEDS ORDERED: *HR* FentaNYL (PF) 100 MCG/2 ML VIAL IVP ONE (04:34)
[2017-09-21] MEDS ORDERED: Potassium Chloride Elixir 20 MEQ/15 ML UDC PO ONE (05:16)
[2017-09-21] MEDS ORDERED: Acetaminophen 325 MG TABLET PO PRN (08:26)
[2017-09-21] MEDS ORDERED: *HR* Promethazine 25 MG/ML VIAL IVP PRN (08:26)
[2017-09-21] MEDS ORDERED: Naloxone 0.4 MG/ML INJ IVP PRN (08:26)
[2017-09-21] MEDS ORDERED: amLODIPine 5 MG TABLET PO SCH (09:15)
--- NOTE | 2017-09-21 09:23 | Internal Med History&Physical ---
Date of Encounter: 09/21/17 Time of Encounter: 09:19 Assessment and Plan (1) Acute and chronic respiratory failure with hypoxia Current visit: Yes Status: Acute Will admit the pt into step down unit she does have severe respiratory failure with hypoxia slightly better now with BiPAP will obtain an ABG Cont BiPAP for next 24hrs reviewed CXR by myself showed large pleural effusion on Rt side and infiltrates..Inc vascular congestion consulted IR for thoracoentesis Also consulted Pulmonary for further eval Started on IV lasix Started on empirical abx Levaquin + cefepime f/u on blood cx, sputum cx Risk assessment : Pt is high risk for respiratory compromise, does need close monitoring and higher level of care I did spent 45 minutes on this pt's critical care. (2) Pleural effusion Current visit: Yes Status: Acute Mostly due to Lupus induced Reviewed 2 D Echo from last month.. Normal LVEF, Normal Left ventricle diastolic function No signs of CHF IR / pulm consulted for thoracocentesis started on Lasix (3) SIRS (systemic inflammatory response syndrome) Current visit: Yes Status: Acute Does meet SIRS criteria with elevated WBC< severe hypoxia, Source of inf as pneumonia Normal LA (4) Pneumonia Current visit: Yes Status: Acute Cont broad spec abx Qualifiers: Pneumonia type: due to unspecified organism Laterality: right Lung location: lower lobe of lung Qualified Code(s): J18.1 - Lobar pneumonia, unspecified organism (5) Acute exacerbation of chronic obstructive airways disease Current visit: No Status: Acute Started on Duonebs and high dose IV steroids (6) Hypertension Current visit: No Status: Chronic Will resume home meds Qualifiers: Hypertension type: essential hypertension Qualified Code(s): I10 - Essential (primary) hypertension (7) Hypothyroidism Current visit: No Status: Chronic resumed home meds Qualifiers: Hypothyroidism type: unspecified Qualified Code(s): E03.9 - Hypothyroidism , unspecified (8) SLE (systemic lupus erythematosus) Current visit: No Status: Chronic resumed home meds on steroids too Qualifiers: Systemic lupus erythematosus type: unspecified Systemic lupus erythematosus organ involvement: unspecified Qualified Code(s): M32.9 - Systemic lupus erythematosus, unspecified Internal Medicine - H&P: HPI Chief complaint: Shortness of breath Admitted From: Emergency Dept Plans for Post Hospital Care: Home History of present illness: Ms. Chowdary is a 42 year old female past medical history of COPD, chronic hypoxic resp failure, home oxygen dependent, fibromyalgia, chronic narcotic dependence, [place] 2009, rheumatoid arthritis, thyroid disease, GERD, GI bleed, Pulmonary hypertension, and Chronic lupus pt who recently hospitalized here for pneumonia on 09/06/17 now she came back to ER this morning c/o severe worsening SOB and NOYOLA. She was severely hypoxic in the ER Spo2 in 70's on 4 lit O2. She was placed on BiPAP right away and give broad spec abx for pneumonia. Now pt is resting comfortably on BiPAP. Denied any CP. Does c/o chills, generalized body pain. No cough. No recent travel history / no sick contacts. Her CXR showed large Rt pleural effusion and Pneumonia. Past Med Surg Social Fam HX - Past Medical History Medical history: asthma, COPD, DVT, fibromyalgia, GERD, GI bleed, hypertension, kidney stones, myocardial infarction, RA, thyroid disease, other Psychiatric history: anxiety - Past Surgical History Surgical History: cholecystectomy, hysterectomy - Social History Smoking Status: Never smoker Smokeless Tobacco Status: No Alcohol use: none Drug use: none - Family History Mother History Unknown: Yes Living Status: Hx Family Cardiac Disorders: Yes (mi, CHF) Father Living Status: Hx Family Cardiac Disorders: Yes Hx Family Endocrine Disorder: Yes Internal Medicine - H&P: Meds Albuterol Sulfate [Proair Hfa] 2 puff IH BID PRN 07/10/16 [History] Carvedilol [Coreg] 25 mg PO BID 07/10/16 [History] Fluticasone Propionate Nasal [Flonase] 50 mcg NS DAILY 07/10/16 [History] Nitroglycerin [Nitrostat] 0.4 mg SL Q5M PRN 07/10/16 [History] Amlodipine Besylate 10 mg PO DAILY 09/19/16 [History] Citalopram Hydrobromide [Celexa] 40 mg PO HS 07/18/17 [History] Cyanocobalamin (Vitamin B-12) [Vitamin B12] 2,000 mcg PO DAILY 07/18/17 [History ] Ipratropium/Albuterol Neb [Duoneb] 3 ml IH Q6H PRN 07/18/17 [History] Mometasone/Formoterol [Dulera 200 Mcg/5 Mcg Inhaler] 1 puff IH BID 07/18/17 [ History] Oxygen 2 l NS AD 07/18/17 [History] ALPRAZolam [Xanax 1 MG Tablet] 1 mg PO TID 07/30/17 [History] Furosemide [Lasix] 40 mg PO BID 07/30/17 [History] Insulin DETEMIR [Levemir] 10 - 20 unit SQ HS PRN 08/31/17 [History] Levothyroxine [Synthroid] 112 mcg PO DAILY 09/01/17 [History] Lisinopril [Zestril] 5 mg PO DAILY 09/01/17 [History] Metoclopramide HCl 5 mg PO TID 09/01/17 [History] Mycophenolate Mofetil [Cellcept] 500 mg PO BID 09/01/17 [History] Ondansetron [Zofran] 8 mg PO BID PRN 09/01/17 [History] Potassium Chloride [K-Tab ER] 20 meq PO DAILY 09/01/17 [History] hydroCHLOROthiazide [Hydrochlorothiazide] 25 mg PO DAILY 09/01/17 [History] predniSONE [PredniSONE] 60 mg PO DAILY 09/01/17 [History] Blood Pressure Test Kit [Blood Pressure Monitor] 1 each MC DAILY #1 kit [Rx] Doxycycline 100 mg PO BID #10 capsule 09/06/17 [Rx] Folic Acid 5 mg PO DAILY #60 tablet 09/06/17 [Rx] Omeprazole [PriLOSEC] 40 mg PO BIDAC #60 capsule. 09/06/17 [Rx] OxyCODONE ER (12 HR) [OxyCONTIN] 10 mg PO BID #4 tab.er.12h 09/06/17 [Rx] OxyCODONE Immed Rel [Roxicodone 5 MG] 10 mg PO TID #9 tablet 09/06/17 [Rx] Sulfamethoxazole/Trimeth DS [Bactrim Ds] 1 each PO DAILY #30 tablet 09/06/17 [Rx ] Tiotropium [Spiriva] 18 mcg IH DAILY@0700 inh 09/06/17 [Rx] 3 Allergy/AdvReac Type Severity Reaction Status Date / Time ketorolac [From Toradol] AdvReac Abdominal Verified 09/21/17 02:38 Pain NSAIDS (Non-Steroidal AdvReac Abdominal Verified 09/21/17 02:38 Anti-Inflamma Pain tramadol AdvReac Abdominal Verified 09/21/17 02:38 Pain pyridium AdvReac Abdominal Uncoded 09/21/17 02:38 Pain All Systems PM: A 10-system review of systems was performed and is negative for pertinent findings except as documented above in the HPI. Review of systems: Reviewed all the systems, everything is benign except the systems and symptoms I mentioned in HPI. - Constitutional Vitals: Temp Pulse Resp BP Pulse Ox 98.0 F 80 17 168/85 94 09/21/17 07:12 09/21/17 07:12 09/21/17 07:12 09/21/17 07:12 09/21/17 07:12 General appearance: Present: mild distress, A&O X 3, answers questions appropriately - Head Head exam: Present: atraumatic, normal inspection - Respiratory Respiratory exam: Present: decreased breath sounds, rales, respiratory distress (mild), wheezes (moderate). Absent: rhonchi - Cardiovascular Cardiovascular exam: Present: RRR, +S1, +S2. Absent: systolic murmur - GI/Abdominal GI/Abdominal exam: Present: normal bowel sounds, soft. Absent: rebound, rigid, tenderness - Extremities Exam Extremities exam: Absent: calf tenderness, pedal edema, tenderness - Back Exam Back exam: Absent: CVA tenderness (L), CVA tenderness (R) - Neurological Exam Neurological exam: Present: alert, oriented X3 - Psychiatric Psychiatric exam: Present: anxious Internal Med - H&P Results - Labs CBC & Chem 7: 09/21/17 02:56 09/21/17 02:56
[2017-09-21] MEDS: Levofloxacin 500 MG/100 ML 500 MG/100 ML BAG IVPB SCH (09:45)
[2017-09-21] MEDS: Cefepime HCl 1,000 MG in Water for inj. (sterile) 10 ML IVP SCH ×2 (09:46→17:43)
[2017-09-21] MEDS: Furosemide 40 MG/4 ML VIAL IVP SCH ×2 (09:46→15:55)
[2017-09-21] MEDS: Folic Acid 1 MG TABLET PO SCH (09:46)
[2017-09-21] MEDS: Ondansetron 4 MG/2 ML VIAL IVP PRN ×2 (09:47→15:54)
[2017-09-21] MEDS: *HR* HYDROcodone/Acet 5/325 mg TABLET PO PRN (09:47)
--- NOTE | 2017-09-21 10:40 | Pulmonology Consult Note ---
Date of Encounter: 09/21/17 Time of Encounter: 10:40 Assessment and Plan (1) Pleural effusion Current Visit: Yes Status: Acute This is likely secondary to SLE "lupus pleuritis" and causing significant dyspnea.A THORACENESIS is recommended. The procedure , risks, benefits, complications, and expected outcomes have been reviewed. Benefits of diagnosis, as well as risks to include bleeding, infection, pneumothorax which may require surgical intervention, and in a small population. The patient is aware that sometimes test is nondiagnostic. Discussed with patient and agrees to proceed. She also understands that given the DVT prophylaxis with Lovenox she is at slightly increased risk for bleeding Plan to send pleural fluid studies for further evaluation I doubt this is secondary to infection (2) Sleep-disordered breathing Current Visit: Yes Status: Acute Patient has significant risk factors for sleep-disordered breathing and suspect underlying obstructive sleep apnea and likely obesity hypoventilation syndrome she will need outpatient polysomnogram for further evaluation of this (3) Acute respiratory failure with hypoxia Current Visit: No Status: Acute Continue supplemental oxygen to keep saturation greater than 88% at all times. Okay for noninvasive ventilation to help with work of breathing (4) Pulmonary hypertension Current Visit: No Status: Acute This was noted on a recent echocardiogram although the rest of the echocardiogram showed normal LV function and RV function and normal diastology. Chronic hypoxic respiratory failure can be associated with pulmonary hypertension as well as SLE the former resulting in WHO group 3 disease the latter resulting in WHO group 1 disease. She will need ongoing evaluation including polysomnogram oxygen therapy and possible right heart catheterization to evaluate for left and right heart filling pressures. This will be done as an outpatient. In general at this time I recommend that negative volume status over the next 24-48 hours (5) SLE (systemic lupus erythematosus) Current Visit: Yes Status: Acute Possible lupus pleuritis agree with continuation of steroids she will need close follow-up with agriculture science teacher if no improvement or worsening symptomatology during this hospitalization recommend inpatient rheumatology consult. Qualifiers: Systemic lupus erythematosus type: unspecified Systemic lupus erythematosus organ involvement: unspecified Qualified Code(s): M32.9 - Systemic lupus erythematosus, unspecified History of Present Illness Consult date: 09/21/17 Requesting physician: Mitzy Angulo Reason for consult: pleural effusion Chief complaint: Shortness of Breath History of present illness: This is a pleasant 42-year-old woman with past medical history per history of systemic lupus erythematosus who presented with acute shortness of breath found to have a large right-sided pleural effusion. She says it symptoms came on suddenly on yesterday evening and she felt like she could not breathe. She had noticed that she had some increasing shortness of breath over the 2 days prior to this but nothing as severe as what she felt last night. She has no previous history of lung diseases that she knows of including asthma she is a lifelong nonsmoker from our conversation today. No exotic pets no recent exposures to sick people except for a couple of her grandchildren children who have just gotten over a "cough" she may have also been experiencing some subjective fevers or the 2 days prior to admission but denies cough or sputum production hemoptysis rash. She is maintained on 60 mg of prednisone daily for SLE her agriculture science teacher is located in [place]. She was also has a history of lupus nephritis. Recent hospitalization within the last 2 weeks for pneumonia which she has recovered from. She is requiring 3 L of oxygen to keep saturation around 95%. Overnight she was given noninvasive ventilation to help with work of breathing and she said that actually helped quite a bit. She does have difficulty sleeping at night waking up gasping unrefreshed sleep and loud snoring she has never gone for a polysomnogram Past Med Surg Social Fam HX - Past Medical History Medical history: asthma, COPD, DVT, fibromyalgia, GERD, GI bleed, hypertension, kidney stones, myocardial infarction, RA, thyroid disease, other Psychiatric history: anxiety - Past Surgical History Surgical History: cholecystectomy, hysterectomy - Social History Smoking Status: Never smoker Smokeless Tobacco Status: No Alcohol use: none Drug use: none - Family History Mother History Unknown: Yes Living Status: Hx Family Cardiac Disorders: Yes (mi, CHF) Father Living Status: Hx Family Cardiac Disorders: Yes Hx Family Endocrine Disorder: Yes Medications and Allergies Albuterol Sulfate [Proair Hfa] 2 puff IH BID PRN 07/10/16 [History] Carvedilol [Coreg] 25 mg PO BID 07/10/16 [History] Fluticasone Propionate Nasal [Flonase] 50 mcg NS DAILY 07/10/16 [History] Nitroglycerin [Nitrostat] 0.4 mg SL Q5M PRN 07/10/16 [History] Amlodipine Besylate 10 mg PO DAILY 09/19/16 [History] Citalopram Hydrobromide [Celexa] 40 mg PO HS 07/18/17 [History] Cyanocobalamin (Vitamin B-12) [Vitamin B12] 2,000 mcg PO DAILY 07/18/17 [History ] Ipratropium/Albuterol Neb [Duoneb] 3 ml IH Q6H PRN 07/18/17 [History] Mometasone/Formoterol [Dulera 200 Mcg/5 Mcg Inhaler] 1 puff IH BID 07/18/17 [ History] Oxygen 2 l NS AD 07/18/17 [History] ALPRAZolam [Xanax 1 MG Tablet] 1 mg PO TID 07/30/17 [History] Furosemide [Lasix] 40 mg PO BID 07/30/17 [History] Levothyroxine [Synthroid] 112 mcg PO DAILY 09/01/17 [History] Lisinopril [Zestril] 5 mg PO DAILY 09/01/17 [History] Metoclopramide HCl 5 mg PO TID 09/01/17 [History] Mycophenolate Mofetil [Cellcept] 500 mg PO BID 09/01/17 [History] Ondansetron [Zofran] 8 mg PO BID PRN 09/01/17 [History] Potassium Chloride [K-Tab ER] 20 meq PO DAILY 09/01/17 [History] hydroCHLOROthiazide [Hydrochlorothiazide] 25 mg PO DAILY 09/01/17 [History] predniSONE [PredniSONE] 60 mg PO DAILY 09/01/17 [History] Folic Acid 5 mg PO DAILY #60 tablet 09/06/17 [Rx] Omeprazole [PriLOSEC] 40 mg PO BIDAC #60 capsule.dr 09/06/17 [Rx] OxyCODONE ER (12 HR) [OxyCONTIN] 10 mg PO BID #4 tab.er.12h 09/06/17 [Rx] OxyCODONE Immed Rel [Roxicodone 5 MG] 10 mg PO TID #9 tablet 09/06/17 [Rx] Insulin Glargine,Hum.rec.anlog [Basaglar Kwikpen U-100] 20 unit SQ DAILY [History] Ranitidine HCl [Zantac] 300 mg PO DAILY 09/21/17 [History] Sulfamethoxazole/Trimeth DS [Bactrim Ds] 1 tab PO DAILY 09/21/17 [History] Tiotropium [Spiriva] 18 mcg IH DAILY 09/21/17 [History] 3 Allergy/AdvReac Type Severity Reaction Status Date / Time ketorolac [From Toradol] AdvReac Abdominal Verified 09/21/17 02:38 Pain NSAIDS (Non-Steroidal AdvReac Abdominal Verified 09/21/17 02:38 Anti-Inflamma Pain tramadol AdvReac Abdominal Verified 09/21/17 02:38 Pain pyridium AdvReac Abdominal Uncoded 09/21/17 02:38 Pain All Systems: A 10-system review of systems was performed and is negative for pertinent findings except as documented above in the HPI. Physical Examination General appearance: no acute distress Eyes: nonicteric ENT: other (Thrush noted) Mallampati (class): 3 Neck: supple, no lymphadenopathy Effort: normal Auscultation: right: diminished breath sounds, bilateral: rales Cardiovascular: regular rate and rhythm Gastrointestinal: normoactive bowel sounds Integumentary: normal Extremities: no cyanosis, no clubbing, pink and warm, pulses normal, edema ( Trace bilateral lower extremity edema) Musculoskeletal: no deformities normal mental status, non-focal exam mood appropriate Results - Laboratory Findings CBC and BMP: 09/21/17 02:56 09/21/17 02:56 Abnormal lab findings: Abnormal lab results WBC 11.4 K/mcL (4.3-11.1) H 09/21/17 02:56 RBC 3.04 M/mcL (3.82-4.97) L 09/21/17 02:56 Hgb 9.2 g/dL (11.5-15.4) L 09/21/17 02:56 Hct 29.3 % (35.3-44.9) L 09/21/17 02:56 MCHC 31.4 g/dL (31.6-35.5) L 09/21/17 02:56 RDW 14.9 % (11.5-14.5) H 09/21/17 02:56 Neutrophils # 9.8 K/mcL (1.6-8.9) H 09/21/17 02:56 Potassium 3.0 mEq/L (3.5-4.5) L 09/21/17 02:56 Carbon Dioxide 38 mEq/L (19-29) H 09/21/17 02:56 BUN 21 mg/dL (7-20) H 09/21/17 02:56 BUN/Creatinine Ratio 27 (6-26) H 09/21/17 02:56 Glucose 113 mg/dL (70-99) H 09/21/17 02:56 - Diagnostic Findings Chest x-ray: report reviewed, image reviewed Consult Discharge Plan - Plan Referrals: Naresh Skinner MD [Primary Care Provider] -
[2017-09-21] MEDS: Ipratropium/Albuterol Neb 3 ML IH SCH ×3 (11:28→20:27)
[2017-09-21] MEDS: *HR* Morphine 2 MG/ML SYRINGE IVP PRN (11:54)
--- NOTE | 2017-09-21 13:05 | Procedure Note ---
Date of procedure: 09/21/17 Pre-op diagnosis: Pleural effusion Post-op diagnosis: same Procedure: A time-out was completed verifying correct patient, procedure, site, positioning , and special equipment if applicable. The patients right/ side was prepped and draped in a sterile manner after the appropriate infiltration level was confirmed by ultrasound. 1% lidocaine was used anesthetize the surrounding skin. Ultrasound was used to identify the moderate to large right-sided pleural effusion the area was marked A finder needle was then used to locate fluid and clear yellow fluid was obtained. A 10-blade scalpel used to make the incision. The thoracentesis catheter was then threaded without difficulty. The patient had 1200mL of clear rodrigue colored fluid removed. A post-procedure chest x-ray was ordered and the fluid will be sent for several studies. No immediate complications Surgeon: Shon Law Estimated blood loss (cc): 0 Pathology: other (Fluid for Cytology) Condition: stable Disposition: no change
[2017-09-21 13:59] LABS: Lactate Dehydrogenase 281 Units/L (159-327); Total Protein 6.6 g/dL (6.0-8.3)
[2017-09-21] MEDS: ALPRAZolam 1 MG TABLET PO PRN ×2 (14:19→20:34)
[2017-09-21 14:21] LABS: RBC,Pleural Fluid 0.008 M/mcL
[2017-09-21 14:27] LABS: Glucose,Pleural Fluid 104 mg/dL (No Ref Range)
[2017-09-21 15:45] LABS: Appearance of Pleural Fl Cloudy (Clear)
[2017-09-21] MEDS: MethylPREDNISolone 40 MG/ML VIAL IVP SCH (15:54)
[2017-09-21] MEDS: *HR* OxyCODONE ER (12 HR) 10 MG TABLET PO SCH (20:34)
[2017-09-22] MEDS: Ipratropium/Albuterol Neb 3 ML IH SCH ×6 (00:10→20:08)
[2017-09-22] MEDS: MethylPREDNISolone 40 MG/ML VIAL IVP SCH ×4 (04:28→23:35)
[2017-09-22] MEDS: *HR* Enoxaparin 40 MG/0.4 ML SYRINGE SQ SCH (06:01)
[2017-09-22] MEDS: Cefepime HCl 1,000 MG in Water for inj. (sterile) 10 ML IVP SCH ×2 (06:02→18:02)
[2017-09-22 06:23] LABS: Hematocrit 25.7 % (35.3-44.9); Hemoglobin 8.1 g/dL (11.5-15.4); Immature Granulocytes % 0.3 % (0-4); Immature Platelets 4.4 % (1.1-6.1); Lymphocytes # 0.4 K/mcL (0.6-4.6); Lymphocytes % 6.4 %; Mean Corpuscular HGB Conc 31.5 g/dL (31.6-35.5); Mean Corpuscular Hemoglobin 29.8 pg (28.0-33.3); Mean Corpuscular Volume 94.5 fL (83.0-100.0); Mean Platelet Volume 10.3 fL (9.4-12.4); Monocytes # 0.1 K/mcL (0.0-1.3); Monocytes % 1.2 %; Neutrophils # 5.3 K/mcL (1.6-8.9); Platelet Count 217 K/mcL (140-400); Red Blood Count 2.72 M/mcL (3.82-4.97); Red Cell Distribution Width 15.1 % (11.5-14.5); Segmented Neutrophils % 92.1 %
--- NOTE | 2017-09-22 06:44 | Pulmonology Progress Note ---
Date of Encounter: 09/22/17 Time of Encounter: 06:44 Assessment and Plan (1) Pleural effusion Current Visit: Yes Status: Acute (2) Sleep-disordered breathing Current Visit: Yes Status: Acute (3) Acute respiratory failure with hypoxia Current Visit: No Status: Acute (4) Pulmonary hypertension Current Visit: No Status: Acute (5) SLE (systemic lupus erythematosus) Current Visit: Yes Status: Acute Qualifiers: Systemic lupus erythematosus type: unspecified Systemic lupus erythematosus organ involvement: unspecified Qualified Code(s): M32.9 - Systemic lupus erythematosus, unspecified Objective PUL Vital signs: Last Vital Signs Temp 98.4 F 09/22/17 03:41 Pulse 65 09/22/17 03:41 Resp 16 09/22/17 04:40 BP 119/79 09/22/17 03:41 Pulse Ox 96 09/22/17 04:40 Results - Laboratory Findings CBC and BMP: 09/22/17 06:15 09/21/17 02:56 Abnormal lab findings: Abnormal lab results RBC 2.72 M/mcL (3.82-4.97) L 09/22/17 06:15 Hgb 8.1 g/dL (11.5-15.4) L 09/22/17 06:15 Hct 25.7 % (35.3-44.9) L 09/22/17 06:15 MCHC 31.5 g/dL (31.6-35.5) L 09/22/17 06:15 RDW 15.1 % (11.5-14.5) H 09/22/17 06:15 Lymphocytes # 0.4 K/mcL (0.6-4.6) L 09/22/17 06:15 Potassium 3.0 mEq/L (3.5-4.5) L 09/21/17 02:56 Carbon Dioxide 38 mEq/L (19-29) H 09/21/17 02:56 BUN 21 mg/dL (7-20) H 09/21/17 02:56 BUN/Creatinine Ratio 27 (6-26) H 09/21/17 02:56 Glucose 113 mg/dL (70-99) H 09/21/17 02:56 Pleural Appearance Cloudy (Clear) A 09/21/17 12:45 Pleural RBC 0.008 M/mcL (0.000-0.002) H 09/21/17 12:45 Pleural Tot Nuc Cell 2788 TNC/mcL (0-1000) H 09/21/17 12:45 - Microbiology Findings Microbiology Findings: Microbiology, Last 48 Hours 09/21/17 12:45 Body Fluid Culture - Preliminary Pleural Fluid - Clinical Findings Intake & Output: Intake & Output 09/21/17 09/21/17 09/22/17 15:59 23:59 07:59 Intake Total 130 / 130 330 / 330 0 / 0 Output Total 300 / 300 1200 / 1200 0 / 0 Balance -170 / -170 -870 / -870 0 / 0 Weight 71.2 kg Consult Discharge Plan - Plan Referrals: Naresh Skinner MD [Primary Care Provider] -
[2017-09-22 07:10] LABS: Alanine Aminotransferase 7 Units/L (0-55); Albumin 2.1 g/dL (3.5-5.0); Albumin/Globulin Ratio 0.5 (1.1-2.2); Alkaline Phosphatase 68 Units/L (38-126); Aspartate Amino Transferase 10 Units/L (5-34); BUN/Creatinine Ratio 26 (6-26); Bilirubin,Total 0.3 mg/dL (0.2-1.2); Blood Urea Nitrogen 23 mg/dL (7-20); Calcium 8.8 mg/dL (8.6-10.8); Chloride 98 mEq/L (98-109); Globulin 3.9 g/dL (2.4-3.5); Glucose 153 mg/dL (70-99); Magnesium 1.5 mg/dL (1.6-2.6); Osmolality,Calculated 307 (280-300); Phosphorous 2.9 mg/dL (2.3-4.7); Potassium 3.6 mEq/L (3.5-4.5); Sodium 145 mEq/L (136-145); eGFR For African Americans > 60 (> 60); eGFR For Non-African Americans > 60 (> 60)
[2017-09-22 07:13] LABS: Carbon Dioxide 40 mEq/L (19-29)
--- NOTE | 2017-09-22 08:13 | Internal Med Progress Note ---
Date of Encounter: 09/22/17 Time of Encounter: 08:11 - Assessment and plan (1) Acute and chronic respiratory failure with hypoxia Current Visit: Yes Status: Acute Assessment and plan: Slowly improving Triggered by Pleural effusion and Pneumonia s/p thoracocentesis - removed 1200 CC by Pulmonary still on 4 lit O2 - her baseline @ 2-3 lit O2 Cont duoneb + Steroids + Abx Cont PO Lasix Risk assessment: pt is still at moderate risk for possible respiratory compromise.. However she is stable enough to go to [facility] (2) Pleural effusion Current Visit: Yes Status: Acute Assessment and plan: s/p thoracocentesis reviewed fluid analysis - consistent with exudate - mostly lupus induced possible lupus pleuritis Pt was on Cellcept, Prednisone and Bactrim at home resumed Cellcept, Bactrim and on IV steroids now does not look like any lupus flare up now..other than pleural effusion Cont supportive and symptomatic care Pt wants to f/u with our rehumatologist here in [place].. so will call Dr. Bolden in (3) SIRS (systemic inflammatory response syndrome) Current Visit: Yes Status: Acute Assessment and plan: Improving (4) Pneumonia Current Visit: Yes Status: Acute Assessment and plan: Cont broad spec abx Cefepime + Levaquin Qualifiers: Pneumonia type: due to unspecified organism Laterality: right Lung location: lower lobe of lung Qualified Code(s): J18.1 - Lobar pneumonia, unspecified organism (5) Acute exacerbation of chronic obstructive airways disease Current Visit: No Status: Acute Assessment and plan: Cont scheduled Duoneb + started tapering steroids (6) Hypertension Current Visit: No Status: Chronic Assessment and plan: slightly on lower side help Coreg and Norvasc cont Lasix Qualifiers: Hypertension type: essential hypertension Qualified Code(s): I10 - Essential (primary) hypertension (7) Hypothyroidism Current Visit: No Status: Chronic Assessment and plan: resumed home meds Qualifiers: Hypothyroidism type: unspecified Qualified Code(s): E03.9 - Hypothyroidism , unspecified (8) SLE (systemic lupus erythematosus) Current Visit: No Status: Chronic Assessment and plan: resumed home meds Cellcept, Bactrim + on IV steroids Pt wants to f/u with our manufacturers agent here Qualifiers: Systemic lupus erythematosus type: unspecified Systemic lupus erythematosus organ involvement: unspecified Qualified Code(s): M32.9 - Systemic lupus erythematosus, unspecified - Subjective Interval history: Ms. Chowdary is a 42 year old female past medical history of COPD, chronic hypoxic resp failure, home oxygen dependent, fibromyalgia, chronic narcotic dependence, [place] 2008, rheumatoid arthritis, thyroid disease, GERD, GI bleed, Pulmonary hypertension, and Chronic lupus pt who recently hospitalized here for pneumonia on 09/06/17 now she came back to ER this morning c/o severe worsening SOB and NOYOLA. She was severely hypoxic in the ER Spo2 in 70's on 4 lit O2. She was placed on BiPAP right away and give broad spec abx for pneumonia. Pt did have large Rt pleural effusion, for which she had thoracocentesis done on 09/21/17, got removed 1200 CC fluid. Today she is more alert, awake and O x3. Still has moderate SOB and NOYOLA. Denied any CP. Pt did mention she is taking her lupus medication Cellcept and Prednisone regularly and following a manufacturers agent from [facility] closely. - Constitutional Vitals: Temp Pulse Resp BP Pulse Ox 98.4 F 65 16 119/79 96 09/22/17 03:41 09/22/17 03:41 09/22/17 04:40 09/22/17 03:41 09/22/17 04:40 General appearance: Present: A&O X 3, answers questions appropriately - Head Head exam: Present: atraumatic, normal inspection - Neck Neck exam general surgery: Present: supple - Respiratory Respiratory exam: Present: decreased breath sounds (b/l basal region), rales, wheezes (moderate). Absent: respiratory distress, rhonchi - Cardiovascular Cardiovascular exam: Present: RRR, +S1, +S2. Absent: tachycardia - GI/Abdominal GI/Abdominal exam: Present: normal bowel sounds, soft. Absent: rebound, rigid, tenderness - Extremities Exam Extremities exam: Absent: calf tenderness, pedal edema, tenderness - Back Exam Back exam: Absent: CVA tenderness (L), CVA tenderness (R) - Neurological Exam Neurological exam: Present: alert, oriented X3 - Psychiatric Psychiatric exam: Present: normal affect, normal mood Internal Medicine: Result - Labs CBC & Chem 7: 09/22/17 06:15 09/22/17 06:15 Labs: Short CBC 11/19/17 Range/Units 06:15 WBC 5.8 (4.3-11.1) K/mcL Hgb 8.1 L (11.5-15.4) g/dL Hct 25.7 L (35.3-44.9) % Plt Count 217 (140-400) K/mcL Neutrophils # 5.3 (1.6-8.9) K/mcL BMP 09/22/17 06:15 Sodium 145 Potassium 3.6 Chloride 98 Carbon Dioxide 40 H* BUN 23 H Creatinine 0.88 Glucose 153 H Calcium 8.8 Liver Function 09/22/17 Range/Units 06:15 Total Bilirubin 0.3 (0.2-1.2) mg/dL AST 10 (5-34) Units/L ALT 7 (0-55) Units/L Alkaline Phosphatase 68 (38-126) Units/L Albumin 2.1 L (3.5-5.0) g/dL - Impressions Impressions Chest X-Ray 09/21/17 12:57 IMPRESSION: Pleural and parenchymal changes are noted on the right compatible with a pleural effusion and associated consolidation. No definite pneumothorax identified. Interface along the minor fissure is felt to be artifactual; however, this could be followed. Right-sided port appears stable. D/ / 09/21/2017 14:38:46 Scot Will MD / dimas Interpreting Provider: Scot Will MD Consult Discharge Plan - Plan Referrals: Naresh Skinner MD [Primary Care Provider] -
--- NOTE | 2017-09-22 08:41 | Pulmonology Progress Note ---
Date of Encounter: 09/22/17 Time of Encounter: 08:33 Assessment and Plan (1) Pleural effusion Current Visit: Yes Status: Acute This is a 42-year-old lady who unfortunately suffers SLA with known lupus nephritis in the past. She presented with acute pleural effusion in the context of acute on chronic respiratory failure which I feel is multifactorial including underlying IRLANDA/obesity hypoventilation syndrome possible pulmonary hypertension in the context of IRLANDA and SLE along with pleural effusion which is exudative per Light's criteria and neutrophilic predominant which would all be consistent with lupus Pleuritis. Interestingly however there is also notable eosinophilia (greater than 10%) the etiology of this is unclear at this time it may be related to medication (?bactrim use) effect or given immunosuppression concomitant fungal infection however this is felt to be much less likely. TB can also cause eosinophilia but given ongoing immunosuppression I suspect that prior to initiation of therapy this would have been checked by her personal lines insurance agent ([facility] records would be helpful in determining this). Malignancy is also possible and cytology from the fluid is pending. The mainstay of treatment for lupus pleuritis is glucocorticoids and since she has been taking these in addition to cellcept it is concerning that she may need an additional immunosuppressive agent added to her regimen. Recs: -Continue glucocorticoids per primary medicine service -We will follow up on final cytology from pleural fluid analysis -Antimicrobials at the discretion of the primary medicine service and did not fill strongly that she has concomitant respiratory infection -She will need outpatient polysomnogram pulmonary function testing formal pulmonary evaluation 2-4 weeks at the time of discharge -Formal consultation with Rheumatology service as inpatient -Repeat thoracentesis on as needed basis for comfort -Agree with ongoing diuresis with loop diuretic -I have ordered fungal serologies to be performed. Pulmonary will continue to follow up on pleural fluid study results (2) Sleep-disordered breathing Current Visit: Yes Status: Acute (3) Acute respiratory failure with hypoxia Current Visit: No Status: Acute (4) Pulmonary hypertension Current Visit: No Status: Acute (5) SLE (systemic lupus erythematosus) Current Visit: Yes Status: Acute Qualifiers: Systemic lupus erythematosus type: unspecified Systemic lupus erythematosus organ involvement: unspecified Qualified Code(s): M32.9 - Systemic lupus erythematosus, unspecified Subjective Principal diagnosis: Acute on Chronic Respiratory Failure Interval history: Ms. Chowdary states that she is feeling somewhat better today although she is complaining of some mild right shoulder pain at the area where thoracentesis was performed yesterday. The procedure went without complication and there is no identifiable pneumothorax postprocedure. Objective PUL Vital signs: Last Vital Signs Temp 98.4 F 09/22/17 03:41 Pulse 65 09/22/17 03:41 Resp 16 09/22/17 04:40 BP 119/79 09/22/17 03:41 Pulse Ox 96 09/22/17 04:40 General appearance: no acute distress Effort: other (I inspected the area post thoracentesis there is a Tegaderm covering with middle amount of serous exudate which is dried and appears old there is mild tenderness without evidence of crepitus over the right side of the back or the chest wall in the front. There is no palpable hematoma) Auscultation: right: diminished breath sounds Results - Laboratory Findings CBC and BMP: 09/22/17 06:15 09/22/17 06:15 Abnormal lab findings: Abnormal lab results RBC 2.72 M/mcL (3.82-4.97) L 09/22/17 06:15 Hgb 8.1 g/dL (11.5-15.4) L 09/22/17 06:15 Hct 25.7 % (35.3-44.9) L 09/22/17 06:15 MCHC 31.5 g/dL (31.6-35.5) L 09/22/17 06:15 RDW 15.1 % (11.5-14.5) H 09/22/17 06:15 Lymphocytes # 0.4 K/mcL (0.6-4.6) L 09/22/17 06:15 Carbon Dioxide 40 mEq/L (19-29) H* 09/22/17 06:15 BUN 23 mg/dL (7-20) H 09/22/17 06:15 Glucose 153 mg/dL (70-99) H 09/22/17 06:15 Calculated Osmolality 307 (280-300) H 09/22/17 06:15 Magnesium 1.5 mg/dL (1.6-2.6) L 09/22/17 06:15 B-Natriuretic Peptide 111 pg/mL (0-100) H 09/22/17 06:15 Albumin 2.1 g/dL (3.5-5.0) L 09/22/17 06:15 Globulin 3.9 g/dL (2.4-3.5) H 09/22/17 06:15 Albumin/Globulin Ratio 0.5 (1.1-2.2) L 09/22/17 06:15 Pleural Appearance Cloudy (Clear) A 09/21/17 12:45 Pleural RBC 0.008 M/mcL (0.000-0.002) H 09/21/17 12:45 Pleural Tot Nuc Cell 2788 TNC/mcL (0-1000) H 09/21/17 12:45 - Microbiology Findings Microbiology Findings: Microbiology, Last 48 Hours 09/21/17 12:45 Body Fluid Culture - Preliminary Pleural Fluid - Diagnostic Findings Chest x-ray: report reviewed, image reviewed CT scan - chest: report reviewed, image reviewed - Clinical Findings Intake & Output: Intake & Output 09/21/17 09/22/17 09/22/17 23:59 07:59 15:59 Intake Total 330 / 330 0 / 0 Output Total 1200 / 1200 0 / 0 Balance -870 / -870 0 / 0 Weight 71.2 kg Consult Discharge Plan - Plan Referrals: Naresh Skinner MD [Primary Care Provider] -
[2017-09-22] MEDS: Sulfamethoxazole/Trimeth DS 1 EACH TABLET PO SCH (08:42)
[2017-09-22] MEDS: Levofloxacin 500 MG/100 ML 500 MG/100 ML BAG IVPB SCH (08:42)
[2017-09-22] MEDS: Cyanocobalamin (B-12) 1,000 MCG TABLET PO SCH (08:42)
[2017-09-22] MEDS: *HR* OxyCODONE ER (12 HR) 10 MG TABLET PO SCH ×2 (08:42→21:02)
[2017-09-22] MEDS: Folic Acid 1 MG TABLET PO SCH (08:42)
[2017-09-22] MEDS: Fluticasone Propionate Nasal 50 MCG/SPRAY BOTTLE NS SCH (08:44)
[2017-09-22] MEDS: Furosemide 40 MG TABLET PO SCH ×2 (08:46→16:08)
[2017-09-22] MEDS: *HR* HYDROcodone/Acet 5/325 mg TABLET PO PRN ×2 (16:08→22:43)
[2017-09-22] MEDS: *HR* Morphine 2 MG/ML SYRINGE IVP PRN ×2 (19:17→23:35)
--- NOTE | 2017-09-22 19:44 | Electrocardiograph Report ---
[place] [id number] Test Date: 2017-09-21 Pat Name: Luba Chowdary Department: [id number] Room: 2A36 Gender: F Drawing Checker: : 1975 Requested By: Lyle Burrows Order Number: [id number] Reading MD: Merritt Lima MD Measurements Intervals [place] Rate: 82 P: 36 W[place]: 136 QRS: -42 QRSD: 75 T: 52 QT: 348 QTc: 387 Interpretive Statements SINUS RHYTHM MARKED LEFT AXIS DEVIATION Poor R wave progression Electronically Signed On 09-22-2017 19:42:43 EST by Merritt Lima MD
[2017-09-23] MEDS: Ipratropium/Albuterol Neb 3 ML IH SCH ×7 (00:01→23:15)
[2017-09-23] MEDS: *HR* Morphine 2 MG/ML SYRINGE IVP PRN (04:46)
[2017-09-23 05:03] LABS: Hematocrit 24.8 % (35.3-44.9); Hemoglobin 7.9 g/dL (11.5-15.4); Immature Granulocytes % 0.6 % (0-4); Lymphocytes # 0.5 K/mcL (0.6-4.6); Lymphocytes % 4.2 %; Mean Corpuscular HGB Conc 31.9 g/dL (31.6-35.5); Mean Corpuscular Volume 94.3 fL (83.0-100.0); Mean Platelet Volume 10.7 fL (9.4-12.4); Monocytes # 0.2 K/mcL (0.0-1.3); Monocytes % 1.4 %; Neutrophils # 10.4 K/mcL (1.6-8.9); Platelet Count 221 K/mcL (140-400); Red Blood Count 2.63 M/mcL (3.82-4.97); Red Cell Distribution Width 15.1 % (11.5-14.5); Segmented Neutrophils % 93.8 %
[2017-09-23 05:16] LABS: BUN/Creatinine Ratio 28 (6-26); Blood Urea Nitrogen 27 mg/dL (7-20); C-Reactive Protein 29 mg/L (Less than 5); Chloride 95 mEq/L (98-109); Glucose 251 mg/dL (70-99); Magnesium 1.7 mg/dL (1.6-2.6); Osmolality,Calculated 306 (280-300); Potassium 3.6 mEq/L (3.5-4.5); Sodium 141 mEq/L (136-145); eGFR For African Americans > 60 (> 60); eGFR For Non-African Americans > 60 (> 60)
[2017-09-23 05:18] LABS: Carbon Dioxide 40 mEq/L (19-29)
[2017-09-23] MEDS: *HR* Enoxaparin 40 MG/0.4 ML SYRINGE SQ SCH (06:05)
[2017-09-23] MEDS: Cefepime HCl 1,000 MG in Water for inj. (sterile) 10 ML IVP SCH ×2 (06:06→17:26)
[2017-09-23] MEDS ORDERED: Albuterol 2.5 MG/3 ML NEBULIZER IH PRN (09:24)
[2017-09-23] MEDS: MethylPREDNISolone 40 MG/ML VIAL IVP SCH (09:53)
[2017-09-23] MEDS: Folic Acid 1 MG TABLET PO SCH (09:53)
[2017-09-23] MEDS: *HR* OxyCODONE ER (12 HR) 10 MG TABLET PO SCH ×2 (09:54→21:48)
[2017-09-23] MEDS: Furosemide 40 MG TABLET PO SCH ×2 (09:54→17:26)
[2017-09-23] MEDS: Cyanocobalamin (B-12) 1,000 MCG TABLET PO SCH (09:54)
[2017-09-23] MEDS: Sulfamethoxazole/Trimeth DS 1 EACH TABLET PO SCH (09:54)
[2017-09-23] MEDS: Levofloxacin 500 MG/100 ML 500 MG/100 ML BAG IVPB SCH (09:54)
[2017-09-23] MEDS: Fluticasone Propionate Nasal 50 MCG/SPRAY BOTTLE NS SCH (09:55)
--- NOTE | 2017-09-23 10:55 | Pulmonology Progress Note ---
Date of Encounter: 09/23/17 Time of Encounter: 08:00 Assessment and Plan (1) Pleural effusion Current Visit: Yes Status: Acute I will follow up on the cytology which is still pending. She may need another thoracentesis if fluid build up and patient become symptomatic. (2) Sleep-disordered breathing Current Visit: Yes Status: Suspected Will order sleep study that can be done as out patient. (3) Pulmonary hypertension Current Visit: No Status: Suspected Patient with history of SLE and she may need RHC to confirm this. Continue O2 for now and keep SPO2 around 90% Subjective Principal diagnosis: Acute on Chronic Respiratory Failure Interval history: Patient is feeling slightly better, she continued to have chest discomfort, but with some improvement. Objective PUL Vital signs: Last Vital Signs Temp 97.9 F 09/23/17 06:56 Pulse 66 09/23/17 06:56 Resp 18 09/23/17 08:20 BP 142/80 09/23/17 06:56 Pulse Ox 91 09/23/17 08:20 General appearance: no acute distress ENT: oropharynx moist Mallampati (class): 3 Neck: supple Auscultation: left: clear, right: diminished breath sounds Percussion: left: not dull, right: dull Cardiovascular: regular rate and rhythm Gastrointestinal: normoactive bowel sounds Extremities: no cyanosis normal mental status, non-focal exam mood appropriate Results - Laboratory Findings CBC and BMP: 09/23/17 04:50 09/23/17 04:50 Abnormal lab findings: Abnormal lab results RBC 2.63 M/mcL (3.82-4.97) L 09/23/17 04:50 Hgb 7.9 g/dL (11.5-15.4) L 09/23/17 04:50 Hct 24.8 % (35.3-44.9) L 09/23/17 04:50 RDW 15.1 % (11.5-14.5) H 09/23/17 04:50 Neutrophils # 10.4 K/mcL (1.6-8.9) H 09/23/17 04:50 Lymphocytes # 0.5 K/mcL (0.6-4.6) L 09/23/17 04:50 ESR 57 mm/hr (0-15) H 09/23/17 04:50 Chloride 95 mEq/L (98-109) L 09/23/17 04:50 Carbon Dioxide 40 mEq/L (19-29) H* 09/23/17 04:50 BUN 27 mg/dL (7-20) H 09/23/17 04:50 BUN/Creatinine Ratio 28 (6-26) H 09/23/17 04:50 Glucose 251 mg/dL (70-99) H 09/23/17 04:50 Calculated Osmolality 306 (280-300) H 09/23/17 04:50 C-Reactive Protein 29 mg/L (Less than 5) H 09/23/17 04:50 B-Natriuretic Peptide 111 pg/mL (0-100) H 09/22/17 06:15 Albumin 2.1 g/dL (3.5-5.0) L 09/22/17 06:15 Globulin 3.9 g/dL (2.4-3.5) H 09/22/17 06:15 Albumin/Globulin Ratio 0.5 (1.1-2.2) L 09/22/17 06:15 Pleural Appearance Cloudy (Clear) A 09/21/17 12:45 Pleural RBC 0.008 M/mcL (0.000-0.002) H 09/21/17 12:45 Pleural Tot Nuc Cell 2788 TNC/mcL (0-1000) H 09/21/17 12:45 - Microbiology Findings Microbiology Findings: Microbiology, Last 48 Hours 09/21/17 12:45 Body Fluid Culture - Preliminary Pleural Fluid - Clinical Findings Intake & Output: Intake & Output 09/22/17 09/23/17 09/23/17 23:59 07:59 15:59 Intake Total 130 / 130 Output Total 600 / 600 Balance -470 / -470 Weight 69.8 kg Consult Discharge Plan - Plan Referrals: Naresh Skinner MD [Primary Care Provider] -
[2017-09-23] MEDS ORDERED: *HR* Dextrose 50 % in Water (Syg) 50 ML SYRINGE IVP PRN (13:55)
[2017-09-23] MEDS ORDERED: Dextrose Gel 15 GM PO PRN ×2 (13:55)
[2017-09-23] MEDS ORDERED: D5% in Water 1,000 ML IVC PRN (13:55)
[2017-09-23] MEDS ORDERED: *HR* Morphine 2 MG/ML SYRINGE IVP PRN (13:56)
--- NOTE | 2017-09-23 15:41 | Internal Med Progress Note ---
Date of Encounter: 09/23/17 Time of Encounter: 13:30 - Assessment and plan (1) Acute and chronic respiratory failure with hypoxia Current Visit: Yes Status: Acute Assessment and plan: Slowly improving Triggered by Pleural effusion and Pneumonia s/p thoracocentesis - removed 1200 CC by Pulmonary still on 4 lit O2 - her baseline @ 2-3 lit O2 Cont duoneb + Steroids + Abx Cont PO Lasix will repeat CXR today.. if shows fluid accumulation - may need repeat thoracocentesis Risk assessment: pt is still at moderate risk for possible respiratory compromise. (2) Pleural effusion Current Visit: Yes Status: Acute Assessment and plan: s/p thoracocentesis reviewed fluid analysis - consistent with exudate - mostly lupus induced possible lupus pleuritis Pt was on Cellcept, Prednisone and Bactrim at home resumed Cellcept, Bactrim and on IV steroids now does not look like any lupus flare up now..other than pleural effusion Cont supportive and symptomatic care Pt wants to f/u with our rehumatologist here in [place].. so will call Dr. Bolden in AM (3) SIRS (systemic inflammatory response syndrome) Current Visit: Yes Status: Acute Assessment and plan: Improving (4) Pneumonia Current Visit: Yes Status: Acute Assessment and plan: will cont Levaquin since all the cx are negative, will d/c cefepime Qualifiers: Pneumonia type: due to unspecified organism Laterality: right Lung location: lower lobe of lung Qualified Code(s): J18.1 - Lobar pneumonia, unspecified organism (5) Acute exacerbation of chronic obstructive airways disease Current Visit: No Status: Acute Assessment and plan: Cont scheduled Duoneb + started tapering steroids (6) Hypertension Current Visit: No Status: Chronic Assessment and plan: slightly on lower side held Coreg and Norvasc cont Lasix Qualifiers: Hypertension type: essential hypertension Qualified Code(s): I10 - Essential (primary) hypertension (7) Hypothyroidism Current Visit: No Status: Chronic Assessment and plan: resumed home meds Qualifiers: Hypothyroidism type: unspecified Qualified Code(s): E03.9 - Hypothyroidism , unspecified (8) SLE (systemic lupus erythematosus) Current Visit: No Status: Chronic Assessment and plan: resumed home meds Cellcept, Bactrim + steroids Pt wants to f/u with our electronic systems technician here consulted Dr. Crenshaw Qualifiers: Systemic lupus erythematosus type: unspecified Systemic lupus erythematosus organ involvement: unspecified Qualified Code(s): M32.9 - Systemic lupus erythematosus, unspecified - Subjective Interval history: Ms. Chowdary is a 42 year old female past medical history of COPD, chronic hypoxic resp failure, home oxygen dependent, fibromyalgia, chronic narcotic dependence, [place] 2008, rheumatoid arthritis, thyroid disease, GERD, GI bleed, Pulmonary hypertension, and Chronic lupus pt who recently hospitalized here for pneumonia on 09/06/17 now she came back to ER this morning c/o severe worsening SOB and NOYOLA. She was severely hypoxic in the ER Spo2 in 70's on 4 lit O2. She was placed on BiPAP right away and give broad spec abx for pneumonia. Pt did have large Rt pleural effusion, for which she had thoracocentesis done on 09/21/17, got removed 1200 CC fluid. Today she is more alert, awake and O x3. Still has moderate SOB and NOYOLA. Denied any CP. Pt did mention she is taking her lupus medication Cellcept and Prednisone regularly and following a electronic systems technician from [facility] closely. No events over night. Feels little better today - Constitutional Vitals: Temp Pulse Resp BP Pulse Ox 98.1 F 70 14 128/74 90 09/23/17 11:42 09/23/17 11:42 09/23/17 11:42 09/23/17 11:42 09/23/17 11:42 General appearance: Present: A&O X 3, answers questions appropriately - Head Head exam: Present: atraumatic, normal inspection - Neck Neck exam general surgery: Present: supple - Respiratory Respiratory exam: Present: decreased breath sounds, wheezes (mild). Absent: respiratory distress, rhonchi - Cardiovascular Cardiovascular exam: Present: RRR, +S1, +S2. Absent: systolic murmur - GI/Abdominal GI/Abdominal exam: Present: normal bowel sounds, soft. Absent: rebound, rigid, tenderness - Extremities Exam Extremities exam: Absent: calf tenderness, pedal edema, tenderness - Back Exam Back exam: Absent: CVA tenderness (L), CVA tenderness (R) - Neurological Exam Neurological exam: Present: alert, oriented X3 - Psychiatric Psychiatric exam: Present: normal affect, normal mood Internal Medicine: Result - Labs CBC & Chem 7: 09/23/17 04:50 09/23/17 04:50 Labs: Short CBC 09/23/17 Range/Units 04:50 WBC 11.1 D (4.3-11.1) K/mcL Hgb 7.9 L (11.5-15.4) g/dL Hct 24.8 L (35.3-44.9) % Plt Count 221 (140-400) K/mcL Neutrophils # 10.4 H (1.6-8.9) K/mcL BMP 09/23/17 04:50 Sodium 141 Potassium 3.6 Chloride 95 L Carbon Dioxide 40 H* BUN 27 H Creatinine 0.95 Glucose 251 H Calcium 9.0 - Impressions Impressions Chest X-Ray 09/23/17 13:25 IMPRESSION: Persistent large right pleural effusion. New left basilar infiltrate could represent atelectasis or pneumonia The findings were sent to the Radiology Results Communication Center at 2:58 pm on 09/23/2017to be communicated to a licensed caregiver. D/ / Sammy Montoya MD / Sammy Montoya MD Interpreting Provider: Sammy Montoya MD Consult Discharge Plan - Plan Referrals: Naresh Skinner MD [Primary Care Provider] -
--- NOTE | 2017-09-23 16:03 | Rheumatology Consult Note ---
<Jacob Canales - Last Filed: 09/23/17 17:20> Date of Encounter: 09/23/17 Time of Encounter: 16:01 Rheumatology Assess and Plan (1) SLE (systemic lupus erythematosus) Current Visit: No Status: Chronic Pt with hx of SLE (ALEXANDRU 1:160, dsDNA, biopsy proven class IV LN, serositis) now with worsening pulmonary findings.. 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 Plan: continue prednisone 60mg. increase Cellcept to 1,000mg BID Check ALEXANDRU and dsDNA If fails to improve will consider cyclophosphomide as a back up plan. Qualifiers: Systemic lupus erythematosus type: unspecified Systemic lupus erythematosus organ involvement: lung involvement Qualified Code(s): M32.13 - Lung involvement in systemic lupus erythematosus (2) Pleural effusion Current Visit: Yes Status: Acute likely secondary to SLE Reviewed thoracentesis labs Cultures negative. see plan in above section (3) Lupus nephritis Current Visit: No Status: Chronic Class IV Lupus nephritis. Pt follows at [facility] See plan above (4) Need for pneumocystis prophylaxis Current Visit: Yes Status: Acute Continue bactrim (5) On prednisone therapy Current Visit: Yes Status: Acute Rheumatology HPI Consult date: 09/23/17 Consult reason: Medication optimization Chief complaint: Pleural Effusion History of present illness: Ms. Chowdary is a 42 year old female with PMHx of SLE, RA, hypothyroidism, COPD, DVT, fibromyalgia, GERD, GI bleed, hypertension, kidney stones, myocardial infarction per record review who presented to [facility] on 09/21/17 for sudden onset of SOB. Patient was found to have a R sided pleural effusion on X ray. Thoracentesis was performed which revealed an exudative pattern. Patient does not know her medications or what treatment she has been on for her SLE. She reports she was started on Prednisone 60mg in July of this year with plan to taper. She denies knowing of any DMARD medication she has been taking. Per records she is on cellcept. Upon prompting she does Patient reports taking all her prescribed medications but just not knowing what they are or what they are for. Patient reports her breathing is doing better since admission. She complains of some mild sternal chest pain with deep breathing, some epigastric/ LUQ pain over her hiatal hernia. Patient denies current rash, current pain or swelling in her joints. Patient reports she has had numerous complications of her SLE including lupus nephritis, cholecystectomy, and a hysterectomy secondary to persistent vaginal bleeding. Patient reports she was recently hospitalized [facility] for GI bleed 2 weeks ago and source was not found because colonoscopy could not be completed due to poor bowel prep. Past Med Surg Social Fam HX - Past Medical History Medical history: asthma, COPD, DVT, fibromyalgia, GERD, GI bleed, hypertension, kidney stones, myocardial infarction, RA, thyroid disease, other Psychiatric history: anxiety - Past Surgical History Surgical History: cholecystectomy, hysterectomy - Social History Smoking Status: Never smoker Smokeless Tobacco Status: No Alcohol use: none Drug use: none - Family History Mother History Unknown: Yes Living Status: Hx Family Cardiac Disorders: Yes (mi, CHF) Father Living Status: Hx Family Cardiac Disorders: Yes Hx Family Endocrine Disorder: Yes Medications and Allergies Albuterol Sulfate [Proair Hfa] 2 puff IH BID PRN 07/10/16 [History] Carvedilol [Coreg] 25 mg PO BID 07/10/16 [History] Fluticasone Propionate Nasal [Flonase] 50 mcg NS DAILY 07/10/16 [History] Nitroglycerin [Nitrostat] 0.4 mg SL Q5M PRN 07/10/16 [History] Amlodipine Besylate 10 mg PO DAILY 09/19/16 [History] Citalopram Hydrobromide [Celexa] 40 mg PO HS 07/18/17 [History] Cyanocobalamin (Vitamin B-12) [Vitamin B12] 2,000 mcg PO DAILY 07/18/17 [History ] Ipratropium/Albuterol Neb [Duoneb] 3 ml IH Q6H PRN 07/18/17 [History] Mometasone/Formoterol [Dulera 200 Mcg/5 Mcg Inhaler] 1 puff IH BID 07/18/17 [ History] Oxygen 2 l NS AD 07/18/17 [History] ALPRAZolam [Xanax 1 MG Tablet] 1 mg PO TID 07/30/17 [History] Furosemide [Lasix] 40 mg PO BID 07/30/17 [History] Levothyroxine [Synthroid] 112 mcg PO DAILY 09/01/17 [History] Lisinopril [Zestril] 5 mg PO DAILY 09/01/17 [History] Metoclopramide HCl 5 mg PO TID 09/01/17 [History] Mycophenolate Mofetil [Cellcept] 500 mg PO BID 09/01/17 [History] Ondansetron [Zofran] 8 mg PO BID PRN 09/01/17 [History] Potassium Chloride [K-Tab ER] 20 meq PO DAILY 09/01/17 [History] hydroCHLOROthiazide [Hydrochlorothiazide] 25 mg PO DAILY 09/01/17 [History] predniSONE [PredniSONE] 60 mg PO DAILY 09/01/17 [History] Folic Acid 5 mg PO DAILY #60 tablet 09/06/17 [Rx] Omeprazole [PriLOSEC] 40 mg PO BIDAC #60 capsule.dr 09/06/17 [Rx] OxyCODONE ER (12 HR) [OxyCONTIN] 10 mg PO BID #4 tab.er.12h 09/06/17 [Rx] OxyCODONE Immed Rel [Roxicodone 5 MG] 10 mg PO TID #9 tablet 09/06/17 [Rx] Insulin Glargine,Hum.rec.anlog [Basaglar Kwikpen U-100] 20 unit SQ DAILY [History] Ranitidine HCl [Zantac] 300 mg PO DAILY 09/21/17 [History] Sulfamethoxazole/Trimeth DS [Bactrim Ds] 1 tab PO DAILY 09/21/17 [History] Tiotropium [Spiriva] 18 mcg IH DAILY 09/21/17 [History] 3 Allergy/AdvReac Type Severity Reaction Status Date / Time ketorolac [From Toradol] AdvReac Abdominal Verified 09/21/17 02:38 Pain NSAIDS (Non-Steroidal AdvReac Abdominal Verified 09/21/17 02:38 Anti-Inflamma Pain tramadol AdvReac Abdominal Verified 09/21/17 02:38 Pain pyridium AdvReac Abdominal Uncoded 09/21/17 02:38 Pain All Systems Review: A 10-system review of systems was performed and is negative for pertinent findings except as documented above in the HPI. Rheumatology Exam Vital Signs, Last 4 Hours Resp Pulse Ox 09/23/17 15:52 18 92 Exam: General: A&O x 3, in NAD HENT: No oral sores, no nasal sores, no allopecia. Eyes: Sclera nonicteric Lymph: no cervical lymphadenopathy Cardiovascular: NSR, no m/g/r Pulmonary: decreased lung sound R base. GI: mild abdominal tenderness in LUQ Musculoskeletal: No joint swelling or tenderness on exam, strength grossly normal, gait not assesed due to IVs. Skin: No rash present, no erythema, or telangitasia Extremities: No peripheral edema. Rheumatology Results 09/23/17 04:50 09/23/17 04:50 All other labs normal. Consult Discharge Plan - Plan Referrals: Naresh Skinner MD [Primary Care Provider] - <Nabeel Crenshaw - Last Filed: 09/23/17 21:16> Date of Encounter: 09/23/17 Rheumatology HPI History of present illness: Ms. Chowdary is a 42 year old female All Systems Review: A 10-system review of systems was performed and is negative for pertinent findings except as documented above in the HPI. Rheumatology Exam Vital Signs, Last 4 Hours Temp Pulse Resp BP Pulse Ox 09/23/17 19:16 97.8 F 71 18 134/80 91 Rheumatology Results 09/23/17 04:50 09/23/17 04:50 All other labs normal. - Attending Attestation I performed a history and physical examination of the patient and discussed his management with the resident. I reviewed the residents note and agree with the documented findings and plan of care. In summary, this patient is a 42 yr old female with PMH of SLE (ALEXANDRU 1:5120 speckled, PROFESSIONAL SERVICES MANAGER+, LN Class 4, serositis) who presents to the hospital with worsening hypoxia, respiratory distress found to have bilateral pleural effusions. I was able to review the recent DC summary from [facility], recent lupus nephritis clinic note, renal biopsy. Patient was previously admitted to [facility] in 08/20 after having hemopytisis/ pneumonitis. She had bronchoscopy during that stay in which no blood was found ; cultures during that workup were negative. She had a renal biopsy that showed class IV lupus nephritis, no crescents, no necrosis; she was found to have full house deposition. She was started on prednisone 60 mg po daily and MMF 1 gram started. This patient now has been admitted in the ED hypoxic, with 1,200 exudative fluid drained from pleural cavity. Cultures negative at this point. Serologic workup reviewed: ALEXANDRU positive: historical review and [facility] Lab review PROFESSIONAL SERVICES MANAGER positivity Complements WNL Ur Prot:Cr ratio 2.56 gram, Cr normal CBC - Hb 7.9 TTE - RVSP 47 mmHg 1) SLE - This patient now has biopsy proven lupus nephritis, active serositis with pleural effusions that are reaccumulating despite prednisone 60 mg po daily , 1 gram of MMF daily. - Currently she is on induction therapy for class IV lupus nephritis; I was able to review outside notes. No crescents; patient was not pulsed and she did not increase her MMF to 2 grams as instructed. - Serologically, dsDNA normal, complements normal other than pleural effusions, reassuring that renal function is showing stability. Protein:cr ratio from > 7 grams at [facility] to > 2 grams now. - Increase MMF to 2 grams daily (500 mg po 2 tablets BID); if stable CBC in 5-7 days, would increase to 3 grams daily total - Continue prednisone 60 mg po daily for now - I spoke personally to the hospitalist on the case; I spoke to pulmonary who may plan on thoracentesis in AM if still symptomatic. - I will need to touch base with pulmonary medicine in the morning to their thoughts on pulmonary stability and reaccumulation causes. I am not much inclined to switch therapies now as MMF has not adequately been optimized 2) Pleural effusions - Pulmonary following, remains improved but may continue to drain fluid if needed for symptomatic care. Will rely on their assistance while we try to continue to optimize therapy. 3) Elevated RVSP on TTE (abnormal echocardiogram) - This patient has SLE with PROFESSIONAL SERVICES MANAGER positivity which is associated with pulmonary hypertension. Agree with outpatient workup for pulmonary hypertension. 4) Nephrotic Proteinuria - Per nephrology [facility] note, should be on lisinopril 10 mg; will need to figure out why she is not on at this time as I did not see on JAN. Will reevaluate in tomorrow
[2017-09-23] MEDS: *HR* OxyCODONE Immed Rel 5 MG TABLET PO PRN (17:25)
[2017-09-23] MEDS: predniSONE 20 MG TABLET PO SCH (17:25)
[2017-09-23] MEDS: Insulin LISPRO 300 UNITS/3 ML VIAL SQ SCH ×2 (17:26→21:46)
[2017-09-23] MEDS: ALPRAZolam 1 MG TABLET PO PRN (21:48)
[2017-09-24] MEDS: *HR* OxyCODONE Immed Rel 5 MG TABLET PO PRN ×2 (01:42→13:13)
[2017-09-24] MEDS: Ondansetron 4 MG/2 ML VIAL IVP PRN ×2 (01:43→15:13)
[2017-09-24] MEDS: Ipratropium/Albuterol Neb 3 ML IH SCH ×6 (03:51→23:50)
[2017-09-24 04:36] LABS: Basophils % 0.2 %; Hematocrit 25.5 % (35.3-44.9); Hemoglobin 7.9 g/dL (11.5-15.4); Immature Granulocytes % 1.8 % (0-4); Lymphocytes # 0.5 K/mcL (0.6-4.6); Lymphocytes % 4.4 %; Mean Corpuscular Hemoglobin 29.3 pg (28.0-33.3); Mean Corpuscular Volume 94.4 fL (83.0-100.0); Mean Platelet Volume 10.4 fL (9.4-12.4); Monocytes # 0.3 K/mcL (0.0-1.3); Monocytes % 2.4 %; Neutrophils # 10.8 K/mcL (1.6-8.9); Platelet Count 221 K/mcL (140-400); Red Cell Distribution Width 15.4 % (11.5-14.5); Segmented Neutrophils % 91.2 %
[2017-09-24 04:46] LABS: BUN/Creatinine Ratio 33 (6-26); Blood Urea Nitrogen 33 mg/dL (7-20); Calcium 8.3 mg/dL (8.6-10.8); Chloride 99 mEq/L (98-109); Glucose 180 mg/dL (70-99); Osmolality,Calculated 310 (280-300); Potassium 3.9 mEq/L (3.5-4.5); Sodium 144 mEq/L (136-145); eGFR For African Americans > 60 (> 60); eGFR For Non-African Americans > 60 (> 60)
[2017-09-24 04:49] LABS: Carbon Dioxide 41 mEq/L (19-29)
[2017-09-24] MEDS: Cefepime HCl 1,000 MG in Water for inj. (sterile) 10 ML IVP SCH (06:00)
[2017-09-24] MEDS: *HR* Enoxaparin 40 MG/0.4 ML SYRINGE SQ SCH (06:00)
--- NOTE | 2017-09-24 07:55 | Rheumatology Progress Note ---
<Jacob Canales - Last Filed: 09/24/17 08:34> Date of Encounter: 09/24/17 Time of Encounter: 07:55 Rheumatology Assess and Plan (1) SLE (systemic lupus erythematosus) Current Visit: No Status: Chronic Pt with hx of SLE (ALEXANDRU 1:160, dsDNA, biopsy proven class IV LN, serositis) now with worsening pulmonary findings. Pt has active class IV lupus nephritis without crescents or necrosis (biopsy from [facility] reviewed). Per outside notes patient is on induction therapy for class IV lupus nephritis. Patient's Pleural effusions reaccumulating despite continueing home course of 60mg prednisone PO daily and 1 Gram of cellcept daily. Patient was supposed to increase to 2 grams as an outpatient per [facility] notes, but patient did not start this yet. Patient has elevated RVSP on TTE. The patient has STOCK WETTER positivity which is associated with Pulmonary HTN. Agree with plan of outpatient work up. Plan: continue prednisone 60mg. Recommend Increasing Cellcept to 1,000mg BID Recommend checking an ALEXANDRU and dsDNA If fails to improve will consider cyclophosphomide as a back up plan, but would like to optimize patient on Cellcept before resorting to cyclophosphomide. Qualifiers: Systemic lupus erythematosus type: unspecified Systemic lupus erythematosus organ involvement: lung involvement Qualified Code(s): M32.13 - Lung involvement in systemic lupus erythematosus (2) Pleural effusion Current Visit: Yes Status: Acute likely secondary to SLE Reviewed thoracentesis labs Cultures negative. see plan in above section defer to primary team and pulmonary concerning whether to repeat thoracentesis. (3) Lupus nephritis Current Visit: No Status: Chronic Class IV Lupus nephritis. Pt follows at [facility] per [facility] notes patient should be on lisinopril 10mg. in hospital currently on 5mg. See plan above (4) Need for pneumocystis prophylaxis Current Visit: Yes Status: Acute Continue bactrim (5) On prednisone therapy Current Visit: Yes Status: Acute - Subjective Interval history: 42 F c PMHx of SLE admitted for acute on chronic respiratory failure with hypoxia secondary to pleural effusion secondary to Lupus. Patient feels and looks clinically improved. Patient still has large pleural fluid on xray despite thoracentesis. Per primary team plan is to perform second thoracentesis today. Patient would like to talk to GI about finishing her colonoscopy that could not be completed at last admission due to poor bowel prep or help in setting up outpatient appointment. Exam Latest Vitals 09/24/17 3:48 Temp 98.6 F oral, HR 71, R 18, BP 155/85 on 4 L NC, Pulse Ox 90. Exam: General: Alert and oriented x 3, NAD HEENT- Conjunctiva clear, PERRL, no alopecia, no faical rash, no nasal or oral ulcers Lymph/Heme: No cervical or supraclavicular lypmph node enlargement or tenderness , no pallor Heart: RRR Normal S1, S2, no murmurs, gallops, or rubs, No peripheral edema Lungs: Normal work of breathing, decreased breath sounds Right base, but otherwise clear to auscultation. Abdomen, Soft Nontender, no hepatosplenomegally noted Skin: warm and dry, No rash, telangiectasisas, nail changes, or erythema Neurologic: strength 5/5 throughout, CN II-XII grossly normal. Musculoskeletal: FROM, no synovitis or joint tenderness Objective Data 09/24/17 04:15 09/24/17 04:15 All other labs normal. Consult Discharge Plan - Plan Referrals: Naresh Skinner MD [Primary Care Provider] - <Nabeel Crenshaw W - Last Filed: 09/24/17 16:49> Date of Encounter: 09/24/17 Exam Vital Signs, Last 4 Hours Temp Pulse Resp BP Pulse Ox 09/24/17 15:47 98.1 F 66 18 150/72 92 09/24/17 15:34 16 90 Objective Data 09/24/17 04:15 09/24/17 04:15 All other labs normal. - Attending Attestation I examined this patient and my medical decision making was reviewed with the resident physician. I agree with the documented findings, disposition and treatment as described with these exceptions. This patient remains overall stable. Pleural effusions reaccumulated and pulmonary considering retapping. From a rheumatology standpoing, will increase mycophenolate to 1000 mg BID and if labs stable in 2-3 days, can increase to 1,500 mg po BID; please make sure at discharge that she has a new prescription and I will take over as an outpatient. Continue prednisone 60 mg po daily. No indications for changing therapy now and pulm currently managing effusions. I will be out of the hospital and no coverage available from rheumatology though I will be available for outpatient follow-up as the patient wishes to transfer to [facility] due to transportation issues.
[2017-09-24] MEDS: Cyanocobalamin (B-12) 1,000 MCG TABLET PO SCH (08:26)
[2017-09-24] MEDS: Insulin LISPRO 300 UNITS/3 ML VIAL SQ SCH ×4 (08:26→21:18)
[2017-09-24] MEDS: Furosemide 40 MG TABLET PO SCH ×2 (08:27→18:08)
[2017-09-24] MEDS: Folic Acid 1 MG TABLET PO SCH (08:27)
[2017-09-24] MEDS: *HR* OxyCODONE ER (12 HR) 10 MG TABLET PO SCH ×2 (08:27→21:18)
[2017-09-24] MEDS: Sulfamethoxazole/Trimeth DS 1 EACH TABLET PO SCH (08:28)
[2017-09-24] MEDS: predniSONE 20 MG TABLET PO SCH (08:28)
[2017-09-24] MEDS: Levofloxacin 500 MG/100 ML 500 MG/100 ML BAG IVPB SCH (08:29)
--- NOTE | 2017-09-24 10:03 | Pulmonology Progress Note ---
<Trey Bowens - Last Filed: 09/24/17 10:36> Date of Encounter: 09/24/17 Time of Encounter: 09:58 Subjective Principal diagnosis: Acute on Chronic Respiratory Failure Interval history: Patient is feeling slightly better but reports continued chest discomfort. She had to increase her supplemental O2 requirement to 4.5 L due to SpO2 89% this AM. CXR yesterday reveals persistent large right pleural effusion with new left basilar infiltrate that could represent atelectasis or pneumonia. Patient denies fever, chills, worsening SOB, or active bleeding. Pleural fluid analysis reveals excudative pleural fluid. She is currently on Cefepime, Levaquin, and Bactrim day 3 and 40mg Lasix IV BID. Objective PUL Vital signs: Last Vital Signs Temp 98.5 F 09/24/17 08:03 Pulse 64 09/24/17 08:03 Resp 20 09/24/17 08:03 BP 144/77 09/24/17 08:03 Pulse Ox 93 09/24/17 08:03 General appearance: no acute distress Eyes: nonicteric ENT: oropharynx moist Mallampati (class): 3 Neck: supple Effort: normal (4.5 L O2 via NC with SpO2 95% ) Auscultation: bilateral: diminished breath sounds (R>L) Percussion: left: not dull, right: dull Cardiovascular: regular rate and rhythm Gastrointestinal: normoactive bowel sounds Integumentary: normal Extremities: no cyanosis Musculoskeletal: no deformities normal mental status, non-focal exam mood appropriate, affect normal Results - Laboratory Findings CBC and BMP: 09/24/17 04:15 09/24/17 04:15 Abnormal lab findings: Abnormal lab results WBC 11.8 K/mcL (4.3-11.1) H 09/24/17 04:15 RBC 2.70 M/mcL (3.82-4.97) L 09/24/17 04:15 Hgb 7.9 g/dL (11.5-15.4) L 09/24/17 04:15 Hct 25.5 % (35.3-44.9) L 09/24/17 04:15 MCHC 31.0 g/dL (31.6-35.5) L 09/24/17 04:15 RDW 15.4 % (11.5-14.5) H 09/24/17 04:15 Neutrophils # 10.8 K/mcL (1.6-8.9) H 09/24/17 04:15 Lymphocytes # 0.5 K/mcL (0.6-4.6) L 09/24/17 04:15 ESR 57 mm/hr (0-15) H 09/23/17 04:50 Carbon Dioxide 41 mEq/L (19-29) H* 09/24/17 04:15 BUN 33 mg/dL (7-20) H 09/24/17 04:15 BUN/Creatinine Ratio 33 (6-26) H 09/24/17 04:15 Glucose 180 mg/dL (70-99) H 09/24/17 04:15 POC Glucose 209 (58-89) H 09/23/17 16:23 Calculated Osmolality 310 (280-300) H 09/24/17 04:15 Calcium 8.3 mg/dL (8.6-10.8) L 09/24/17 04:15 C-Reactive Protein 29 mg/L (Less than 5) H 09/23/17 04:50 B-Natriuretic Peptide 111 pg/mL (0-100) H 09/22/17 06:15 Albumin 2.1 g/dL (3.5-5.0) L 09/22/17 06:15 Globulin 3.9 g/dL (2.4-3.5) H 09/22/17 06:15 Albumin/Globulin Ratio 0.5 (1.1-2.2) L 09/22/17 06:15 Pleural Appearance Cloudy (Clear) A 09/21/17 12:45 Pleural RBC 0.008 M/mcL (0.000-0.002) H 09/21/17 12:45 Pleural Tot Nuc Cell 2788 TNC/mcL (0-1000) H 09/21/17 12:45 - Microbiology Findings Microbiology Findings: Microbiology, Last 48 Hours 09/21/17 12:45 Body Fluid Culture - Final Pleural Fluid 09/21/17 12:45 Acid Fast Stain - Final Pleural Fluid - Diagnostic Findings Chest x-ray: report reviewed, image reviewed - Clinical Findings Intake & Output: Intake & Output 09/23/17 09/24/17 09/24/17 23:59 07:59 15:59 Intake Total 370 / 370 240 / 240 Output Total 900 / 900 500 / 500 Balance 370 / 370 -900 / -900 -260 / -260 Weight 68.492 kg Consult Discharge Plan - Plan Referrals: Naresh Skinner MD [Primary Care Provider] - <DanelleflakoKvngdawson Yap - Last Filed: 09/24/17 13:32> Date of Encounter: 09/24/17 Assessment and Plan (1) Pleural effusion Current Visit: Yes Status: Acute Follow-up on cytology and most likely patient will need repeat diagnostic/ therapeutic thoracentesis of the pleural effusion. Today clinically patient stated she is feeling better and will monitor. (2) Sleep-disordered breathing Current Visit: Yes Status: Suspected Patient will need outpatient sleep study which was ordered (3) Pulmonary hypertension Current Visit: No Status: Suspected Most likely patient will need right heart catheterization and consultation with radiology team for right heart catheter. Objective PUL Vital signs: Last Vital Signs Temp 98.4 F 09/24/17 11:45 Pulse 60 09/24/17 11:45 Resp 18 09/24/17 11:45 BP 138/81 09/24/17 11:45 Pulse Ox 90 09/24/17 11:45 Results - Laboratory Findings CBC and BMP: 09/24/17 04:15 09/24/17 04:15 PT/INR, D-dimer PT 11.4 Seconds (9.4-12.1) 09/24/17 10:45 Abnormal lab findings: Abnormal lab results WBC 11.8 K/mcL (4.3-11.1) H 09/24/17 04:15 RBC 2.70 M/mcL (3.82-4.97) L 09/24/17 04:15 Hgb 7.9 g/dL (11.5-15.4) L 09/24/17 04:15 Hct 25.5 % (35.3-44.9) L 09/24/17 04:15 MCHC 31.0 g/dL (31.6-35.5) L 09/24/17 04:15 RDW 15.4 % (11.5-14.5) H 09/24/17 04:15 Neutrophils # 10.8 K/mcL (1.6-8.9) H 09/24/17 04:15 Lymphocytes # 0.5 K/mcL (0.6-4.6) L 09/24/17 04:15 ESR 57 mm/hr (0-15) H 09/23/17 04:50 Carbon Dioxide 41 mEq/L (19-29) H* 09/24/17 04:15 BUN 33 mg/dL (7-20) H 09/24/17 04:15 BUN/Creatinine Ratio 33 (6-26) H 09/24/17 04:15 Glucose 180 mg/dL (70-99) H 09/24/17 04:15 POC Glucose 209 (58-89) H 09/23/17 16:23 Calculated Osmolality 310 (280-300) H 09/24/17 04:15 Calcium 8.3 mg/dL (8.6-10.8) L 09/24/17 04:15 C-Reactive Protein 29 mg/L (Less than 5) H 09/23/17 04:50 B-Natriuretic Peptide 111 pg/mL (0-100) H 09/22/17 06:15 Albumin 2.1 g/dL (3.5-5.0) L 09/22/17 06:15 Globulin 3.9 g/dL (2.4-3.5) H 09/22/17 06:15 Albumin/Globulin Ratio 0.5 (1.1-2.2) L 09/22/17 06:15 Pleural Appearance Cloudy (Clear) A 09/21/17 12:45 Pleural RBC 0.008 M/mcL (0.000-0.002) H 09/21/17 12:45 Pleural Tot Nuc Cell 2788 TNC/mcL (0-1000) H 09/21/17 12:45 - Microbiology Findings Microbiology Findings: Microbiology, Last 48 Hours 09/21/17 12:45 Body Fluid Culture - Final Pleural Fluid 09/21/17 12:45 Acid Fast Stain - Final Pleural Fluid - Clinical Findings Intake & Output: Intake & Output 09/23/17 09/24/17 09/24/17 23:59 07:59 15:59 Intake Total 370 / 370 360 / 360 Output Total 900 / 900 500 / 500 Balance 370 / 370 -900 / -900 -140 / -140 Weight 68.492 kg - Attending Attestation I examined this patient and my medical decision-making was reviewed with the Resident Physician. I agree with the documented findings, disposition and treatment plan as described except to the extent set forth below. History of present illness an exam reviewed with the resident and assessment and plan was documented by me.
[2017-09-24 11:02] LABS: INR 1.1; Prothrombin Time 11.4 Seconds (9.4-12.1)
[2017-09-24] MEDS: Fluticasone Propionate Nasal 50 MCG/SPRAY BOTTLE NS SCH (12:12)
--- NOTE | 2017-09-24 15:19 | Cardiology Consult Note ---
<Scott Lam R - Last Filed: 09/24/17 15:41> Date of Encounter: 09/24/17 Time of Encounter: 15:18 Assessment and Plan (1) Pulmonary hypertension Current Visit: No Status: Suspected Consulted to consider right heart cath for pulmonary hypertension evaluation. Currently, pt's SpO2 is 92% on 4L sitting in bed. She states she does not think she would able to lie flat. She has a persistent large right pleural effusion--thought to be secondary to her SLE. Per pt, plan to undergo second thoracentesis tomorrow, although that plan is not documented at this point. Given her current acute ongoing issues of persistent large pleural effusion, PNA , would recommend outpt follow-up to discuss right heart cath at that time, once pt's respiratory status is back to baseline. Echo 08/01/17 EF 65%, mild-moderate phtn est RVSP 47mmHg. Cardiology signing off. Reconsult PRN. Outpt follow-up. (2) Chest pain Current Visit: No Status: Acute Troponin negative x 1. Reports chest pain when she is short of breath--usually on exertion. Suspect secondary to her respiratory issues. Reportedly had LHC >10 years ago without intervention. Stress test 07/11/16 perfusion imaging negative for ischemia or infarct. Gated EF >70%. Echo 08/01/17 EF 65%. Qualifiers: Chest pain type: unspecified Qualified Code(s): R07.9 - Chest pain, unspecified Discussion w patient/family: The assessment and plan as outlined above was discussed with the patient and/or family members who expressed understanding and agreement. All questions were answered. Thank you for involving us in the care of your patient. Please call with any questions. I will discuss all the above with Dr. Brown and make changes as necessary. History of Present Illness Consult date: 09/24/17 Requesting physician: Trey Bowens Consult reason: pulmonary hypertension Chief complaint: dyspnea History of present illness: Ms. Chowdary is a 42 year old female with PMH of COPD, chronic hypoxic respiratory failure, home oxygen dependent, fibromyalgia, chronic narcotic dependence, [place] 2008, rheumatoid arthritis, thyroid disease, GERD, GI bleed, Pulmonary hypertension, and Chronic lupus pt who was recently hospitalized for pneumonia on 09/06/17 that presented back to ER c/o severe worsening SOB and NOYOLA. She was severely hypoxic in the ER Spo2 in 70's on 4 lit O2. She was placed on BiPAPand given broad spec abx for pneumonia. Her CXR showed large right pleural effusion and pneumonia. She had a thoracentesis. CXR yesterday reveals persistent large right pleural effusion with new left basilar infiltrate that could represent atelectasis or pneumonia. Pleural effusion thought to be secondary to her lupus. Echo 08/01/17 EF 65%, mild AR, mild TR, mild-moderate phtn est RVSP 47mmHg. Stress test 07/11/16 perfusion imaging negative for ischemia or infarct, Gated EF >70%. Pt reports that when she gets short of breath/exertion herself she will sometimes experience midsternal chest pain that is sharp and achy. Reports having an IL >10 years ago without intervention. Cardiology was consulted to consider right heart cath to r/o pulmonary hypertension. Current O2 sat is 92% on 4L O2. Pt reports unable to lie flat due to her dyspnea. Past Med Surg Social Fam HX - Past Medical History Medical history: asthma, COPD, DVT, fibromyalgia, GERD, GI bleed, hypertension, kidney stones, myocardial infarction, RA, thyroid disease, other Psychiatric history: anxiety - Past Surgical History Surgical History: cholecystectomy, hysterectomy - Social History Smoking Status: Never smoker Smokeless Tobacco Status: No Alcohol use: none Drug use: none - Family History Mother History Unknown: Yes Living Status: Hx Family Cardiac Disorders: Yes (mi, CHF) Father Living Status: Hx Family Cardiac Disorders: Yes Hx Family Endocrine Disorder: Yes Medications and Allergies Albuterol Sulfate [Proair Hfa] 2 puff IH BID PRN 07/10/16 [History] Carvedilol [Coreg] 25 mg PO BID 07/10/16 [History] Fluticasone Propionate Nasal [Flonase] 50 mcg NS DAILY 07/10/16 [History] Nitroglycerin [Nitrostat] 0.4 mg SL Q5M PRN 07/10/16 [History] Amlodipine Besylate 10 mg PO DAILY 09/19/16 [History] Citalopram Hydrobromide [Celexa] 40 mg PO HS 07/18/17 [History] Cyanocobalamin (Vitamin B-12) [Vitamin B12] 2,000 mcg PO DAILY 07/18/17 [History ] Ipratropium/Albuterol Neb [Duoneb] 3 ml IH Q6H PRN 07/18/17 [History] Mometasone/Formoterol [Dulera 200 Mcg/5 Mcg Inhaler] 1 puff IH BID 07/18/17 [ History] Oxygen 2 l NS AD 07/18/17 [History] ALPRAZolam [Xanax 1 MG Tablet] 1 mg PO TID 07/30/17 [History] Furosemide [Lasix] 40 mg PO BID 07/30/17 [History] Levothyroxine [Synthroid] 112 mcg PO DAILY 09/01/17 [History] Lisinopril [Zestril] 5 mg PO DAILY 09/01/17 [History] Metoclopramide HCl 5 mg PO TID 09/01/17 [History] Mycophenolate Mofetil [Cellcept] 500 mg PO BID 09/01/17 [History] Ondansetron [Zofran] 8 mg PO BID PRN 09/01/17 [History] Potassium Chloride [K-Tab ER] 20 meq PO DAILY 09/01/17 [History] hydroCHLOROthiazide [Hydrochlorothiazide] 25 mg PO DAILY 09/01/17 [History] predniSONE [PredniSONE] 60 mg PO DAILY 09/01/17 [History] Folic Acid 5 mg PO DAILY #60 tablet 09/06/17 [Rx] Omeprazole [PriLOSEC] 40 mg PO BIDAC #60 capsule. 09/06/17 [Rx] OxyCODONE ER (12 HR) [OxyCONTIN] 10 mg PO BID #4 tab.er.12h 09/06/17 [Rx] OxyCODONE Immed Rel [Roxicodone 5 MG] 10 mg PO TID #9 tablet 09/06/17 [Rx] Insulin Glargine,Hum.rec.anlog [Basaglar Kwikpen U-100] 20 unit SQ DAILY [History] Ranitidine HCl [Zantac] 300 mg PO DAILY 09/21/17 [History] Sulfamethoxazole/Trimeth DS [Bactrim Ds] 1 tab PO DAILY 09/21/17 [History] Tiotropium [Spiriva] 18 mcg IH DAILY 09/21/17 [History] 3 Allergy/AdvReac Type Severity Reaction Status Date / Time ketorolac [From Toradol] AdvReac Abdominal Verified 09/21/17 02:38 Pain NSAIDS (Non-Steroidal AdvReac Abdominal Verified 09/21/17 02:38 Anti-Inflamma Pain tramadol AdvReac Abdominal Verified 09/21/17 02:38 Pain pyridium AdvReac Abdominal Uncoded 09/21/17 02:38 Pain All Systems Review: A 10-system review of systems was performed and is negative for pertinent findings except as documented above in the HPI. - Cardiovascular Cardiovascular: as per HPI, chest pain with exertion, dyspnea at rest, dyspnea on exertion - Respiratory Respiratory: dyspnea Physical Examination Vital Signs, Last 4 Hours Temp Pulse Resp BP Pulse Ox 09/24/17 11:45 98.4 F 60 18 138/81 90 09/24/17 11:23 16 98 Vital Signs Temp Pulse Resp BP Pulse Ox 09/24/17 11:45 98.4 F 60 18 138/81 90 09/24/17 11:23 16 98 09/24/17 08:03 98.5 F 64 20 144/77 93 09/24/17 07:36 16 93 09/24/17 03:51 15 91 09/24/17 03:48 98.6 F 71 18 155/85 90 09/23/17 23:15 16 93 09/23/17 23:05 98.5 F 67 17 139/80 93 09/23/17 21:45 91 09/23/17 19:43 16 91 09/23/17 19:16 97.8 F 71 18 134/80 91 09/23/17 16:21 97.9 F 68 15 121/77 91 09/23/17 15:52 18 92 Intake and Output 09/23/17 09/24/17 09/24/17 23:59 07:59 15:59 Intake Total 370 / 370 360 / 360 Output Total 900 / 900 500 / 500 Balance 370 / 370 -900 / -900 -140 / -140 Intake: IV Fluids Maxipime 1,000 MG In Water for inj. (sterile) 10 ML @ 150 mls/ hr IVP Q12HR [facility] Rx#:[id number] Oral 360 / 360 360 / 360 Output: Urine 900 / 900 500 / 500 Other: Meal Dinner Lunch Percent of Meal Consumed 50% 75% Weight 68.492 kg Blood Glucose* 293 151 Patient Weight 09/24/17 23:59 Weight 68.492 kg General: Conversant, No Apparent Distress HEENT: Atraumatic, Normocephaly, Mucus Membranes Moist Neck: No JVD, Normal carotid pulses Cardiac: Reg Rate and Rhythm, Normal S1 and S2, No Murmur Lungs: Other (diminished) Neuro: Alert and responsive, No focal deficits noted Abdomen: Soft, Non-Tender Skin: No rashes noted on visualized skin Musculoskeletal: No Chest Wall Tenderness Extremities: No Clubbing, No Cyanosis, No Edema, Normal Pulses Results 09/24/17 04:15 09/24/17 04:15 Lab Results 09/24/17 09/24/17 09/24/17 04:15 04:15 10:45 WBC 11.8 H Hgb 7.9 L Hct 25.5 L Plt Count 221 INR 1.1 Sodium 144 Potassium 3.9 Chloride 99 Carbon Dioxide 41 H* BUN 33 H Creatinine 1.00 Glucose 180 H Calcium 8.3 L Short CBC 09/24/17 Range/Units 04:15 WBC 11.8 H (4.3-11.1) K/mcL Hgb 7.9 L (11.5-15.4) g/dL Hct 25.5 L (35.3-44.9) % Plt Count 221 (140-400) K/mcL Neutrophils # 10.8 H (1.6-8.9) K/mcL BMP 09/24/17 Range/Units 04:15 Sodium 144 (136-145) mEq/L Potassium 3.9 (3.5-4.5) mEq/L Chloride 99 (98-109) mEq/L Carbon Dioxide 41 H* (19-29) mEq/L BUN 33 H (7-20) mg/dL Creatinine 1.00 (0.57-1.11) mg/dL Glucose 180 H (70-99) mg/dL Calcium 8.3 L (8.6-10.8) mg/dL Active Medications Acetaminophen (Tylenol) 650 mg PO Q6HR PRN PRN Reason: Mild Pain (1-3) Stop: 03/23/18 08:27 Albuterol Sulfate (Proventil Neb) 2.5 mg IH Q2H PRN; Protocol PRN Reason: Shortness Of Breath/Wheezing Stop: 03/25/18 09:25 Albuterol/Ipratropium (Duoneb) 3 ml IH [id number] LETI Stop: 03/23/18 12:01 Last Admin: 09/24/17 11:23 Dose: 3 ml Alprazolam (Xanax) 1 mg PO TID PRN; Protocol PRN Reason: Anxiety Stop: 03/23/18 09:05 Last Admin: 09/23/17 21:48 Dose: 1 mg Citalopram Hydrobromide (Celexa) 40 mg PO HS LETI Stop: 03/23/18 21:01 Last Admin: 09/23/17 21:48 Dose: 40 mg Cyanocobalamin (Vitamin B12) 2,000 mcg PO DAILY LETI Stop: 03/24/18 09:01 Last Admin: 09/24/17 08:26 Dose: 2,000 mcg Dextrose/Water (Dextrose 50% (Syg)) 25 ml IVP AD PRN PRN Reason: Hypoglycemia Stop: 03/25/18 13:56 Docusate Sodium (Colace) 100 mg PO BID PRN PRN Reason: Constipation Stop: 03/23/18 08:27 Last Admin: 09/24/17 13:13 Dose: 100 mg Enoxaparin Sodium (Lovenox) 40 mg SQ 0600 [facility] PRN Reason: Protocol Stop: 03/24/18 06:01 Last Admin: 09/24/17 06:00 Dose: 40 mg Fluticasone Propionate (Flonase) 50 mcg NS DAILY LETI PRN Reason: Protocol Stop: 03/24/18 09:01 Last Admin: 09/24/17 12:12 Dose: 50 mcg Folic Acid (Folic Acid) 5 mg PO DAILY LETI Stop: 03/23/18 09:16 Last Admin: 09/24/17 08:27 Dose: 5 mg Furosemide (Lasix) 40 mg PO BIDDIURETIC LETI Stop: 03/24/18 09:01 Last Admin: 09/24/17 08:27 Dose: 40 mg Glucagon (Glucagen) 1 mg IM ONCE PRN PRN Reason: Hypoglycemia Stop: 03/25/18 13:56 Glucose (Gluctose) 15 gm PO ONCE PRN PRN Reason: Hypoglycemia Stop: 03/25/18 13:56 Glucose (Gluctose) 30 gm PO ONCE PRN PRN Reason: Hypoglycemia Stop: 03/25/18 13:56 Levofloxacin/Dextrose (Levaquin Premix 500mg/100ml) 500 mg in 100 mls @ 100 mls /hr IVPB DAILY [facility] PRN Reason: Protocol Stop: 03/23/18 09:01 Last Admin: 09/24/17 08:29 Dose: 100 mls/hr Dextrose (Dextrose 5%) 1,000 mls @ 100 mls/hr IVC .Q10H PRN PRN Reason: HYPOGLYCEMIA Stop: 03/25/18 13:56 Insulin Detemir (Levemir) 5 unit SQ QAM [facility] Stop: 03/27/18 09:01 Insulin Human Lispro (Humalog) 0 units SQ HS [facility] PRN Reason: Protocol Stop: 03/25/18 21:01 Last Admin: 09/23/17 21:46 Dose: 5 units Insulin Human Lispro (Humalog) 0 units SQ TIDAC [facility] PRN Reason: Protocol Stop: 03/25/18 16:31 Last Admin: 09/24/17 12:14 Dose: 4 units Levothyroxine Sodium (Synthroid) 112 mcg PO DAILY@0630 [facility] Stop: 03/23/18 09:16 Last Admin: 09/24/17 06:00 Dose: 112 mcg Lisinopril (Zestril) 5 mg PO DAILY [facility] PRN Reason: Protocol Stop: 03/23/18 09:16 Last Admin: 09/24/17 08:51 Dose: 5 mg Mycophenolate Mofetil (Cellcept) 1,000 mg PO BID [facility] Stop: 03/26/18 21:01 Naloxone HCl (Narcan) 0.4 mg IVP Q2MIN PRN PRN Reason: Opioid Reversal Stop: 03/23/18 08:27 Omeprazole (Prilosec) 40 mg PO BIDAC [facility] PRN Reason: Protocol Stop: 03/23/18 09:16 Last Admin: 09/24/17 08:28 Dose: 40 mg Ondansetron HCl (Zofran) 4 mg IVP Q6HR PRN PRN Reason: Nausea And Vomiting Stop: 03/23/18 08:27 Last Admin: 09/24/17 15:13 Dose: 4 mg Oxycodone HCl (Oxycontin) 10 mg PO BID [facility] Stop: 03/23/18 21:01 Last Admin: 09/24/17 08:27 Dose: 10 mg Oxycodone HCl (Roxicodone) 10 mg PO Q6HR PRN PRN Reason: Moderate to Severe Pain (4-10) Stop: 03/25/18 13:56 Last Admin: 09/24/17 13:13 Dose: 10 mg Prednisone (Prednisone) 60 mg PO DAILY [facility] Stop: 03/25/18 18:01 Last Admin: 09/24/17 08:28 Dose: 60 mg Promethazine HCl (Phenergan) 12.5 mg IVP Q6HR PRN PRN Reason: Nausea And Vomiting Stop: 03/23/18 08:27 Last Admin: 09/23/17 04:45 Dose: 12.5 mg Trimethoprim/Sulfamethoxazole (Bactrim Ds) 1 each PO DAILY [facility] Stop: 03/24/18 09:01 Last Admin: 09/24/17 08:28 Dose: 1 each - Imaging and Cardiology Echo: report reviewed - EKG Interpretation EKG results cardiology: personally reviewed (SR), other (12 hr tele AVG HR 66, SR) Consult Discharge Plan - Plan Referrals: Naresh Skinner MD [Primary Care Provider] - <Juarez Brown - Last Filed: 09/25/17 13:52> Date of Encounter: 09/25/17 - Attending Attestation I have personally performed a face to face evaluation on this patient. I have reviewed and agree with the care plan. History and Exam by me shows: IMP: 1. Pulmonary hypertension, asked to evaluate pt for pulmonary hypertension with consideration of RHC to confirm echo findings. PT admitted with shortness of breath, found to have a persistant large right pleural effusion, with plan for possible repeat thorocentesis, mild to moderate elevation of RSVP in the 45 to 50 range. Pt complains of shortness of breath with exertion, more pronounced over last several weeks, despite compliance with continuous O2 and previous thorocentesis. Recommend proceeding with therapeutic thorocentisis, and outpatient follow up for discussion of RHC if indicated. 2. COPD - severe O2 dependent, with chronic persistant hypoxia, improving with inhalation tx. 3. CAD , with severe single vessel CAD, post emegent PCI for STEMI 2008, last stress normal [id number] Will arrange outpatient follow up at hospital discharge. Assessment and Plan Discussion w patient/family: The assessment and plan as outlined above was discussed with the patient and/or family members who expressed understanding and agreement. All questions were answered. Thank you for involving us in the care of your patient. Please call with any questions. History of Present Illness History of present illness: Ms. Chowdary is a 42 year old female All Systems Review: A 10-system review of systems was performed and is negative for pertinent findings except as documented above in the HPI. Physical Examination Vital Signs, Last 4 Hours Temp Pulse Resp BP Pulse Ox 09/25/17 11:19 16 94 09/25/17 10:35 98.2 F 61 18 136/84 95 Results 09/25/17 06:55 09/25/17 06:55 Lab Results 09/25/17 09/25/17 06:55 06:55 WBC 11.1 Hgb 8.0 L Hct 25.6 L Plt Count 215 Sodium 141 Potassium 4.5 Chloride 97 L Carbon Dioxide 39 H BUN 38 H Creatinine 0.77 Glucose 161 H Calcium 8.6
[2017-09-25 00:20] LABS: A.galactomannan Ag Index 0.06
[2017-09-25] MEDS: *HR* OxyCODONE Immed Rel 5 MG TABLET PO PRN ×2 (01:22→14:47)
[2017-09-25] MEDS: Ipratropium/Albuterol Neb 3 ML IH SCH ×6 (04:27→23:10)
[2017-09-25] MEDS: *HR* Enoxaparin 40 MG/0.4 ML SYRINGE SQ SCH (05:29)
--- NOTE | 2017-09-25 07:08 | Internal Med Progress Note ---
Date of Encounter: 09/24/17 Time of Encounter: 16:06 - Assessment and plan (1) Acute respiratory failure with hypoxia Current Visit: No Status: Acute Assessment and plan: Triggered by Pleural effusion and Pneumonia s/p thoracocentesis 09/21 - removed 1200 CC by Pulmonary still on 4 lit O2 - her baseline @ 2-3 lit O2 Cont duoneb + Steroids + Abx Cont PO Lasix Risk assessment: pt is still at moderate risk for possible respiratory compromise. s/p thoracentesis feels better. Patient will likely benefit from a repeat thoracentesis. Appreciate Pulmonology input. (2) Pleural effusion Current Visit: Yes Status: Acute Assessment and plan: s/p thoracocentesis reviewed fluid analysis - consistent with exudate - mostly lupus induced possible lupus pleuritis Pt was on Cellcept, Prednisone and Bactrim at home resumed Cellcept, Bactrim and on IV steroids now does not look like any lupus flare up now..other than pleural effusion Cont supportive and symptomatic care Pt wants to f/u with our rehumatologist here in [place].. so will call Dr. Bolden in (3) Hypertension Current Visit: No Status: Chronic Assessment and plan: slightly on lower side held Coreg and Norvasc, will resume Norvasc that BP elevated and monitor. Patient home medications also list HCTZ but will add Norvasc and Coreg for now. Qualifiers: Hypertension type: essential hypertension Qualified Code(s): I10 - Essential (primary) hypertension (4) Acute exacerbation of chronic obstructive airways disease Current Visit: No Status: Acute Assessment and plan: Cont scheduled Duoneb + started tapering steroids (5) Pneumonia Current Visit: No Status: Acute Qualifiers: Pneumonia type: due to unspecified organism Laterality: right Lung location: middle lobe of lung Qualified Code(s): J18.1 - Lobar pneumonia, unspecified organism (6) Hypothyroidism Current Visit: No Status: Chronic Assessment and plan: resumed home meds Qualifiers: Hypothyroidism type: unspecified Qualified Code(s): E03.9 - Hypothyroidism , unspecified (7) SIRS (systemic inflammatory response syndrome) Current Visit: Yes Status: Acute Assessment and plan: Improving (8) SLE (systemic lupus erythematosus) Current Visit: No Status: Chronic Assessment and plan: resumed home meds Cellcept, Bactrim + steroids Pt wants to f/u with our hvac manager here consulted Dr. Crenshaw Qualifiers: Systemic lupus erythematosus type: unspecified Systemic lupus erythematosus organ involvement: lung involvement Qualified Code(s): M32.13 - Lung involvement in systemic lupus erythematosus - Subjective Interval history: Patient felt better after thoracentesis. No complaints. - Constitutional Vitals: Temp Pulse Resp BP Pulse Ox 98.0 F 61 12 145/79 96 09/25/17 03:59 09/25/17 03:59 09/25/17 04:27 09/25/17 03:59 09/25/17 04:27 General appearance: Present: A&O X 3, answers questions appropriately Exam: - Head Head exam: Present: atraumatic, normal inspection - Neck Neck exam general surgery: Present: supple - Respiratory Respiratory exam: Present: decreased breath sounds, wheezes (mild). Absent: respiratory distress, rhonchi - Cardiovascular Cardiovascular exam: Present: RRR, +S1, +S2. Absent: systolic murmur - GI/Abdominal GI/Abdominal exam: Present: normal bowel sounds, soft. Absent: rebound, rigid, tenderness - Extremities Exam Extremities exam: Absent: calf tenderness, pedal edema, tenderness - Back Exam Back exam: Absent: CVA tenderness (L), CVA tenderness (R) - Neurological Exam Neurological exam: Present: alert, oriented X3 - Psychiatric Psychiatric exam: Present: normal affect, normal mood Internal Medicine: Result - Labs CBC & Chem 7: 09/25/17 06:55 09/24/17 04:15 - ABG Interpretation ABG results: PT/INR, D-dimer PT 11.4 Seconds (9.4-12.1) 09/24/17 10:45 Consult Discharge Plan - Plan Referrals: Naresh Skinner MD [Primary Care Provider] -
[2017-09-25 07:11] LABS: Basophils % 0.1 %; Hematocrit 25.6 % (35.3-44.9); Immature Granulocytes % 2.3 % (0-4); Lymphocytes # 0.9 K/mcL (0.6-4.6); Lymphocytes % 8.4 %; Mean Corpuscular HGB Conc 31.3 g/dL (31.6-35.5); Mean Corpuscular Hemoglobin 29.9 pg (28.0-33.3); Mean Corpuscular Volume 95.5 fL (83.0-100.0); Mean Platelet Volume 10.3 fL (9.4-12.4); Monocytes # 0.7 K/mcL (0.0-1.3); Monocytes % 6.1 %; Neutrophils # 9.2 K/mcL (1.6-8.9); Nucleated Red Blood Cells 0.2 /100 WBC (0); Platelet Count 215 K/mcL (140-400); Red Blood Count 2.68 M/mcL (3.82-4.97); Red Cell Distribution Width 15.6 % (11.5-14.5); Segmented Neutrophils % 83.1 %
[2017-09-25 07:20] LABS: BUN/Creatinine Ratio 49 (6-26); Blood Urea Nitrogen 38 mg/dL (7-20); Calcium 8.6 mg/dL (8.6-10.8); Carbon Dioxide 39 mEq/L (19-29); Chloride 97 mEq/L (98-109); Glucose 161 mg/dL (70-99); Osmolality,Calculated 305 (280-300); Potassium 4.5 mEq/L (3.5-4.5); Sodium 141 mEq/L (136-145); eGFR For African Americans > 60 (> 60); eGFR For Non-African Americans > 60 (> 60)
[2017-09-25] MEDS: Fluticasone Propionate Nasal 50 MCG/SPRAY BOTTLE NS SCH (08:43)
[2017-09-25] MEDS: Sulfamethoxazole/Trimeth DS 1 EACH TABLET PO SCH (08:44)
[2017-09-25] MEDS: Furosemide 40 MG TABLET PO SCH ×2 (08:44→17:34)
[2017-09-25] MEDS: *HR* OxyCODONE ER (12 HR) 10 MG TABLET PO SCH ×2 (08:44→21:52)
[2017-09-25] MEDS: predniSONE 20 MG TABLET PO SCH (08:44)
[2017-09-25] MEDS: amLODIPine 5 MG TABLET PO SCH (08:44)
[2017-09-25] MEDS: Cyanocobalamin (B-12) 1,000 MCG TABLET PO SCH (08:44)
[2017-09-25] MEDS: Folic Acid 1 MG TABLET PO SCH (08:45)
[2017-09-25] MEDS: Insulin LISPRO 300 UNITS/3 ML VIAL SQ SCH ×4 (08:45→21:52)
[2017-09-25] MEDS: Levofloxacin 500 MG/100 ML 500 MG/100 ML BAG IVPB SCH (08:46)
--- NOTE | 2017-09-25 08:56 | Pulmonology Progress Note ---
Date of Encounter: 09/25/17 Time of Encounter: 08:00 Assessment and Plan (1) Pleural effusion Current Visit: Yes Status: Acute Follow-up on cytology and most likely patient will need repeat diagnostic/ therapeutic thoracentesis of the pleural effusion. Today clinically patient stated she is feeling better and will monitor. 09/25 still waiting for cytology. I discussed with primary team and thoracentesis would be based on patient's symptoms or if needs to be done again to help diagnosis. (2) Sleep-disordered breathing Current Visit: Yes Status: Suspected Patient will need outpatient sleep study which was ordered (3) Pulmonary hypertension Current Visit: No Status: Suspected Most likely patient will need right heart catheterization and consultation with radiology team for right heart catheter. 09/25 cardiology team has seen patient for possible right heart catheter. Subjective Principal diagnosis: Acute on Chronic Respiratory Failure Interval history: Patient denies any significant changes from yesterday and denies any worsening in her breathing Objective PUL Vital signs: Last Vital Signs Temp 98.5 F 09/25/17 07:15 Pulse 66 09/25/17 07:15 Resp 18 09/25/17 07:15 BP 134/75 09/25/17 07:15 Pulse Ox 97 09/25/17 07:15 General appearance: no acute distress, lethargic Eyes: nonicteric ENT: oropharynx dry Neck: supple Effort: normal Auscultation: bilateral: diminished breath sounds (Mainly in the bases) Percussion: left: not dull, right: dull Cardiovascular: regular rate and rhythm Gastrointestinal: normoactive bowel sounds, non-distended Extremities: edema normal mental status, non-focal exam depressed Results - Laboratory Findings CBC and BMP: 09/25/17 06:55 09/25/17 06:55 PT/INR, D-dimer PT 11.4 Seconds (9.4-12.1) 09/24/17 10:45 Abnormal lab findings: Abnormal lab results RBC 2.68 M/mcL (3.82-4.97) L 09/25/17 06:55 Hgb 8.0 g/dL (11.5-15.4) L 09/25/17 06:55 Hct 25.6 % (35.3-44.9) L 09/25/17 06:55 MCHC 31.3 g/dL (31.6-35.5) L 09/25/17 06:55 RDW 15.6 % (11.5-14.5) H 09/25/17 06:55 Neutrophils # 9.2 K/mcL (1.6-8.9) H 09/25/17 06:55 Nucleated RBCs/100 WBC 0.2 /100 WBC (0) H 09/25/17 06:55 ESR 57 mm/hr (0-15) H 09/23/17 04:50 Chloride 97 mEq/L (98-109) L 09/25/17 06:55 Carbon Dioxide 39 mEq/L (19-29) H 09/25/17 06:55 BUN 38 mg/dL (7-20) H 09/25/17 06:55 BUN/Creatinine Ratio 49 (6-26) H 09/25/17 06:55 Glucose 161 mg/dL (70-99) H 09/25/17 06:55 POC Glucose 156 (58-89) H 09/25/17 07:18 Calculated Osmolality 305 (280-300) H 09/25/17 06:55 C-Reactive Protein 29 mg/L (Less than 5) H 09/23/17 04:50 B-Natriuretic Peptide 111 pg/mL (0-100) H 09/22/17 06:15 Albumin 2.1 g/dL (3.5-5.0) L 09/22/17 06:15 Globulin 3.9 g/dL (2.4-3.5) H 09/22/17 06:15 Albumin/Globulin Ratio 0.5 (1.1-2.2) L 09/22/17 06:15 Pleural Appearance Cloudy (Clear) A 09/21/17 12:45 Pleural RBC 0.008 M/mcL (0.000-0.002) H 09/21/17 12:45 Pleural Tot Nuc Cell 2788 TNC/mcL (0-1000) H 09/21/17 12:45 - Microbiology Findings Microbiology Findings: Microbiology, Last 48 Hours 09/21/17 12:45 Body Fluid Culture - Final Pleural Fluid 09/21/17 12:45 Acid Fast Stain - Final Pleural Fluid - Clinical Findings Intake & Output: Intake & Output 09/24/17 09/25/17 09/25/17 23:59 07:59 15:59 Intake Total 360 / 360 0 / 0 Output Total 400 / 400 600 / 600 Balance -40 / -40 -600 / -600 Weight 72.5 kg Consult Discharge Plan - Plan Referrals: Naresh Skinner MD [Primary Care Provider] -
[2017-09-25] MEDS: Insulin DETEMIR 100 UNIT/ML X5UNITS SQ SCH (11:51)
[2017-09-25] MEDS: ALPRAZolam 1 MG TABLET PO PRN (17:34)
--- NOTE | 2017-09-26 00:27 | Internal Med Progress Note ---
Date of Encounter: 09/25/17 Time of Encounter: 11:25 - Assessment and plan (1) Acute respiratory failure with hypoxia Current Visit: No Status: Acute Assessment and plan: Triggered by Pleural effusion and Pneumonia s/p thoracocentesis 09/21 - removed 1200 CC by Pulmonary still on 4 lit O2 - her baseline @ 2-3 lit O2 Cont duoneb + Steroids + Abx Cont PO Lasix Risk assessment: pt is still at moderate risk for possible respiratory compromise. s/p thoracentesis feels better. D/W Pulmonary Dr. [place]. Patient respiratory status will be monitored, supportive care, and also to determine if needs repeat thoracentesis. Goal to find underlying etiology of effusions. (2) Pleural effusion Current Visit: Yes Status: Acute Assessment and plan: s/p thoracocentesis reviewed fluid analysis - consistent with exudate - mostly lupus induced possible lupus pleuritis Pt was on Cellcept, Prednisone and Bactrim at home resumed Cellcept, Bactrim and on IV steroids now does not look like any lupus flare up now..other than pleural effusion Cont supportive and symptomatic care Pt wants to f/u with our rehumatologist here in [place].. so will call Dr. Bolden in AM (3) Hypertension Current Visit: No Status: Chronic Assessment and plan: slightly on lower side held Coreg and Norvasc, will resume Norvasc that BP elevated and monitor. Patient home medications also list HCTZ but will add Norvasc and Coreg for now. Qualifiers: Hypertension type: essential hypertension Qualified Code(s): I10 - Essential (primary) hypertension (4) Acute exacerbation of chronic obstructive airways disease Current Visit: No Status: Acute Assessment and plan: Cont scheduled Duoneb + started tapering steroids (5) Pneumonia Current Visit: No Status: Acute Qualifiers: Pneumonia type: due to unspecified organism Laterality: right Lung location: middle lobe of lung Qualified Code(s): J18.1 - Lobar pneumonia, unspecified organism (6) Hypothyroidism Current Visit: No Status: Chronic Assessment and plan: resumed home meds Qualifiers: Hypothyroidism type: unspecified Qualified Code(s): E03.9 - Hypothyroidism , unspecified (7) SIRS (systemic inflammatory response syndrome) Current Visit: Yes Status: Acute Assessment and plan: Improving (8) SLE (systemic lupus erythematosus) Current Visit: No Status: Chronic Assessment and plan: resumed home meds Cellcept, Bactrim + steroids Pt wants to f/u with our employment recruiter here consulted Dr. Crenshaw Qualifiers: Systemic lupus erythematosus type: unspecified Systemic lupus erythematosus organ involvement: lung involvement Qualified Code(s): M32.13 - Lung involvement in systemic lupus erythematosus - Subjective Interval history: Patient felt better after thoracentesis yesterday. She denies chest pain, n/v, fevers/chills. - Constitutional Vitals: Temp Pulse Resp BP Pulse Ox 98.2 F 63 14 125/62 97 09/26/17 00:20 09/26/17 00:20 09/26/17 00:20 09/26/17 00:20 09/26/17 00:20 General appearance: Present: A&O X 3, answers questions appropriately Exam: Gen: NAD, AAOx3 CVS: RRR lungs: course breath sounds throughout, fair air exchange Ext: no cyanosis, no edema. Internal Medicine: Result - Labs CBC & Chem 7: 09/25/17 06:55 09/25/17 06:55 Labs: Short CBC 09/25/17 Range/Units 06:55 WBC 11.1 (4.3-11.1) K/mcL Hgb 8.0 L (11.5-15.4) g/dL Hct 25.6 L (35.3-44.9) % Plt Count 215 (140-400) K/mcL Neutrophils # 9.2 H (1.6-8.9) K/mcL BMP 09/25/17 06:55 Sodium 141 Potassium 4.5 Chloride 97 L Carbon Dioxide 39 H BUN 38 H Creatinine 0.77 Glucose 161 H Calcium 8.6 - ABG Interpretation ABG results: PT/INR, D-dimer PT 11.4 Seconds (9.4-12.1) 09/24/17 10:45 Consult Discharge Plan - Plan Referrals: Naresh Skinner MD [Primary Care Provider] -
[2017-09-26] MEDS: Ipratropium/Albuterol Neb 3 ML IH SCH ×3 (04:10→11:10)
[2017-09-26 04:16] LABS: Basophils % 0.3 %; Hematocrit 25.6 % (35.3-44.9); Hemoglobin 8.1 g/dL (11.5-15.4); Immature Granulocytes % 4.6 % (0-4); Lymphocytes % 10.1 %; Mean Corpuscular HGB Conc 31.6 g/dL (31.6-35.5); Mean Corpuscular Volume 94.8 fL (83.0-100.0); Mean Platelet Volume 10.3 fL (9.4-12.4); Monocytes # 0.6 K/mcL (0.0-1.3); Monocytes % 5.8 %; Neutrophils # 7.5 K/mcL (1.6-8.9); Platelet Count 219 K/mcL (140-400); Red Cell Distribution Width 15.5 % (11.5-14.5); Segmented Neutrophils % 79.2 %
[2017-09-26 04:23] LABS: BUN/Creatinine Ratio 47 (6-26); Blood Urea Nitrogen 36 mg/dL (7-20); Calcium 8.9 mg/dL (8.6-10.8); Chloride 96 mEq/L (98-109); Glucose 147 mg/dL (70-99); Osmolality,Calculated 305 (280-300); Potassium 4.7 mEq/L (3.5-4.5); Sodium 142 mEq/L (136-145); eGFR For African Americans > 60 (> 60); eGFR For Non-African Americans > 60 (> 60)
[2017-09-26 04:24] LABS: Carbon Dioxide 42 mEq/L (19-29)
[2017-09-26] MEDS: ALPRAZolam 1 MG TABLET PO PRN (06:13)
[2017-09-26] MEDS: *HR* OxyCODONE Immed Rel 5 MG TABLET PO PRN (06:13)
[2017-09-26] MEDS: *HR* Enoxaparin 40 MG/0.4 ML SYRINGE SQ SCH (06:14)
[2017-09-26] MEDS ORDERED: levoFLOXacin 500 MG TABLET PO SCH (09:00)
[2017-09-26] MEDS: Insulin LISPRO 300 UNITS/3 ML VIAL SQ SCH ×2 (09:53→11:55)
--- NOTE | 2017-09-26 09:53 | Pulmonology Progress Note ---
Date of Encounter: 09/26/17 Time of Encounter: 08:25 Assessment and Plan (1) Pleural effusion Current Visit: Yes Status: Acute Follow-up on cytology and most likely patient will need repeat diagnostic/ therapeutic thoracentesis of the pleural effusion. Today clinically patient stated she is feeling better and will monitor. 09/25 still waiting for cytology. I discussed with primary team and thoracentesis would be based on patient's symptoms or if needs to be done again to help diagnosis. 09/26 patient with pleural effusion and that shows inflammatory cells on that cytology which can be seen in patient with connective tissue disease such as SLE. Since there is no worsening of the symptoms conservative management is appropriate. We will follow-up as outpatient if necessary. Discussed with primary team and please call for any questions. (2) Sleep-disordered breathing Current Visit: Yes Status: Suspected Patient will need outpatient sleep study which was ordered (3) Pulmonary hypertension Current Visit: No Status: Suspected Most likely patient will need right heart catheterization and consultation with radiology team for right heart catheter. 09/25 cardiology team has seen patient for possible right heart catheter. 09/26 cardiology notes reviewed. Agree with outpatient workup for right heart catheter. Subjective Principal diagnosis: Acute on Chronic Respiratory Failure Interval history: Patient complaining of having right-sided chest discomfort. She denies any changes or worsening Dyspnea Objective PUL Vital signs: Last Vital Signs Temp 98.4 F 09/26/17 07:37 Pulse 57 09/26/17 07:37 Resp 18 09/26/17 07:59 BP 155/82 09/26/17 07:37 Pulse Ox 92 09/26/17 07:59 General appearance: no acute distress Eyes: nonicteric ENT: oropharynx moist Neck: supple Effort: normal Auscultation: left: clear, right: diminished breath sounds Percussion: left: not dull, right: dull Cardiovascular: regular rate and rhythm Gastrointestinal: normoactive bowel sounds, non-distended Extremities: no cyanosis, no edema normal mental status, non-focal exam mood appropriate Results - Laboratory Findings CBC and BMP: 09/26/17 04:00 09/26/17 04:00 PT/INR, D-dimer PT 11.4 Seconds (9.4-12.1) 09/24/17 10:45 Abnormal lab findings: Abnormal lab results RBC 2.70 M/mcL (3.82-4.97) L 09/26/17 04:00 Hgb 8.1 g/dL (11.5-15.4) L 09/26/17 04:00 Hct 25.6 % (35.3-44.9) L 09/26/17 04:00 RDW 15.5 % (11.5-14.5) H 09/26/17 04:00 Immature Gran % 4.6 % (0-4) H 09/26/17 04:00 Nucleated RBCs/100 WBC 0.2 /100 WBC (0) H 09/25/17 06:55 ESR 57 mm/hr (0-15) H 09/23/17 04:50 Potassium 4.7 mEq/L (3.5-4.5) H 09/26/17 04:00 Chloride 96 mEq/L (98-109) L 09/26/17 04:00 Carbon Dioxide 42 mEq/L (19-29) H* 09/26/17 04:00 BUN 36 mg/dL (7-20) H 09/26/17 04:00 BUN/Creatinine Ratio 47 (6-26) H 09/26/17 04:00 Glucose 147 mg/dL (70-99) H 09/26/17 04:00 POC Glucose 156 (58-89) H 09/25/17 10:37 Calculated Osmolality 305 (280-300) H 09/26/17 04:00 C-Reactive Protein 29 mg/L (Less than 5) H 09/23/17 04:50 B-Natriuretic Peptide 111 pg/mL (0-100) H 09/22/17 06:15 Albumin 2.1 g/dL (3.5-5.0) L 09/22/17 06:15 Globulin 3.9 g/dL (2.4-3.5) H 09/22/17 06:15 Albumin/Globulin Ratio 0.5 (1.1-2.2) L 09/22/17 06:15 Pleural Appearance Cloudy (Clear) A 09/21/17 12:45 Pleural RBC 0.008 M/mcL (0.000-0.002) H 09/21/17 12:45 Pleural Tot Nuc Cell 2788 TNC/mcL (0-1000) H 09/21/17 12:45 - Microbiology Findings Microbiology Findings: Microbiology, Last 48 Hours 09/21/17 12:45 Body Fluid Culture - Final Pleural Fluid - Clinical Findings Intake & Output: Intake & Output 09/25/17 09/26/17 09/26/17 23:59 07:59 15:59 Intake Total 340 / 340 360 / 360 Output Total 900 / 900 900 / 900 Balance -560 / -560 -900 / -900 360 / 360 Weight 71.5 kg Consult Discharge Plan - Plan Referrals: Naresh Skinner MD [Primary Care Provider] -
[2017-09-26] MEDS: Cyanocobalamin (B-12) 1,000 MCG TABLET PO SCH (10:04)
[2017-09-26] MEDS: Furosemide 40 MG TABLET PO SCH (10:04)
[2017-09-26] MEDS: Fluticasone Propionate Nasal 50 MCG/SPRAY BOTTLE NS SCH (10:05)
[2017-09-26] MEDS: amLODIPine 5 MG TABLET PO SCH (10:05)
[2017-09-26] MEDS: Sulfamethoxazole/Trimeth DS 1 EACH TABLET PO SCH (10:05)
[2017-09-26] MEDS: *HR* OxyCODONE ER (12 HR) 10 MG TABLET PO SCH (10:05)
[2017-09-26] MEDS: Insulin DETEMIR 100 UNIT/ML X5UNITS SQ SCH (10:05)
[2017-09-26] MEDS: predniSONE 20 MG TABLET PO SCH (10:05)
[2017-09-26] MEDS: Folic Acid 1 MG TABLET PO SCH (10:10)
[2017-09-26 10:34] VITALS: BP 127/80
--- NOTE | 2017-09-26 13:18 | Discharge Summary ---
Date of Encounter: 09/26/17 Time of Encounter: 13:07 - Discharge Diagnosis (1) Acute respiratory failure with hypoxia Priority: Primary Status: Acute (2) Pleural effusion Priority: Secondary Status: Acute (3) Hypertension Priority: Secondary Status: Chronic Qualifiers: Hypertension type: essential hypertension Qualified Code(s): I10 - Essential (primary) hypertension (4) Acute exacerbation of chronic obstructive airways disease Priority: Secondary Status: Acute (5) Pneumonia Priority: Secondary Status: Acute Qualifiers: Pneumonia type: due to unspecified organism Laterality: right Lung location: middle lobe of lung Qualified Code(s): J18.1 - Lobar pneumonia, unspecified organism (6) Hypothyroidism Priority: Secondary Status: Chronic Qualifiers: Hypothyroidism type: unspecified Qualified Code(s): E03.9 - Hypothyroidism , unspecified (7) SIRS (systemic inflammatory response syndrome) Priority: Secondary Status: Acute (8) SLE (systemic lupus erythematosus) Priority: Secondary Status: Chronic Qualifiers: Systemic lupus erythematosus type: unspecified Systemic lupus erythematosus organ involvement: lung involvement Qualified Code(s): M32.13 - Lung involvement in systemic lupus erythematosus - Discharge Medications Prescriptions: OxyCODONE Immed Rel [Roxicodone 5 MG] 10 mg PO Q6HR PRN #10 tablet PRN Reason: Moderate to Severe Pain (4-10) Levofloxacin [Levaquin] 750 mg PO Q24H #7 tablet predniSONE [PredniSONE] See Taper PO DAILY #18 tablet Home Medications: Albuterol Sulfate [Proair Hfa] 2 puff IH BID PRN 07/10/16 [History] Carvedilol [Coreg] 25 mg PO BID 07/10/16 [History] Fluticasone Propionate Nasal [Flonase] 50 mcg NS DAILY 07/10/16 [History] Nitroglycerin [Nitrostat] 0.4 mg SL Q5M PRN 07/10/16 [History] Amlodipine Besylate 10 mg PO DAILY 09/19/16 [History] Citalopram Hydrobromide [Celexa] 40 mg PO HS 07/18/17 [History] Cyanocobalamin (Vitamin B-12) [Vitamin B12] 2,000 mcg PO DAILY 07/18/17 [History ] Ipratropium/Albuterol Neb [Duoneb] 3 ml IH Q6H PRN 07/18/17 [History] Mometasone/Formoterol [Dulera 200 Mcg/5 Mcg Inhaler] 1 puff IH BID 07/18/17 [ History] Oxygen 2 l NS AD 07/18/17 [History] ALPRAZolam [Xanax 1 MG Tablet] 1 mg PO TID 07/30/17 [History] Furosemide [Lasix] 40 mg PO BID 07/30/17 [History] Levothyroxine [Synthroid] 112 mcg PO DAILY 09/01/17 [History] Lisinopril [Zestril] 5 mg PO DAILY 09/01/17 [History] Metoclopramide HCl 5 mg PO TID 09/01/17 [History] Mycophenolate Mofetil [Cellcept] 500 mg PO BID 09/01/17 [History] Ondansetron [Zofran] 8 mg PO BID PRN 09/01/17 [History] Potassium Chloride [K-Tab ER] 20 meq PO DAILY 09/01/17 [History] hydroCHLOROthiazide [Hydrochlorothiazide] 25 mg PO DAILY 09/01/17 [History] predniSONE [PredniSONE] 60 mg PO DAILY 09/01/17 [History] Folic Acid 5 mg PO DAILY #60 tablet 09/06/17 [Rx] Omeprazole [PriLOSEC] 40 mg PO BIDAC #60 capsule.dr 09/06/17 [Rx] OxyCODONE ER (12 HR) [OxyCONTIN] 10 mg PO BID #4 tab.er.12h 09/06/17 [Rx] OxyCODONE Immed Rel [Roxicodone 5 MG] 10 mg PO TID #9 tablet 09/06/17 [Rx] Insulin Glargine,Hum.rec.anlog [Basaglar Kwikpen U-100] 20 unit SQ DAILY [History] Ranitidine HCl [Zantac] 300 mg PO DAILY 09/21/17 [History] Sulfamethoxazole/Trimeth DS [Bactrim Ds] 1 tab PO DAILY 09/21/17 [History] Tiotropium [Spiriva] 18 mcg IH DAILY 09/21/17 [History] Levofloxacin [Levaquin] 750 mg PO Q24H #7 tablet 09/26/17 [Rx] OxyCODONE Immed Rel [Roxicodone 5 MG] 10 mg PO Q6HR PRN #10 tablet 09/26/17 [Rx] predniSONE [PredniSONE] See Taper PO DAILY #18 tablet 09/26/17 [Rx] Allergies/Adverse Reactions: 3 Allergy/AdvReac Type Severity Reaction Status Date / Time ketorolac [From Toradol] AdvReac Abdominal Verified 09/21/17 02:38 Pain NSAIDS (Non-Steroidal AdvReac Abdominal Verified 09/21/17 02:38 Anti-Inflamma Pain tramadol AdvReac Abdominal Verified 09/21/17 02:38 Pain pyridium AdvReac Abdominal Uncoded 09/21/17 02:38 Pain Date of admission: 09/21/17 08:26 Primary care physician: Naresh Skinner MD Consults: 09/21/17 09:14 Consult to Pulmonology [CONS] Routine Consulting Provider: [facility] Reason for Consult: Acute hypoxic respiratory failure Call Completed: Yes 09/23/17 15:33 Consult to Physician [CONS] Routine Consulting Provider: Nabeel Crenshaw Reason for Consult: Lupus pleuritis - chronic lupus Call Completed: Yes 09/24/17 13:54 Consult to Cardiology [CONS] Routine Comment: Consulting Provider: Cardiology Mita Reason for Consult: Right heart cath, r/o pulmonary HTN Time Notified: 13:55 Call Completed: Yes Discharging clinician: Asim Davila - Patient Status Disposition: Home, Self-Care Condition: Undetermined Functional capacity at discharge: independent ambulation Overall status at discharge: patient is progressing back to baseline - Discharge Instructions Follow Up With: Naresh Skinner MD [Primary Care Provider] - (Please call and schedule a hospital f/u appointment [facility] 5-7 days from discharge) - Diet and Activity Activity: increase activity as tolerated Diet: advance to your usual diet Hospital course: Ms. Chowdary is a 42 year old female has medical history of COPD, chronic hypoxic respiratory failure, home oxygen dependency, SLE, narcotic dependence, rheumatoid arthritis, GI bleed, pulmonary hypertension presented to the hospital for pneumonia on 09/06/2017. Vision returned to the ER on day of admission complaining of worsening shortness of breath and dyspnea on exertion. She was severely hypoxic in the ER with oxygen saturations in the 70s on 4 L of oxygen. She states on BiPAP in right away gave broad-spectrum antibiotics for pneumonia. Patient was admitted for acute on chronic respiratory failure with hypoxia, was seen and have pleural effusions. A 2-D echo was reviewed from last month showed a normal LVEF. Also had findings suspicious for pneumonia and so patient was placed on antibiotics. Likely had COPD exacerbation and started on duo nebs and high-dose steroids since she is a chronic steroid patient. All in all she was counseled to patient had pleural effusion and a thoracentesis was recommended. The patient had underwent thoracentesis on and patient felt relief of symptoms with this. Fluid analysis was done, pleural fluid was mostly consistent with exudate likely lupus-induced. Possible lupus pleuritis. From respiratory standpoint patient did better repeat chest x-ray did not show acute fluid accumulation. Cultures were negative. Etiology was consulted as to evaluate for any cardiac abnormalities. She does have a significant family history and also has pulmonary hypertension seen on imaging. Cardiology does want to do a right heart catheter which they will arrange for outpatient. Patient does have sleep study arranged for outpatient as well. Patient remained stable from respiratory standpoint on 4 L O2, usually is on 3 L O2 at home. Symptoms improved after thoracentesis. She was continued on antibiotics, discharged with Levaquin to complete therapy for treatment for pneumonia. He is also discharged with this prednisone taper and then continuing home prednisone dose. - Time Spent with Patient Total time spent providing and/or coordinating discharge services: Greater than 30 minutes - Constitutional Vitals: Temp Pulse Resp BP Pulse Ox 97.9 F 62 18 127/80 94 09/26/17 10:34 09/26/17 10:34 09/26/17 11:11 09/26/17 10:34 09/26/17 11:11 General appearance: Present: A&O X 3, answers questions appropriately Exam: - Head Head exam: Present: atraumatic, normal inspection - Neck Neck exam general surgery: Present: supple - Respiratory Respiratory exam: Present: decreased breath sounds, wheezes (mild). Absent: respiratory distress, rhonchi - Cardiovascular Cardiovascular exam: Present: RRR, +S1, +S2. Absent: systolic murmur - GI/Abdominal GI/Abdominal exam: Present: normal bowel sounds, soft. Absent: rebound, rigid, tenderness - Extremities Exam Extremities exam: Absent: calf tenderness, pedal edema, tenderness - Back Exam Back exam: Absent: CVA tenderness (L), CVA tenderness (R) - Neurological Exam Neurological exam: Present: alert, oriented X3 - Psychiatric Psychiatric exam: Present: normal affect, normal mood
== END 2017-09-26 15:00 | disposition home or self-care (01) | DRG 346 ==
LOC: 2NNU 02:37 → EMEROO 02:37 → 2NNU 05:37 → 2ANU 09-22 13:38
PROVIDERS: ADMIT Internal Medicine; ATTEND Internal Medicine

== ENCOUNTER 2018-09-01 22:20 | Observation (INO) ==
[2018-09-01] MEDS ORDERED: predniSONE 20 MG TABLET PO ONE (22:46)
[2018-09-01] MEDS ORDERED: Albuterol 2.5 MG/3 ML NEBULIZER IH ONE (22:46)
[2018-09-01] MEDS ORDERED: Ipratropium/Albuterol Neb 3 ML IH ONE (22:46)
[2018-09-01] MEDS ORDERED: 0.9 % Sodium Chloride 1,000 ML IVC ONE (22:46)
[2018-09-01] MEDS ORDERED: *HR* FentaNYL (PF) 100 MCG/2 ML VIAL IVP ONE (22:47)
--- NOTE | 2018-09-01 23:06 | Emergency Department Note ---
Disposition Clinical Impression: Pleuritic chest pain, Pyelonephritis COPD (chronic obstructive pulmonary disease) Qualifiers: COPD type: emphysema Emphysema type: unspecified Qualified Code(s): J43.9 - Emphysema, unspecified Pneumonia Qualifiers: Pneumonia type: due to unspecified organism Laterality: right Lung location: lower lobe of lung Qualified Code(s): J18.1 - Lobar pneumonia, unspecified organism Disposition: Still a Patient Referrals: Naresh Skinner MD [Primary Care Provider] - Forms: ED Satisfaction Letter Time of Disposition: 01:42 General Adult HPI - General Chief complaint: ED Shortness of Breath/Dyspnea Stated complaint: ANURADHA, back pain, mult C/O Time Seen by Provider: 09/01/18 22:33 Source: patient Mode of arrival: ambulatory Limitations: no limitations - History of Present Illness HPI Narrative: This is a 43-year-old female with a more than 10 year history of lupus, on mycophenolate and prednisone daily, and also with a history of asthma, reports shortness of breath with cough, low back pain, and fevers accompanied by muscle cramping. Most of the symptoms have been present for almost a week, and the muscle cramping has been present for the last 2 days. She states she has been hypokalemic in the past and that has caused muscle cramping-like cramping that she has. Pain Scale: 8 - Related Data Home Medications Medication Instructions Recorded Confirmed Albuterol Sulfate [Proair Hfa] 2 puff IH BID PRN 07/10/16 09/21/17 Carvedilol [Coreg] 25 mg PO BID 07/10/16 09/21/17 Fluticasone Propionate Nasal 50 mcg NS DAILY 07/10/16 09/21/17 [Flonase] Nitroglycerin [Nitrostat] 0.4 mg SL Q5M PRN 07/10/16 09/21/17 Amlodipine Besylate 10 mg PO DAILY 09/19/16 09/21/17 Citalopram Hydrobromide [Celexa] 40 mg PO HS 07/18/17 09/21/17 Cyanocobalamin (Vitamin B-12) 2,000 mcg PO DAILY 07/18/17 09/21/17 [Vitamin B12] Ipratropium/Albuterol Neb [Duoneb] 3 ml IH Q6H PRN 07/18/17 09/21/17 Mometasone/Formoterol [Dulera 200 1 puff IH BID 07/18/17 09/21/17 Mcg/5 Mcg Inhaler] Oxygen 2 l NS AD 07/18/17 09/21/17 ALPRAZolam [Xanax 1 MG Tablet] 1 mg PO TID 07/30/17 09/21/17 Furosemide [Lasix] 40 mg PO BID 07/30/17 09/21/17 Levothyroxine [Synthroid] 112 mcg PO DAILY 09/01/17 09/21/17 Lisinopril [Zestril] 5 mg PO DAILY 09/01/17 09/21/17 Metoclopramide HCl 5 mg PO TID 09/01/17 09/21/17 Mycophenolate Mofetil [Cellcept] 500 mg PO BID 09/01/17 09/21/17 Ondansetron [Zofran] 8 mg PO BID PRN 09/01/17 09/21/17 Potassium Chloride [K-Tab ER] 20 meq PO DAILY 09/01/17 09/21/17 hydroCHLOROthiazide 25 mg PO DAILY 09/01/17 09/21/17 [Hydrochlorothiazide] predniSONE [PredniSONE] 60 mg PO DAILY 09/01/17 09/21/17 Insulin Glargine,Hum.rec.anlog 20 unit SQ DAILY 09/21/17 09/21/17 [Basaglar Kwikpen U-100] Ranitidine HCl [Zantac] 300 mg PO DAILY 09/21/17 09/21/17 Sulfamethoxazole/Trimeth DS 1 tab PO DAILY 09/21/17 09/21/17 [Bactrim Ds] Tiotropium [Spiriva] 18 mcg IH DAILY 09/21/17 09/21/17 Previous Rx's Medication Instructions Recorded Folic Acid 5 mg PO DAILY #60 tablet 09/06/17 Omeprazole [PriLOSEC] 40 mg PO BIDAC #60 capsule. 09/06/17 OxyCODONE ER (12 HR) [OxyCONTIN] 10 mg PO BID #4 tab.er.12h 09/06/17 OxyCODONE Immed Rel [Roxicodone 5 10 mg PO TID #9 tablet 09/06/17 MG] HYDROcodone/Acet 5/325 mg [[place] 1 tab PO Q6H PRN #15 tab 09/26/17 5-325 mg] Levofloxacin [Levaquin] 750 mg PO Q24H #7 tablet 09/26/17 OxyCODONE Immed Rel [Roxicodone 5 10 mg PO Q6HR PRN #10 tablet 09/26/17 MG] predniSONE [PredniSONE] See Taper PO DAILY #18 tablet 09/26/17 Allergies Allergy/AdvReac Type Severity Reaction Status Date / Time ketorolac [From Toradol] AdvReac Abdominal Verified 09/21/17 02:38 Pain NSAIDS (Non-Steroidal AdvReac Abdominal Verified 09/21/17 02:38 Anti-Inflamma Pain tramadol AdvReac Abdominal Verified 09/21/17 02:38 Pain pyridium AdvReac Abdominal Uncoded 09/21/17 02:38 Pain All systems ED: reviewed and negative except as stated. Constitutional: Reports: fever Respiratory: Reports: cough, dyspnea Musculoskeletal: Reports: back pain, myalgia Endocrine: Reports: fatigue Past Medical History - Past Medical History Medical history: Reports: asthma, COPD, DVT, fibromyalgia, GERD, GI bleed, hypertension, kidney stones, myocardial infarction, RA, thyroid disease, other Surgical history: Reports: cholecystectomy, hysterectomy Psychiatric history: Reports: anxiety CONCIERGE history: Reports: no CONCIERGE history - Social History Smoking Status: Never smoker Smokeless Tobacco Status: No Alcohol use: Reports: none Drug use: Reports: none Physical Exam - General Limitations: no limitations General appearance: alert, in distress (In moderate distress with cough and body aches) - Head Head exam: atraumatic, normocephalic, normal inspection - Eye Eye exam: Present: normal appearance, PERRL, EOMI - Chest Chest inspection: Present: normal inspection, symmetric chest wall rise. Absent: tenderness - Respiratory Respiratory exam: Present: respiratory distress (Mild respiratory distress), other (Breath sounds are clear in the apices, as diminished in the bases). Absent: wheezes, stridor - Cardiovascular Cardiovascular exam: Present: normal rhythm, tachycardia, normal heart sounds - Abdominal Exam Abdominal exam: Present: soft, Non-Tender. Absent: tenderness, distention, guarding, rebound, rigidity - Extremities Exam Extremities exam: Present: normal inspection, normal capillary refill. Absent: tenderness - Back Exam Back exam: Present: CVA tenderness (R), CVA tenderness (L) - Neurological Exam Neurological exam: Present: alert, oriented X3 - Psychiatric Psychiatric exam: Present: normal affect, normal mood - Skin Skin exam: Present: warm, dry, intact, normal color Course Course Narrative: This is a 43-year-old female with lupus and asthma who at a minimum appears to have an asthma exacerbation. Vital Signs Temperature 99.0 F 09/01/18 22:24 Pulse Rate 105 09/01/18 22:24 Respiratory Rate 18 09/01/18 22:24 Blood Pressure 169/101 09/01/18 22:24 O2 Sat by Pulse Oximetry 97 09/01/18 22:24 Temperature 99.0 F 09/01/18 22:24 Pulse Rate 82 09/02/18 01:02 Respiratory Rate 18 09/02/18 01:02 Blood Pressure 128/66 09/02/18 01:02 O2 Sat by Pulse Oximetry 96 09/02/18 01:02 Oxygen Delivery Oxygen Delivery Room Air Medical Decision Making - MDM Narrative Medical decision making narrative: This is a 43-year-old female with symptoms consistent with upper rest reinfection an asthma exacerbation or pneumonia with asthma/COPD exacerbation. Chest x-ray is consistent with a right lower lobe consolidation, and because of her chronic immunosuppression she was given Zosyn and azithromycin for antimic robial treatment. She was given bronchodilators and prednisone for COPD exacerbation. I discussed her case with the hospitalist, who also wanted to see a CT angiogram before admission. She was signed out to Dr. Calero and 1:40 AM with CTA pending - Lab Data Lab results reviewed: Yes I reviewed the patient's lab results. Lab results narrative: CBC was unremarkable BMP was unremarkable Lactic acid was normal Troponin was low UA shows a few bacteria with 15-30 white cells, small leuk esterase and negative nitrite Result diagrams: 09/01/18 23:18 09/01/18 23:18 Lab Results 09/01/18 09/01/18 09/01/18 Range/Units 23:18 23:18 23:18 WBC 6.9 (4.3-11.1) K/mcL RBC 4.46 (3.82-4.97) M/mcL Hgb 13.7 (11.5-15.4) g/dL Hct 41.2 (35.3-44.9) % MCV 92.4 (83.0-100.0) fL MCH 30.7 (28.0-33.3) pg MCHC 33.3 (31.6-35.5) g/dL RDW 13.7 (11.5-14.5) % Plt Count 215 (140-400) K/mcL MPV 10.7 (9.4-12.4) fL Immature Gran % 0.3 (0-4) % Seg Neutrophils % 62.8 % Lymphocytes % 24.1 % Monocytes % 10.5 % Eosinophils % 1.9 % Basophils % 0.4 % Neutrophils # 4.3 (1.6-8.9) K/mcL Lymphocytes # 1.7 (0.6-4.6) K/mcL Monocytes # 0.7 (0.0-1.3) K/mcL Eosinophils # 0.1 (0.0-0.6) K/mcL Basophils # 0.0 (0.0-0.2) K/mcL Sodium 141 (136-145) mEq/L Potassium 3.5 (3.5-5.1) mEq/L Chloride 107 (98-107) mEq/L Carbon Dioxide 26 (23-29) mEq/L BUN 14 (6-20) mg/dL Creatinine 0.55 L (0.60-1.20) mg/dL Est GFR ( Amer) > 60 (> 60) Est GFR (Non-Af Amer) > 60 (> 60) BUN/Creatinine Ratio 25 (6-26) Glucose 96 (70-105) mg/dL Calculated Osmolality 292 (280-300) Lactic Acid 1.0 (0.5-2.2) mmol/L Calcium 9.2 (8.6-10.3) mg/dL Troponin I < 0.03 (< 0.04) ng/mL Urine Color (Yellow) Urine Clarity (Clear) Urine pH (5.0-8.0) pH Units Ur Specific [place] (1.010-1.025) Urine Protein (Neg-Trace) mg/dL Urine Glucose (UA) (Normal) mg/dL Urine Ketones (Negative) mg/dL Urine Blood (Negative) Urine Nitrite (Negative) Urine Bilirubin (Negative) Urine Urobilinogen (Normal) mg/dL Ur Leukocyte Esterase (Negative) Urine Microscopic RBC (0-3) per hpf Urine Microscopic WBC (0-3) per hpf Ur Squamous Epith Cells (None-Few) per lpf Urine Bacteria (None-Few) per hpf Hyaline Casts (None-Few) per lpf Ur Culture Indicated? (NO) 09/01/18 Range/Units 23:31 WBC (4.3-11.1) K/mcL RBC (3.82-4.97) M/mcL Hgb (11.5-15.4) g/dL Hct (35.3-44.9) % MCV (83.0-100.0) fL MCH (28.0-33.3) pg MCHC (31.6-35.5) g/dL RDW (11.5-14.5) % Plt Count (140-400) K/mcL MPV (9.4-12.4) fL Immature Gran % (0-4) % Seg Neutrophils % % Lymphocytes % % Monocytes % % Eosinophils % % Basophils % % Neutrophils # (1.6-8.9) K/mcL Lymphocytes # (0.6-4.6) K/mcL Monocytes # (0.0-1.3) K/mcL Eosinophils # (0.0-0.6) K/mcL Basophils # (0.0-0.2) K/mcL Sodium (136-145) mEq/L Potassium (3.5-5.1) mEq/L Chloride (98-107) mEq/L Carbon Dioxide (23-29) mEq/L BUN (6-20) mg/dL Creatinine (0.60-1.20) mg/dL Est GFR ( Amer) (> 60) Est GFR (Non-Af Amer) (> 60) BUN/Creatinine Ratio (6-26) Glucose (70-105) mg/dL Calculated Osmolality (280-300) Lactic Acid (0.5-2.2) mmol/L Calcium (8.6-10.3) mg/dL Troponin I (< 0.04) ng/mL Urine Color Yellow (Yellow) Urine Clarity Clear (Clear) Urine pH 6.0 (5.0-8.0) pH Units Ur Specific [place] 1.018 (1.010-1.025) Urine Protein 100 H (Neg-Trace) mg/dL Urine Glucose (UA) Normal (Normal) mg/dL Urine Ketones Negative (Negative) mg/dL Urine Blood Large H (Negative) Urine Nitrite Negative (Negative) Urine Bilirubin Negative (Negative) Urine Urobilinogen Normal (Normal) mg/dL Ur Leukocyte Esterase Small H (Negative) Urine Microscopic RBC 15-30 H (0-3) per hpf Urine Microscopic WBC 15-30 H (0-3) per hpf Ur Squamous Epith Cells Many H (None-Few) per lpf Urine Bacteria Few (None-Few) per hpf Hyaline Casts None Seen (None-Few) per lpf Ur Culture Indicated? NO. A (NO) - Radiology Data Radiology results reviewed: Yes I reviewed the patient's radiology results. Chest x-ray showed a possible right lower lobe pneumonia - EKG Data EKG #1 EKG attestation: Yes I reviewed and interpreted this EKG. EKG results narrative: ECG shows sinus rhythm, 93 bpm, normal intervals, normal axis, normal ST and T waves, there appeared to be U waves in V3 Critical Care Time Critical Care Time: Yes Total Critical Care Time: 20 Attestation: 20 minutes of critical care time was invested independent of separately billable procedures
[2018-09-01] MEDS ORDERED: Piperacillin/Tazobactam 3.375 GM in Water for inj. (sterile) 20 ML 20 ML IVP ONE (23:11)
[2018-09-01] MEDS ORDERED: Azithromycin 250 MG TABLET PO ONE (23:15)
[2018-09-01 23:29] LABS: Basophils % 0.4 %; Eosinophils # 0.1 K/mcL (0.0-0.6); Eosinophils % 1.9 %; Hematocrit 41.2 % (35.3-44.9); Hemoglobin 13.7 g/dL (11.5-15.4); Immature Granulocytes % 0.3 % (0-4); Lymphocytes # 1.7 K/mcL (0.6-4.6); Lymphocytes % 24.1 %; Mean Corpuscular HGB Conc 33.3 g/dL (31.6-35.5); Mean Corpuscular Hemoglobin 30.7 pg (28.0-33.3); Mean Corpuscular Volume 92.4 fL (83.0-100.0); Mean Platelet Volume 10.7 fL (9.4-12.4); Monocytes # 0.7 K/mcL (0.0-1.3); Monocytes % 10.5 %; Neutrophils # 4.3 K/mcL (1.6-8.9); Platelet Count 215 K/mcL (140-400); Red Blood Count 4.46 M/mcL (3.82-4.97); Red Cell Distribution Width 13.7 % (11.5-14.5); Segmented Neutrophils % 62.8 %
[2018-09-01] MEDS ORDERED: Ondansetron 4 MG/2 ML VIAL ONE (23:35)
[2018-09-01 23:43] LABS: Bilirubin,Urine Negative (Negative); Blood,Urine Large (Negative); Clarity,Urine Clear (Clear); Color,Urine Yellow (Yellow); Glucose,Urine (UA) Normal (Normal); Ketones,Urine Negative (Negative); Leukocyte Esterase,Urine Small (Negative); Nitrite,Urine Negative (Negative); Protein,Urine 100 mg/dL (Neg-Trace); Specific Gravity,Urine 1.018 (1.010-1.025); Urobilinogen,Urine Normal (Normal)
[2018-09-01 23:45] LABS: Bacteria,Urine Few per hpf (None-Few); Hyaline Casts,Urine None Seen per lpf (None-Few); RBC,Urine 15-30 per hpf (0-3); Squamous Epithelial Cell,Urine Many per lpf (None-Few); WBC,Urine 15-30 per hpf (0-3)
[2018-09-01 23:51] LABS: BUN/Creatinine Ratio 25 (6-26); Blood Urea Nitrogen 14 mg/dL (6-20); Calcium 9.2 mg/dL (8.6-10.3); Carbon Dioxide 26 mEq/L (23-29); Chloride 107 mEq/L (98-107); Glucose 96 mg/dL (70-105); Osmolality,Calculated 292 (280-300); Potassium 3.5 mEq/L (3.5-5.1); Sodium 141 mEq/L (136-145); eGFR For Non-African Americans > 60 (> 60)
[2018-09-01 23:52] LABS: Troponin I < 0.03 ng/mL (< 0.04)
[2018-09-02] MEDS ORDERED: Isovue-370 500 ML INFUS..BTL IV ONE (01:38)
[2018-09-02] MEDS ORDERED: *HR* Promethazine 25 MG/ML VIAL IVP ONE (01:45)
[2018-09-02] MEDS ORDERED: *HR* FentaNYL (PF) 100 MCG/2 ML VIAL IVP ONE (01:46)
--- NOTE | 2018-09-02 03:51 | Internal Med History&Physical ---
Date of Encounter: 09/02/18 Time of Encounter: 03:49 Internal Medicine - H&P: HPI Chief complaint: SOB Admitted From: Home Plans for Post Hospital Care: Home History of present illness: Luba Chowdary is a 43-year-old woman with a history of COPD and chronic hypoxic respiratory failure with resultant secondary pulmonary hypertension on home oxygen, SLE on mycophenolate and steroids, rheumatoid arthritis and nicotine dependence. She was admitted here 1 year ago where she was found to have acute respiratory failure due to right sided pleural effusion that required thoracentesis suspected secondary to lupus pleuritis. She presents now to the emergency room with complaints of increasing shortness of breath, subjective fever and chills, non-productive cough, low back pain as well as diffuse muscle cramping. She says symptoms have been present for almost a week. In the emergency room she was found to be hemodynamically stable with normal vital signs. Comprehensive lab work done was grossly unremarkable. Chest x-ray was done which showed some slight scarring in the right base which was attribut ed to the prior effusion in that area and a subsequent chest CTA was done due to the concerns pleuritic chest pain in the setting of prior venous thrombotic disease. This was negative. In the ER she received nebulizer therapy as well as broad-spectrum antibiotics concerns of her immunosuppression and she is admitted for observation because of this. Past Med Surg Social Fam HX - Past Medical History Medical history: asthma, COPD, DVT, fibromyalgia, GERD, GI bleed, hypertension, kidney stones, myocardial infarction, RA, thyroid disease, other Additional medical history: lupus. nephritis stage 4 Psychiatric history: anxiety - Past Surgical History Surgical History: cholecystectomy, hysterectomy Additional surgical history: pulm HTN. port. back surgery. carpal tunnel - Social History Smoking Status: Never smoker Smokeless Tobacco Status: No Alcohol use: none Drug use: none - Family History Mother Living Status: Hx Family Cardiac Disorders: Yes (mi, CHF) Father Living Status: Hx Family Cardiac Disorders: Yes Hx Family Endocrine Disorder: Yes Internal Medicine - H&P: Meds Albuterol Sulfate [Proair Hfa] 2 puff IH BID PRN 07/10/16 [History] Carvedilol [Coreg] 25 mg PO BID 07/10/16 [History] Fluticasone Propionate Nasal [Flonase] 50 mcg NS DAILY 07/10/16 [History] Nitroglycerin [Nitrostat] 0.4 mg SL Q5M PRN 07/10/16 [History] Amlodipine Besylate 10 mg PO DAILY 09/19/16 [History] Citalopram Hydrobromide [Celexa] 40 mg PO HS 07/18/17 [History] Cyanocobalamin (Vitamin B-12) [Vitamin B12] 2,000 mcg PO DAILY 07/18/17 [History] Ipratropium/Albuterol Neb [Duoneb] 3 ml IH Q6H PRN 07/18/17 [History] Mometasone/Formoterol [Dulera 200 Mcg/5 Mcg Inhaler] 1 puff IH BID 07/18/17 [History] Oxygen 2 l NS AD 07/18/17 [History] ALPRAZolam [Xanax 1 MG Tablet] 1 mg PO TID 07/30/17 [History] Furosemide [Lasix] 40 mg PO BID 07/30/17 [History] Levothyroxine [Synthroid] 112 mcg PO DAILY 09/01/17 [History] Lisinopril [Zestril] 5 mg PO DAILY 09/01/17 [History] Metoclopramide HCl 5 mg PO TID 09/01/17 [History] Mycophenolate Mofetil [Cellcept] 500 mg PO BID 09/01/17 [History] Ondansetron [Zofran] 8 mg PO BID PRN 09/01/17 [History] Potassium Chloride [K-Tab ER] 20 meq PO DAILY 09/01/17 [History] hydroCHLOROthiazide [Hydrochlorothiazide] 25 mg PO DAILY 09/01/17 [History] predniSONE [PredniSONE] 60 mg PO DAILY 09/01/17 [History] Folic Acid 5 mg PO DAILY #60 tablet 09/06/17 [Rx] Omeprazole [PriLOSEC] 40 mg PO BIDAC #60 capsule. 09/06/17 [Rx] OxyCODONE ER (12 HR) [OxyCONTIN] 10 mg PO BID #4 tab.er.12h 09/06/17 [Rx] OxyCODONE Immed Rel [Roxicodone 5 MG] 10 mg PO TID #9 tablet 09/06/17 [Rx] Insulin Glargine,Hum.rec.anlog [Enio [place] U-100] 20 unit SQ DAILY 09/21/17 [History] Ranitidine HCl [Zantac] 300 mg PO DAILY 09/21/17 [History] Sulfamethoxazole/Trimeth DS [Bactrim Ds] 1 tab PO DAILY 09/21/17 [History] Tiotropium [Spiriva] 18 mcg IH DAILY 09/21/17 [History] HYDROcodone/Acet 5/325 mg [[place] 5-325 mg] 1 tab PO Q6H PRN #15 tab 09/26/17 [Rx] Levofloxacin [Levaquin] 750 mg PO Q24H #7 tablet 09/26/17 [Rx] OxyCODONE Immed Rel [Roxicodone 5 MG] 10 mg PO Q6HR PRN #10 tablet 09/26/17 [Rx] predniSONE [PredniSONE] See Taper PO DAILY #18 tablet 09/26/17 [Rx] Allergy/AdvReac Type Severity Reaction Status Date / Time ketorolac [From Toradol] AdvReac Abdominal Verified 09/21/17 02:38 Pain NSAIDS (Non-Steroidal AdvReac Abdominal Verified 09/21/17 02:38 Anti-Inflamma Pain tramadol AdvReac Abdominal Verified 09/21/17 02:38 Pain pyridium AdvReac Abdominal Uncoded 09/21/17 02:38 Pain All Systems PM: A 10-system review of systems was performed and is negative for pertinent findings except as documented above in the HPI. - Constitutional Vitals: Temp Pulse Resp BP Pulse Ox 99.0 F 80 18 124/64 97 09/01/18 22:24 09/02/18 03:22 09/02/18 03:22 09/02/18 03:22 09/02/18 03:22 Exam: Vitals: Reviewed General: Well-developed white female lying comfortably in bed in no acute distress Skin: Warm and supple HEENT: Moist mucous membranes. No conjunctivae pallor. Neck: No lymphadenopathy. No JVD. No carotid bruits. No palpable thyroid. Chest: Normal thoracic expansion. Normal breath sounds. Clear to auscultation. No wheezes, rales or rhonchi. Heart: Normal S1 & S2; rhythmic. No rubs or murmurs. Abdomen: Non-distended, soft and non-tender to palpation. No peritoneal reaction. Extremities: No clubbing, cyanosis or edema. No calf tenderness. Normal distal pulses. Neurological: Awake, alert and oriented to person, place and time. No focal deficits. Psych: Affect appropriate. Internal Med - H&P Results - Labs CBC & Chem 7: 09/01/18 23:18 09/01/18 23:18 Labs: Short CBC 09/01/18 Range/Units 23:18 WBC 6.9 (4.3-11.1) K/mcL Hgb 13.7 (11.5-15.4) g/dL Hct 41.2 (35.3-44.9) % Plt Count 215 (140-400) K/mcL Neutrophils # 4.3 (1.6-8.9) K/mcL BMP 09/01/18 23:18 Sodium 141 Potassium 3.5 Chloride 107 Carbon Dioxide 26 BUN 14 Creatinine 0.55 L Glucose 96 Calcium 9.2 Cardiac Enzymes 09/01/18 Range/Units 23:18 Troponin I < 0.03 (< 0.04) ng/mL Urine 09/01/18 Range/Units 23:31 Urine Color Yellow (Yellow) Urine Clarity Clear (Clear) Urine pH 6.0 (5.0-8.0) pH Units Ur Specific [place] 1.018 (1.010-1.025) Urine Protein 100 H (Neg-Trace) mg/dL Urine Glucose (UA) Normal (Normal) mg/dL - Impressions ITS Impressions Chest X-Ray 09/01/18 22:46 IMPRESSION: Focal opacity right lung base may represent atelectatic change or consolidation. Note is made of previously seen large right pleural effusion so this could be residual chronic pleuroparenchymal scarring as well. D/ / Sammy Cruz MD / Sammy Cruz MD Interpreting Provider: Sammy Cruz MD Chest CTA 09/02/18 01:38 IMPRESSION: No evidence of pulmonary embolism or acute pulmonary abnormality. D/ / Hamzah Pichardo MD / Hamzah Pichardo MD Interpreting Provider: Hamzah Pichardo MD - Diagnostic Studies Chest x-ray Status: image reviewed by me Additional comments: No signs of focal consolidation. CT scan - chest Additional comments: No evidence of pulmonary embolism, pleural effusion or lobar consolidation. - Assessment and plan (1) Shortness of breath Current Visit: Yes Status: Resolved Assessment and plan: Unclear etiology; nonspecific. The patient is not hypoxic even while on room air. No signs of pleural effusion or lobar consolidation. No physical exam findings consistent with COPD exacerbation. Pulmonary embolism has been ruled out. Symptoms are coupled with rhinorrhea and muscle aches which give consent for viral infection. Other differential includes shortness of breath secondary to pulmonary hypertension with cor pulmonale however one would presume there will be changes with her gas exchange. Will observe clinical status given her immunosuppressed state and ill feelings. Supplemental oxygen as needed. Treat underlying COPD. No indication for broad-spectrum antimicrobials at this time. May benefit from IV fluids for rehydration. Swab for influenza as the patient has not received the flu vaccine in 3 years. If negative and remained asymptomatic with no evidence of bacterial infection consider respiratory virus panel. (2) SLE (systemic lupus erythematosus) Current Visit: Yes Status: Chronic Assessment and plan: Should continue immunosuppressant medications. No signs of acute flare. Qualifiers: Systemic lupus erythematosus type: unspecified Systemic lupus erythematosus organ involvement: unspecified Qualified Code(s): M32.9 - Systemic lupus erythematosus, unspecified (3) COPD (chronic obstructive pulmonary disease) Current Visit: Yes Status: Acute Assessment and plan: Currently does not appear to be in an acute COPD exacerbation based on her physical exam findings. We will place on nebulizer therapy as needed and continue long-acting inhaler therapy. Qualifiers: COPD type: chronic bronchitis Chronic bronchitis type: simple Qualified Code(s): J41.0 - Simple chronic bronchitis (4) Chronic pain Current Visit: Yes Status: Chronic Assessment and plan: Confirm home doses of narcotics and resume as needed. Qualifiers: Chronic pain type: chronic pain syndrome Qualified Code(s): G89.4 - Chronic pain syndrome (5) Hypertension Current Visit: Yes Status: Chronic Assessment and plan: Resume home oral antihypertensives. Qualifiers: Hypertension type: essential hypertension Qualified Code(s): I10 - Essential (primary) hypertension (6) Hypothyroidism Current Visit: Yes Status: Chronic Assessment and plan: Stable dose of levothyroxine Qualifiers: Hypothyroidism type: unspecified Qualified Code(s): E03.9 - Hypothyroidism, unspecified (7) DVT prophylaxis Current Visit: Yes Status: Acute Assessment and plan: Placed on subcutaneous heparin. - Time Spent With Patient Total time spent is greater than 50% in coordination of care (as documented) at patient's floor/unit and/or counseling patient: Greater than 35 minutes
[2018-09-02] MEDS ORDERED: Albuterol 2.5 MG/3 ML NEBULIZER IH PRN (04:16)
[2018-09-02] MEDS ORDERED: *HR* HYDROcodone/Acet 5/325 mg TABLET PO PRN (04:17)
[2018-09-02] MEDS ORDERED: Ondansetron ODT 4 MG TAB.RAPDIS PO PRN (04:17)
[2018-09-02] MEDS ORDERED: Ringers Solution, Lactated 1,000 ML IVC SCH (04:30)
[2018-09-02] MEDS: *HR* Heparin 5,000 UNIT/ML VIAL SQ SCH ×3 (05:45→20:54)
[2018-09-02] MEDS: Famotidine 20 MG TABLET PO SCH (08:55)
[2018-09-02] MEDS: *HR* OxyCODONE ER (12 HR) 10 MG TABLET PO SCH ×2 (08:55→20:54)
[2018-09-02] MEDS: predniSONE 20 MG TABLET PO SCH (08:55)
[2018-09-02] MEDS: ALPRAZolam 1 MG TABLET PO SCH ×3 (08:56→20:54)
[2018-09-02] MEDS: amLODIPine 5 MG TABLET PO SCH (08:56)
[2018-09-02] MEDS ORDERED: Folic Acid 1 MG TABLET PO SCH ×2 (09:00)
[2018-09-02] MEDS ORDERED: Tiotropium 18 MCG inhalation IH SCH (09:00)
[2018-09-02] MEDS: Fluticasone Propionate Nasal 50 MCG/SPRAY BOTTLE NS SCH (09:01)
[2018-09-02] MEDS: Insulin LISPRO 300 UNITS/3 ML VIAL SQ SCH ×4 (09:09→20:56)
[2018-09-02] MEDS ORDERED: Budesonide/Formoterol 160/4.5 1 PUFF INH IH SCH (10:00)
[2018-09-02] MEDS: Insulin DETEMIR 100 UNIT/ML X5UNITS SQ SCH (10:22)
[2018-09-02] MEDS: Tiotropium 18 MCG inhalation IH SCH (10:23)
[2018-09-02] MEDS: Budesonide/Formoterol 160/4.5 1 PUFF INH IH SCH ×2 (11:59→19:44)
[2018-09-02] MEDS: cephALEXin 500 MG CAPSULE PO SCH ×2 (14:35→20:52)
--- NOTE | 2018-09-02 16:30 | Event Note ---
Date of Encounter: 09/02/18 Time of Encounter: 16:25 Patient is a 43 year old female who has history of lupus involved kidney, COPD and pulmonary hypertension presented for exertional shortness of breath for one week. She has extensive workup at the emergency room. CT angio was nepative for pulmonary PE or fibrosis. Patient is at high risk for CAD due to her active lupus. Patient does have any wheezing and the she follows up at [facility] for pulmonary hypertension. She had echocardiogram done was a year ago unremarkable stress test done 2 years ago. I will check troponin , order echocardiogram and stress test to rule out cardiogenic exertional shortness of breath. If all past is negative then she can be discharged and a follow-up was pulmonary hypertension clinic in the [facility]. UTI, started on keflex
[2018-09-03] MEDS ORDERED: *HR* OxyCODONE Immed Rel 5 MG TABLET PO ONE (02:40)
[2018-09-03] MEDS ORDERED: Regadenoson 0.4 MG/5 ML SYRINGE IVP ONE (05:34)
[2018-09-03] MEDS: *HR* Heparin 5,000 UNIT/ML VIAL SQ SCH ×3 (05:46→20:49)
[2018-09-03] MEDS: Insulin LISPRO 300 UNITS/3 ML VIAL SQ SCH ×4 (08:51→22:28)
[2018-09-03] MEDS: Famotidine 20 MG TABLET PO SCH (09:23)
[2018-09-03] MEDS: amLODIPine 5 MG TABLET PO SCH (09:24)
[2018-09-03] MEDS: predniSONE 20 MG TABLET PO SCH (09:24)
[2018-09-03] MEDS: Fluticasone Propionate Nasal 50 MCG/SPRAY BOTTLE NS SCH (09:25)
[2018-09-03] MEDS: Insulin DETEMIR 100 UNIT/ML X5UNITS SQ SCH (09:25)
[2018-09-03] MEDS: *HR* OxyCODONE ER (12 HR) 10 MG TABLET PO SCH (09:25)
[2018-09-03] MEDS: cephALEXin 500 MG CAPSULE PO SCH ×2 (09:25→20:49)
[2018-09-03] MEDS: ALPRAZolam 1 MG TABLET PO SCH ×3 (09:25→20:49)
[2018-09-03] MEDS: Budesonide/Formoterol 160/4.5 1 PUFF INH IH SCH ×2 (10:17→20:25)
[2018-09-03] MEDS: Tiotropium 18 MCG inhalation IH SCH (10:18)
--- NOTE | 2018-09-03 14:18 | Internal Med Progress Note ---
Date of Encounter: 09/03/18 Time of Encounter: 14:16 - Time Spent With Patient - Assessment and plan (1) Shortness of breath Current Visit: Yes Status:Acute Assessment and plan: Unclear etiology; nonspecific. So far CTA, Stress test, Echo do not point to an etiology. Pt is not comfortable going home with this. Pulm consult (2) SLE (systemic lupus erythematosus) Current Visit: Yes Status: Chronic Assessment and plan: Should continue immunosuppressant medications. No signs of acute flare. Qualifiers: Systemic lupus erythematosus type: unspecified Systemic lupus erythematosus organ involvement: unspecified Qualified Code(s): M32.9 - Systemic lupus erythematosus, unspecified (3) COPD (chronic obstructive pulmonary disease) Current Visit: Yes Status: Acute Assessment and plan: Currently does not appear to be in an acute COPD exacerbation based on her physical exam findings. Cont nebulizer therapy as needed and continue long- acting inhaler therapy. Qualifiers: COPD type: chronic bronchitis Chronic bronchitis type: simple Qualified Code(s): J41.0 - Simple chronic bronchitis (4) Chronic pain Current Visit: Yes Status: Chronic Assessment and plan: Cont home oxycodone. Qualifiers: Chronic pain type: chronic pain syndrome Qualified Code(s): G89.4 - Chronic pain syndrome (5) Hypertension Current Visit: Yes Status: Chronic Assessment and plan: Cont home oral antihypertensives. Qualifiers: Hypertension type: essential hypertension Qualified Code(s): I10 - Essential (primary) hypertension (6) Hypothyroidism Current Visit: Yes Status: Chronic Assessment and plan: Cont levothyroxine Qualifiers: Hypothyroidism type: unspecified Qualified Code(s): E03.9 - Hypothyroidism, unspecified (7) DVT prophylaxis Current Visit: Yes Status: Acute Assessment and plan: Placed on subcutaneous heparin. - Time Spent With Patient Total time spent is greater than 50% in coordination of care (as documented) at patient's floor/unit and/or counseling patient: 25 - 35 minutes - Subjective Interval history: Luba Chowdary is a 43-year-old woman with a history of COPD and chronic hypoxic respiratory failure with resultant secondary pulmonary hypertension on home oxygen, SLE on mycophenolate and steroids, rheumatoid arthritis and nicotine dependence. pt seen and examined today in presence of nurse. Pt sts her dyspnea is the same. Progressive dyspnea in past 2 weeks. Her stress test is negative, Echo shows normal EF, troponins negative. Possible interstitial lung disease from SLE. She is on abx for a preseumptive UTI. Her lactate was normal, WBC ct normal. CTA was negative for PE. - Constitutional Vitals: Temp Pulse Resp BP Pulse Ox 98.2 F 78 17 112/62 92 09/03/18 11:23 09/03/18 11:23 09/03/18 11:23 09/03/18 11:23 09/03/18 11:23 Exam: Vitals: Reviewed General: Well-developed white female lying comfortably in bed in no acute distress Skin: Warm and supple HEENT: Moist mucous membranes. No conjunctivae pallor. Neck: Supple, no thrymegaly. Chest: Normal thoracic expansion. slightly diminished breath sounds. Heart: Normal S1 & S2; rhythmic. No rubs or murmurs. Abdomen: Non-distended,Benign. Extremities: No clubbing, cyanosis or edema. No calf tenderness. Normal distal pulses. Neurological: Awake, alert and oriented to person, place and time. No focal deficits. Psych: Affect appropriate. Internal Medicine: Result - Labs CBC & Chem 7: 09/01/18 23:18 09/01/18 23:18 Labs: Cardiac Enzymes 09/02/18 Range/Units 14:46 Troponin I < 0.03 (< 0.04) ng/mL - Impressions Impressions Echocardiogram 09/03/18 13:23 Impressions: LVEF 60-65%. Normal left ventricular diastolic function. Moderate concentric left ventricular hypertrophy. Normal right ventricular structure and function. No significant valvular dysfunction. Unable to estimate RVSP due to lack of TR jet. However, the interventricular septum is flattened suggesting at least moderate pulmonary hypertension. Left Ventricular Wall Motion: Rest Echo Findings All wall segments showed normal motion. Findings: Study Quality * Technically adequate exam. ECG Findings * Normal sinus rhythm. Left Ventricle * LVEF 60-65%. * Normal left ventricular diastolic function. * Moderate concentric left ventricular hypertrophy. Right Ventricle * Normal right ventricular structure and function. Left Atrium * Normal left atrial size. Right Atrium * Normal right atrial size. Interatrial Septum * No evidence of PFO by color Doppler. Aortic Valve * Trileaflet aortic valve. * Mildly calcified aortic valve leaflets. * No aortic regurgitation. * No aortic stenosis. Mitral Valve * Normal mitral valve structure. * No mitral regurgitation. * No mitral stenosis. Tricuspid Valve * Normal tricuspid valve structure. * No tricuspid regurgitation. * No tricuspid stenosis. * Unable to estimate RVSP due to lack of TR jet. Pulmonic Valve * Normal pulmonic valve structure. * No pulmonic regurgitation. Aorta * Normally sized aortic root. Pericardium * The pericardium appears normal. IVC * Normal IVC dimensions and inspiratory collapse. Pulmonary Artery * Normal visualized portions of the main pulmonary artery. Consult Discharge Plan - Plan Referrals: Naresh Skinner MD [Primary Care Provider] -
[2018-09-03] MEDS: *HR* OxyCODONE Immed Rel 5 MG TABLET PO PRN (14:37)
[2018-09-04] MEDS: *HR* OxyCODONE Immed Rel 5 MG TABLET PO PRN ×3 (03:34→22:18)
[2018-09-04] MEDS: *HR* Heparin 5,000 UNIT/ML VIAL SQ SCH ×3 (06:34→22:08)
[2018-09-04 08:11] LABS: Basophils % 0.2 %; Hematocrit 39.5 % (35.3-44.9); Hemoglobin 12.6 g/dL (11.5-15.4); Immature Granulocytes % 0.9 % (0-4); Lymphocytes # 1.5 K/mcL (0.6-4.6); Lymphocytes % 12.1 %; Mean Corpuscular HGB Conc 31.9 g/dL (31.6-35.5); Mean Corpuscular Hemoglobin 30.6 pg (28.0-33.3); Mean Corpuscular Volume 95.9 fL (83.0-100.0); Mean Platelet Volume 10.6 fL (9.4-12.4); Monocytes # 0.6 K/mcL (0.0-1.3); Monocytes % 4.8 %; Neutrophils # 9.9 K/mcL (1.6-8.9); Platelet Count 209 K/mcL (140-400); Red Blood Count 4.12 M/mcL (3.82-4.97); Red Cell Distribution Width 13.9 % (11.5-14.5)
[2018-09-04 08:31] LABS: BUN/Creatinine Ratio 37 (6-26); Blood Urea Nitrogen 25 mg/dL (6-20); Calcium 9.4 mg/dL (8.6-10.3); Carbon Dioxide 26 mEq/L (23-29); Chloride 103 mEq/L (98-107); Glucose 114 mg/dL (70-105); Osmolality,Calculated 287 (280-300); Potassium 4.6 mEq/L (3.5-5.1); Sodium 136 mEq/L (136-145); eGFR For Non-African Americans > 60 (> 60)
--- NOTE | 2018-09-04 09:40 | Internal Med Progress Note ---
Hospitalist Progress Note - Encounter Date of Encounter: 09/04/18 Time of Encounter: 09:35 - Subjective Interval History: Ms. Chowdary is a 43-year-old female that was admitted for COPD exacerbation with history of hypoxemia hypertension diabetes type II. It is unclear why she has shortness of breath and COPD exacerbation at this time as echo is normal with a 60-65% LEVF. Stress test was normal and negative. And CT of chest was also negative. Today on review she is 96% SPO2 on room air. She is negative for any shortness of breath chest pain denies dizziness. Oncology consult is pending as well as her blood cultures are pending. Review of labs and his fasting glucose remains elevated at 177, is negative for her urine was negative for,Legionella. Pending Pulmonology consult patient is stable and could possibley be discharged today, with follow up on diabetes with PCP. - Exam Vitals: Temp Pulse Resp BP Pulse Ox 97.9 F 62 16 132/70 96 09/04/18 07:31 09/04/18 07:31 09/04/18 07:31 09/04/18 07:31 09/04/18 07:31 Exam: SPO2@ RA 97 % non-labored, non-dyspnic - Assessment and Plan (1) Shortness of breath Current Visit: Yes Status: Resolved Assessment and Plan: Awaiting pulmonology consult, s/s of shortness of breath resolved, may be discharged if agreeable with pulmonology today. (2) Hypothyroidism Current Visit: Yes Status: Chronic Assessment and Plan: continue medicaitons an d follow up with PCP (3) Hypertension Current Visit: Yes Status: Chronic Assessment and Plan: b/p 132/70 today will continue with current medications.. (4) DVT prophylaxis Current Visit: Yes Status: Acute Assessment and Plan: Placed on subcutaneous heparin. (5) Chronic pain Current Visit: Yes Status: Chronic Assessment and Plan: Continue with current medications (6) COPD (chronic obstructive pulmonary disease) Current Visit: Yes Status: Acute Assessment and Plan: Chronic exacerbation has resolved, pulmonology consult pending . From hospitaliist standpoint , patient may be discharged, with follow up as out patient basis with PCP and pulmonology . (7) SLE (systemic lupus erythematosus) Current Visit: Yes Status: Chronic Assessment and Plan: Continue with current medication DVT Prophylaxis: per protocol - Summary of Assessment and Plan Summary of Assessment and Plan: Physical 43-year-old female that was admitted through the emergency room with chief complaints of increase in dyspnea, and shortness of breath is positive history of COPD and chronic hypoxic respiratory failure with secondary pulmonary hypertension on home oxygen, SLE on microphenolate and steroid. Type 2 Diabetes and Nicotine dependence. Today she has seated comfortably in the bed in no acute distress she is without oxygen and SPO2 on room air is 96%. Review of her lab work shows glucose appointed care this morning was 177, flu was negative for influenza A and B and urine is negative for, Legionella antigen blood cultures are continued to be pending today. Pulmonary consult is also pending today. Review of chest x-ray, and CT scan are negative. Echo is normal the LEVF 60-65% . And stress test was normal. We will obtain hemoglobin A1c to see where her levels fall on her diabetes today pending pulmonary consult patient may be discharged home with follow-up on pulmonology and primary care. - Time Spent with Patient Total time spent is greater than 50% in coordination of care (as documented) at patient's floor/unit and/or counseling patient: less than 15 minutes Plan of Care Discussed with: patient Internal Medicine: Result - Labs CBC & Chem 7: 09/04/18 08:00 09/04/18 08:00 Labs: Short CBC 09/04/18 Range/Units 08:00 WBC 12.1 H D (4.3-11.1) K/mcL Hgb 12.6 (11.5-15.4) g/dL Hct 39.5 (35.3-44.9) % Plt Count 209 (140-400) K/mcL Neutrophils # 9.9 H (1.6-8.9) K/mcL BMP 09/04/18 08:00 Sodium 136 Potassium 4.6 Chloride 103 Carbon Dioxide 26 BUN 25 H Creatinine 0.68 Glucose 114 H Calcium 9.4 - Pulse Oximetry Interpretation Digit-Finger Pulse Oximetry Readin (on RA) Actions taken: none - EKG Interpretation EKG shows normal: sinus rhythm Rate: normal - Impressions Impressions Echocardiogram 09/03/18 13:23 Impressions: LVEF 60-65%. Normal left ventricular diastolic function. Moderate concentric left ventricular hypertrophy. Normal right ventricular structure and function. No significant valvular dysfunction. Unable to estimate RVSP due to lack of TR jet. However, the interventricular septum is flattened suggesting at least moderate pulmonary hypertension. Left Ventricular Wall Motion: Rest Echo Findings All wall segments showed normal motion. Findings: Study Quality * Technically adequate exam. ECG Findings * Normal sinus rhythm. Left Ventricle * LVEF 60-65%. * Normal left ventricular diastolic function. * Moderate concentric left ventricular hypertrophy. Right Ventricle * Normal right ventricular structure and function. Left Atrium * Normal left atrial size. Right Atrium * Normal right atrial size. Interatrial Septum * No evidence of PFO by color Doppler. Aortic Valve * Trileaflet aortic valve. * Mildly calcified aortic valve leaflets. * No aortic regurgitation. * No aortic stenosis. Mitral Valve * Normal mitral valve structure. * No mitral regurgitation. * No mitral stenosis. Tricuspid Valve * Normal tricuspid valve structure. * No tricuspid regurgitation. * No tricuspid stenosis. * Unable to estimate RVSP due to lack of TR jet. Pulmonic Valve * Normal pulmonic valve structure. * No pulmonic regurgitation. Aorta * Normally sized aortic root. Pericardium * The pericardium appears normal. IVC * Normal IVC dimensions and inspiratory collapse. Pulmonary Artery * Normal visualized portions of the main pulmonary artery. - Diagnostic Studies Echo Additional comments: Impressions: LVEF 60-65%. Normal left ventricular diastolic function. Moderate concentric left ventricular hypertrophy. Normal right ventricular structure and function. No significant valvular dysfunction. Unable to estimate RVSP due to lack of TR jet. However, the interventricular septum is flattened suggesting at least moderate pulmonary hypertension. Consult Discharge Plan - Plan Referrals: Naresh Skinner MD [Primary Care Provider] - (2) Hypothyroidism Qualifiers: Hypothyroidism type: unspecified Qualified Code(s): E03.9 - Hypothyroidism, unspecified (3) Hypertension Qualifiers: Hypertension type: essential hypertension Qualified Code(s): I10 - Essential (primary) hypertension (5) Chronic pain Qualifiers: Chronic pain type: chronic pain syndrome Qualified Code(s): G89.4 - Chronic pain syndrome (6) COPD (chronic obstructive pulmonary disease) Qualifiers: COPD type: chronic bronchitis Chronic bronchitis type: simple Qualified Code(s): J41.0 - Simple chronic bronchitis (7) SLE (systemic lupus erythematosus) Qualifiers: Systemic lupus erythematosus type: unspecified Systemic lupus erythematosus organ involvement: unspecified Qualified Code(s): M32.9 - Systemic lupus erythematosus, unspecified
[2018-09-04] MEDS: cephALEXin 500 MG CAPSULE PO SCH ×2 (09:44→22:07)
[2018-09-04] MEDS: ALPRAZolam 1 MG TABLET PO SCH ×3 (09:44→22:07)
[2018-09-04] MEDS: Famotidine 20 MG TABLET PO SCH (09:45)
[2018-09-04] MEDS: amLODIPine 5 MG TABLET PO SCH (09:45)
[2018-09-04] MEDS: predniSONE 20 MG TABLET PO SCH (09:45)
[2018-09-04] MEDS: Fluticasone Propionate Nasal 50 MCG/SPRAY BOTTLE NS SCH (09:46)
[2018-09-04] MEDS: Insulin LISPRO 300 UNITS/3 ML VIAL SQ SCH ×4 (09:46→22:08)
[2018-09-04] MEDS: Insulin DETEMIR 100 UNIT/ML X5UNITS SQ SCH (09:46)
[2018-09-04 10:10] LABS: Estimated Average Glucose 131 mg/dl; Hemoglobin A1C 6.2 %
[2018-09-04] MEDS: Tiotropium 18 MCG inhalation IH SCH (10:56)
[2018-09-04] MEDS: Budesonide/Formoterol 160/4.5 1 PUFF INH IH SCH ×2 (10:57→22:55)
--- NOTE | 2018-09-04 11:18 | Event Note ---
Date of Encounter: 09/04/18 Time of Encounter: 10:00 - Cardiology Event Note Plan for RHC Dr Vegas requested a RHC for pt as w/u for possible PAH due to SLE. 2016 TTE RVSP 47, worsening dyspnea months disproportinate to COPD, repeated TTE this admission unable to assess RVSP, but flat septum. Had RHC done > 10 yrs ago at [place], had one visit at [facility], but pt refuses to go back to [facility] due to distance. Already on amlodine. Pt had breakfast today and has an appt with PCP tomorrow am which she can't miss. She prefers to have it done next Saturday to Saturday at [place]. Will make an appt for outpt RHC next Saturday or Saturday, pt will be notified by clinic.
--- NOTE | 2018-09-04 14:45 | Pulmonology Consult Note ---
Date of Encounter: 09/04/18 Time of Encounter: 08:00 Assessment and Plan (1) Acute respiratory failure with hypoxia Current Visit: No Status: Acute This is multifactorial, however with her underlying systemic lupus erythematosus and her echocardiogram finding with pulmonary hypertension, this is very concerning for primary pulmonary hypertension and for that reason she will need right heart catheterization with vasodilatory challenge to prove this diagnosis and can be treated. I discussed this case with the varnish finisher unit control clerk. Once we have the information then will have further recommendations. (2) COPD (chronic obstructive pulmonary disease) Current Visit: Yes Status: Chronic Patient will need outpatient follow-up and continue current bronchodilators at this time. Qualifiers: COPD type: chronic bronchitis Chronic bronchitis type: simple Qualified Code(s): J41.0 - Simple chronic bronchitis (3) Pulmonary hypertension Current Visit: No Status: Suspected I suspect primary pulmonary hypertension, however with her history of COPD and also possible sleep apnea she will need right heart catheter to evaluate for sec ondary type of pulmonary hypertension. (4) Suspected sleep apnea Current Visit: Yes Status: Suspected She will need sleep study as outpatient and I will order it. History of Present Illness Consult date: 09/04/18 Requesting physician: Kaitlin Vaughn Reason for consult: dyspnea Chief complaint: Dyspnea History of present illness: This is a pleasant 43-year-old female with history of systemic lupus erythematosus and patient is on treatment for that and also rheumatoid arthritis with history of smoking and history of COPD. Patient stated her dyspnea is worsening. She does have some productive cough and wheezing. She had echocardiogram with evidence of pulmonary hypertension. She never had tried that catheter according to her. Patient cardiac workup has been negative and continued to have dyspnea. She denies any hemoptysis. She denies being . Patient also has nephritis and she had pleuritic chest pain. Patient denies any recent travel or surgeries. She stated that she never had sleep study done but she has loud snoring and excessive daytime sleepiness with sleep disturbance. She has history of rheumatoid arthritis and has arthralgia but she denies any blood in the urine. Past Med Surg Social Fam HX - Past Medical History Medical history: asthma, COPD, DVT, fibromyalgia, GERD, GI bleed, hypertension, kidney stones, myocardial infarction, RA, thyroid disease, other Additional medical history: lupus. nephritis stage 4 Psychiatric history: anxiety - Past Surgical History Surgical History: cholecystectomy, hysterectomy Additional surgical history: pulm HTN. port. back surgery. carpal tunnel - Social History Smoking Status: Never smoker Smokeless Tobacco Status: No Alcohol use: none Drug use: none - Family History Mother Living Status: Cause of : ID Hx Family Cardiac Disorders: Yes (mi, CHF) Father Living Status: Hx Family Cardiac Disorders: Yes Hx Family Endocrine Disorder: Yes Medications and Allergies Albuterol Sulfate [Proair Hfa] 2 puff IH BID PRN 07/10/16 [History] Carvedilol [Coreg] 25 mg PO BID 07/10/16 [History] Fluticasone Propionate Nasal [Flonase] 50 mcg NS DAILY PRN 07/10/16 [History] Nitroglycerin [Nitrostat] 0.4 mg SL Q5M PRN 07/10/16 [History] Citalopram Hydrobromide [Celexa] 40 mg PO HS 07/18/17 [History] Cyanocobalamin (Vitamin B-12) [Vitamin B12] 1,000 mcg PO DAILY 07/18/17 [History] Ipratropium/Albuterol Neb [Duoneb] 3 ml IH Q6H PRN 07/18/17 [History] Mometasone/Formoterol [Dulera 200 Mcg/5 Mcg Inhaler] 1 puff IH BID 07/18/17 [History] Oxygen 2 l NS AD 07/18/17 [History] ALPRAZolam [Xanax 1 MG Tablet] 1 mg PO TID 07/30/17 [History] Furosemide [Lasix] 40 mg PO BID 07/30/17 [History] Levothyroxine [Synthroid] 112 mcg PO DAILY 09/01/17 [History] Lisinopril [Zestril] 5 mg PO DAILY 09/01/17 [History] Metoclopramide HCl 5 mg PO TID 09/01/17 [History] Mycophenolate Mofetil [Cellcept] 500 mg PO BID 09/01/17 [History] Potassium Chloride [K-Tab ER] 20 meq PO DAILY 09/01/17 [History] hydroCHLOROthiazide [Hydrochlorothiazide] 25 mg PO DAILY 09/01/17 [History] Insulin Glargine,Hum.rec.anlog [Basaglar Kwikpen U-100] 20 unit SQ DAILY 09/21/17 [History] Ranitidine HCl [Zantac] 300 mg PO DAILY 09/21/17 [History] Omeprazole [PriLOSEC] 20 mg PO BID 09/02/18 [History] OxyCODONE Immed Rel [Roxicodone 10 MG] 10 mg PO TID 09/02/18 [History] Allergy/AdvReac Type Severity Reaction Status Date / Time ketorolac [From Toradol] AdvReac Abdominal Verified 09/02/18 11:29 Pain NSAIDS (Non-Steroidal AdvReac Abdominal Verified 09/02/18 11:29 Anti-Inflamma Pain tramadol AdvReac Abdominal Verified 09/02/18 11:29 Pain pyridium AdvReac Abdominal Uncoded 09/02/18 11:29 Pain All Systems: The remainder of the systems were reviewed and are negative Physical Examination Vital Signs: Vital Signs, Last 4 Hours Temp Pulse Resp BP Pulse Ox 09/04/18 11:03 97.7 F 64 14 144/68 96 General: Patient is in no acute distress. HEENT: Normocephalic atraumatic, pupils are equal round and reactive to light and accommodation, anicteric sclera, nares is patent, mucous membranes moist, no JVD, trachea is midline Cardiovascular: Normal sinus rhythm, S1 and loud S2 audible, no murmur or rubs Respiratory: Crackles in the bases to auscultation bilaterally. No acute distress. No wheezing. Patient not using accessory muscles. Abdomen: Soft, nontender, nondistended, positive bowel sounds in all 4 quadrants Extremities: Warm, dry, trace lower extremity edema. Normal capillary refill. Neuro: Alert and oriented and follows commands. Grossly no neuro deficits. Skin: Warm to touch : No obvious abnormalities. Psych: Normal Results - Laboratory Findings CBC and BMP: 09/04/18 08:00 09/04/18 08:00 Abnormal lab findings: Abnormal lab results WBC 12.1 K/mcL (4.3-11.1) H D 09/04/18 08:00 Neutrophils # 9.9 K/mcL (1.6-8.9) H 09/04/18 08:00 BUN 25 mg/dL (6-20) H 09/04/18 08:00 BUN/Creatinine Ratio 37 (6-26) H 09/04/18 08:00 Glucose 114 mg/dL (70-105) H 09/04/18 08:00 POC Glucose 141 mg/dL (70-99) H 09/04/18 07:29 Hemoglobin A1c 6.2 % (-5.6) H 09/04/18 08:00 Urine Protein 100 mg/dL (Neg-Trace) H 09/01/18 23:31 Urine Blood Large (Negative) H 09/01/18 23:31 Ur Leukocyte Esterase Small (Negative) H 09/01/18 23:31 Urine Microscopic RBC 15-30 per hpf (0-3) H 09/01/18 23:31 Urine Microscopic WBC 15-30 per hpf (0-3) H 09/01/18 23:31 Ur Squamous Epith Cells Many per lpf (None-Few) H 09/01/18 23:31 Ur Culture Indicated? NO. (NO) A 09/01/18 23:31 - Microbiology Findings Microbiology Findings: Microbiology, Last 48 Hours 09/03/18 16:53 Influenza Types A,B Antigen - Final Nasopharyngeal 09/02/18 23:31 Legionella Antigen - Final Urine,Clean Catch - Diagnostic Findings CT scan - chest: report reviewed, image reviewed - Clinical Findings Intake & Output: Intake & Output 09/03/18 09/04/18 09/04/18 23:59 07:59 15:59 Intake Total 60 / 60 Balance 60 / 60 Consult Discharge Plan - Plan Referrals: Naresh Skinner MD [Primary Care Provider] - 09/05/18 9:00 am ()
--- NOTE | 2018-09-04 15:34 | Event Note ---
Date of Encounter: 09/04/18 Time of Encounter: 15:33 - Cardiology Event Note Discussed case with filtration plant mechanic Dr. Brito, who is in [place] conservation lab[place] Saturday. Agreeable to add pt on for RHC Saturday for phtn evaluation as outpt. Message sent to nurse in cardiology office, who will contact pt for further d etails. Cardiology signing off. Reconsult PRN.
[2018-09-04 17:20] LABS: INR 0.8; Prothrombin Time 9.2 Seconds (9.4-12.1)
--- NOTE | 2018-09-04 21:35 | Electrocardiograph Report ---
[address] [place] [address] Test Date: 2018-09-01 Pat Name: Luba Chowdary Department: EXAM4 Room: 2A41 Gender: F Assistant Broker: : 1975 Requested By: Lyle Bell Order Number: [id number] Reading MD: Kim Powers Measurements Intervals [place] Rate: 93 P: 38 VT: 137 QRS: 20 QRSD: 73 T: 230 QT: 363 QTc: 452 Interpretive Statements Sinus rhythm Nonspecific T abnormalities, inferior leads Electronically Signed On 09-04-2018 21:34:38 EDT by Kim Powers
[2018-09-05] MEDS: *HR* Heparin 5,000 UNIT/ML VIAL SQ SCH (06:25)
[2018-09-05] MEDS: *HR* OxyCODONE Immed Rel 5 MG TABLET PO PRN (06:26)
[2018-09-05 06:57] VITALS: BP 141/78
[2018-09-05] MEDS: cephALEXin 500 MG CAPSULE PO SCH (08:30)
[2018-09-05] MEDS: Famotidine 20 MG TABLET PO SCH (08:30)
[2018-09-05] MEDS: amLODIPine 5 MG TABLET PO SCH (08:31)
[2018-09-05] MEDS: ALPRAZolam 1 MG TABLET PO SCH (08:31)
[2018-09-05] MEDS: Insulin LISPRO 300 UNITS/3 ML VIAL SQ SCH (08:32)
[2018-09-05] MEDS: predniSONE 20 MG TABLET PO SCH (08:32)
[2018-09-05] MEDS: Fluticasone Propionate Nasal 50 MCG/SPRAY BOTTLE NS SCH (08:32)
[2018-09-05] MEDS: Insulin DETEMIR 100 UNIT/ML X5UNITS SQ SCH (08:38)
--- NOTE | 2018-09-05 10:22 | Discharge Summary ---
- NOTES TO OUTPATIENT PROVIDER Notes to Outpatient Provider: Patient was admitted for acute on chronic dyspnea which is attributed to pulmonary HTN. Also treated for COPD exacerbation. She was seen by both pulm and cardiology and will undergo right heart cath on Saturday, 09/08. Orders not resulted at time of discharge: Pending orders 09/02/18 03:04 Culture,Blood [BC] Stat 09/02/18 13:24 NM shannan perf SPECT multi [NM] Routine Date of Encounter: 09/05/18 Time of Encounter: 08:20 - Discharge Diagnosis (1) Shortness of breath Priority: Secondary Status: Resolved (2) Hypothyroidism Priority: Secondary Status: Chronic Qualifiers: Hypothyroidism type: unspecified Qualified Code(s): E03.9 - Hypothyroidism, unspecified (3) Hypertension Priority: Secondary Status: Chronic Qualifiers: Hypertension type: essential hypertension Qualified Code(s): I10 - Essential (primary) hypertension (4) DVT prophylaxis Priority: Secondary Status: Acute (5) Chronic pain Priority: Secondary Status: Chronic Qualifiers: Chronic pain type: chronic pain syndrome Qualified Code(s): G89.4 - Chronic pain syndrome (6) COPD (chronic obstructive pulmonary disease) Priority: Secondary Status: Chronic Qualifiers: COPD type: chronic bronchitis Chronic bronchitis type: simple Qualified Code(s): J41.0 - Simple chronic bronchitis (7) SLE (systemic lupus erythematosus) Priority: Secondary Status: Chronic Qualifiers: Systemic lupus erythematosus type: unspecified Systemic lupus erythematosus organ involvement: unspecified Qualified Code(s): M32.9 - Systemic lupus erythematosus, unspecified (8) Pulmonary hypertension Priority: Primary Status: Suspected Hospital course: Ms. Chowdary is a 43 year old female with history of COPD, chronic hypoxic respiratory failure, SLE, was admitted for acute on chronic dyspnea. CTA -ve for PE or pnemonia. Underwent stress test which was negative for ischemia, Echocardiogram demonstrated normal EF and LV diastolic function but she had findings suggestive of at least moderate pulmonary hypertension. She was seen by both pulmonary and cardiology during her stay and will undergo RHC as an ou tpatient on 09/08 to determine further course of therapy. Discharge discussed with: patient, nurse - Time Spent with Patient Total time spent providing and/or coordinating discharge services: 33 mins - Discharge Medications Home Medications: Albuterol Sulfate [Proair Hfa] 2 puff IH BID PRN 07/10/16 [History] Carvedilol [Coreg] 25 mg PO BID 07/10/16 [History] Fluticasone Propionate Nasal [Flonase] 50 mcg NS DAILY PRN 07/10/16 [History] Nitroglycerin [Nitrostat] 0.4 mg SL Q5M PRN 07/10/16 [History] Citalopram Hydrobromide [Celexa] 40 mg PO HS 07/18/17 [History] Cyanocobalamin (Vitamin B-12) [Vitamin B12] 1,000 mcg PO DAILY 07/18/17 [History] Ipratropium/Albuterol Neb [Duoneb] 3 ml IH Q6H PRN 07/18/17 [History] Mometasone/Formoterol [Dulera 200 Mcg/5 Mcg Inhaler] 1 puff IH BID 07/18/17 [History] Oxygen 2 l NS AD 07/18/17 [History] ALPRAZolam [Xanax 1 MG Tablet] 1 mg PO TID 07/30/17 [History] Furosemide [Lasix] 40 mg PO BID 07/30/17 [History] Levothyroxine [Synthroid] 112 mcg PO DAILY 09/01/17 [History] Lisinopril [Zestril] 5 mg PO DAILY 09/01/17 [History] Metoclopramide HCl 5 mg PO TID 09/01/17 [History] Mycophenolate Mofetil [Cellcept] 500 mg PO BID 09/01/17 [History] Potassium Chloride [K-Tab ER] 20 meq PO DAILY 09/01/17 [History] hydroCHLOROthiazide [Hydrochlorothiazide] 25 mg PO DAILY 09/01/17 [History] Insulin Glargine,Hum.rec.anlog [Basaglar Kwikpen U-100] 20 unit SQ DAILY 09/21/17 [History] Ranitidine HCl [Zantac] 300 mg PO DAILY 09/21/17 [History] Omeprazole [PriLOSEC] 20 mg PO BID 09/02/18 [History] OxyCODONE Immed Rel [Roxicodone 10 MG] 10 mg PO TID 09/02/18 [History] amLODIPine [Norvasc] 10 mg PO DAILY tablet 09/05/18 [Rx] Allergies/Adverse Reactions: Allergy/AdvReac Type Severity Reaction Status Date / Time ketorolac [From Toradol] AdvReac Abdominal Verified 09/02/18 11:29 Pain NSAIDS (Non-Steroidal AdvReac Abdominal Verified 09/02/18 11:29 Anti-Inflamma Pain tramadol AdvReac Abdominal Verified 09/02/18 11:29 Pain pyridium AdvReac Abdominal Uncoded 09/02/18 11:29 Pain Date of admission: 09/02/18 03:44 Primary care physician: Naresh Skinner MD Consults: 09/03/18 13:52 Consult to Pulmonology [CONS] Routine Consulting Provider: [facility] Reason for Consult: Progressive dyspnea, hx of SLE Time Notified: 13:53 Call Completed: Yes 09/04/18 14:43 Consult to Cardiology [CONS] Routine Comment: Consulting Provider: Cardiology Mita Reason for Consult: RHC for pulm HTN Call Completed: Yes - Constitutional Vitals: Temp Pulse Resp BP Pulse Ox 97.8 F 55 16 141/78 95 09/05/18 06:45 09/05/18 06:45 09/05/18 06:45 09/05/18 06:45 09/05/18 08:22 Exam: Vitals: Reviewed General: Well-developed, white female lying comfortably in bed in no acute distress Chest: slightly diminished breath sounds but no rhonchi/rales/wheezes Heart: Normal S1 & S2; rhythmic. No rubs or murmurs. Abdomen: Soft, nontender. Non-distended Neurological: Awake, alert and oriented to person, place and time. No focal deficits. - Patient Status Disposition: Home, Self-Care Condition: Fair Functional capacity at discharge: independent ambulation Overall status at discharge: patient is progressing back to baseline - Discharge Instructions Instructions: Chronic Obstructive Pulmonary Disease (DC), Chronic Hypertension (DC), Acute Respiratory Distress Syndrome (DC) Follow Up With: Naresh Skinner MD [Primary Care Provider] - 09/05/18 9:00 am () Additional Instructions: For right heart cath on Saturday with Dr. Brito, to be arranged by cardiology office Follow with pulmonary after RHC - Diet and Activity Activity: as per physical therapy Diet: low salt diet
[2018-09-05] MEDS: Tiotropium 18 MCG inhalation IH SCH (10:53)
[2018-09-05] MEDS: Budesonide/Formoterol 160/4.5 1 PUFF INH IH SCH (10:54)
== END 2018-09-05 11:20 | disposition home or self-care (01) ==
LOC: EMEROOARM 22:20 → 2ANU 22:20 → SUATTDRO 09-02 03:44 → 2ANU 09-02 05:08
PROVIDERS: ADMIT Internal Medicine; ATTEND Internal Medicine

== ENCOUNTER 2021-02-16 12:21 | Observation (INO) ==
[2021-02-16] MEDS ORDERED: Ondansetron 4 MG/2 ML VIAL IVP ONE ×2 (13:03→15:43)
[2021-02-16] MEDS ORDERED: Isovue-370 500 ML BOTTLE IVP ONE (13:03)
[2021-02-16] MEDS ORDERED: *HR* FentaNYL (PF) 100 MCG/2 ML VIAL IVP ONE ×2 (13:03→15:42)
[2021-02-16] MEDS ORDERED: 0.9 % Sodium Chloride 500 ML IVC ONE (13:03)
[2021-02-16 13:33] LABS: Basophils % 0.2 %; Eosinophils # 0.1 K/mcL (0.0-0.6); Eosinophils % 0.5 %; Hemoglobin 13.1 g/dL (11.5-15.4); Lymphocytes # 1.3 K/mcL (0.6-4.6); Lymphocytes % 12.9 %; Mean Corpuscular HGB Conc 31.2 g/dL (31.6-35.5); Mean Corpuscular Hemoglobin 32.3 pg (28.0-33.3); Mean Corpuscular Volume 103.4 fL (83.0-100.0); Mean Platelet Volume 10.7 fL (9.4-12.4); Monocytes # 0.8 K/mcL (0.0-1.3); Monocytes % 7.8 %; Neutrophils # 7.7 K/mcL (1.6-8.9); Platelet Count 193 K/mcL (140-400); Red Blood Count 4.06 M/mcL (3.82-4.97); Red Cell Distribution Width 12.9 % (11.5-14.5); Segmented Neutrophils % 77.6 %; White Blood Count 9.9 K/mcL (4.3-11.1)
[2021-02-16 14:02] LABS: Alanine Aminotransferase 15 Units/L (7-52); Albumin 3.8 g/dL (3.5-5.7); Albumin/Globulin Ratio 1.4 (1.1-2.2); Alkaline Phosphatase 49 Units/L (34-104); Aspartate Amino Transferase 19 Units/L (13-39); BUN/Creatinine Ratio 18 (6-26); Bilirubin,Direct 0.1 mg/dL (0.0-0.2); Bilirubin,Indirect 0.9 mg/dL (0.0-1.0); Blood Urea Nitrogen 14 mg/dL (6-20); Calcium 9.1 mg/dL (8.6-10.3); Carbon Dioxide 37 mEq/L (23-29); Chloride 98 mEq/L (98-107); Globulin 2.7 g/dL (2.4-3.5); Glucose 109 mg/dL (70-105); Lipase 7 Units/L (11-82); Osmolality,Calculated 289 (280-300); Potassium 4.1 mEq/L (3.5-5.1); Sodium 139 mEq/L (136-145); Total Protein 6.5 g/dL (6.4-8.9); eGFR For African Americans > 60 (> 60); eGFR For Non-African Americans > 60 (> 60)
[2021-02-16 14:11] LABS: Bilirubin,Urine Negative (Negative); Blood,Urine Trace (Negative); Clarity,Urine Clear (Clear); Color,Urine Light-Yellow (Yellow); Glucose,Urine (UA) Normal (Normal); Hyaline Casts,Urine Few per lpf (None Seen); Ketones,Urine Negative (Negative); Leukocyte Esterase,Urine Large (Negative); Mucus,Urine Few per lpf (None-Few); Nitrite,Urine Negative (Negative); PH,Urine 6.5 pH Units (5.0-8.0); Protein,Urine Trace mg/dL (Neg-Trace); Renal Epithelial Cells,Urine Moderate per hpf (None-Few); Specific Gravity,Urine 1.021 (1.010-1.025); Squamous Epithelial Cell,Urine Few per hpf (None-Few); Transitional Epi Cells,Urine Few per hpf (None-Few); Urobilinogen,Urine Normal (Normal); WBC,Urine 50-100 per hpf (0-3)
[2021-02-16] MEDS ORDERED: cefTRIAXone 1,000 MG in Water for inj. (sterile) 10 ML IVP ONE (15:42)
[2021-02-16] MEDS ORDERED: Naloxone 0.4 MG/ML INJ IVP PRN (16:43)
[2021-02-16] MEDS ORDERED: Acetaminophen 325 MG TABLET PO PRN (16:43)
[2021-02-16] MEDS ORDERED: Ondansetron 4 MG/2 ML VIAL IVP PRN (16:43)
[2021-02-16] MEDS ORDERED: Melatonin 3 MG TABLET PO PRN (16:43)
[2021-02-16] MEDS ORDERED: *HR* Promethazine 25 MG/ML VIAL IM ONE (16:53)
[2021-02-16] MEDS: 0.9 % Sodium Chloride 1,000 ML IVC SCH (17:50)
[2021-02-16] MEDS ORDERED: *HR* LORazepam 1 MG TABLET PO PRN (18:14)
[2021-02-16] MEDS ORDERED: D5% in Water 1,000 ML IVC PRN (18:23)
[2021-02-16] MEDS ORDERED: Dextrose Gel 15 GM/37.5 ML TUBE PO PRN ×2 (18:23)
[2021-02-16] MEDS ORDERED: *HR* Dextrose 50 % in Water (Vial) 50 ML VIAL IVP PRN (18:23)
[2021-02-16] MEDS: Budesonide/Formoterol 80/4.5 1 PUFF INH IH SCH (19:59)
[2021-02-16 20:03] LABS: C-Reactive Protein 20 mg/L (Less than 10)
[2021-02-16 20:04] LABS: Troponin I < 0.03 ng/mL (< 0.04)
[2021-02-16] MEDS: *HR* OxyCODONE Immed Rel 5 MG TABLET PO PRN (20:11)
[2021-02-16] MEDS: Pantoprazole 40 MG VIAL IVP SCH (20:11)
[2021-02-16] MEDS: Sennosides/Docusate Sodium TABLET PO SCH (20:12)
[2021-02-16 20:58] LABS: Estimated Average Glucose 131 mg/dl; Hemoglobin A1C 6.2 %
[2021-02-16] MEDS: ALPRAZolam 1 MG TABLET PO SCH (22:12)
[2021-02-16] MEDS: Insulin DETEMIR 100 UNIT/ML X5UNITS SUBQ SCH (22:12)
[2021-02-16] MEDS ORDERED: Morphine Sulfate 2 MG/ML SYRINGE IVP ONE (22:41)
[2021-02-17] MEDS: 0.9 % Sodium Chloride 1,000 ML IVC SCH (02:56)
[2021-02-17 03:11] LABS: Basophils % 0.4 %; Eosinophils # 0.1 K/mcL (0.0-0.6); Hematocrit 37.8 % (35.3-44.9); Hemoglobin 11.5 g/dL (11.5-15.4); Immature Granulocytes % 1.1 % (0-4); Lymphocytes % 12.9 %; Mean Corpuscular HGB Conc 30.4 g/dL (31.6-35.5); Mean Corpuscular Hemoglobin 32.1 pg (28.0-33.3); Mean Corpuscular Volume 105.6 fL (83.0-100.0); Mean Platelet Volume 10.8 fL (9.4-12.4); Monocytes # 0.7 K/mcL (0.0-1.3); Neutrophils # 6.1 K/mcL (1.6-8.9); Platelet Count 183 K/mcL (140-400); Red Blood Count 3.58 M/mcL (3.82-4.97); Red Cell Distribution Width 13.1 % (11.5-14.5); Segmented Neutrophils % 75.6 %; White Blood Count 8.1 K/mcL (4.3-11.1)
[2021-02-17 03:17] LABS: Prothrombin Time 11.3 Seconds (9.4-12.1)
[2021-02-17 03:26] LABS: Alanine Aminotransferase 12 Units/L (7-52); Albumin 3.3 g/dL (3.5-5.7); Albumin/Globulin Ratio 1.4 (1.1-2.2); Alkaline Phosphatase 43 Units/L (34-104); Aspartate Amino Transferase 12 Units/L (13-39); BUN/Creatinine Ratio 17 (6-26); Bilirubin,Total 0.7 mg/dL (0.3-1.0); Blood Urea Nitrogen 11 mg/dL (6-20); Calcium 8.2 mg/dL (8.6-10.3); Carbon Dioxide 36 mEq/L (23-29); Chloride 103 mEq/L (98-107); Globulin 2.3 g/dL (2.4-3.5); Glucose 157 mg/dL (70-105); Magnesium 1.7 mg/dL (1.6-2.6); Osmolality,Calculated 299 (280-300); Phosphorous 3.2 mg/dL (2.7-4.5); Potassium 3.9 mEq/L (3.5-5.1); Sodium 143 mEq/L (136-145); Total Protein 5.6 g/dL (6.4-8.9); eGFR For African Americans > 60 (> 60); eGFR For Non-African Americans > 60 (> 60)
[2021-02-17] MEDS: Pantoprazole 40 MG VIAL IVP SCH (05:29)
[2021-02-17] MEDS: *HR* OxyCODONE Immed Rel 5 MG TABLET PO PRN ×2 (05:38→15:06)
[2021-02-17] MEDS: Budesonide/Formoterol 80/4.5 1 PUFF INH IH SCH ×2 (07:24→20:54)
[2021-02-17] MEDS: Insulin LISPRO 300 UNITS/3 ML VIAL SUBQ SCH ×3 (08:36→16:53)
[2021-02-17] MEDS: carvediloL 25 MG TABLET PO SCH ×2 (08:40→16:53)
[2021-02-17] MEDS: cefTRIAXone 1,000 MG in 0.9 % Sodium Chloride Mini Bag 100 ML IVPB SCH (08:40)
[2021-02-17] MEDS: Sennosides/Docusate Sodium TABLET PO SCH ×2 (08:40→21:19)
[2021-02-17] MEDS: Multivit/Ca/Min/Fe/FA 1 TAB TABLET PO SCH (08:40)
[2021-02-17] MEDS: ALPRAZolam 1 MG TABLET PO SCH ×3 (08:41→21:19)
[2021-02-17] MEDS ORDERED: predniSONE 20 MG TABLET PO SCH (09:00)
[2021-02-17] MEDS: Calcium Gluconate 1gm/50mL 1 GM/50 ML BAG IVPB SCH ×2 (10:59→11:30)
[2021-02-17] MEDS ORDERED: Morphine Sulfate 2 MG/ML SYRINGE IVP ONE (11:49)
[2021-02-17] MEDS ORDERED: Nitroglycerin 0.4 MG TAB.SUBL SL PRN (11:53)
[2021-02-17] MEDS ORDERED: Fluticasone Propionate Nasal 50 MCG/SPRAY BOTTLE NS PRN (11:53)
[2021-02-17 13:41] LABS: Hematocrit 37.5 % (35.3-44.9); Hemoglobin 11.3 g/dL (11.5-15.4)
[2021-02-17] MEDS: Sucralfate 1 GM TABLET PO SCH ×2 (15:03→21:20)
[2021-02-17] MEDS: hydrALAZINE 25 MG TABLET PO SCH ×2 (15:03→21:20)
[2021-02-17] MEDS: Furosemide 40 MG TABLET PO SCH (16:53)
[2021-02-17] MEDS: Insulin DETEMIR 100 UNIT/ML X5UNITS SUBQ SCH (21:19)
[2021-02-18] MEDS: *HR* OxyCODONE Immed Rel 5 MG TABLET PO PRN ×2 (03:24→13:55)
[2021-02-18] MEDS: Ipratropium/Albuterol Neb 3 ML IH PRN ×2 (04:25→08:31)
[2021-02-18 04:35] LABS: Basophils # 0.1 K/mcL (0.0-0.2); Basophils % 0.7 %; Eosinophils # 0.2 K/mcL (0.0-0.6); Eosinophils % 2.2 %; Hematocrit 37.4 % (35.3-44.9); Hemoglobin 11.3 g/dL (11.5-15.4); Immature Granulocytes % 0.8 % (0-4); Lymphocytes # 0.9 K/mcL (0.6-4.6); Lymphocytes % 12.7 %; Mean Corpuscular HGB Conc 30.2 g/dL (31.6-35.5); Mean Corpuscular Hemoglobin 31.9 pg (28.0-33.3); Mean Corpuscular Volume 105.6 fL (83.0-100.0); Mean Platelet Volume 10.6 fL (9.4-12.4); Monocytes # 0.7 K/mcL (0.0-1.3); Neutrophils # 5.5 K/mcL (1.6-8.9); Platelet Count 153 K/mcL (140-400); Red Blood Count 3.54 M/mcL (3.82-4.97); Segmented Neutrophils % 73.6 %; White Blood Count 7.4 K/mcL (4.3-11.1)
[2021-02-18 05:04] LABS: % Iron Saturation 17 % (15-50); Alanine Aminotransferase 11 Units/L (7-52); Albumin 3.4 g/dL (3.5-5.7); Albumin/Globulin Ratio 1.4 (1.1-2.2); Alkaline Phosphatase 43 Units/L (34-104); Aspartate Amino Transferase 13 Units/L (13-39); BUN/Creatinine Ratio 14 (6-26); Bilirubin,Total 0.7 mg/dL (0.3-1.0); Blood Urea Nitrogen 8 mg/dL (6-20); Calcium 8.6 mg/dL (8.6-10.3); Carbon Dioxide 38 mEq/L (23-29); Chloride 101 mEq/L (98-107); Globulin 2.4 g/dL (2.4-3.5); Glucose 84 mg/dL (70-105); Iron 54 mcg/dL (50-170); Magnesium 1.6 mg/dL (1.6-2.6); Osmolality,Calculated 294 (280-300); Phosphorous 3.4 mg/dL (2.7-4.5); Potassium 3.8 mEq/L (3.5-5.1); Sodium 143 mEq/L (136-145); Total Protein 5.8 g/dL (6.4-8.9); Transferrin 229 mg/dL (203-362); eGFR For African Americans > 60 (> 60); eGFR For Non-African Americans > 60 (> 60)
[2021-02-18 05:20] LABS: Ferritin 55 ng/mL (10-120)
[2021-02-18 05:25] LABS: Folate 5.7 ng/mL (3.0-16.0)
[2021-02-18] MEDS ORDERED: Iron Sucrose Complex 400 MG in 0.9 % Sodium Chloride 250 ML IVPB ONE (07:29)
[2021-02-18] MEDS: Sennosides/Docusate Sodium TABLET PO SCH (08:18)
[2021-02-18] MEDS: hydrALAZINE 25 MG TABLET PO SCH (08:20)
[2021-02-18] MEDS: Furosemide 40 MG TABLET PO SCH (08:21)
[2021-02-18] MEDS: carvediloL 25 MG TABLET PO SCH (08:21)
[2021-02-18] MEDS: Multivit/Ca/Min/Fe/FA 1 TAB TABLET PO SCH (08:21)
[2021-02-18] MEDS: ALPRAZolam 1 MG TABLET PO SCH (08:21)
[2021-02-18] MEDS: Insulin LISPRO 300 UNITS/3 ML VIAL SUBQ SCH ×2 (08:22→11:40)
[2021-02-18] MEDS: Budesonide/Formoterol 80/4.5 1 PUFF INH IH SCH (08:31)
[2021-02-18] MEDS ORDERED: Morphine Sulfate 2 MG/ML SYRINGE IVP PRN (08:39)
[2021-02-18] MEDS ORDERED: Ascorbic Acid 500 MG TABLET PO SCH (09:00)
[2021-02-18] MEDS ORDERED: Cyanocobalamin (B-12) 1,000 MCG TABLET PO SCH (09:00)
[2021-02-18] MEDS ORDERED: Cholecalciferol (D-3) 1,000 UNIT (25MCG) TABLET PO SCH (09:00)
[2021-02-18] MEDS ORDERED: hydroCHLOROthiazide 25 MG TABLET PO SCH (09:00)
[2021-02-18] MEDS: cefTRIAXone 1,000 MG in 0.9 % Sodium Chloride Mini Bag 100 ML IVPB SCH (10:32)
[2021-02-18] MEDS: Sucralfate 1 GM TABLET PO SCH (11:15)
[2021-02-18 11:46] VITALS: BP 92/55
== END 2021-02-18 14:07 | disposition home or self-care (01) ==
LOC: EMEROOARM 12:21 → 3ANU 12:21 → SUATTDRO 16:37 → 3ANU 18:52
PROVIDERS: ADMIT Internal Medicine; ATTEND Internal Medicine

== ENCOUNTER 2021-05-12 13:15 | Inpatient (IN) ==
[2021-05-12 14:07] LABS: Calcium 9.4 mg/dL (8.6-10.3); Potassium 3.4 mEq/L (3.5-5.1)
[2021-05-12 14:34] LABS: Platelet Estimate Decreased (Normal)
[2021-05-12 14:40] LABS: Hematocrit 52.5 % (35.3-44.9); Hemoglobin 16.5 g/dL (11.5-15.4); Lymphocytes # 2.2 K/mcL (0.6-4.6); Mean Corpuscular HGB Conc 31.4 g/dL (31.6-35.5); Mean Corpuscular Hemoglobin 31.3 pg (28.0-33.3); Mean Corpuscular Volume 99.4 fL (83.0-100.0); Mean Platelet Volume 11.9 fL (9.4-12.4); Neutrophils # 25.8 K/mcL (1.6-8.9); Platelet Count 113 K/mcL (140-400); Red Blood Count 5.28 M/mcL (3.82-4.97); Red Cell Distribution Width 13.5 % (11.5-14.5)
[2021-05-12] MEDS ORDERED: *HR* FentaNYL (PF) 100 MCG/2 ML VIAL IVP STA (16:26)
[2021-05-12] MEDS ORDERED: Ondansetron 4 MG/2 ML VIAL IVP ONE (16:27)
[2021-05-12 16:28] LABS: Amorphous Sediment,Urine Few per hpf (None-Few); Bacteria,Urine Few per hpf (None-Few); Bilirubin,Urine Negative (Negative); Blood,Urine Moderate (Negative); Clarity,Urine Turbid (Clear); Color,Urine Yellow (Yellow); Glucose,Urine (UA) Normal (Normal); Hyaline Casts,Urine Many per lpf (None Seen); Ketones,Urine Negative (Negative); Leukocyte Esterase,Urine Large (Negative); Mucus,Urine Few per lpf (None-Few); Nitrite,Urine Negative (Negative); Oval Fat Bodies,Urine Present per hpf (None Seen); PH,Urine 5.5 pH Units (5.0-8.0); Protein,Urine 70 mg/dL (Neg-Trace); Specific Gravity,Urine 1.022 (1.010-1.025); Squamous Epithelial Cell,Urine Few per hpf (None-Few); Urobilinogen,Urine Normal (Normal); WBC,Urine TNTC per hpf (0-3)
[2021-05-12] MEDS ORDERED: cefTRIAXone 2,000 MG in Water for inj. (sterile) 20 ML IVP ONE (17:02)
[2021-05-12] MEDS: 0.9 % Sodium Chloride 1,000 ML IVC SCH ×6 (17:32→20:47)
[2021-05-12] MEDS ORDERED: Naloxone 0.4 MG/ML INJ IVP PRN (17:45)
[2021-05-12] MEDS ORDERED: Ondansetron 4 MG/2 ML VIAL IVP PRN (17:45)
[2021-05-12] MEDS ORDERED: *HR* Dextrose 50 % in Water (Vial) 50 ML VIAL IVP PRN (17:50)
[2021-05-12] MEDS ORDERED: Dextrose Gel 15 GM/37.5 ML TUBE PO PRN ×2 (17:50)
[2021-05-12] MEDS ORDERED: D5% in Water 1,000 ML IVC PRN (17:50)
[2021-05-12] MEDS ORDERED: *HR* LORazepam 2 MG/ML VIAL IVP SCH (21:00)
[2021-05-12] MEDS: Insulin LISPRO 300 UNITS/3 ML VIAL SUBQ SCH (21:31)
[2021-05-12] MEDS: Melatonin 3 MG TABLET PO PRN (21:41)
[2021-05-12] MEDS: Morphine Sulfate 2 MG/ML SYRINGE IVP PRN (21:45)
[2021-05-12] MEDS ORDERED: Acetaminophen IV 1,000 MG/100 ML BAG IVPB ONE (23:14)
[2021-05-12] MEDS: Ringers Solution, Lactated 1,000 ML IVC SCH ×2 (23:32→23:56)
[2021-05-12] MEDS: Budesonide/Formoterol 160/4.5 1 PUFF INH IH SCH (23:39)
[2021-05-13] MEDS: Morphine Sulfate 2 MG/ML SYRINGE IVP PRN (01:07)
[2021-05-13 03:03] LABS: Mean Corpuscular Volume 98.5 fL (83.0-100.0); Monocytes % 7.9 %
[2021-05-13 03:06] LABS: Basophils # 0.1 K/mcL (0.0-0.2); Basophils % 0.2 %; Hemoglobin 12.3 g/dL (11.5-15.4); Immature Platelets 10.6 % (1.1-6.1); Lymphocytes # 0.7 K/mcL (0.6-4.6); Lymphocytes % 2.5 %; Mean Corpuscular HGB Conc 31.5 g/dL (31.6-35.5); Mean Corpuscular Hemoglobin 31.1 pg (28.0-33.3); Mean Platelet Volume 11.4 fL (9.4-12.4); Monocytes # 2.3 K/mcL (0.0-1.3); Neutrophils # 24.1 K/mcL (1.6-8.9); Red Blood Count 3.96 M/mcL (3.82-4.97); Red Cell Distribution Width 13.5 % (11.5-14.5); Segmented Neutrophils % 82.4 %; White Blood Count 29.3 K/mcL (4.3-11.1)
[2021-05-13 03:19] LABS: BUN/Creatinine Ratio 23 (6-26); Blood Urea Nitrogen 23 mg/dL (6-20); Calcium 8.2 mg/dL (8.6-10.3); Carbon Dioxide 29 mEq/L (23-29); Chloride 102 mEq/L (98-107); Glucose 156 mg/dL (70-105); Magnesium 1.7 mg/dL (1.6-2.6); Osmolality,Calculated 293 (280-300); Phosphorous 2.4 mg/dL (2.7-4.5); Potassium 3.1 mEq/L (3.5-5.1); Sodium 138 mEq/L (136-145); eGFR For African Americans > 60 (> 60); eGFR For Non-African Americans 58 (> 60)
[2021-05-13 04:15] LABS: Platelet Count 93 K/mcL (140-400)
[2021-05-13 04:17] LABS: Platelet Estimate Slight Decrease (Normal)
[2021-05-13] MEDS ORDERED: Potassium Chloride 40 MEQ, Lidocaine 1% 2 ML in 0.9 % Sodium Chloride 500 ML IVPB ONE (07:30)
[2021-05-13] MEDS: Budesonide/Formoterol 160/4.5 1 PUFF INH IH SCH ×2 (07:42→19:53)
[2021-05-13] MEDS: Insulin LISPRO 300 UNITS/3 ML VIAL SUBQ SCH ×4 (08:51→22:04)
[2021-05-13] MEDS ORDERED: Morphine Sulfate 2 MG/ML SYRINGE IVP PRN (11:21)
[2021-05-13] MEDS: ALPRAZolam 1 MG TABLET PO SCH ×3 (11:46→22:09)
[2021-05-13] MEDS: Ringers Solution, Lactated 1,000 ML IVC SCH (12:12)
[2021-05-13] MEDS: cefTRIAXone 2,000 MG in 0.9 % Sodium Chloride Mini Bag 100 ML IVPB SCH (17:19)
[2021-05-13] MEDS ORDERED: Acetaminophen IV 1,000 MG/100 ML BAG IVPB ONE (19:56)
[2021-05-13] MEDS: Melatonin 3 MG TABLET PO PRN (22:10)
[2021-05-14 03:24] LABS: Basophils % 0.1 %; Lymphocytes % 7.4 %; Red Cell Distribution Width 13.7 % (11.5-14.5)
[2021-05-14 03:26] LABS: Eosinophils # 0.1 K/mcL (0.0-0.6); Eosinophils % 0.9 %; Hemoglobin 11.5 g/dL (11.5-15.4); Immature Granulocytes % 2.3 % (0-4); Immature Platelets 9.8 % (1.1-6.1); Mean Corpuscular HGB Conc 31.1 g/dL (31.6-35.5); Mean Corpuscular Volume 99.7 fL (83.0-100.0); Mean Platelet Volume 11.8 fL (9.4-12.4); Monocytes # 1.2 K/mcL (0.0-1.3); Monocytes % 9.1 %; Neutrophils # 10.9 K/mcL (1.6-8.9); Red Blood Count 3.71 M/mcL (3.82-4.97); Segmented Neutrophils % 80.2 %; White Blood Count 13.6 K/mcL (4.3-11.1)
[2021-05-14 03:28] LABS: Platelet Count 96 K/mcL (140-400)
[2021-05-14 03:43] LABS: BUN/Creatinine Ratio 15 (6-26); Blood Urea Nitrogen 10 mg/dL (6-20); Calcium 8.5 mg/dL (8.6-10.3); Carbon Dioxide 32 mEq/L (23-29); Chloride 103 mEq/L (98-107); Glucose 95 mg/dL (70-105); Magnesium 1.8 mg/dL (1.6-2.6); Osmolality,Calculated 289 (280-300); Phosphorous 3.4 mg/dL (2.7-4.5); Potassium 3.5 mEq/L (3.5-5.1); Sodium 140 mEq/L (136-145); eGFR For African Americans > 60 (> 60); eGFR For Non-African Americans > 60 (> 60)
[2021-05-14] MEDS: Sucralfate 1 GM TABLET PO SCH (05:19)
[2021-05-14] MEDS: Budesonide/Formoterol 160/4.5 1 PUFF INH IH SCH ×2 (06:59→19:34)
[2021-05-14] MEDS ORDERED: Acetaminophen IV 1,000 MG/100 ML BAG IVPB ONE (08:48)
[2021-05-14] MEDS: ALPRAZolam 1 MG TABLET PO SCH ×3 (09:03→19:25)
[2021-05-14] MEDS: Insulin LISPRO 300 UNITS/3 ML VIAL SUBQ SCH ×4 (09:08→20:29)
[2021-05-14 10:17] LABS: Adenovirus Not Detected (Not Detect); Bordetella Pertussis Not Detected (Not Detect); Chlamydophila pneumoniae Not Detected (Not Detect); Coronavirus 229E Not Detected (Not Detect); Coronavirus HKU1 Not Detected (Not Detect); Coronavirus NL63 Not Detected (Not Detect); Coronavirus OC43 Not Detected (Not Detect); Human Metapneumovirus Not Detected (Not Detect); Human Rhinovirus/Enterovirus Not Detected (Not Detect); Influenza A Subtype 2009 H1 Not Detected (Not Detect); Influenza B Not Detected (Not Detect); Mycoplasma pneumoniae Not Detected (Not Detect); Parainfluenza Virus 1 Not Detected (Not Detect); Parainfluenza Virus 2 Not Detected (Not Detect); Parainfluenza Virus 3 Not Detected (Not Detect); Parainfluenza Virus 4 Not Detected (Not Detect); Respiratory Syncytial Virus Not Detected (Not Detect); SARS-CoV-2 Not Detected (Not Detect)
[2021-05-14] MEDS: cefTRIAXone 2,000 MG in 0.9 % Sodium Chloride Mini Bag 100 ML IVPB SCH (16:31)
[2021-05-14] MEDS: Azithromycin 500 MG in 0.9 % Sodium Chloride 250 ML IVPB SCH (17:39)
[2021-05-15] MEDS: Sucralfate 1 GM TABLET PO SCH (05:40)
[2021-05-15] MEDS: Budesonide/Formoterol 160/4.5 1 PUFF INH IH SCH ×2 (07:24→20:43)
[2021-05-15] MEDS: Insulin LISPRO 300 UNITS/3 ML VIAL SUBQ SCH ×4 (08:37→21:26)
[2021-05-15] MEDS ORDERED: polyethylene glycoL 3350 17 GM POWD.PACK PO ONE (09:08)
[2021-05-15] MEDS ORDERED: ALPRAZolam 0.5 MG TABLET PO PRN (09:08)
[2021-05-15 09:25] LABS: Basophils % 0.1 %; Eosinophils # 0.1 K/mcL (0.0-0.6); Eosinophils % 1.1 %; Hematocrit 35.2 % (35.3-44.9); Hemoglobin 11.4 g/dL (11.5-15.4); Immature Granulocytes % 0.5 % (0-4); Lymphocytes # 0.5 K/mcL (0.6-4.6); Lymphocytes % 5.7 %; Mean Corpuscular HGB Conc 32.4 g/dL (31.6-35.5); Mean Corpuscular Hemoglobin 32.3 pg (28.0-33.3); Mean Corpuscular Volume 99.7 fL (83.0-100.0); Mean Platelet Volume 11.5 fL (9.4-12.4); Monocytes % 10.7 %; Neutrophils # 7.3 K/mcL (1.6-8.9); Platelet Count 103 K/mcL (140-400); Red Blood Count 3.53 M/mcL (3.82-4.97); Red Cell Distribution Width 13.6 % (11.5-14.5); Segmented Neutrophils % 81.9 %; White Blood Count 8.9 K/mcL (4.3-11.1)
[2021-05-15 09:44] LABS: BUN/Creatinine Ratio 15 (6-26); Blood Urea Nitrogen 8 mg/dL (6-20); Calcium 8.7 mg/dL (8.6-10.3); Carbon Dioxide 37 mEq/L (23-29); Chloride 100 mEq/L (98-107); Glucose 150 mg/dL (70-105); Osmolality,Calculated 293 (280-300); Potassium 3.1 mEq/L (3.5-5.1); Sodium 141 mEq/L (136-145); eGFR For African Americans > 60 (> 60); eGFR For Non-African Americans > 60 (> 60)
[2021-05-15] MEDS: cefTRIAXone 2,000 MG in 0.9 % Sodium Chloride Mini Bag 100 ML IVPB SCH (17:08)
[2021-05-15] MEDS: Azithromycin 500 MG in 0.9 % Sodium Chloride 250 ML IVPB SCH (17:09)
[2021-05-16 05:45] LABS: Basophils % 0.2 %; Eosinophils # 0.1 K/mcL (0.0-0.6); Eosinophils % 1.1 %; Hematocrit 35.6 % (35.3-44.9); Hemoglobin 11.3 g/dL (11.5-15.4); Immature Granulocytes % 0.3 % (0-4); Lymphocytes # 0.6 K/mcL (0.6-4.6); Lymphocytes % 7.1 %; Mean Corpuscular HGB Conc 31.7 g/dL (31.6-35.5); Mean Corpuscular Hemoglobin 31.5 pg (28.0-33.3); Mean Corpuscular Volume 99.2 fL (83.0-100.0); Mean Platelet Volume 12.1 fL (9.4-12.4); Monocytes % 11.2 %; Neutrophils # 7.1 K/mcL (1.6-8.9); Platelet Count 112 K/mcL (140-400); Red Blood Count 3.59 M/mcL (3.82-4.97); Red Cell Distribution Width 13.3 % (11.5-14.5); Segmented Neutrophils % 80.1 %; White Blood Count 8.9 K/mcL (4.3-11.1)
[2021-05-16 06:06] LABS: BUN/Creatinine Ratio 15 (6-26); Blood Urea Nitrogen 7 mg/dL (6-20); Calcium 8.8 mg/dL (8.6-10.3); Carbon Dioxide 37 mEq/L (23-29); Chloride 99 mEq/L (98-107); Glucose 89 mg/dL (70-105); Osmolality,Calculated 291 (280-300); Potassium 3.6 mEq/L (3.5-5.1); Sodium 142 mEq/L (136-145); eGFR For African Americans > 60 (> 60); eGFR For Non-African Americans > 60 (> 60)
[2021-05-16 06:31] LABS: Platelet Estimate Slight Decrease (Normal)
[2021-05-16] MEDS: Sucralfate 1 GM TABLET PO SCH (08:01)
[2021-05-16] MEDS: Insulin LISPRO 300 UNITS/3 ML VIAL SUBQ SCH ×4 (08:02→19:46)
[2021-05-16] MEDS: Budesonide/Formoterol 160/4.5 1 PUFF INH IH SCH ×2 (09:47→20:29)
[2021-05-16] MEDS: *HR* OxyCODONE Immed Rel 5 MG TABLET PO PRN ×2 (16:51→23:56)
[2021-05-16] MEDS: cefTRIAXone 2,000 MG in 0.9 % Sodium Chloride Mini Bag 100 ML IVPB SCH (16:51)
[2021-05-16] MEDS: Azithromycin 500 MG in 0.9 % Sodium Chloride 250 ML IVPB SCH (16:52)
[2021-05-16] MEDS: Melatonin 3 MG TABLET PO PRN (23:55)
[2021-05-17 03:33] LABS: Basophils % 0.2 %; Eosinophils # 0.1 K/mcL (0.0-0.6); Eosinophils % 1.5 %; Hematocrit 34.8 % (35.3-44.9); Hemoglobin 10.9 g/dL (11.5-15.4); Immature Granulocytes % 0.2 % (0-4); Lymphocytes # 1.1 K/mcL (0.6-4.6); Lymphocytes % 12.8 %; Mean Corpuscular HGB Conc 31.3 g/dL (31.6-35.5); Mean Corpuscular Hemoglobin 31.1 pg (28.0-33.3); Mean Corpuscular Volume 99.4 fL (83.0-100.0); Mean Platelet Volume 11.5 fL (9.4-12.4); Monocytes # 0.8 K/mcL (0.0-1.3); Monocytes % 9.9 %; Neutrophils # 6.4 K/mcL (1.6-8.9); Platelet Count 158 K/mcL (140-400); Red Cell Distribution Width 13.2 % (11.5-14.5); Segmented Neutrophils % 75.4 %; White Blood Count 8.5 K/mcL (4.3-11.1)
[2021-05-17 04:04] LABS: BUN/Creatinine Ratio 15 (6-26); Blood Urea Nitrogen 7 mg/dL (6-20); Carbon Dioxide 40 mEq/L (23-29); Chloride 98 mEq/L (98-107); Glucose 100 mg/dL (70-105); Osmolality,Calculated 296 (280-300); Potassium 3.3 mEq/L (3.5-5.1); Sodium 144 mEq/L (136-145); eGFR For African Americans > 60 (> 60); eGFR For Non-African Americans > 60 (> 60)
[2021-05-17 04:45] LABS: Platelet Estimate Normal (Normal)
[2021-05-17] MEDS: Sucralfate 1 GM TABLET PO SCH (06:25)
[2021-05-17] MEDS: Budesonide/Formoterol 160/4.5 1 PUFF INH IH SCH ×2 (07:45→20:14)
[2021-05-17] MEDS: Insulin LISPRO 300 UNITS/3 ML VIAL SUBQ SCH ×4 (08:16→19:40)
[2021-05-17] MEDS: *HR* OxyCODONE Immed Rel 5 MG TABLET PO PRN ×2 (08:20→16:56)
[2021-05-17] MEDS: Ipratropium/Albuterol Neb 3 ML IH SCH ×5 (10:44→23:31)
[2021-05-17] MEDS: Acetylcysteine 10% 2 ML INHSOL IH SCH ×3 (10:44→23:31)
[2021-05-17] MEDS: ALPRAZolam 1 MG TABLET PO SCH (13:11)
[2021-05-17] MEDS ORDERED: Azithromycin 500 MG in D5% in Water 250 ML IVPB SCH (17:00)
[2021-05-17] MEDS: cefTRIAXone 2,000 MG in 0.9 % Sodium Chloride Mini Bag 100 ML IVPB SCH (17:27)
[2021-05-18] MEDS: *HR* OxyCODONE Immed Rel 5 MG TABLET PO PRN ×2 (01:11→09:39)
[2021-05-18] MEDS: Melatonin 3 MG TABLET PO PRN (01:11)
[2021-05-18 01:48] LABS: BUN/Creatinine Ratio 16 (6-26); Blood Urea Nitrogen 7 mg/dL (6-20); Calcium 8.7 mg/dL (8.6-10.3); Carbon Dioxide 39 mEq/L (23-29); Chloride 98 mEq/L (98-107); Glucose 141 mg/dL (70-105); Osmolality,Calculated 298 (280-300); Potassium 3.3 mEq/L (3.5-5.1); Sodium 144 mEq/L (136-145); eGFR For African Americans > 60 (> 60); eGFR For Non-African Americans > 60 (> 60)
[2021-05-18] MEDS: Ipratropium/Albuterol Neb 3 ML IH SCH ×3 (04:03→11:00)
[2021-05-18] MEDS: Sucralfate 1 GM TABLET PO SCH (05:21)
[2021-05-18] MEDS: Acetylcysteine 10% 2 ML INHSOL IH SCH (07:44)
[2021-05-18] MEDS: Budesonide/Formoterol 160/4.5 1 PUFF INH IH SCH (07:45)
[2021-05-18] MEDS: Insulin LISPRO 300 UNITS/3 ML VIAL SUBQ SCH ×2 (08:26→13:11)
[2021-05-18 11:25] VITALS: BP 125/75; PULSE 82; TEMP 97.7; O2SAT 94
[2021-05-19] MEDS ORDERED: levoFLOXacin 500 MG TABLET PO SCH (09:00)
== END 2021-05-18 15:04 | disposition home health service (06) | DRG 871 ==
LOC: 3ANU 13:15 → EMEROOARM 13:15 → 3ANU 18:50 → SUATTDRO 19:48 → 3BNU 05-15 22:07
PROVIDERS: ADMIT Internal Medicine; ATTEND General Practice

== ENCOUNTER 2021-11-04 17:41 | Inpatient (IN) ==
[2021-11-04] MEDS ORDERED: *HR* FentaNYL (PF) 100 MCG/2 ML VIAL IVP STA (17:57)
[2021-11-04] MEDS ORDERED: 0.9 % Sodium Chloride 500 ML IVC ONE (18:27)
[2021-11-04 18:39] LABS: Hematocrit 42.7 % (35.3-44.9); Mean Corpuscular HGB Conc 32.8 g/dL (31.6-35.5); Mean Corpuscular Hemoglobin 32.5 pg (28.0-33.3); Mean Corpuscular Volume 99.1 fL (83.0-100.0); Mean Platelet Volume 11.1 fL (9.4-12.4); Nucleated Red Blood Cells 0.4 /100 WBC (0); Platelet Count 202 K/mcL (140-400); Red Blood Count 4.31 M/mcL (3.82-4.97); Red Cell Distribution Width 14.5 % (11.5-14.5); White Blood Count 5.3 K/mcL (4.3-11.1)
[2021-11-04 19:05] LABS: Alanine Aminotransferase 72 Units/L (7-52); Albumin 3.3 g/dL (3.5-5.7); Albumin/Globulin Ratio 0.8 (1.1-2.2); Alkaline Phosphatase 141 Units/L (34-104); Aspartate Amino Transferase 64 Units/L (13-39); BUN/Creatinine Ratio 50 (6-26); Bilirubin,Direct 0.5 mg/dL (0.0-0.2); Bilirubin,Indirect 1.2 mg/dL (0.0-1.0); Bilirubin,Total 1.7 mg/dL (0.3-1.0); Blood Urea Nitrogen 35 mg/dL (6-20); Calcium 10.6 mg/dL (8.6-10.3); Carbon Dioxide 33 mEq/L (23-29); Chloride 96 mEq/L (98-107); Globulin 3.9 g/dL (2.4-3.5); Glucose 131 mg/dL (70-105); Lipase 14 Units/L (11-82); Osmolality,Calculated 296 (280-300); Potassium 4.6 mEq/L (3.5-5.1); Sodium 138 mEq/L (136-145); Total Protein 7.2 g/dL (6.4-8.9); Troponin I 0.04 ng/mL (< 0.04); eGFR For African Americans > 60 (> 60); eGFR For Non-African Americans > 60 (> 60)
[2021-11-04 19:27] LABS: Adenovirus Not Detected (Not Detect); Bordetella Pertussis Not Detected (Not Detect); Chlamydophila pneumoniae Not Detected (Not Detect); Coronavirus 229E Not Detected (Not Detect); Coronavirus HKU1 Not Detected (Not Detect); Coronavirus NL63 Not Detected (Not Detect); Coronavirus OC43 Not Detected (Not Detect); Human Metapneumovirus Not Detected (Not Detect); Human Rhinovirus/Enterovirus Not Detected (Not Detect); Influenza A Subtype 2009 H1 Not Detected (Not Detect); Influenza B Not Detected (Not Detect); Mycoplasma pneumoniae Not Detected (Not Detect); Parainfluenza Virus 1 Not Detected (Not Detect); Parainfluenza Virus 2 Not Detected (Not Detect); Parainfluenza Virus 3 Not Detected (Not Detect); Parainfluenza Virus 4 Not Detected (Not Detect); Respiratory Syncytial Virus Not Detected (Not Detect); SARS-CoV-2 Not Detected (Not Detect)
[2021-11-04 19:27] LABS: Lymphocytes # 0.5 K/mcL (0.6-4.6); Monocytes # 0.2 K/mcL (0.0-1.3); Neutrophils # 4.6 K/mcL (1.6-8.9); Reactive Lymphocytes Present (Not Present)
[2021-11-04 19:28] LABS: Smudge Cells Present (Not Present)
[2021-11-04] MEDS ORDERED: Isovue-370 500 ML BOTTLE IVP ONE (19:31)
[2021-11-04] MEDS ORDERED: *HR* HYDROmorphone (PF) 1 MG/ML SYRINGE IVP STA (20:17)
[2021-11-04 20:57] LABS: Bilirubin,Urine Negative (Negative); Blood,Urine Small (Negative); Clarity,Urine Turbid (Clear); Color,Urine Yellow (Yellow); Glucose,Urine (UA) Normal (Normal); Hyaline Casts,Urine Few per lpf (None Seen); Ketones,Urine Negative (Negative); Leukocyte Esterase,Urine Large (Negative); Mucus,Urine Few per lpf (None-Few); Nitrite,Urine Negative (Negative); Protein,Urine 200 mg/dL (Neg-Trace); Renal Epithelial Cells,Urine Few per hpf (None-Few); Specific Gravity,Urine 1.029 (1.010-1.025); Squamous Epithelial Cell,Urine Few per hpf (None-Few); Urobilinogen,Urine Normal (Normal); WBC,Urine TNTC per hpf (0-3)
[2021-11-04] MEDS ORDERED: cefTRIAXone 1,000 MG in Water for inj. (sterile) 10 ML IVP ONE (21:45)
[2021-11-04] MEDS ORDERED: Azithromycin 500 MG in 0.9 % Sodium Chloride 250 ML IVPB ONE (21:45)
[2021-11-04] MEDS ORDERED: Ondansetron 4 MG/2 ML VIAL IVP PRN (22:47)
[2021-11-04] MEDS ORDERED: Naloxone 0.4 MG/ML INJ IVP PRN (22:47)
[2021-11-04] MEDS ORDERED: Ipratropium/Albuterol Neb 3 ML IH PRN (22:51)
[2021-11-05] MEDS ORDERED: *HR* LORazepam 2 MG/ML VIAL IVP ONE ×2 (00:29→06:19)
[2021-11-05] MEDS ORDERED: methylPREDNISolone 125 MG/2 ML VIAL IVP ONE (00:29)
[2021-11-05] MEDS ORDERED: Acetylcysteine 10% 2 ML INHSOL IH ONE (00:31)
[2021-11-05] MEDS ORDERED: Morphine Sulfate 2 MG/ML SYRINGE IVP ONE (01:13)
[2021-11-05] MEDS ORDERED: Perflutren Lipid Microsphere 1.3 ML in 0.9 % Sodium Chloride 8.7 ML IVP PRN (01:40)
[2021-11-05] MEDS ORDERED: *HR* Heparin 5,000 UNIT/ML VIAL IVP ONE (01:41)
[2021-11-05] MEDS ORDERED: *HR* Heparin 5,000 UNIT/ML VIAL IVP PRN (01:41)
[2021-11-05] MEDS ORDERED: D5% in Water 1,000 ML IVC PRN (01:44)
[2021-11-05] MEDS ORDERED: *HR* Dextrose 50 % in Water (Syg) 50 ML SYRINGE IVP PRN (01:44)
[2021-11-05] MEDS ORDERED: Dextrose Gel 15 GM/37.5 ML TUBE PO PRN ×2 (01:44)
[2021-11-05] MEDS ORDERED: *HR* Metoprolol 5 MG/5 ML VIAL IVP ONE (02:12)
[2021-11-05] MEDS: Heparin 25,000UNIT/250ML 1/2NS 25,000 UNIT/250 ML IV.SOLN IVC SCH (02:46)
[2021-11-05] MEDS: Insulin LISPRO 300 UNITS/3 ML VIAL SUBQ SCH ×4 (02:46→16:42)
[2021-11-05 03:15] LABS: Hematocrit 39.6 % (35.3-44.9); Hemoglobin 12.8 g/dL (11.5-15.4); Mean Corpuscular HGB Conc 32.3 g/dL (31.6-35.5); Mean Corpuscular Hemoglobin 32.9 pg (28.0-33.3); Mean Corpuscular Volume 101.8 fL (83.0-100.0); Mean Platelet Volume 11.6 fL (9.4-12.4); Monocytes # 0.1 K/mcL (0.0-1.3); Platelet Count 149 K/mcL (140-400); Red Blood Count 3.89 M/mcL (3.82-4.97); Red Cell Distribution Width 14.8 % (11.5-14.5); White Blood Count 3.6 K/mcL (4.3-11.1)
[2021-11-05 03:18] LABS: Amphetamine Screen,Urine Negative ng/mL (Cutoff=1000); Barbiturate Screen,Urine Negative ng/mL (Cutoff=200); Benzodiazepines Screen,Urine Positive ng/mL (Cutoff=200); Cannabinoid Screen,Urine Negative ng/mL (Cutoff = 50); Cocaine Screen,Urine Negative ng/mL (Cutoff= 300); Opiate Screen,Urine Positive ng/mL (Cutoff=300); Phencyclidine Screen,Urine Negative ng/mL (Cutoff=25)
[2021-11-05 03:30] LABS: INR 1.1; Prothrombin Time 12.8 Seconds (9.4-12.1)
[2021-11-05 04:03] LABS: Alanine Aminotransferase 59 Units/L (7-52); Albumin/Globulin Ratio 0.8 (1.1-2.2); Alkaline Phosphatase 123 Units/L (34-104); Aspartate Amino Transferase 57 Units/L (13-39); BUN/Creatinine Ratio 49 (6-26); Bilirubin,Direct 0.2 mg/dL (0.0-0.2); Bilirubin,Indirect 0.7 mg/dL (0.0-1.0); Bilirubin,Total 0.9 mg/dL (0.3-1.0); Blood Urea Nitrogen 31 mg/dL (6-20); C-Reactive Protein > 300 mg/L (Less than 10); Calcium 10.4 mg/dL (8.6-10.3); Carbon Dioxide 34 mEq/L (23-29); Chloride 99 mEq/L (98-107); Globulin 3.6 g/dL (2.4-3.5); Glucose 150 mg/dL (70-105); Magnesium 2.5 mg/dL (1.6-2.6); Osmolality,Calculated 301 (280-300); Potassium 4.7 mEq/L (3.5-5.1); Sodium 141 mEq/L (136-145); Thyroid Stimulating Hormone 0.348 mcIU/mL (0.340-5.600); Total Protein 6.6 g/dL (6.4-8.9); eGFR For African Americans > 60 (> 60); eGFR For Non-African Americans > 60 (> 60)
[2021-11-05] MEDS ORDERED: Furosemide 20 MG/2 ML VIAL IVP ONE ×2 (04:30→06:29)
[2021-11-05] MEDS ORDERED: Amiodarone Premix 150 MG/100 ML BAG IVPB ONE (04:52)
[2021-11-05] MEDS ORDERED: Amiodarone Premix 360 MG/200 ML BAG IVC ONE (04:52)
[2021-11-05 05:55] LABS: Lymphocytes # 0.3 K/mcL (0.6-4.6); Neutrophils # 3.2 K/mcL (1.6-8.9); Platelet Estimate Normal (Normal)
[2021-11-05 05:56] LABS: Reactive Lymphocytes Present (Not Present)
[2021-11-05] MEDS: methylPREDNISolone 125 MG/2 ML VIAL IVP SCH ×2 (06:00→16:52)
[2021-11-05] MEDS ORDERED: Haloperidol Lactate 5 MG/ML VIAL IVP ONE ×2 (06:28→16:20)
[2021-11-05 06:51] LABS: Estimated Average Glucose 160 mg/dl; Hemoglobin A1C 7.2 %
[2021-11-05] MEDS ORDERED: DilTIAZem 50 MG in 0.9 % Sodium Chloride 40 ML IVC SCH (07:00)
[2021-11-05] MEDS ORDERED: *HR* Metoprolol 5 MG/5 ML VIAL IVP PRN (07:54)
[2021-11-05 08:13] LABS: ABG Base Excess 7 mEq/L (-2 to 3); ABG HCO3 35 mEq/L (21-27); ABG Oxygen Saturation 98 % (95-98); ABG PCO2 58 mmHg (35-45); ABG PH 7.38 pH Units (7.32-7.45); ABG PO2 106 mmHg (85-104); ABG TCO2 36 mEq/L (20-26)
[2021-11-05] MEDS: Levalbuterol Neb 1.25 MG/3 ML IH SCH ×5 (08:16→23:28)
[2021-11-05] MEDS: Ipratropium Neb 0.5 MG NEBULIZER IH SCH ×5 (08:16→23:28)
[2021-11-05] MEDS: Acetaminophen 325 MG TABLET PO PRN (08:56)
[2021-11-05] MEDS: cefTRIAXone 1,000 MG in 0.9 % Sodium Chloride Mini Bag 100 ML IVPB SCH (08:58)
[2021-11-05] MEDS: hydrOXYzine pamoate 25 MG CAPSULE PO PRN (10:36)
[2021-11-05] MEDS: Azithromycin 500 MG in 0.9 % Sodium Chloride 250 ML IVPB SCH (10:41)
[2021-11-05] MEDS ORDERED: Amiodarone Premix 360 MG/200 ML BAG IVC SCH (10:53)
[2021-11-05] MEDS: DilTIAZem CD (24hr) 120 MG CAP.ER.24H PO SCH (14:12)
[2021-11-05] MEDS: Aspirin 81 MG TAB.CHEW PO SCH (14:13)
[2021-11-05] MEDS ORDERED: *HR* LORazepam 2 MG/ML VIAL IVP PRN (19:45)
[2021-11-05] MEDS: ALPRAZolam 1 MG TABLET PO SCH (20:42)
[2021-11-06] MEDS: Heparin 25,000UNIT/250ML 1/2NS 25,000 UNIT/250 ML IV.SOLN IVC SCH (01:12)
[2021-11-06] MEDS: Levalbuterol Neb 1.25 MG/3 ML IH SCH ×6 (03:21→23:49)
[2021-11-06] MEDS: Ipratropium Neb 0.5 MG NEBULIZER IH SCH ×6 (03:21→23:49)
[2021-11-06] MEDS: methylPREDNISolone 125 MG/2 ML VIAL IVP SCH ×2 (05:31→18:02)
[2021-11-06 06:13] LABS: Basophils % 0.5 %; Hematocrit 32.2 % (35.3-44.9); Immature Granulocytes % 0.7 % (0-4); Lymphocytes # 0.1 K/mcL (0.6-4.6); Lymphocytes % 2.4 %; Mean Corpuscular HGB Conc 31.7 g/dL (31.6-35.5); Mean Corpuscular Hemoglobin 31.6 pg (28.0-33.3); Mean Corpuscular Volume 99.7 fL (83.0-100.0); Mean Platelet Volume 11.5 fL (9.4-12.4); Monocytes # 0.1 K/mcL (0.0-1.3); Monocytes % 2.9 %; Neutrophils # 3.9 K/mcL (1.6-8.9); Nucleated Red Blood Cells 0.5 /100 WBC (0); Platelet Count 124 K/mcL (140-400); Red Blood Count 3.23 M/mcL (3.82-4.97); Red Cell Distribution Width 14.9 % (11.5-14.5); Segmented Neutrophils % 93.5 %; White Blood Count 4.2 K/mcL (4.3-11.1)
[2021-11-06 06:23] LABS: Hemoglobin 10.2 g/dL (11.5-15.4)
[2021-11-06 06:39] LABS: BUN/Creatinine Ratio 76 (6-26); Blood Urea Nitrogen 39 mg/dL (6-20); Calcium 10.6 mg/dL (8.6-10.3); Carbon Dioxide 37 mEq/L (23-29); Chloride 98 mEq/L (98-107); Glucose 165 mg/dL (70-105); Osmolality,Calculated 301 (280-300); Potassium 4.3 mEq/L (3.5-5.1); Sodium 139 mEq/L (136-145); eGFR For African Americans > 60 (> 60); eGFR For Non-African Americans > 60 (> 60)
[2021-11-06] MEDS: Aspirin 81 MG TAB.CHEW PO SCH (08:57)
[2021-11-06] MEDS: ALPRAZolam 1 MG TABLET PO SCH ×3 (08:57→20:54)
[2021-11-06] MEDS: DilTIAZem CD (24hr) 120 MG CAP.ER.24H PO SCH (08:57)
[2021-11-06] MEDS: cefTRIAXone 1,000 MG in 0.9 % Sodium Chloride Mini Bag 100 ML IVPB SCH (08:57)
[2021-11-06] MEDS: Azithromycin 500 MG in 0.9 % Sodium Chloride 250 ML IVPB SCH (08:57)
[2021-11-06] MEDS: Insulin LISPRO 300 UNITS/3 ML VIAL SUBQ SCH ×3 (08:59→16:07)
[2021-11-07 01:03] LABS: Basophils % 0.3 %; Hematocrit 30.7 % (35.3-44.9); Hemoglobin 10.1 g/dL (11.5-15.4); Lymphocytes # 0.2 K/mcL (0.6-4.6); Lymphocytes % 5.6 %; Mean Corpuscular HGB Conc 32.9 g/dL (31.6-35.5); Mean Corpuscular Hemoglobin 33.1 pg (28.0-33.3); Mean Corpuscular Volume 100.7 fL (83.0-100.0); Mean Platelet Volume 11.8 fL (9.4-12.4); Monocytes # 0.1 K/mcL (0.0-1.3); Monocytes % 3.5 %; Neutrophils # 2.6 K/mcL (1.6-8.9); Nucleated Red Blood Cells 0.7 /100 WBC (0); Platelet Count 119 K/mcL (140-400); Red Blood Count 3.05 M/mcL (3.82-4.97); Segmented Neutrophils % 89.6 %; White Blood Count 2.9 K/mcL (4.3-11.1)
[2021-11-07 01:19] LABS: BUN/Creatinine Ratio 79 (6-26); Blood Urea Nitrogen 42 mg/dL (6-20); Calcium 10.3 mg/dL (8.6-10.3); Carbon Dioxide 36 mEq/L (23-29); Chloride 100 mEq/L (98-107); Glucose 190 mg/dL (70-105); Osmolality,Calculated 306 (280-300); Potassium 4.4 mEq/L (3.5-5.1); Sodium 140 mEq/L (136-145); eGFR For African Americans > 60 (> 60); eGFR For Non-African Americans > 60 (> 60)
[2021-11-07 02:32] LABS: Hypochromasia Present (Not Present); Platelet Estimate Slight Decrease (Normal)
[2021-11-07] MEDS: Levalbuterol Neb 1.25 MG/3 ML IH SCH ×5 (03:40→20:52)
[2021-11-07] MEDS: Ipratropium Neb 0.5 MG NEBULIZER IH SCH ×5 (03:40→20:52)
[2021-11-07] MEDS: methylPREDNISolone 125 MG/2 ML VIAL IVP SCH (06:27)
[2021-11-07] MEDS: DilTIAZem CD (24hr) 120 MG CAP.ER.24H PO SCH (09:33)
[2021-11-07] MEDS: ALPRAZolam 1 MG TABLET PO SCH (09:33)
[2021-11-07] MEDS: Azithromycin 500 MG in 0.9 % Sodium Chloride 250 ML IVPB SCH (09:34)
[2021-11-07] MEDS: cefTRIAXone 1,000 MG in 0.9 % Sodium Chloride Mini Bag 100 ML IVPB SCH (09:34)
[2021-11-07] MEDS: Aspirin 81 MG TAB.CHEW PO SCH (09:34)
[2021-11-07] MEDS: Insulin LISPRO 300 UNITS/3 ML VIAL SUBQ SCH ×3 (09:35→16:54)
[2021-11-07] MEDS: Heparin 25,000UNIT/250ML 1/2NS 25,000 UNIT/250 ML IV.SOLN IVC SCH (09:37)
[2021-11-07 11:32] LABS: ABG Base Excess 9 mEq/L (-2 to 3); ABG HCO3 36 mEq/L (21-27); ABG Oxygen Saturation 98 % (95-98); ABG PCO2 68 mmHg (35-45); ABG PH 7.34 pH Units (7.32-7.45); ABG PO2 115 mmHg (85-104); ABG TCO2 39 mEq/L (20-26)
[2021-11-07 11:50] LABS: Thyroid Stimulating Hormone 0.147 mcIU/mL (0.340-5.600)
[2021-11-07] MEDS: Naloxone 0.4 MG/ML INJ IVP STA ×2 (13:15→13:44)
[2021-11-07] MEDS ORDERED: ALPRAZolam 1 MG TABLET PO SCH (15:00)
[2021-11-07] MEDS: Piperacillin/Tazobactam 3.375 GM in 0.9 % Sodium Chloride Mini Bag 100 ML IVPB SCH ×2 (15:29→16:03)
[2021-11-07] MEDS: MethylPREDNISolone 40 MG/ML VIAL IVP SCH (16:58)
[2021-11-08] MEDS: Piperacillin/Tazobactam 3.375 GM in 0.9 % Sodium Chloride Mini Bag 100 ML IVPB SCH ×3 (00:44→17:23)
[2021-11-08] MEDS: Ipratropium Neb 0.5 MG NEBULIZER IH SCH ×7 (00:49→23:56)
[2021-11-08] MEDS: Levalbuterol Neb 1.25 MG/3 ML IH SCH ×7 (00:49→23:56)
[2021-11-08] MEDS: *HR* Heparin 5,000 UNIT/ML VIAL IVP PRN ×3 (01:26→17:24)
[2021-11-08 01:53] LABS: Basophils % 0.3 %; Hematocrit 30.6 % (35.3-44.9); Hemoglobin 9.6 g/dL (11.5-15.4); Immature Granulocytes % 1.7 % (0-4); Lymphocytes # 0.2 K/mcL (0.6-4.6); Lymphocytes % 6.4 %; Mean Corpuscular HGB Conc 31.4 g/dL (31.6-35.5); Mean Corpuscular Hemoglobin 31.9 pg (28.0-33.3); Mean Corpuscular Volume 101.7 fL (83.0-100.0); Mean Platelet Volume 11.1 fL (9.4-12.4); Monocytes # 0.1 K/mcL (0.0-1.3); Monocytes % 3.1 %; Neutrophils # 3.2 K/mcL (1.6-8.9); Platelet Count 126 K/mcL (140-400); Red Blood Count 3.01 M/mcL (3.82-4.97); Red Cell Distribution Width 14.6 % (11.5-14.5); Segmented Neutrophils % 88.5 %; White Blood Count 3.6 K/mcL (4.3-11.1)
[2021-11-08 02:16] LABS: BUN/Creatinine Ratio 69 (6-26); Blood Urea Nitrogen 42 mg/dL (6-20); Calcium 9.9 mg/dL (8.6-10.3); Carbon Dioxide 37 mEq/L (23-29); Chloride 102 mEq/L (98-107); Glucose 186 mg/dL (70-105); Osmolality,Calculated 305 (280-300); Potassium 4.2 mEq/L (3.5-5.1); Sodium 140 mEq/L (136-145); eGFR For African Americans > 60 (> 60); eGFR For Non-African Americans > 60 (> 60)
[2021-11-08] MEDS: MethylPREDNISolone 40 MG/ML VIAL IVP SCH ×2 (05:21→17:24)
[2021-11-08] MEDS: Aspirin 81 MG TAB.CHEW PO SCH (07:32)
[2021-11-08] MEDS: DilTIAZem CD (24hr) 120 MG CAP.ER.24H PO SCH (07:32)
[2021-11-08] MEDS: Acetaminophen 325 MG TABLET PO PRN (07:32)
[2021-11-08] MEDS: Insulin LISPRO 300 UNITS/3 ML VIAL SUBQ SCH ×3 (07:43→17:25)
[2021-11-08 11:22] LABS: Triiodothyronine (T3) Free 2.3 pg/mL (2.50-3.90)
[2021-11-08] MEDS: Heparin 25,000UNIT/250ML 1/2NS 25,000 UNIT/250 ML IV.SOLN IVC SCH (17:22)
[2021-11-09] MEDS: Piperacillin/Tazobactam 3.375 GM in 0.9 % Sodium Chloride Mini Bag 100 ML IVPB SCH ×4 (02:17→23:27)
[2021-11-09] MEDS: Heparin 25,000UNIT/250ML 1/2NS 25,000 UNIT/250 ML IV.SOLN IVC SCH ×2 (02:18→21:30)
[2021-11-09] MEDS: Levalbuterol Neb 1.25 MG/3 ML IH SCH ×6 (03:57→23:30)
[2021-11-09] MEDS: Ipratropium Neb 0.5 MG NEBULIZER IH SCH ×6 (03:57→23:30)
[2021-11-09] MEDS: MethylPREDNISolone 40 MG/ML VIAL IVP SCH ×2 (05:58→17:56)
[2021-11-09 06:20] LABS: Basophils % 0.2 %; Hematocrit 31.2 % (35.3-44.9); Immature Granulocytes % 2.9 % (0-4); Lymphocytes # 0.3 K/mcL (0.6-4.6); Lymphocytes % 6.6 %; Mean Corpuscular HGB Conc 32.1 g/dL (31.6-35.5); Mean Corpuscular Hemoglobin 32.9 pg (28.0-33.3); Mean Corpuscular Volume 102.6 fL (83.0-100.0); Mean Platelet Volume 11.1 fL (9.4-12.4); Monocytes # 0.1 K/mcL (0.0-1.3); Monocytes % 2.1 %; Neutrophils # 4.6 K/mcL (1.6-8.9); Platelet Count 173 K/mcL (140-400); Red Blood Count 3.04 M/mcL (3.82-4.97); Segmented Neutrophils % 88.2 %; White Blood Count 5.2 K/mcL (4.3-11.1)
[2021-11-09 06:39] LABS: Alanine Aminotransferase 27 Units/L (7-52); Albumin 2.9 g/dL (3.5-5.7); Alkaline Phosphatase 60 Units/L (34-104); Aspartate Amino Transferase 33 Units/L (13-39); BUN/Creatinine Ratio 63 (6-26); Bilirubin,Direct 0.1 mg/dL (0.0-0.2); Bilirubin,Indirect 0.7 mg/dL (0.0-1.0); Bilirubin,Total 0.8 mg/dL (0.3-1.0); Blood Urea Nitrogen 32 mg/dL (6-20); Calcium 9.3 mg/dL (8.6-10.3); Carbon Dioxide 37 mEq/L (23-29); Chloride 104 mEq/L (98-107); Globulin 2.8 g/dL (2.4-3.5); Glucose 193 mg/dL (70-105); Magnesium 1.9 mg/dL (1.6-2.6); Osmolality,Calculated 294 (280-300); Sodium 136 mEq/L (136-145); Total Protein 5.7 g/dL (6.4-8.9); eGFR For African Americans > 60 (> 60); eGFR For Non-African Americans > 60 (> 60)
[2021-11-09 06:55] LABS: Platelet Estimate Normal (Normal); Reactive Lymphocytes Present (Not Present)
[2021-11-09 06:59] LABS: Thyroid Stimulating Hormone 0.217 mcIU/mL (0.340-5.600)
[2021-11-09] MEDS: Acetaminophen 325 MG TABLET PO PRN ×2 (08:06→19:21)
[2021-11-09] MEDS: Aspirin 81 MG TAB.CHEW PO SCH (08:06)
[2021-11-09] MEDS: DilTIAZem CD (24hr) 120 MG CAP.ER.24H PO SCH (08:07)
[2021-11-09] MEDS: Insulin LISPRO 300 UNITS/3 ML VIAL SUBQ SCH ×4 (08:08→21:07)
[2021-11-09] MEDS: Nystatin POWDER 30 GM BOTTLE TP SCH ×2 (13:17→21:48)
[2021-11-09 14:24] LABS: Adenovirus F 40/41 PCR Not detected (Not detect); Astrovirus PCR Not detected (Not detect); C.difficile Toxin A/B Gene PCR Not detected (Not detect); Campylobacter by PCR Not detected (Not detect); Cryptosporidium by PCR Not detected (Not detect); Cyclospora cayetanensis PCR Not detected (Not detect); E. coli O157 by PCR Not detected (Not detect); Entamoeba histolytica PCR Not detected (Not detect); Enteroaggregative E.coli(EAEC) Not detected (Not detect); Enteropathogenic E.coli(EPEC) Not detected (Not detect); Enterotoxigenic E.coli (ETEC) Not detected (Not detect); Giardia lamblia PCR Not detected (Not detect); Norovirus GI/GII PCR Not detected (Not detect); Plesiomonas shigelloides PCR Not detected (Not detect); Rotavirus A PCR Not detected (Not detect); Salmonella PCR Not detected (Not detect); Sapovirus PCR Not detected (Not detect); Shig/EnteroinvasiveE coli EIEC Not detected (Not detect); Shigalike tox-prod E coli STEC Not detected (Not detect); Vibrio PCR Not detected (Not detect); Vibrio cholerae PCR Not detected (Not detect); Yersinia enterocolitica PCR Not detected (Not detect)
[2021-11-09] MEDS: Lactobacillus 1 EACH CAP.SPRINK PO SCH (20:02)
[2021-11-09] MEDS: Benzonatate 100 MG CAPSULE PO PRN (21:08)
[2021-11-10] MEDS: Acetaminophen 325 MG TABLET PO PRN (02:57)
[2021-11-10] MEDS: Levalbuterol Neb 1.25 MG/3 ML IH SCH ×6 (03:50→23:45)
[2021-11-10] MEDS: Ipratropium Neb 0.5 MG NEBULIZER IH SCH ×6 (03:50→23:45)
[2021-11-10] MEDS: Benzonatate 100 MG CAPSULE PO PRN ×2 (04:17→20:30)
[2021-11-10] MEDS: MethylPREDNISolone 40 MG/ML VIAL IVP SCH ×2 (05:42→17:38)
[2021-11-10 06:03] LABS: Basophils % 0.2 %; Hematocrit 31.3 % (35.3-44.9); Hemoglobin 9.6 g/dL (11.5-15.4); Immature Granulocytes % 1.7 % (0-4); Lymphocytes # 0.2 K/mcL (0.6-4.6); Lymphocytes % 3.5 %; Mean Corpuscular HGB Conc 30.7 g/dL (31.6-35.5); Mean Corpuscular Hemoglobin 31.5 pg (28.0-33.3); Mean Corpuscular Volume 102.6 fL (83.0-100.0); Mean Platelet Volume 10.9 fL (9.4-12.4); Monocytes # 0.1 K/mcL (0.0-1.3); Monocytes % 1.6 %; Neutrophils # 5.4 K/mcL (1.6-8.9); Platelet Count 188 K/mcL (140-400); Red Blood Count 3.05 M/mcL (3.82-4.97); Red Cell Distribution Width 13.6 % (11.5-14.5); White Blood Count 5.8 K/mcL (4.3-11.1)
[2021-11-10 06:09] LABS: VBG HCO3 36 mEq/L (21-27); VBG PCO2 65 mmHg (41-51); VBG PH 7.35 pH Units (7.32-7.42); VBG PO2 65 mmHg (25-50)
[2021-11-10 06:23] LABS: BUN/Creatinine Ratio 50 (6-26); Blood Urea Nitrogen 28 mg/dL (6-20); Calcium 8.9 mg/dL (8.6-10.3); Carbon Dioxide 37 mEq/L (23-29); Chloride 104 mEq/L (98-107); Glucose 304 mg/dL (70-105); Magnesium 1.8 mg/dL (1.6-2.6); Osmolality,Calculated 297 (280-300); Potassium 3.9 mEq/L (3.5-5.1); Sodium 135 mEq/L (136-145); eGFR For African Americans > 60 (> 60); eGFR For Non-African Americans > 60 (> 60)
[2021-11-10] MEDS: Apixaban 5 MG TABLET PO SCH ×2 (10:00→20:30)
[2021-11-10] MEDS: DilTIAZem CD (24hr) 120 MG CAP.ER.24H PO SCH (10:00)
[2021-11-10] MEDS: Lactobacillus 1 EACH CAP.SPRINK PO SCH ×2 (10:00→20:30)
[2021-11-10] MEDS: Piperacillin/Tazobactam 3.375 GM in 0.9 % Sodium Chloride Mini Bag 100 ML IVPB SCH ×2 (10:00→17:38)
[2021-11-10] MEDS: Aspirin 81 MG TAB.CHEW PO SCH (10:00)
[2021-11-10] MEDS: Nystatin POWDER 30 GM BOTTLE TP SCH ×2 (10:01→20:41)
[2021-11-10] MEDS: Insulin LISPRO 300 UNITS/3 ML VIAL SUBQ SCH ×4 (10:01→20:31)
[2021-11-10] MEDS ORDERED: Acetaminophen IV 1,000 MG/100 ML BAG IVPB ONE (18:13)
[2021-11-11] MEDS: Piperacillin/Tazobactam 3.375 GM in 0.9 % Sodium Chloride Mini Bag 100 ML IVPB SCH ×4 (01:35→23:31)
[2021-11-11] MEDS: hydrOXYzine pamoate 25 MG CAPSULE PO PRN (02:48)
[2021-11-11] MEDS: Levalbuterol Neb 1.25 MG/3 ML IH SCH ×6 (03:23→23:09)
[2021-11-11] MEDS: Ipratropium Neb 0.5 MG NEBULIZER IH SCH ×6 (03:23→23:09)
[2021-11-11 04:00] LABS: Basophils % 0.1 %; Hematocrit 31.7 % (35.3-44.9); Hemoglobin 10.3 g/dL (11.5-15.4); Immature Granulocytes % 1.7 % (0-4); Lymphocytes # 0.3 K/mcL (0.6-4.6); Mean Corpuscular HGB Conc 32.5 g/dL (31.6-35.5); Mean Corpuscular Hemoglobin 32.7 pg (28.0-33.3); Mean Corpuscular Volume 100.6 fL (83.0-100.0); Mean Platelet Volume 10.5 fL (9.4-12.4); Monocytes # 0.2 K/mcL (0.0-1.3); Neutrophils # 8.6 K/mcL (1.6-8.9); Platelet Count 229 K/mcL (140-400); Red Blood Count 3.15 M/mcL (3.82-4.97); Red Cell Distribution Width 13.5 % (11.5-14.5); Segmented Neutrophils % 93.2 %; White Blood Count 9.2 K/mcL (4.3-11.1)
[2021-11-11 04:11] LABS: VBG HCO3 38 mEq/L (21-27); VBG PCO2 67 mmHg (41-51); VBG PH 7.36 pH Units (7.32-7.42); VBG PO2 70 mmHg (25-50)
[2021-11-11 04:23] LABS: BUN/Creatinine Ratio 46 (6-26); Blood Urea Nitrogen 23 mg/dL (6-20); Calcium 9.2 mg/dL (8.6-10.3); Carbon Dioxide 38 mEq/L (23-29); Chloride 100 mEq/L (98-107); Glucose 195 mg/dL (70-105); Osmolality,Calculated 295 (280-300); Potassium 4.1 mEq/L (3.5-5.1); Sodium 138 mEq/L (136-145); eGFR For African Americans > 60 (> 60); eGFR For Non-African Americans > 60 (> 60)
[2021-11-11] MEDS: MethylPREDNISolone 40 MG/ML VIAL IVP SCH ×2 (05:56→17:36)
[2021-11-11] MEDS: Apixaban 5 MG TABLET PO SCH ×2 (09:24→20:55)
[2021-11-11] MEDS: DilTIAZem CD (24hr) 120 MG CAP.ER.24H PO SCH (09:24)
[2021-11-11] MEDS: Lactobacillus 1 EACH CAP.SPRINK PO SCH ×2 (09:24→20:55)
[2021-11-11] MEDS: Aspirin 81 MG TAB.CHEW PO SCH (09:24)
[2021-11-11] MEDS: Insulin LISPRO 300 UNITS/3 ML VIAL SUBQ SCH ×4 (09:25→20:56)
[2021-11-11] MEDS: Nystatin POWDER 30 GM BOTTLE TP SCH ×2 (09:26→20:56)
[2021-11-11] MEDS ORDERED: Sennosides/Docusate Sodium TABLET PO PRN (12:13)
[2021-11-11] MEDS ORDERED: Fluticasone Propionate Nasal 50 MCG/SPRAY BOTTLE NS PRN (12:13)
[2021-11-11] MEDS ORDERED: ALPRAZolam 0.25 MG TABLET PO PRN ×2 (12:17→12:21)
[2021-11-11] MEDS: Nystatin SUSP 5 ML UD.LIQ PO SCH ×3 (12:49→20:56)
[2021-11-11] MEDS: lisinopriL 20 MG TABLET PO SCH (12:49)
[2021-11-11] MEDS: *HR* OxyCODONE Immed Rel 5 MG TABLET PO PRN (12:53)
[2021-11-11] MEDS: Benzonatate 100 MG CAPSULE PO PRN ×2 (12:57→23:39)
[2021-11-11] MEDS: Furosemide 40 MG TABLET PO SCH (16:06)
[2021-11-11] MEDS: Budesonide/Formoterol 160/4.5 1 PUFF INH IH SCH (19:39)
[2021-11-12] MEDS: *HR* OxyCODONE Immed Rel 5 MG TABLET PO PRN ×3 (01:02→18:03)
[2021-11-12] MEDS: Levalbuterol Neb 1.25 MG/3 ML IH SCH ×6 (03:13→23:39)
[2021-11-12] MEDS: Ipratropium Neb 0.5 MG NEBULIZER IH SCH ×6 (03:13→23:39)
[2021-11-12] MEDS: MethylPREDNISolone 40 MG/ML VIAL IVP SCH (05:17)
[2021-11-12 05:43] LABS: VBG HCO3 38 mEq/L (21-27); VBG PCO2 63 mmHg (41-51); VBG PH 7.38 pH Units (7.32-7.42); VBG PO2 74 mmHg (25-50)
[2021-11-12 05:44] LABS: Basophils % 0.2 %; Hematocrit 32.1 % (35.3-44.9); Hemoglobin 10.5 g/dL (11.5-15.4); Immature Granulocytes % 1.8 % (0-4); Lymphocytes # 0.3 K/mcL (0.6-4.6); Lymphocytes % 2.4 %; Mean Corpuscular HGB Conc 32.7 g/dL (31.6-35.5); Mean Corpuscular Hemoglobin 32.8 pg (28.0-33.3); Mean Corpuscular Volume 100.3 fL (83.0-100.0); Mean Platelet Volume 10.7 fL (9.4-12.4); Monocytes # 0.3 K/mcL (0.0-1.3); Monocytes % 2.5 %; Neutrophils # 12.2 K/mcL (1.6-8.9); Platelet Count 285 K/mcL (140-400); Red Cell Distribution Width 13.4 % (11.5-14.5); Segmented Neutrophils % 93.1 %; White Blood Count 13.1 K/mcL (4.3-11.1)
[2021-11-12 06:10] LABS: BUN/Creatinine Ratio 43 (6-26); Blood Urea Nitrogen 25 mg/dL (6-20); Calcium 8.7 mg/dL (8.6-10.3); Carbon Dioxide 37 mEq/L (23-29); Chloride 96 mEq/L (98-107); Glucose 260 mg/dL (70-105); Osmolality,Calculated 297 (280-300); Potassium 4.7 mEq/L (3.5-5.1); Sodium 137 mEq/L (136-145); eGFR For African Americans > 60 (> 60); eGFR For Non-African Americans > 60 (> 60)
[2021-11-12] MEDS: Budesonide/Formoterol 160/4.5 1 PUFF INH IH SCH ×2 (07:50→19:53)
[2021-11-12] MEDS: Nystatin SUSP 5 ML UD.LIQ PO SCH ×4 (08:27→21:01)
[2021-11-12] MEDS: Acetaminophen 325 MG TABLET PO PRN ×2 (08:28→21:01)
[2021-11-12] MEDS: Lactobacillus 1 EACH CAP.SPRINK PO SCH ×2 (08:28→21:01)
[2021-11-12] MEDS: Piperacillin/Tazobactam 3.375 GM in 0.9 % Sodium Chloride Mini Bag 100 ML IVPB SCH ×3 (08:28→23:54)
[2021-11-12] MEDS: Aspirin 81 MG TAB.CHEW PO SCH (08:28)
[2021-11-12] MEDS: Cyanocobalamin (B-12) 1,000 MCG TABLET PO SCH (08:28)
[2021-11-12] MEDS: DilTIAZem CD (24hr) 120 MG CAP.ER.24H PO SCH (08:28)
[2021-11-12] MEDS: hydrOXYzine pamoate 25 MG CAPSULE PO PRN (08:28)
[2021-11-12] MEDS: lisinopriL 20 MG TABLET PO SCH (08:28)
[2021-11-12] MEDS: Furosemide 40 MG TABLET PO SCH ×2 (08:28→18:03)
[2021-11-12] MEDS: Apixaban 5 MG TABLET PO SCH ×2 (08:28→21:01)
[2021-11-12] MEDS: Nystatin POWDER 30 GM BOTTLE TP SCH ×2 (08:29→21:03)
[2021-11-12] MEDS: Insulin LISPRO 300 UNITS/3 ML VIAL SUBQ SCH ×4 (08:29→21:02)
[2021-11-12] MEDS: ALPRAZolam 0.25 MG TABLET PO SCH (21:01)
[2021-11-12] MEDS: Benzonatate 100 MG CAPSULE PO PRN (21:02)
[2021-11-13] MEDS: *HR* OxyCODONE Immed Rel 5 MG TABLET PO PRN ×3 (01:59→18:45)
[2021-11-13] MEDS: Levalbuterol Neb 1.25 MG/3 ML IH SCH ×6 (03:50→23:58)
[2021-11-13] MEDS: Ipratropium Neb 0.5 MG NEBULIZER IH SCH ×6 (03:50→23:58)
[2021-11-13 05:16] LABS: Basophils # 0.1 K/mcL (0.0-0.2); Basophils % 0.3 %; Eosinophils % 0.1 %; Hematocrit 33.3 % (35.3-44.9); Hemoglobin 10.6 g/dL (11.5-15.4); Immature Granulocytes % 2.6 % (0-4); Lymphocytes # 0.7 K/mcL (0.6-4.6); Lymphocytes % 3.5 %; Mean Corpuscular HGB Conc 31.8 g/dL (31.6-35.5); Mean Corpuscular Hemoglobin 32.5 pg (28.0-33.3); Mean Corpuscular Volume 102.1 fL (83.0-100.0); Mean Platelet Volume 10.9 fL (9.4-12.4); Monocytes # 0.8 K/mcL (0.0-1.3); Monocytes % 4.2 %; Neutrophils # 17.5 K/mcL (1.6-8.9); Platelet Count 316 K/mcL (140-400); Red Blood Count 3.26 M/mcL (3.82-4.97); Red Cell Distribution Width 13.5 % (11.5-14.5); Segmented Neutrophils % 89.3 %; White Blood Count 19.5 K/mcL (4.3-11.1)
[2021-11-13] MEDS ORDERED: Isovue-370 500 ML BOTTLE IVP ONE (06:00)
[2021-11-13] MEDS: Budesonide/Formoterol 160/4.5 1 PUFF INH IH SCH ×2 (07:38→20:40)
[2021-11-13] MEDS: lisinopriL 20 MG TABLET PO SCH (08:34)
[2021-11-13] MEDS: Furosemide 40 MG TABLET PO SCH ×2 (08:34→16:34)
[2021-11-13] MEDS: Cyanocobalamin (B-12) 1,000 MCG TABLET PO SCH (08:34)
[2021-11-13] MEDS: predniSONE 20 MG TABLET PO SCH (08:34)
[2021-11-13] MEDS: Lactobacillus 1 EACH CAP.SPRINK PO SCH ×2 (08:34→20:05)
[2021-11-13] MEDS: Nystatin SUSP 5 ML UD.LIQ PO SCH ×4 (08:35→20:03)
[2021-11-13] MEDS: DilTIAZem CD (24hr) 120 MG CAP.ER.24H PO SCH (08:35)
[2021-11-13] MEDS: Apixaban 5 MG TABLET PO SCH ×2 (08:35→20:05)
[2021-11-13] MEDS: Piperacillin/Tazobactam 3.375 GM in 0.9 % Sodium Chloride Mini Bag 100 ML IVPB SCH ×2 (08:35→16:34)
[2021-11-13] MEDS: Aspirin 81 MG TAB.CHEW PO SCH (08:35)
[2021-11-13] MEDS: Insulin LISPRO 300 UNITS/3 ML VIAL SUBQ SCH ×4 (08:36→20:12)
[2021-11-13] MEDS: Nystatin POWDER 30 GM BOTTLE TP SCH (08:36)
[2021-11-13] MEDS: Benzonatate 100 MG CAPSULE PO PRN ×2 (09:40→18:45)
[2021-11-13 11:13] LABS: Amylase 85 Units/L (29-103); Lipase 122 Units/L (11-82)
[2021-11-13] MEDS ORDERED: 0.9 % Sodium Chloride 1,000 ML IVC SCH (17:30)
[2021-11-13] MEDS: ALPRAZolam 0.25 MG TABLET PO SCH (20:04)
[2021-11-14] MEDS: Piperacillin/Tazobactam 3.375 GM in 0.9 % Sodium Chloride Mini Bag 100 ML IVPB SCH ×4 (00:45→23:40)
[2021-11-14] MEDS: Nystatin POWDER 30 GM BOTTLE TP SCH ×3 (01:03→20:15)
[2021-11-14 01:44] LABS: Basophils # 0.1 K/mcL (0.0-0.2); Basophils % 0.3 %; Eosinophils % 0.1 %; Hematocrit 32.3 % (35.3-44.9); Hemoglobin 10.3 g/dL (11.5-15.4); Immature Granulocytes % 4.1 % (0-4); Lymphocytes # 0.6 K/mcL (0.6-4.6); Mean Corpuscular HGB Conc 31.9 g/dL (31.6-35.5); Mean Corpuscular Hemoglobin 32.4 pg (28.0-33.3); Mean Corpuscular Volume 101.6 fL (83.0-100.0); Mean Platelet Volume 11.1 fL (9.4-12.4); Monocytes # 0.8 K/mcL (0.0-1.3); Monocytes % 3.8 %; Neutrophils # 17.8 K/mcL (1.6-8.9); Platelet Count 288 K/mcL (140-400); Red Blood Count 3.18 M/mcL (3.82-4.97); Red Cell Distribution Width 13.7 % (11.5-14.5); Segmented Neutrophils % 88.7 %; White Blood Count 20.1 K/mcL (4.3-11.1)
[2021-11-14 02:01] LABS: BUN/Creatinine Ratio 34 (6-26); Blood Urea Nitrogen 22 mg/dL (6-20); Calcium 7.9 mg/dL (8.6-10.3); Carbon Dioxide 36 mEq/L (23-29); Chloride 99 mEq/L (98-107); Glucose 190 mg/dL (70-105); Lipase 104 Units/L (11-82); Osmolality,Calculated 302 (280-300); Potassium 3.5 mEq/L (3.5-5.1); Sodium 142 mEq/L (136-145); eGFR For African Americans > 60 (> 60); eGFR For Non-African Americans > 60 (> 60)
[2021-11-14] MEDS: *HR* OxyCODONE Immed Rel 5 MG TABLET PO PRN ×3 (03:00→20:14)
[2021-11-14] MEDS: Levalbuterol Neb 1.25 MG/3 ML IH SCH ×6 (04:04→23:12)
[2021-11-14] MEDS: Ipratropium Neb 0.5 MG NEBULIZER IH SCH ×6 (04:04→23:12)
[2021-11-14] MEDS: Budesonide/Formoterol 160/4.5 1 PUFF INH IH SCH ×2 (08:11→19:50)
[2021-11-14] MEDS: Nystatin SUSP 5 ML UD.LIQ PO SCH ×4 (08:49→20:14)
[2021-11-14] MEDS: Insulin LISPRO 300 UNITS/3 ML VIAL SUBQ SCH ×4 (08:54→21:30)
[2021-11-14] MEDS: Apixaban 5 MG TABLET PO SCH ×2 (08:59→20:13)
[2021-11-14] MEDS: Lactobacillus 1 EACH CAP.SPRINK PO SCH ×2 (08:59→20:14)
[2021-11-14] MEDS: Cyanocobalamin (B-12) 1,000 MCG TABLET PO SCH (09:00)
[2021-11-14] MEDS: Aspirin 81 MG TAB.CHEW PO SCH (09:00)
[2021-11-14] MEDS: DilTIAZem CD (24hr) 120 MG CAP.ER.24H PO SCH (09:00)
[2021-11-14] MEDS: lisinopriL 20 MG TABLET PO SCH (09:00)
[2021-11-14] MEDS: predniSONE 20 MG TABLET PO SCH (09:00)
[2021-11-14] MEDS: ALPRAZolam 0.25 MG TABLET PO SCH ×2 (11:05→20:13)
[2021-11-14] MEDS: Benzonatate 100 MG CAPSULE PO PRN (16:32)
[2021-11-14 17:05] LABS: Alanine Aminotransferase 27 Units/L (7-52); Albumin 2.9 g/dL (3.5-5.7); Albumin/Globulin Ratio 1.3 (1.1-2.2); Alkaline Phosphatase 55 Units/L (34-104); Aspartate Amino Transferase 15 Units/L (13-39); Bilirubin,Direct 0.1 mg/dL (0.0-0.2); Bilirubin,Indirect 0.5 mg/dL (0.0-1.0); Bilirubin,Total 0.6 mg/dL (0.3-1.0); Globulin 2.3 g/dL (2.4-3.5); Total Protein 5.2 g/dL (6.4-8.9)
[2021-11-14 17:46] LABS: Albumin 3.1 g/dL (3.5-5.7); Albumin/Globulin Ratio 1.1 (1.1-2.2); Bilirubin,Direct 0.1 mg/dL (0.0-0.2); Bilirubin,Indirect 0.4 mg/dL (0.0-1.0); Bilirubin,Total 0.5 mg/dL (0.3-1.0); Globulin 2.8 g/dL (2.4-3.5); Total Protein 5.9 g/dL (6.4-8.9)
[2021-11-15] MEDS: Ipratropium Neb 0.5 MG NEBULIZER IH SCH ×6 (03:57→23:55)
[2021-11-15] MEDS: Levalbuterol Neb 1.25 MG/3 ML IH SCH ×6 (03:57→23:55)
[2021-11-15] MEDS: *HR* OxyCODONE Immed Rel 5 MG TABLET PO PRN ×3 (04:20→20:11)
[2021-11-15] MEDS: hydrOXYzine pamoate 25 MG CAPSULE PO PRN ×2 (04:20→11:53)
[2021-11-15] MEDS: Nystatin SUSP 5 ML UD.LIQ PO SCH ×4 (06:18→20:07)
[2021-11-15] MEDS: Insulin LISPRO 300 UNITS/3 ML VIAL SUBQ SCH ×4 (07:25→20:08)
[2021-11-15] MEDS: Apixaban 5 MG TABLET PO SCH ×2 (07:37→20:07)
[2021-11-15] MEDS: Cyanocobalamin (B-12) 1,000 MCG TABLET PO SCH (07:37)
[2021-11-15] MEDS: Aspirin 81 MG TAB.CHEW PO SCH (07:37)
[2021-11-15] MEDS: ALPRAZolam 0.25 MG TABLET PO SCH ×3 (07:38→23:32)
[2021-11-15] MEDS: predniSONE 20 MG TABLET PO SCH (07:38)
[2021-11-15] MEDS: Lactobacillus 1 EACH CAP.SPRINK PO SCH ×2 (07:38→20:07)
[2021-11-15] MEDS: lisinopriL 20 MG TABLET PO SCH (07:39)
[2021-11-15] MEDS: DilTIAZem CD (24hr) 120 MG CAP.ER.24H PO SCH (07:39)
[2021-11-15] MEDS: Piperacillin/Tazobactam 3.375 GM in 0.9 % Sodium Chloride Mini Bag 100 ML IVPB SCH ×2 (07:39→18:16)
[2021-11-15] MEDS: Nystatin POWDER 30 GM BOTTLE TP SCH (07:39)
[2021-11-15] MEDS: Budesonide/Formoterol 160/4.5 1 PUFF INH IH SCH ×2 (08:22→20:57)
[2021-11-15 09:20] LABS: Hematocrit 30.2 % (35.3-44.9); Hemoglobin 9.6 g/dL (11.5-15.4); Mean Corpuscular HGB Conc 31.8 g/dL (31.6-35.5); Mean Corpuscular Hemoglobin 32.3 pg (28.0-33.3); Mean Corpuscular Volume 101.7 fL (83.0-100.0); Mean Platelet Volume 11.1 fL (9.4-12.4); Platelet Count 307 K/mcL (140-400); Red Blood Count 2.97 M/mcL (3.82-4.97); Red Cell Distribution Width 13.9 % (11.5-14.5); White Blood Count 15.8 K/mcL (4.3-11.1)
[2021-11-15 09:23] LABS: BUN/Creatinine Ratio 50 (6-26); Blood Urea Nitrogen 21 mg/dL (6-20); Calcium 8.4 mg/dL (8.6-10.3); Carbon Dioxide 36 mEq/L (23-29); Chloride 101 mEq/L (98-107); Glucose 116 mg/dL (70-105); Osmolality,Calculated 296 (280-300); Potassium 3.8 mEq/L (3.5-5.1); Sodium 141 mEq/L (136-145); eGFR For African Americans > 60 (> 60); eGFR For Non-African Americans > 60 (> 60)
[2021-11-15 10:30] LABS: Lymphocytes # 1.3 K/mcL (0.6-4.6); Monocytes # 0.5 K/mcL (0.0-1.3); Neutrophils # 13.4 K/mcL (1.6-8.9)
[2021-11-15 10:33] LABS: Large Platelets Present (Not Present); Platelet Estimate Normal (Normal)
[2021-11-16] MEDS: Piperacillin/Tazobactam 3.375 GM in 0.9 % Sodium Chloride Mini Bag 100 ML IVPB SCH ×3 (01:46→15:51)
[2021-11-16] MEDS: Nystatin POWDER 30 GM BOTTLE TP SCH ×3 (01:47→20:13)
[2021-11-16] MEDS: *HR* OxyCODONE Immed Rel 5 MG TABLET PO PRN ×4 (03:06→22:19)
[2021-11-16 03:20] LABS: Hematocrit 29.8 % (35.3-44.9); Hemoglobin 9.5 g/dL (11.5-15.4); Mean Corpuscular HGB Conc 31.9 g/dL (31.6-35.5); Mean Corpuscular Hemoglobin 33.2 pg (28.0-33.3); Mean Corpuscular Volume 104.2 fL (83.0-100.0); Mean Platelet Volume 10.8 fL (9.4-12.4); Platelet Count 336 K/mcL (140-400); Red Blood Count 2.86 M/mcL (3.82-4.97)
[2021-11-16 03:59] LABS: BUN/Creatinine Ratio 47 (6-26); Blood Urea Nitrogen 22 mg/dL (6-20); Calcium 8.3 mg/dL (8.6-10.3); Carbon Dioxide 34 mEq/L (23-29); Chloride 106 mEq/L (98-107); Glucose 129 mg/dL (70-105); Osmolality,Calculated 299 (280-300); Potassium 3.4 mEq/L (3.5-5.1); Sodium 142 mEq/L (136-145); eGFR For African Americans > 60 (> 60); eGFR For Non-African Americans > 60 (> 60)
[2021-11-16] MEDS: Levalbuterol Neb 1.25 MG/3 ML IH SCH ×5 (04:04→20:16)
[2021-11-16] MEDS: Ipratropium Neb 0.5 MG NEBULIZER IH SCH ×5 (04:04→20:16)
[2021-11-16] MEDS: Nystatin SUSP 5 ML UD.LIQ PO SCH ×4 (07:47→20:14)
[2021-11-16] MEDS: Aspirin 81 MG TAB.CHEW PO SCH (07:48)
[2021-11-16] MEDS: Cyanocobalamin (B-12) 1,000 MCG TABLET PO SCH (07:48)
[2021-11-16] MEDS: predniSONE 20 MG TABLET PO SCH (07:48)
[2021-11-16] MEDS: lisinopriL 20 MG TABLET PO SCH (07:48)
[2021-11-16] MEDS: DilTIAZem CD (24hr) 120 MG CAP.ER.24H PO SCH (07:48)
[2021-11-16] MEDS: Apixaban 5 MG TABLET PO SCH ×2 (07:48→20:13)
[2021-11-16] MEDS: Lactobacillus 1 EACH CAP.SPRINK PO SCH ×2 (07:48→20:13)
[2021-11-16] MEDS: Insulin LISPRO 300 UNITS/3 ML VIAL SUBQ SCH ×4 (07:49→20:16)
[2021-11-16] MEDS: ALPRAZolam 0.25 MG TABLET PO SCH ×2 (07:54→20:13)
[2021-11-16] MEDS: Budesonide/Formoterol 160/4.5 1 PUFF INH IH SCH ×2 (08:32→20:16)
[2021-11-16] MEDS ORDERED: Lidocaine -MPF 2% 5 ML VIAL ONE (14:00)
[2021-11-16] MEDS ORDERED: EPHEDrine 50 MG/ML VIAL ONE (14:16)
[2021-11-16] MEDS: hydrOXYzine pamoate 25 MG CAPSULE PO PRN (20:13)
[2021-11-17] MEDS: Ipratropium Neb 0.5 MG NEBULIZER IH SCH ×5 (00:02→15:25)
[2021-11-17] MEDS: Levalbuterol Neb 1.25 MG/3 ML IH SCH ×5 (00:02→15:25)
[2021-11-17] MEDS: *HR* OxyCODONE Immed Rel 5 MG TABLET PO PRN ×2 (05:02→11:24)
[2021-11-17] MEDS: hydrOXYzine pamoate 25 MG CAPSULE PO PRN (05:02)
[2021-11-17 05:36] LABS: Hematocrit 29.7 % (35.3-44.9); Hemoglobin 9.4 g/dL (11.5-15.4); Mean Corpuscular HGB Conc 31.6 g/dL (31.6-35.5); Mean Corpuscular Hemoglobin 32.8 pg (28.0-33.3); Mean Corpuscular Volume 103.5 fL (83.0-100.0); Mean Platelet Volume 10.3 fL (9.4-12.4); Platelet Count 336 K/mcL (140-400); Red Blood Count 2.87 M/mcL (3.82-4.97); Red Cell Distribution Width 14.2 % (11.5-14.5)
[2021-11-17 06:06] LABS: BUN/Creatinine Ratio 40 (6-26); Blood Urea Nitrogen 18 mg/dL (6-20); Calcium 8.2 mg/dL (8.6-10.3); Carbon Dioxide 33 mEq/L (23-29); Chloride 104 mEq/L (98-107); Glucose 158 mg/dL (70-105); Magnesium 1.7 mg/dL (1.6-2.6); Osmolality,Calculated 299 (280-300); Potassium 3.7 mEq/L (3.5-5.1); Sodium 142 mEq/L (136-145); eGFR For African Americans > 60 (> 60); eGFR For Non-African Americans > 60 (> 60)
[2021-11-17 07:03] VITALS: PULSE 61
[2021-11-17] MEDS: Cyanocobalamin (B-12) 1,000 MCG TABLET PO SCH (07:21)
[2021-11-17] MEDS: Aspirin 81 MG TAB.CHEW PO SCH (07:21)
[2021-11-17] MEDS: ALPRAZolam 0.25 MG TABLET PO SCH (07:21)
[2021-11-17] MEDS: lisinopriL 20 MG TABLET PO SCH (07:21)
[2021-11-17] MEDS: DilTIAZem CD (24hr) 120 MG CAP.ER.24H PO SCH (07:21)
[2021-11-17] MEDS: Nystatin SUSP 5 ML UD.LIQ PO SCH ×2 (07:21→12:46)
[2021-11-17] MEDS: Apixaban 5 MG TABLET PO SCH (07:21)
[2021-11-17] MEDS: Lactobacillus 1 EACH CAP.SPRINK PO SCH (07:22)
[2021-11-17] MEDS: predniSONE 20 MG TABLET PO SCH (07:22)
[2021-11-17] MEDS: Insulin LISPRO 300 UNITS/3 ML VIAL SUBQ SCH ×2 (07:22→12:46)
[2021-11-17] MEDS: Nystatin POWDER 30 GM BOTTLE TP SCH (07:22)
[2021-11-17] MEDS: Budesonide/Formoterol 160/4.5 1 PUFF INH IH SCH (07:57)
[2021-11-17 11:32] VITALS: BP 116/65; TEMP 98; O2SAT 94
== END 2021-11-17 16:25 | disposition home health service (06) | DRG 871 ==
LOC: EMEROOARM 17:41 → 3ANU 17:41 → SUATTDRO 23:51 → 3NENU 11-05 12:38
PROVIDERS: ADMIT Internal Medicine; ATTEND Internal Medicine